=== PATIENT | female | born 1950 | race Caucasian/White ===

== ENCOUNTER 2017-01-10 21:45 | Inpatient (IN) | payer OTHER ==
--- NOTE | 2017-01-10 22:05 | EDPHY ---
H & P Smoking Status: Former smoker Time Seen by Provider: 01/10/17 21:51 HPI/ROS: CHIEF COMPLAINT: Right ankle pain HISTORY OF PRESENT ILLNESS: This is a 66-year-old female brought in by EMS from home, patient states this morning around 6 o'clock she was twisting herself to open the refrigerator door when her foot got caught under the cabinet and she twisted and fell back landing on her butt. Patient states she got maybe the pain would get better throughout the day but has increased pain with weight-bearing. Denies any LOC, dizziness no other complaints. History of right lower extremity cellulitis she says being treated by her primary care provider. Patient states she had taken 1 of her OxyContin this evening with ibuprofen reports maybe a 3/10 pain. REVIEW OF SYSTEMS: Constitutional: No fever, no chills. Eyes: No discharge. No blurred vision ENT: No sore throat. Cardiovascular: No chest pain, no palpitations. Respiratory: No cough, no shortness of breath. Gastrointestinal: No abdominal pain, no vomiting. Genitourinary: No hematuria. Musculoskeletal: No back pain. Right ankle pain Skin: No rashes. Neurological: No headache. (Laly Colon) Physical Exam: General Appearance: Alert, no distress. Eyes: Pupils equal and round no pallor or injection. ENT, Mouth: Mucous membranes moist. Respiratory: There are no retractions, lungs are clear to auscultation. Cardiovascular: Regular rate and rhythm. Gastrointestinal: Abdomen is soft and nontender, no masses, bowel sounds normal. Neurological: No focal deficits, answering questions appropriately Skin: Warm and dry, no rashes. Healing ulcer noted to the dorsal aspect of right foot Musculoskeletal: Neck is supple nontender. Extremities: Right ankle tenderness at the right lateral malleolus, swelling noted decreased range of motion, positive CMS intact. Healing ulcer noted to the dorsal aspect of right foot some erythema noted nontender on palpate Psychiatric: Patient is oriented X 3, acting appropriate (Laly Colon) Constitutional: Initial Vital Signs Temperature (C) 36.6 C 01/10/17 21:59 Heart Rate 71 01/10/17 21:59 Respiratory Rate 20 01/10/17 21:59 Blood Pressure 172/55 H 01/10/17 21:59 O2 Sat (%) 94 01/10/17 21:59 O2 Delivery Mode Room Air Allergies/Adverse Reactions: amlodipine Allergy (Verified 01/11/17 02:28) Home Medications: Medication Instructions Recorded Armodafinil [Nuvigil 150mg] 150 mg PO DAILY 04/26/15 Dalfampridine [AMPYRA] 10 mg PO BIDMEAL 04/26/15 Interferon Beta-1A/Albumin [Rebif 44 mcg SQ MWF 04/26/15 Rebidose 44 Mcg/0.5 ml] [place]-3 Fatty Acids [Fish Oil 1000 1,000 mg PO DAILY 04/26/15 mg (*)] Ascorbic Acid [Vitamin C 250 mg 250 mg PO DAILY 04/27/15 (*)] Cyanocobalamin [Vitamin B12 (*)] 1,000 mcg SL DAILY 04/27/15 Levothyroxine [Synthroid 25 mcg 25 mcg PO DAILY06 04/27/15 (*)] Baclofen [Baclofen 20 mg (*)] 20 mg PO AD #90 tab 05/25/15 Cholecalciferol Vit D3 [Vitamin D3 2,000 units PO DAILY #30 cap 05/25/15 2000 units] Labetalol HCl [Trandate 100 mg (*)] 100 mg PO BID #60 tab 05/25/15 Pantoprazole Sodium [Protonix 40mg 40 mg PO DAILY #30 tab 05/25/15 (*)] Polyethylene Glycol 3350 [Miralax 17 gm PO DAILY #30 pkt 05/25/15 17 gm (*)] Sennosides/Docusate Sodium 1 - 2 tab PO BID #90 tab 05/25/15 [Senokot-S] Sodium Chloride [Salt Tablet] 1,000 mg PO DAILY #30 tab 05/25/15 Valsartan [Diovan (*)] 160 mg PO BID #60 tab 05/25/15 hydrALAZINE [Apresoline] 25 mg PO TID #90 tab 05/25/15 oxyCODONE CR [Oxycontin] 20 mg PO BID #30 tab 05/25/15 oxyCODONE IR [Oxycodone Ir (*)] 5 - 10 mg PO Q4 PRN #90 tab 05/25/15 Medical Decision Making - Diagnostics Imaging Results: Imaging Impressions Ankle X-Ray 01/10/17 22:02 Impression: 1. Acute minimally angulated distal fibular fracture. 2. Acute minimally angulated intra-articular distal tibia fracture. 3. Demineralization. ED Course/Re-evaluation: Discussed the plan of care: X-ray right ankle, ice pack 2304: Discussed patient with Dr. Duque, patient to be admitted to hospital and NPO surgery in the morning. Posterior long splint placed---> positive CMS intact 2309: Discussed patient admitted with Dr. Lee. CBC, BMP coags, UA with drug screen ordered. Patient and has been aware of admitting status angulated distal fibula fracture and angulated intra-articular distal tibia. Patient agreed with plan (Laly Colon) Differential Diagnosis: Other differential diagnosis considered but not limited to malleolar fracture, midshaft fibular fracture, and ankle dislocation (Laly Colon) Other Provider: PHYSICIAN DOCUMENTATION: The patient was evaluated and managed by the Physician Sulfide Head Operator. My co- signature indicates that I have reviewed this chart and I agree with the findings and plan of care as documented. I am the secondary supervising physician. (Sue Calderón) - Data Points Laboratory Results: Laboratory Results 01/10/17 21:50 01/10/17 21:50 01/10/17 01/10/17 01/10/17 21:50 21:50 21:50 WBC 6.21 10^3/uL 10^3/uL (3.80-9.50) RBC 3.11 10^6/uL L 10^6/uL (4.18-5.33) Hgb 9.7 g/dL L g/dL (12.6-16.3) Hct 29.5 % L % (38.0-47.0) MCV 94.9 fL fL (81.5-99.8) MCH 31.2 pg pg (27.9-34.1) MCHC 32.9 g/dL g/dL (32.4-36.7) RDW 13.9 % % (11.5-15.2) Plt Count 74 10^3/uL L 10^3/uL (150-400) MPV 11.9 fL H fL (8.7-11.7) Neut % (Auto) 81.7 % H % (39.3-74.2) Lymph % (Auto) 9.5 % L % (15.0-45.0) [place] % (Auto) 5.3 % % (4.5-13.0) Eos % (Auto) 2.7 % % (0.6-7.6) Baso % (Auto) 0.5 % % (0.3-1.7) Nucleat RBC Rel Count 0.0 % % (0.0-0.2) Absolute Neuts (auto) 5.07 10^3/uL 10^3/uL (1.70-6.50) Absolute Lymphs (auto) 0.59 10^3/uL L 10^3/uL (1.00-3.00) Absolute Monos (auto) 0.33 10^3/uL 10^3/uL (0.30-0.80) Absolute Eos (auto) 0.17 10^3/uL 10^3/uL (0.03-0.40) Absolute Basos (auto) 0.03 10^3/uL 10^3/uL (0.02-0.10) Absolute Nucleated RBC 0.00 10^3/uL 10^3/uL (0-0.01) Immature Gran % 0.3 % % (0.0-1.1) Immature Gran # 0.02 10^3/uL 10^3/uL (0.00-0.10) PT 13.5 SEC SEC (12.0-15.0) INR 1.04 (0.83-1.16) APTT 29.8 SEC SEC (23.0-38.0) Sodium 136 mEq/L mEq/L (134-144) Potassium 4.5 mEq/L mEq/L (3.5-5.2) Chloride 101 mEq/L mEq/L (97-110) Carbon Dioxide 20 mEq/l L mEq/l (22-31) Anion Gap 15 mEq/L mEq/L (8-16) BUN 44 mg/dL H mg/dL (7-23) Creatinine 1.4 mg/dL H mg/dL (0.6-1.0) Estimated GFR 38 Glucose 101 mg/dL H mg/dL (70-100) Calcium 10.0 mg/dL mg/dL (8.5-10.4) Medications Given: Discontinued Medications Baclofen (Baclofen) 10 mg PO ONCE ONE Stop: 01/11/17 03:39 Last Admin: 01/11/17 03:56 Dose: 10 mg Sodium Chloride (Ns) 1,000 mls @ 0 mls/hr IV ONCE ONE PRN Reason: Wide Open Stop: 01/10/17 23:47 Last Admin: 01/10/17 23:50 Dose: 1,000 mls Departure - Departure Disposition: [facility] In[facility] Acute Clinical Impression: Tibia/fibula fracture Qualifiers: Encounter type: initial encounter Fracture type: closed Laterality: right Qualified Code(s): S82.201A - Unspecified fracture of shaft of right tibia, initial encounter for closed fracture Condition: Good
[2017-01-10] MEDS ORDERED: NS 1,000 ML IV ONE (23:46)
[2017-01-11] LABS: % IMMATURE GRANULYOCYTES 0.3 % (0.0-1.1); ABSOLUTE IMMATURE GRANULOCYTES 0.02 10^3/uL (0.00-0.10); ADD DIFF? NO; ADD MORPH? NO; ADD SCAN? NO; ATYPICAL LYMPHOCYTE FLAG 0 (0-99); FRAGMENT RBC FLAG 0 (0-99); HEMATOCRIT 29.5 % (38.0-47.0); HEMOGLOBIN 9.7 g/dL (12.6-16.3); LEFT SHIFT FLG 0 (0-99); LIPEMIA HEMOLYSIS FLAG 80 (0-99); MEAN CELL HEMOGLOBIN 31.2 pg (27.9-34.1); MEAN CELL HEMOGLOBIN CONCENTR. 32.9 g/dL (32.4-36.7); MEAN CELL VOLUME 94.9 fL (81.5-99.8); MEAN PLATELET VOLUME 11.9 fL (8.7-11.7); PLATELET CLUMPS FLAG 0 (0-99); PLATELET COUNT 74 10^3/uL (150-400); RED BLOOD CELL COUNT 3.11 10^6/uL (4.18-5.33); RED CELL DISTRIBUTION WIDTH 13.9 % (11.5-15.2)
[2017-01-11 00:05] LABS: ANION GAP 15 mEq/L (8-16); CARBON DIOXIDE 20 mEq/l (22-31); CHLORIDE 101 mEq/L (97-110); CREATININE 1.4 mg/dL (0.6-1.0); GLOMERULAR FILTRATION RATE 38; GLUCOSE 101 mg/dL (70-100); POTASSIUM 4.5 mEq/L (3.5-5.2); SODIUM 136 mEq/L (134-144)
[2017-01-11 00:26] LABS: INR 1.04 (0.83-1.16); PROTIME(PATIENT) 13.5 SEC (12.0-15.0)
[2017-01-11 00:27] LABS: APTT 29.8 SEC (23.0-38.0)
[2017-01-11] MEDS ORDERED: ONDANSETRON 4 MG/2 ML VIAL IVP PRN (00:44)
[2017-01-11] MEDS ORDERED: ACETAMINOPHEN 325 MG TAB PO PRN (00:44)
[2017-01-11] MEDS ORDERED: ONDANSETRON DISINTEGRATING 4 MG TAB PO PRN (00:44)
[2017-01-11] MEDS ORDERED: NS 1,000 ML IV SCH (00:45)
[2017-01-11] MEDS: HYDROCODONE/APAP 5/325 TAB PO PRN ×3 (03:18→21:12)
--- NOTE | 2017-01-11 03:20 | PDGENHP ---
History and Physical - Chief Complaint fall - History of Present Illness Patient is a 66-year-old female with a history of multiple sclerosis, chronic anemia, hypertension, chronic lower extremity wounds who presents to the ED after a of fall. Fall occurred at around 5-6 a.m. on the morning of 01/10. Patient states she was in her kitchen with a lower cabinet drawer open, her R foot got caught on this open drawer, and she lost her balance twisting backwards landing on her buttocks. She did not hit her head or lose consciousness. Her was able to helped her into her wheelchair and she did not seek immediate medical attention at that time. pain was initially 8 reported to be about a 3/10 intensity worsening acutely if she tried to bear weight on her leg. As the day progressed, it became apparent patient would not be able to bear weight due to the pain, so at this time she decided to come to the ED for further evaluation. At home she took ibuprofen 400 mg x2 and also oxycodone 5 mg IR x2. She denies any weakness, numbness or tingling in the foot distal to the pain. Patient also denies any recent fevers, chills, cough, congestion, chest pain, palpitations, shortness of breath or exertional symptoms. She does have gait disturbances due to her MS, with a mechanical fall in 2014 resulting in R hip fracture. She apparently switches between ambulating with a walker and using wheelchair. More recent fall about 6 months ago has resulted in chronic hull wounds, for which she is being managed by her PMD. On arrival to the ED patient was afebrile hemodynamically stable. X-ray of the right lower extremity revealed angulated acute fracture of the distal tibia and fibula. Labs, including CBC, BMP and coags were within normal limits. Orthopedics was consulted and recommended surgical correction of the fractures in the morning. She was then admitted to the hospital service for further management. History Information - Allergies/Home Medication List Allergies/Adverse Reactions: amlodipine Allergy (Verified 01/11/17 02:28) Home Medications: Armodafinil [Nuvigil 150mg] 150 mg PO DAILY 04/26/15 [Last Taken 05/05/15 10:00] Dalfampridine [AMPYRA] 10 mg PO BIDMEAL 04/26/15 [Last Taken 05/05/15 09:00] Interferon Beta-1A/Albumin [Rebif Rebidose 44 Mcg/0.5 ml] 44 mcg SQ MWF [Last Taken 05/05/15 11:50] [place]-3 Fatty Acids [Fish Oil 1000 mg (*)] 1,000 mg PO DAILY 04/26/15 [Last Taken 05/05/15 09:00] Ascorbic Acid [Vitamin C 250 mg (*)] 250 mg PO DAILY 04/27/15 [Last Taken 09:00] Cyanocobalamin [Vitamin B12 (*)] 1,000 mcg SL DAILY 04/27/15 [Last Taken 09:00] Levothyroxine [Synthroid 25 mcg (*)] 25 mcg PO DAILY06 04/27/15 [Last Taken 09/18 04:40] I have personally reviewed and updated: family history, medical history, social history, surgical history - Past Medical History Additional medical history: Multiple sclerosis. history of chronic hyponatremia due to SIADH. chronic anemia. hypertension. lower extremity chronic wounds. fall risk - Surgical History Additional surgical history: right femoral fracture repair - Family History Positive for: non-pertinent - Social History Smoking Status: Never smoked Alcohol Use: None Drug Use: Marijuana ( medicinal for treatment of her MS) Additional social history: patient lives with her , occasionally ambulates, but uses wheelchair for long distance. Review of Systems ROS: 10pt was reviewed & negative except for what was stated in HPI & below Physical Exam Temp Pulse Resp BP Pulse Ox 36.9 C 88 16 162/88 H 94 01/11/17 00:51 01/11/17 00:51 01/11/17 00:51 01/11/17 00:51 01/11/17 00:51 Constitutional: no apparent distress, appears nourished, not in pain Eyes: PERRL, anicteric sclera, EOMI Ears, Nose, Mouth, Throat: moist mucous membranes, hearing normal, ears appear normal, no oral mucosal ulcers Cardiovascular: regular rate and rhythym, no murmur, rub, or gallop, pulses symmetric bilaterally, No JVD, No edema Peripheral Pulses: 2+: dorsalis-pedis (R), dorsalis-pedis (L) Respiratory: no respiratory distress, no rales or rhonchi, clear to auscultation Gastrointestinal: normoactive bowel sounds, soft, non-tender abdomen, no palpable masses, No guarding, No rebound, No distension Genitourinary: no bladder fullness, no bladder tenderness Skin: warm, normal color, no fluctuance, other (chronic wound on dorsal aspect of R foot, bilateral anterior hull wounds, wrapped ), No mottled Musculoskeletal: full muscle strength, no muscle tenderness, no joint effusions , pain with ROM (of RLE/foot) Neurologic: AAOx3, sensation intact bilaterally, CN II-XII Intact, No weakness, No numbness, No pronator drift, No facial droop Psychiatric: not anxious, not encephalopathic, thought process linear Lab Data & Imaging Review 01/10/17 21:50 01/10/17 21:50 WBC 6.21 10^3/uL (3.80-9.50) 01/10/17 21:50 RBC 3.11 10^6/uL (4.18-5.33) L 01/10/17 21:50 Hgb 9.7 g/dL (12.6-16.3) L 01/10/17 21:50 Hct 29.5 % (38.0-47.0) L 01/10/17 21:50 MCV 94.9 fL (81.5-99.8) 01/10/17 21:50 MCH 31.2 pg (27.9-34.1) 01/10/17 21:50 MCHC 32.9 g/dL (32.4-36.7) 01/10/17 21:50 RDW 13.9 % (11.5-15.2) 01/10/17 21:50 Plt Count 74 10^3/uL (150-400) L 01/10/17 21:50 MPV 11.9 fL (8.7-11.7) H 01/10/17 21:50 Neut % (Auto) 81.7 % (39.3-74.2) H 01/10/17 21:50 Lymph % (Auto) 9.5 % (15.0-45.0) L 01/10/17 21:50 [place] % (Auto) 5.3 % (4.5-13.0) 01/10/17 21:50 Eos % (Auto) 2.7 % (0.6-7.6) 01/10/17 21:50 Baso % (Auto) 0.5 % (0.3-1.7) 01/10/17 21:50 Nucleat RBC Rel Count 0.0 % (0.0-0.2) 01/10/17 21:50 Absolute Neuts (auto) 5.07 10^3/uL (1.70-6.50) 01/10/17 21:50 Absolute Lymphs (auto) 0.59 10^3/uL (1.00-3.00) L 01/10/17 21:50 Absolute Monos (auto) 0.33 10^3/uL (0.30-0.80) 01/10/17 21:50 Absolute Eos (auto) 0.17 10^3/uL (0.03-0.40) 01/10/17 21:50 Absolute Basos (auto) 0.03 10^3/uL (0.02-0.10) 01/10/17 21:50 Absolute Nucleated RBC 0.00 10^3/uL (0-0.01) 01/10/17 21:50 Immature Gran % 0.3 % (0.0-1.1) 01/10/17 21:50 Immature Gran # 0.02 10^3/uL (0.00-0.10) 01/10/17 21:50 PT 13.5 SEC (12.0-15.0) 01/10/17 21:50 INR 1.04 (0.83-1.16) 01/10/17 21:50 APTT 29.8 SEC (23.0-38.0) 01/10/17 21:50 Sodium 136 mEq/L (134-144) 01/10/17 21:50 Potassium 4.5 mEq/L (3.5-5.2) 01/10/17 21:50 Chloride 101 mEq/L (97-110) 01/10/17 21:50 Carbon Dioxide 20 mEq/l (22-31) L 01/10/17 21:50 Anion Gap 15 mEq/L (8-16) 01/10/17 21:50 BUN 44 mg/dL (7-23) H 01/10/17 21:50 Creatinine 1.4 mg/dL (0.6-1.0) H 01/10/17 21:50 Estimated GFR 38 01/10/17 21:50 Glucose 101 mg/dL (70-100) H 01/10/17 21:50 Calcium 10.0 mg/dL (8.5-10.4) 01/10/17 21:50 Visualized and Interpreted imaging results: Yes Interpretation: R ankle x-ray: angulated distal tibia/fibula fracture Assessment & Plan Assessment: Patient is a 66/F with MS, complicated by unsteady gait, also with hypertension , chronic anemia who presents to the ED with mechanical fall with resulting R leg trauma. ED evaluation reveals acute distal tibia/fibula fracture, requiring surgical correction. Plan: # acute tibia/fibula fracture Orthopedics has been contacted by ED staff and recommend surgical correction of the fractures. R lower extremity remains neurovascularly intact, has been placed in a posterior splint, pending surgery. Patient has no cardiac risk factors, denies any cardiac symptoms. Will check EKG pre-op, if normal can proceed with surgery. - f/u ortho recommendations - pain control as needed - NPO # fall Patient's description of the fall sounds mechanical in nature. She does have a history of recurrent falls, as a complication of her MS. Will place on fall precautions, obtain PT/OT evaluation post-op. Will also monitor electrolytes, provide gentle IV fluid hydration and check UA to rule out underlying infection as contributors of fall. # chronic hypertension BP is elevated on presentation, likely due to acute pain. Will resume home BP meds and control pain as needed. # elevated BUN/cr Creatinine is at about previous levels. Will monitor with IVF hydration, avoid nephrotoxic agents. # chronic anemia, new thrombocytopenia H/H appear to be at patient's previous baseline. Platelets are lower then previous levels. Will trend, may need transfusion prior to surgery. # hypothyroidism Will check TSh and resume home synthroid dosing. # dispo: admit to inpatient service for likely > 2 MN stay #gen: NPO DVT ppx: lovenox after surgery Full code
[2017-01-11] MEDS ORDERED: BACLOFEN 10 MG TAB PO ONE (03:38)
[2017-01-11] MEDS: HYDROmorphONE/DILAUDID 1 MG/ML SYR IVP PRN ×2 (04:01→10:06)
[2017-01-11 04:47] LABS: % IMMATURE GRANULYOCYTES 0.4 % (0.0-1.1); ABSOLUTE IMMATURE GRANULOCYTES 0.02 10^3/uL (0.00-0.10); ADD DIFF? NO; ADD MORPH? NO; ADD SCAN? NO; ATYPICAL LYMPHOCYTE FLAG 0 (0-99); FRAGMENT RBC FLAG 0 (0-99); HEMATOCRIT 27.7 % (38.0-47.0); LEFT SHIFT FLG 0 (0-99); LIPEMIA HEMOLYSIS FLAG 80 (0-99); MEAN CELL HEMOGLOBIN 30.6 pg (27.9-34.1); MEAN CELL HEMOGLOBIN CONCENTR. 32.5 g/dL (32.4-36.7); MEAN CELL VOLUME 94.2 fL (81.5-99.8); MEAN PLATELET VOLUME 11.3 fL (8.7-11.7); PLATELET CLUMPS FLAG 0 (0-99); PLATELET COUNT 63 10^3/uL (150-400); RED BLOOD CELL COUNT 2.94 10^6/uL (4.18-5.33); RED CELL DISTRIBUTION WIDTH 13.9 % (11.5-15.2)
[2017-01-11 05:03] LABS: ALANINE AMINOTRANSFERASE 39 IU/L (9-52); ALKALINE PHOSPHATASE 148 IU/L (38-126); ANION GAP 11 mEq/L (8-16); ASPARTATE AMINOTRANSFERASE 28 IU/L (14-46); BILIRUBIN,TOTAL 0.6 mg/dL (0.1-1.4); CALCIUM 9.1 mg/dL (8.5-10.4); CARBON DIOXIDE 19 mEq/l (22-31); CHLORIDE 108 mEq/L (97-110); CREATININE 1.2 mg/dL (0.6-1.0); GLOMERULAR FILTRATION RATE 45; GLUCOSE 90 mg/dL (70-100); MAGNESIUM 1.8 mg/dL (1.6-2.3); POTASSIUM 4.2 mEq/L (3.5-5.2); SODIUM 138 mEq/L (134-144); TOTAL PROTEIN 6.5 g/dL (6.3-8.2)
--- NOTE | 2017-01-11 06:56 | SOAPPROG ---
[facility] Progress Note Assessment/Plan: Assessment/Plan: Acute distal tibia/fibula fx, intra-articular -Pt scheduled for closed reduction under anesthesia in the OR on to be performed by Dr. Duque -Pt will likely be transitioned into a cast for immobilization, bivalved and windowed for ipsilateral LE ulceration management -Pt will have PT/OT ordered for mobilization after reduction, she will remain NWB on her RLE. -Pt to elevate her RLE at all times while in bed, encourage OOB as tolerated -Pt to continue current PO pain regimen after surgery as tolerated -Pt to begin Lovenox for VTE chemoprophylaxis while immobile 01/11/17 07:15 Subjective: Consultation note dictated Objective: Vital Signs Temp Pulse Resp BP Pulse Ox 36.9 C 71 15 150/71 H 91 L 01/11/17 04:00 01/11/17 04:00 01/11/17 04:00 01/11/17 04:00 01/11/17 04:00 Laboratory Results 01/11/17 04:33 01/11/17 04:33 01/10/17 01/11/17 01/12/17 05:59 05:59 05:59 Intake Total 1000 Output Total 200 Balance 800 PT 13.5 SEC (12.0-15.0) 01/10/17 21:50 INR 1.04 (0.83-1.16) 01/10/17 21:50 ICD10 Worksheet Patient Problems: Problems Problem Status Onset Tibia/fibula fracture Acute ARF (acute renal failure) Acute Anemia associated with acute blood loss Acute Hip fx Acute Hyponatremia Acute
[2017-01-11] MEDS ORDERED: ceFAZolin 2 GM/DEXTROSE 100 ML IV ONE (07:12)
[2017-01-11] MEDS ORDERED: ENOXAPARIN 40 MG/0.4 ML SYR SC SCH (09:00)
--- NOTE | 2017-01-11 09:52 | GCON ---
[f rep st] CONSULTATION ORTHOPEDIC CONSULTATION NOTE. CHIEF COMPLAINT: Right ankle pain. HISTORY OF PRESENT ILLNESS: The patient is a pleasant 66-year-old female, who presented to the [facility] emergency department on 01/11/2017 after suffering a mechanical fall. The p khai confirms a story that she was in her kitchen and tripped on an open cabinet door, catching he r right foot. She subsequently lost her balance, twisting backwards and landing on her backside. S he denies any loss of consciousness or any head or neck trauma. Her appears to have been pr esent and was able to help her into her wheelchair. They did not seek immediate medical attention, however the pain significantly increased as the day progressed, eventually presented to the ED for e valuation. After examination in the ED, the patient was placed in a posterior Ortho Glass splint wi th compressive Garcia dressing, and because of her comorbid conditions, was admitted to the [facility]. Orthopedics was consulted. Initially, based on the patient's radiographs, this injury appea rs to be surgical in nature due to its interarticular extension. However, based on the patient's hi story and current skin condition on the operative leg, this surgical intervention would be highly ri reagan at this time. The patient reports her pain is under control at this time. She states that she has not eaten or had any fluids since midnight, for the anticipation of surgery. Her was pr esent last night, but is not currently present in the room. She has no additional concerns or compl aints at this time. PAST MEDICAL HISTORY: This is significant for multiple sclerosis, history of chronic hyponatremia d ue to SIADH, chronic anemia, hypertension, lower extremity wounds (possible cellulitis), and normall y ambulates for short distances and uses a wheelchair at home. PAST SURGICAL HISTORY: This is significant for a right femoral fracture open reduction, internal fi xation. MEDICATIONS: Patient reports home medications Nuvigil, Ampyra, interferon beta-1A/albumin, omega-3 fish oils, vitamin C, vitamin B12 and Synthroid. ALLERGIES: Patient reports an allergy to amlodipine. SOCIAL HISTORY: Patient denies any current or former tobacco use. Patient denies any current alcoh ol consumption. Patient does note that she uses marijuana as a medicinal treatment for her multiple sclerosis. The patient reports that she lives at home with her , and again occasionally amb ulates, but generally uses a wheelchair for ambulation over long distances. FAMILY HISTORY: No significant contributory family history is reported today. REVIEW OF SYSTEMS: A 10-point review of systems was reviewed today with no additional concerns, com plaints or abnormal findings noted in the HPI or PMH. PHYSICAL EXAMINATION: VITAL SIGNS: Height is 135.26 cm, weight is 63.5 kg. Blood pressure is 150/ 71, heart rate 71 beats per minute, respirations 15 per minute, O2 sats are 91% on room air, tempera ture 36.9 degrees Celsius. GENERAL: Patient appears in NAD, WN, not in significant pain. HEENT: PERRLA, EOMI. Ears and nare s are patent without discharge. OP is clear. NECK: NTTP, no cervical LAD noted. CARDIOVASCULAR: RRR. RESPIRATORY: CTAB, no increased WOB not ed. ABDOMEN: Soft, NT/ND. MUSCULOSKELETAL: Examination of the right lower extremity reveals an i ntact Ortho Glass posterior splint. This was removed revealing mild swelling and ecchymosis over th e distal aspect of the right lower extremity, as well as over the ankle. Patient has TTP over the d istal fibula and distal tibia. Apprehensive with any motion. Skin is somewhat erythema. A pressur e ulcer is noted on the dorsum of the foot just distal to the web space of toes 4 and 5. An additio nal ulceration approximately 3.5 cm is noted on the anterior tibial surface, this was dressed with a n Adaptic dressing. Slight surrounding erythema is noted, without significant discharge at this robyn e. No induration is noted. Posterior calf has NTTP, no palpable vascular cords. Examination of th e left lower extremity reveals a dressed likely pressure ulcer on the left lateral aspect of the low er extremity. This is dressed and marked with wound care dressing and date. Patient is intact to light touch sensation distally. SKIN: See above dictation concerning lower ex tremities. Otherwise warm normal color. NEUROLOGIC: A and O x3, patient is slightly slow to answe r questions, and exhibits what appeared to be involuntary arm motions after being awakened from slee p for exam. She is unable to control these movements at this time. PSYCH: Patient is pleasant and cooperative with exam. Although slow to answer questions, patient gives appropriate answers. RADIOGRAPHS: Three views of the right ankle are reviewed today showing a mildly angulated distal fi bular fracture, and mildly angulated intra-articular distal tibia fracture. ASSESSMENT: Right distal fibular fracture, right distal tibia fracture, intra-articular. PLAN: This patient's case and radiographs were reviewed with Dr. Duque today, who also saw and exam ined the patient today. Normally, this type of fracture would require surgical intervention. Howev er, due to the open wound on the ipsilateral anterior thigh just above the surgical site, this would make such intervention highly risky. After treatment options were discussed with the patient, she has decided to proceed with a closed reduction under anesthesia to be performed in the OR later toda y by Dr. Duque. After this reduction, the patient will be likely placed in a cast for immobilizatio n, which will be bivalved and windowed for access to the patient's wounds. She will remain nonweigh tbearing on her right lower extremity, and receive evaluation by PT/OT. VTE chemoprophylaxis can be per medicine service as this patient will be slightly more mobile than usual. Normal VTE mechanica l prophylaxis with sequential compression devices and JAKE hose would be absolutely contraindicated i n this patient due to her right lower extremity open wounds, thus will encourage active ankle motion on the contralateral leg, and out of bed activities as tolerated. All the patient's questions have been answered today, and her concerns addressed. She has relayed her understanding of the current care plan and education presented today. However, I am not sure the patient can fully appreciate th e consent, so after reviewing a signed informed consent with the patient today, this will be held fo r review with the patient's later today before the procedure. Again, this patient has been seen and examined by Dr. Duque, who agrees with the above plan. /[id number]/MODL
--- NOTE | 2017-01-11 10:24 | HOSPPROG ---
Hospitalist Progress Note Assessment/Plan: Patient is a 66/F with MS new to my care 01/11, complicated by unsteady gait, also with hypertension, chronic anemia who presents to the ED with mechanical fall with resulting R leg trauma. ED evaluation reveals acute distal tibia/ fibula fracture, requiring surgical correction. Plan: # acute tibia/fibula fracture -OR later today for fracture manipulation and casting -cont iv/po opiates for pain control # fall Patient's description of the fall sounds mechanical in nature. She does have a history of recurrent falls, as a complication of her MS. Will place on fall precautions, obtain PT/OT evaluation post-op. Will also monitor electrolytes, provide gentle IV fluid hydration and check UA to rule out underlying infection as contributors of fall. # chronic hypertension resume home meds once reconciled # elevated BUN/cr (improving) Creatinine is at about previous levels. Will monitor with IVF hydration, avoid nephrotoxic agents. # chronic anemia, new thrombocytopenia H/H appear to be at patient's previous baseline. Platelets are lower then previous levels. -hold lmwh -repeat cbc in am -defer plt transfusion # hypothyroidism Will check TSh and resume home synthroid dosing. # dispo: admit to inpatient service for likely > 2 [place] stay #gen: NPO DVT ppx: lmwh on hold Full code Subjective: umcomfortable Objective: Vital Signs Temp Pulse Resp BP Pulse Ox 36.4 C 100 14 166/104 H 90 L 01/11/17 08:00 01/11/17 08:00 01/11/17 08:00 01/11/17 09:29 01/11/17 08:00 Laboratory Results 01/11/17 04:33 01/11/17 04:33 01/10/17 01/11/17 01/12/17 05:59 05:59 05:59 Intake Total 1000 Output Total 200 Balance 800 PT 13.5 SEC (12.0-15.0) 01/10/17 21:50 INR 1.04 (0.83-1.16) 01/10/17 21:50 - Physical Exam Constitutional: chronically ill appearing, uncomfortable Cardiovascular: regular rate and rhythym, no murmur, rub, or gallop Respiratory: no respiratory distress, no rales or rhonchi, clear to auscultation Skin: warm Neurologic: other (moves digits cr<3 sec) ICD10 Worksheet Patient Problems: Problems Problem Status Onset Hip fx Acute Hyponatremia Acute ARF (acute renal failure) Acute Anemia associated with acute blood loss Acute Tibia/fibula fracture Acute
--- NOTE | 2017-01-11 10:29 | CPEKG ---
Heart Rate: 61 RR Interval: 984 P-R Interval: 168 QRSD Interval: 94 QT Interval: 424 QTC Interval: 427 P [place]: 79 QRS [place]: 83 T Wave [place]: 82 EKG Severity - ABNORMAL ECG - EKG Impression: SINUS RHYTHM EKG Impression: BORDERLINE RIGHT AXIS DEVIATION EKG Impression: CONSIDER LEFT VENTRICULAR HYPERTROPHY EKG Impression: BORDERLINE INFERIOR Q WAVES Electronically Signed By: Joseph Otoole 11-Jan-2017 15:26:31
[2017-01-11] MEDS ORDERED: HYDROmorphONE/DILAUDID 1 MG/ML SYR IVP PRN (12:30)
[2017-01-11] MEDS ORDERED: IBUPROFEN 200 MG TAB PO PRN (13:34)
[2017-01-11] MEDS ORDERED: SENNOSIDES/DOCUSATE SODIUM TAB PO PRN (13:34)
[2017-01-11] MEDS ORDERED: POLYETHYLENE GLYCOL 3350 17 GM PKT PO PRN (13:34)
[2017-01-11] MEDS ORDERED: PROPOFOL 200 MG/20 ML VIAL ONE (13:55)
[2017-01-11] MEDS ORDERED: LIDOCAINE 2% 100 MG/5 ML SYR ONE (13:56)
[2017-01-11] MEDS ORDERED: METOCLOPRAMIDE 10 MG/2 ML VIAL IVP PRN (14:47)
[2017-01-11] MEDS ORDERED: DIPHENOXYLATE/ATROPINE LOMOTIL 1 TAB PO PRN (14:47)
[2017-01-11] MEDS ORDERED: CYCLOBENZAPRINE 10 MG TAB PO PRN (14:47)
[2017-01-11] MEDS ORDERED: diphenhydrAMINE 25 MG CAP PO PRN (14:47)
[2017-01-11] MEDS ORDERED: TEMAZEPAM 15 MG CAP PO PRN (14:47)
[2017-01-11] MEDS ORDERED: PROMETHAZINE HCL 25 MG/ML INJ IVP PRN (14:47)
--- NOTE | 2017-01-11 15:47 | GOP ---
[f rep st] OPERATIVE REPORT DATE OF OPERATION: 01/11/2017 SURGEON: Tino Duque MD ANESTHESIA: General. PREOPERATIVE DIAGNOSIS: 1. Right distal 3rd tibia and fibular fracture. 2. Chronic wound ulcers, right lower extremity. POSTOPERATIVE DIAGNOSIS: 1. Right distal 3rd tibia and fibular fracture. 2. Chronic wound ulcers, right lower extremity. PROCEDURE PERFORMED: Closed reduction, application of patellar tendon bearing short leg cast, right lower extremity for tibia and fibular fracture (displaced). FINDINGS: DESCRIPTION OF PROCEDURE: The patient was taken to the operating room and administered general anes thesia, placed in the supine position. Her extremity was cradled in a leg tucker. The end of the t able was let down. The FluoroScan unit was brought into position. The fracture was manipulated out of its varus alignment and distracted slightly to do so. The fracture was then placed into a short -leg cast. The cast was univalved anteriorly and also openings were made over the ulcerations for w ound care. The patient tolerated the procedure well and was transferred back to recovery in stable condition. There were no operative complications. COMPLICATIONS: None. Copy requested to: Dr. Duque /[id number]/MODL
[2017-01-11] MEDS: FUROSEMIDE 20 MG TAB PO SCH (16:08)
[2017-01-11] MEDS: hydrALAZINE 20 MG/ML VIAL IVP PRN (18:29)
[2017-01-11] MEDS: FAMOTIDINE 20 MG TAB PO SCH (20:05)
[2017-01-11] MEDS: LABETALOL HCL 100 MG TAB PO SCH (20:05)
[2017-01-11] MEDS: BACLOFEN 20 MG TAB PO SCH (20:05)
[2017-01-11 20:06] LABS: COLOR PALE YELLOW; LEUKOCYTE ESTERASE,URINE NEGATIVE (NEGATIVE); NITRITE,URINE NEGATIVE (NEGATIVE)
[2017-01-11] MEDS: Dalfampridine [Ampyra] 10 MG PO SCH (20:47)
[2017-01-12] MEDS: hydrALAZINE 20 MG/ML VIAL IVP PRN (04:32)
[2017-01-12] MEDS: LEVOTHYROXINE 25 MCG TAB PO SCH (04:35)
[2017-01-12 05:08] LABS: HEMATOCRIT 28.8 % (38.0-47.0); HEMOGLOBIN 9.4 g/dL (12.6-16.3)
[2017-01-12] MEDS: CHOLECALCIFEROL VIT D3 1,000 UNITS TAB PO SCH (08:27)
[2017-01-12] MEDS: CYANO/VITAMIN B12 1000 MCG TAB SL SCH (08:28)
[2017-01-12] MEDS: OMEGA-3 FATTY ACIDS 1,000 MG CAP PO SCH (08:28)
[2017-01-12] MEDS: BACLOFEN 20 MG TAB PO SCH ×2 (08:28→20:48)
[2017-01-12] MEDS: ASCORBIC ACID 250 MG TAB PO SCH (08:28)
[2017-01-12] MEDS: LABETALOL HCL 100 MG TAB PO SCH ×2 (08:28→20:47)
[2017-01-12] MEDS: Armodafinil [Nuvigil 150mg] 150 MG PO SCH (08:29)
[2017-01-12] MEDS: FAMOTIDINE 20 MG TAB PO SCH ×2 (08:29→20:48)
[2017-01-12] MEDS: FUROSEMIDE 20 MG TAB PO SCH (08:29)
[2017-01-12] MEDS: ASPIRIN 325 MG TAB PO SCH (08:29)
[2017-01-12] MEDS: Dalfampridine [Ampyra] 10 MG PO SCH ×2 (08:30→15:32)
--- NOTE | 2017-01-12 10:25 | SOAPPROG ---
SOAP Progress Note Assessment/Plan: Assessment/Plan: Acute distal tibia/fibula fx, intra-articular -Pt scheduled for closed reduction under anesthesia in the OR on to be performed by Dr. Duque -Pt in a SAC, univalved and windowed for ipsilateral LE ulceration management -Cont PT/OT, pt will remain TDWB on her RLE. -Pt to elevate her RLE at all times while in bed, encourage OOB as tolerated -Pt to continue current PO pain regimen after surgery as tolerated -Wound care consult in place for ulcerations -Cont Lovenox for VTE chemoprophylaxis while immobile 01/11/17 07:15 01/12/17 10:23 Subjective: Pt seen at bedside. Much more responsive than yesterday. Does report some discomfort in her RLE, but agrees that it is tolerable on her current medication. She notes she has not yet been up with PT/OT yet today. She states she is tolerating her diet and medications well. She has no additional concerns or complaints at this time. Objective: Vital Signs Temp Pulse Resp BP Pulse Ox 37.5 C 96 22 H 183/86 H 96 01/12/17 07:43 01/12/17 07:43 01/12/17 07:43 01/12/17 07:43 01/12/17 07:43 Laboratory Results 01/12/17 04:35 01/11/17 04:33 01/11/17 01/12/17 01/13/17 05:59 05:59 05:59 Intake Total 1000 1488 Output Total 200 2500 Balance 800 -1012 PT 13.5 SEC (12.0-15.0) 01/10/17 21:50 INR 1.04 (0.83-1.16) 01/10/17 21:50 Pt seen at bedside. A&Ox3, appropriate mood and affect, pleasant and cooperative with exam. Exam of RLE reveals intact cast with anterior univalving ,and windows over the anterior lower leg and distally on the dorsum and lateral portion of the foot. Pt is able to move her toes well, good capillary refilly. No significant surrounding erythema, calor, discharge or induration noted. DNVI BLE. ICD10 Worksheet Patient Problems: Problems Problem Status Onset Tibia/fibula fracture Acute ARF (acute renal failure) Acute Anemia associated with acute blood loss Acute Hip fx Acute Hyponatremia Acute
--- NOTE | 2017-01-12 12:21 | WOCRNPDOC ---
MATT Advanced Assessment Note - Skin Integrity Problem, Advanced Assess Left Lower Leg Dressing Type: Allevyn Life, Vaseline Gauze Dressing Dressing Description: Intact Exudate Amount: Scant Exudate Color: Reddish/Yellow Exudate Characteristic(s): Cloudy, Serosanguinous Integumentary Issue Intervention: Visualized Under Dressing Ally Wound Swelling: Mild Wound Bed Color: Red, Yellow Wound Bed Constitution: Smooth Tissue, Mixed Loose & Adhered Slough/Eschar Site Odor: None Site Measurement - Head-to-Toe Length X Width X Depth (cm): 3.0hyq8foi9.2cm Skin Integrity Problem Comment: Full-thickness wound r/t fall last spring(per 's report), now chronic, non-healing. 50/50 smooth tissue/slough mix in wound bed, w/ ally-wound erythema and mild swelling noted. Patient exhibits non- verbal signs of pain during assessment of this wound. Will initiate topical wound care at this time, follow up on Monday 01/15. Right Anterior Lower Leg Dressing Type: Vaseline Gauze Dressing Dressing Description: Intact Exudate Amount: Scant Exudate Color: Reddish/Yellow Exudate Characteristic(s): Cloudy, Serosanguinous Integumentary Issue Intervention: Dressing Applied, Silver Gel Applied Ally Wound Tissue: Erythema, Swollen Ally Wound Swelling: Mild Wound Bed Color: Black, Red, Yellow Wound Bed Constitution: Smooth Tissue, Mixed Loose & Adhered Slough/Eschar Wound Edges: Punched Out, Well Defined Site Odor: None Site Measurement - Head-to-Toe Length X Width X Depth (cm): 5.3cmx3.5cmx0.4cm Skin Integrity Problem Comment: Wound noted on anterior RLE, r/t trauma that occurred during a fall last Spring per 's report. Presently there is an intact cast to this extremity w/ cut-out around wound for access. Wound is a mix of slough, eschar, and smooth tissues, dry along wound margins. There is erythema immediately ally-wound, w/ mild swelling noted. Patient unable to verbalize pain using the numeric pain scale, but was observed pulling this leg up and grimacing when wound was assessed. Patient has been treating the site w/ antibiotic ointment and gauze dressing, and most recently w/ Lidocaine gel, per 's report. This wound is chronic in appearance, w/ non-granular smooth tissue and no granulation observed. is unaware of any previous vascular studies. This wound will require long-term, ongoing wound care after discharge. Spoke w/ regarding [facility] after discharge for ongoing care, and he was amenable to this plan. Wound care will follow patient while she is here, rounding again on Monday 01/15. Right Dorsal Foot Dressing Type: Open to Air Exudate Characteristic(s): Dried Integumentary Issue Intervention: Silver Gel Applied Ally Wound Tissue: Erythema (mild), Swollen Ally Wound Swelling: Mild Wound Bed Color: Brown, Yellow Wound Bed Constitution: Scab (dried slough and serous exudate) Site Odor: None Site Measurement - Head-to-Toe Length X Width X Depth (cm): 1.9cmx0.8cmx0.3cm Skin Integrity Problem Comment: Dried, dessicated wound bed noted on R dorsal foot, wound cause by fall which occurred last spring. Mild swelling and erythema ally-wound. Will initiate topical tx to help debride the dried slough.
--- NOTE | 2017-01-12 14:58 | HOSPPROG ---
Hospitalist Progress Note Assessment/Plan: Patient is a 66/F with MS new to my care 01/11, complicated by unsteady gait, also with hypertension, chronic anemia who presents to the ED with mechanical fall with resulting R leg trauma. ED evaluation reveals acute distal tibia/ fibula fracture, requiring surgical correction. Plan: # acute tibia/fibula fracture Status post closed reduction on 01/11/[address] Duque - continue wound care # fall Patient's description of the fall sounds mechanical in nature. She does have a history of recurrent falls, as a complication of her MS. Will place on fall precautions, obtain PT/OT evaluation post-op. Will also monitor electrolytes, provide gentle IV fluid hydration and check UA to rule out underlying infection as contributors of fall. # chronic hypertension resume home meds # elevated BUN/cr consistent with dehydration (improving) - continue IV fluids # chronic anemia, new thrombocytopenia H/H appear to be at patient's previous baseline. Platelets are lower then previous levels. -hold lmwh -repeat cbc in am -defer plt transfusion # hypothyroidism Will check TSh and resume home synthroid dosing. # dispo: admit to inpatient service for likely > 2 [place] stay #gen: NPO DVT ppx: lmwh on hold Full code Subjective: no new complaints. still very weak and does not seem safe to go home Objective: Vital Signs Temp Pulse Resp BP Pulse Ox 37.0 C 92 22 H 105/48 L 95 01/12/17 11:31 01/12/17 11:31 01/12/17 11:31 01/12/17 11:31 01/12/17 11:31 Laboratory Results 01/12/17 04:35 01/11/17 04:33 01/11/17 01/12/17 01/13/17 05:59 05:59 05:59 Intake Total 1000 1488 Output Total 200 2500 Balance 800 -1012 PT 13.5 SEC (12.0-15.0) 01/10/17 21:50 INR 1.04 (0.83-1.16) 01/10/17 21:50 - Physical Exam Constitutional: chronically ill appearing Cardiovascular: regular rate and rhythym, no murmur, rub, or gallop Respiratory: no respiratory distress, no rales or rhonchi, clear to auscultation Musculoskeletal: other ( cast in place right lower extremity) ICD10 Worksheet Patient Problems: Problems Problem Status Onset Hip fx Acute Hyponatremia Acute ARF (acute renal failure) Acute Anemia associated with acute blood loss Acute Tibia/fibula fracture Acute
[2017-01-12] MEDS ORDERED: D5W 1/2 NS 1,000 ML IV SCH (15:00)
[2017-01-12] MEDS: HYDROCODONE/APAP 5/325 TAB PO PRN (19:21)
[2017-01-13] MEDS: HYDROCODONE/APAP 5/325 TAB PO PRN (02:17)
[2017-01-13] MEDS: oxyCODONE IR 5 MG TAB PO PRN ×2 (04:35→14:39)
[2017-01-13] MEDS: LEVOTHYROXINE 25 MCG TAB PO SCH (04:36)
[2017-01-13 05:09] LABS: HEMATOCRIT 26.1 % (38.0-47.0); HEMOGLOBIN 8.7 g/dL (12.6-16.3)
[2017-01-13 07:29] VITALS: BP 177/74; PULSE 66; RESP 16; TEMP 98.9; O2SAT 95
[2017-01-13] MEDS ORDERED: INTERFERON BETA SQ SCH (08:00)
[2017-01-13] MEDS ORDERED: ALBUMIN SQ SCH (08:00)
[2017-01-13] MEDS: CHOLECALCIFEROL VIT D3 1,000 UNITS TAB PO SCH (09:00)
[2017-01-13] MEDS: BACLOFEN 20 MG TAB PO SCH (09:00)
[2017-01-13] MEDS: ASPIRIN 325 MG TAB PO SCH (09:00)
[2017-01-13] MEDS: OMEGA-3 FATTY ACIDS 1,000 MG CAP PO SCH (09:00)
[2017-01-13] MEDS: ASCORBIC ACID 250 MG TAB PO SCH (09:00)
[2017-01-13] MEDS: CYANO/VITAMIN B12 1000 MCG TAB SL SCH (09:01)
[2017-01-13] MEDS: LABETALOL HCL 100 MG TAB PO SCH (09:01)
[2017-01-13] MEDS: FAMOTIDINE 20 MG TAB PO SCH (09:01)
[2017-01-13] MEDS: Armodafinil [Nuvigil 150mg] 150 MG PO SCH (09:12)
[2017-01-13] MEDS: Dalfampridine [Ampyra] 10 MG PO SCH ×2 (09:14→13:19)
--- NOTE | 2017-01-13 09:56 | SOAPPROG ---
SOAP Progress Note Assessment/Plan: Assessment/Plan: s/p closed reduction left intra-articular distal tibia/fibula fracture - Continue pain management - PT/OT today - TDWB RLE - Keep RLE elevated while in bed - Lovenox for VTE chemoprophylaxis 01/13/17 09:46 Subjective: Pt states she is doing well and pain is minimal. She has been OOB to the chair and took a few steps with PT yesterday. Pt denies fever, chills, chest pain, SOB , abdominal pain, N/V/D, calf pain, numbness and tingling. Objective: Vital Signs Temp Pulse Resp BP Pulse Ox 37.2 C 66 16 177/74 H 95 01/13/17 07:28 01/13/17 07:28 01/13/17 07:28 01/13/17 07:28 01/13/17 07:28 Laboratory Results 01/13/17 04:22 01/11/17 04:33 01/12/17 01/13/17 01/14/17 05:59 05:59 05:59 Intake Total 1488 2400 Output Total 2500 400 Balance -1012 2000 PT 13.5 SEC (12.0-15.0) 01/10/17 21:50 INR 1.04 (0.83-1.16) 01/10/17 21:50 Physical Exam - Physical Exam General Appearance: alert, no apparent distress Skin: normal color, warm/dry Extremities: normal capillary refill, other (Cast intact RLE), No pedal edema, No swelling Neuro/Psych: no motor/sensory deficits, alert, normal mood/affect, oriented x 3 ICD10 Worksheet Patient Problems: Problems Problem Status Onset Tibia/fibula fracture Acute ARF (acute renal failure) Acute Anemia associated with acute blood loss Acute Hip fx Acute Hyponatremia Acute
[2017-01-13] MEDS ORDERED: Dalfampridine [Ampyra] 10 MG PO SCH (13:15)
--- NOTE | 2017-01-13 14:08 | GDS ---
[f rep st] DISCHARGE SUMMARY DISCHARGE DIAGNOSES: 1. Status post closed reduction of a left intra-articular distal tibia/fibula fracture done by Dr. Duqeu on 01/11/2017. 2. Multiple sclerosis. 3. Chronic hypertension. 4. Dehydration. 5. Chronic anemia and thrombocytopenia. 6. Hypothyroidism. CONSULTANTS: Dr. Duque, orthopedics. HOSPITAL COURSE AND STAY BY PROBLEM: Fall sustaining acute tibia/fibula fracture: The patient was admitted to the hospital where she was taken to the operating room by Dr. Duque on 01/11/2017 where she underwent a closed reduction, and the application of a patellar tendon bearing short leg cast of the right lower extremity for intra-articular tibia and fibula fracture. She is also noted to have chronic ulcers on her right leg, which have been addressed by Wound Care. Initially on her presentation, she was extremely weak and confused. Since being in the hospital, he r confusion has improved, and she has returned to her baseline. PHYSICAL EXAM: VITAL SIGNS: On day of discharge, blood pressure 177/74, pulse of 66, respiratory r ate 16, O2 saturation 95% on room air. Temperature afebrile. EXTREMITIES: The right lower extremi ty is in a cast. She flexes and extends her digits. Cap refill is less 2 seconds. PROCEDURES DONE THIS HOSPITAL STAY: Closed reduction of right tibia/fibula fracture done by Dr. Delia panchal on 01/11/2017. DISCHARGE MEDICATIONS: Please refer to discharge medication reconciliation in [facility] for details. DISCHARGE INSTRUCTIONS: The patient will be discharged from the hospital where she should follow up with Dr. Duque as directed. She will need ongoing management of her wounds at the [facility] after discharge with dressing changes to her right foot every 3 days, as well as needed. She s hould cleanse with normal saline and gauze and apply SilvaSorb and wound gel to the wound bed. She should cover with a [employer] hydrocolloid dressing. Dressing for the left and right leg wounds als o to be done every 3 days. There she was recommended to cover with a piece of Hydrofera Blue and Al levyn Life dressing. /[id number]/MODL
--- NOTE | 2017-01-13 15:46 | PDIAF ---
- Diagnosis Diagnosis: tib/fib fracture Code Status: Full Code - Medication Management Discharge Medications: Medications to Continue on Transfer Armodafinil [Nuvigil 150mg] 150 mg PO DAILY 04/26/15 [Last Taken 05/05/15 10:00] Dalfampridine [AMPYRA] 10 mg PO BIDMEAL 04/26/15 [Last Taken 05/05/15 09:00] Melfa-3 Fatty Acids [Fish Oil 1000 mg (*)] 1,000 mg PO DAILY 04/26/15 [Last Taken 05/05/15 09:00] Ascorbic Acid [Vitamin C 250 mg (*)] 250 mg PO DAILY 04/27/15 [Last Taken 09:00] Cyanocobalamin [Vitamin B12 (*)] 1,000 mcg SL DAILY 04/27/15 [Last Taken 09:00] Levothyroxine [Synthroid 25 mcg (*)] 25 mcg PO DAILY06 04/27/15 [Last Taken 09/18 04:40] Cholecalciferol Vit D3 [Vitamin D3 2000 units] 2,000 units PO DAILY #30 cap [Last Taken Unknown] oxyCODONE IR [Oxycodone Ir (*)] 5 - 10 mg PO Q4 PRN #90 tab 05/25/15 [Last Taken Unknown] Baclofen [Baclofen 20 mg (*)] 40 mg PO DAILY 01/11/17 [Last Taken Unknown] Baclofen [Baclofen 20 mg (*)] 60 mg PO HS 01/11/17 [Last Taken Unknown] Furosemide [Lasix 20 MG (*)] 20 mg PO BIDDIUR 01/11/17 [Last Taken Unknown] Ibuprofen [Motrin (*)] 400 mg PO Q6 PRN 01/11/17 [Last Taken Unknown] Interferon Beta-1A/Albumin [Rebif Rebidose 22 Mcg/0.5 ml] 22 mcg SQ MWF [Last Taken 01/10/17] Labetalol HCl [Trandate 100 mg (*)] 200 mg PO BID 01/11/17 [Last Taken Unknown] Polyethylene Glycol 3350 [Miralax 17 gm (*)] 17 gm PO DAILY PRN 01/11/17 [Last Taken Unknown] Sennosides/Docusate Sodium [Senokot-S] 1 - 2 tab PO BID PRN 01/11/17 [Last Taken Unknown] hydrALAZINE [Apresoline 50 mg (*)] 50 mg PO TID 01/11/17 [Last Taken Unknown] Aspirin [Aspirin 325 mg (*)] 325 mg PO DAILY tab 01/13/17 [Last Taken Unknown] oxyCODONE IR [Oxycodone Ir (*)] 5 - 10 mg PO Q4 PRN #30 tab 01/13/17 [Last Taken Unknown] Discharge Medications: Refer to the Discharge Home Medication list for PRN reason. - Orders Services needed: Registered Nurse, Physical Therapy Diet Recommendation: no restrictions on diet Diet Texture: Regular Texture Diet - Follow Up Care Current Providers and Referrals: Patient,NotPresent [Unknown] - As per Instructions Tino Duque MD [Medical Doctor] - (Call as soon as possible to schedule follow up appointment )
== END 2017-01-13 14:49 | disposition home health service (06) | DRG 563 ==
LOC: EDUNIT# → F3N 01-11 00:36
PROVIDERS: ADMIT Internal Medicine; ATTEND Internal Medicine
PROC: 0SSFXZZ Reposition Right Ankle Joint, External Approach (ICD-10-PCS; principal; 2017-01-11 13:56)
PROC: 2W3QX2Z Immobilization of Right Lower Leg using Cast (ICD-10-PCS; principal; 2017-01-11 13:56)
DX: S82.391A Other fracture of lower end of right tibia, initial encounter for closed fracture (principal); S82.491A Other fracture of shaft of right fibula, initial encounter for closed fracture; G35 Multiple sclerosis; I10 Essential (primary) hypertension; E86.0 Dehydration; D64.9 Anemia, unspecified; E03.9 Hypothyroidism, unspecified; D69.6 Thrombocytopenia, unspecified; Z87.891 Personal history of nicotine dependence; W01.0XXA Fall on same level from slipping, tripping and stumbling without subsequent striking against object, initial encounter; Y92.010 Kitchen of single-family (private) house as the place of occurrence of the external cause
CPT/HCPCS: 80305; 97162-GP; 97166-GO; 97530-GO; 97530-GP; 97535-GO; G8978-GP-CM; G8979-GP-CK; G8987-GO-CL; G8988-GO-CJ; J0360; J1170; J1650; J2001; J2704

== ENCOUNTER 2017-06-27 10:21 | Inpatient (IN) | payer OTHER ==
--- NOTE | 2017-06-27 11:00 | EDPHY ---
H & P Time Seen by Provider: 06/27/17 10:46 - Medical/Surgical History Hx Asthma: No Hx Chronic Respiratory Disease: No Hx Diabetes: No Hx Cardiac Disease: Yes Hx Renal Disease: No Hx Cirrhosis: No Hx Alcoholism: No Hx HIV/AIDS: No Hx Splenectomy or Spleen Trauma: No Other PMH: MS, arthroscopic knee Rt, HTN, ORIF on the rt femur - Social History Smoking Status: Never smoked Constitutional: Initial Vital Signs Temperature (C) 36.8 C 06/27/17 10:20 Heart Rate 83 06/27/17 10:20 Respiratory Rate 16 06/27/17 10:20 Blood Pressure 180/95 H 06/27/17 10:20 O2 Sat (%) 91 L 06/27/17 10:20 O2 Delivery Mode Room Air Allergies/Adverse Reactions: amlodipine Allergy (Verified 01/11/17 02:28) Home Medications: Medication Instructions Recorded Armodafinil [Nuvigil 150mg] 150 mg PO DAILY 04/26/15 Dalfampridine [AMPYRA] 10 mg PO BIDMEAL 04/26/15 [place]-3 Fatty Acids [Fish Oil 1000 1,000 mg PO DAILY 04/26/15 mg (*)] Ascorbic Acid [Vitamin C 250 mg 250 mg PO DAILY 04/27/15 (*)] Cyanocobalamin [Vitamin B12 (*)] 1,000 mcg SL DAILY 04/27/15 Levothyroxine [Synthroid 25 mcg 25 mcg PO DAILY06 04/27/15 (*)] Cholecalciferol Vit D3 [Vitamin D3 2,000 units PO DAILY #30 cap 05/25/15 2000 units] oxyCODONE IR [Oxycodone Ir (*)] 5 - 10 mg PO Q4 PRN #90 tab 05/25/15 Baclofen [Baclofen 20 mg (*)] 40 mg PO DAILY 01/11/17 Baclofen [Baclofen 20 mg (*)] 60 mg PO HS 01/11/17 Furosemide [Lasix 20 MG (*)] 20 mg PO BIDDIUR 01/11/17 Ibuprofen [Motrin (*)] 400 mg PO Q6 PRN 01/11/17 Interferon Beta-1A/Albumin [Rebif 22 mcg SQ MWF 01/11/17 Rebidose 22 Mcg/0.5 ml] Labetalol HCl [Trandate 100 mg (*)] 200 mg PO BID 01/11/17 Polyethylene Glycol 3350 [Miralax 17 gm PO DAILY PRN 01/11/17 17 gm (*)] Sennosides/Docusate Sodium 1 - 2 tab PO BID PRN 01/11/17 [Senokot-S] hydrALAZINE [Apresoline 50 mg (*)] 50 mg PO TID 01/11/17 Aspirin [Aspirin 325 mg (*)] 325 mg PO DAILY tab 01/13/17 oxyCODONE IR [Oxycodone Ir (*)] 5 - 10 mg PO Q4 PRN #30 tab 01/13/17 Medical Decision Making - Diagnostics Imaging Results: Imaging Impressions Tibia/Fibula X-Ray 06/27/17 11:01 Impression: Acute proximal tibial and fibular fractures. Ankle fractures appear to be healing with persistent angulation. Suspect diffuse osteoporosis. This patient would benefit from a DEXA scan and bone building pharmacologic intervention. Imaging: Discussed imaging studies w/ hogshead stock clerk Radiologist, I viewed and interpreted images myself ED Course/Re-evaluation: CHIEF COMPLAINT: Right leg pain HISTORY OF PRESENT ILLNESS: 67-year-old female who is wheelchair bound with several chronic medical problems. She states that she slid out of the wheelchair yesterday evening and hurt her right leg somewhere between her ankle and her knee. She also has a bruise on her hip but states that that does not hurt her. She is on a tremendous number of medications. The room smells like dirty urine. Patient denies any syncopal episodes but says she just sort of fell asleep and slept on the floor for the evening him presented here this morning. She did have a tib-fib fracture in January [address] Duque, orthopedic surgeon. REVIEW OF SYSTEMS: A 10 point review of systems was performed and is negative with the exception of the elements mentioned in the history of present illness. PHYSICAL EXAM: HR, BP, O2 Sat, RR. Temp noted General Appearance: Alert, well hydrated, appropriate, and non-toxic appearing. Head: Atraumatic without scalp tenderness or obvious injury Eyes: Pupils equal, round, reactive to light and accommodation, EOMI, no trauma , no injection. Ears: Clear bilaterally, no perforation, normal landmarks Nose: Atraumatic, no rhinorrhea, clear. Throat: There is no erythema or exudates, no lesions, normal tonsils, mucus membranes moist. Neck: Supple, 2+ carotid upstroke, nontender, no lymphadenopathy. Respiratory: No retractions, no distress, no wheezes, and no accessory muscle use. Lungs are clear to auscultation bilaterally. Cardiovascular: Regular rate and rhythm, no murmurs, rubs, or gallops. Bilateral carotid, radial, dorsalis pedis, and posterior tibial pulses intact. Good capillary refill all extremities. Gastrointestinal: Abdomen is soft, nontender, non-distended, no masses, no rebound, no guarding, no peritoneal signs. Musculoskeletal: Normal active ROM of all extremities, atraumatic. Neurological: Alert, appropriate, and interactive. The patient has normal DTRs and non-focal cranial nerves, motor, sensory, and cerebellar exam. Skin: Contusion right hip, decubitus on right buttocks it is healing, Romel boot on the right leg since this patient is ready being treated for right ankle problem with conservative measures casting, Mendiola boot, ankle splint. Otherwise, No rashes, good turgor, no nodules on palpation. Past medical history: Significant a number of medical problems triage notes reviewed past medical history reviewed Past surgical history: Past Surgical we reviewed all notes and history Family history: Noncontributory Social history: Single, unemployed, does not abuse tobacco drugs or alcohol DIAGNOSTICS/PROCEDURES/CRITICAL CARE TIME: Study: three views of the right tib-fib Indication: trauma Results: After viewing the images myself on the PACS system. My interpretation of the images is: no acute process. The radiologist interpretation is pending at the time of this dictation. I have discussed the above x-rays with the radiologist. DIFFERENTIAL DIAGNOSIS: The differential diagnosis for the patient's trauma included but was not limited to intracranial injury, long bone and pelvic bone fractures, spinal injury, intra-abdominal injury, and intra-thoracic injury. MEDICAL DECISION MAKING: This patient does not have any obvious deformity and she was splinted when she fell but she is complaining of pain in her tib-fib area on the right so we will perform an x-ray. Additionally, this patient smells like she has a urinary tract infection so we are checking urine and some laboratory studies. I believe she slipped out of the wheelchair simply because of her narcotics. 1218: Patient has a proximal right tib-fib spiral fracture 1224: Consulted with hospitalist service, Dr. Tyler accepts admission of this patient 1300: Consulted with Dr. Boyle, orthopedic surgeon, he recommends placing her in a knee immobilizer and admitting her. He agrees to consult on the patient. - Data Points Laboratory Results: Laboratory Results 06/27/17 11:10 06/27/17 11:10 06/27/17 06/27/17 11:10 11:10 WBC 6.63 10^3/uL 10^3/uL (3.80-9.50) RBC 3.27 10^6/uL L 10^6/uL (4.18-5.33) Hgb 10.3 g/dL L g/dL (12.6-16.3) Hct 29.9 % L % (38.0-47.0) MCV 91.4 fL fL (81.5-99.8) MCH 31.5 pg pg (27.9-34.1) MCHC 34.4 g/dL g/dL (32.4-36.7) RDW 14.9 % % (11.5-15.2) Plt Count 140 10^3/uL L 10^3/uL (150-400) MPV 9.7 fL fL (8.7-11.7) Neut % (Auto) 79.4 % H % (39.3-74.2) Lymph % (Auto) 10.7 % L % (15.0-45.0) Simpson % (Auto) 8.3 % % (4.5-13.0) Eos % (Auto) 0.8 % % (0.6-7.6) Baso % (Auto) 0.5 % % (0.3-1.7) Nucleat RBC Rel Count 0.0 % % (0.0-0.2) Absolute Neuts (auto) 5.27 10^3/uL 10^3/uL (1.70-6.50) Absolute Lymphs (auto) 0.71 10^3/uL L 10^3/uL (1.00-3.00) Absolute Monos (auto) 0.55 10^3/uL 10^3/uL (0.30-0.80) Absolute Eos (auto) 0.05 10^3/uL 10^3/uL (0.03-0.40) Absolute Basos (auto) 0.03 10^3/uL 10^3/uL (0.02-0.10) Absolute Nucleated RBC 0.00 10^3/uL 10^3/uL (0-0.01) Immature Gran % 0.3 % % (0.0-1.1) Immature Gran # 0.02 10^3/uL 10^3/uL (0.00-0.10) Sodium 141 mEq/L mEq/L (134-144) Potassium 4.1 mEq/L mEq/L (3.5-5.2) Chloride 108 mEq/L mEq/L (97-110) Carbon Dioxide 22 mEq/l mEq/l (22-31) Anion Gap 11 mEq/L mEq/L (8-16) BUN 26 mg/dL H mg/dL (7-23) Creatinine 1.0 mg/dL mg/dL (0.6-1.0) Estimated GFR 55 Glucose 98 mg/dL mg/dL (70-100) Calcium 9.3 mg/dL mg/dL (8.5-10.4) Creatine Kinase 367 IU/L H IU/L (0-156) CK-MB (CK-2) Fraction 4.57 ng/mL H ng/mL (0.00-3.19) CK-MB (CK-2) % 1.2 % % (0.0-4.0) Creatine Kinase Interp NEGATIVE (NEGATIVE) Departure - Departure Disposition: [facility] Inpatient Acute Clinical Impression: Tibia/fibula fracture Qualifiers: Encounter type: initial encounter Fracture type: closed Laterality: right Qualified Code(s): S82.201A - Unspecified fracture of shaft of right tibia, initial encounter for closed fracture Condition: Fair Report Scribed for: Matt Rodriguez Report Scribed by: Mounika Raphael Date of Report: 06/27/17 Time of Report: 12:22
[2017-06-27 11:18] LABS: % IMMATURE GRANULYOCYTES 0.3 % (0.0-1.1); ABSOLUTE IMMATURE GRANULOCYTES 0.02 10^3/uL (0.00-0.10); ADD DIFF? NO; ADD MORPH? NO; ADD SCAN? NO; ATYPICAL LYMPHOCYTE FLAG 0 (0-99); FRAGMENT RBC FLAG 0 (0-99); HEMATOCRIT 29.9 % (38.0-47.0); HEMOGLOBIN 10.3 g/dL (12.6-16.3); LEFT SHIFT FLG 0 (0-99); LIPEMIA HEMOLYSIS FLAG 90 (0-99); MEAN CELL HEMOGLOBIN 31.5 pg (27.9-34.1); MEAN CELL HEMOGLOBIN CONCENTR. 34.4 g/dL (32.4-36.7); MEAN CELL VOLUME 91.4 fL (81.5-99.8); MEAN PLATELET VOLUME 9.7 fL (8.7-11.7); PLATELET CLUMPS FLAG 10 (0-99); PLATELET COUNT 140 10^3/uL (150-400); RED BLOOD CELL COUNT 3.27 10^6/uL (4.18-5.33); RED CELL DISTRIBUTION WIDTH 14.9 % (11.5-15.2)
[2017-06-27 11:33] LABS: ANION GAP 11 mEq/L (8-16); CALCIUM 9.3 mg/dL (8.5-10.4); CARBON DIOXIDE 22 mEq/l (22-31); CHLORIDE 108 mEq/L (97-110); GLOMERULAR FILTRATION RATE 55; GLUCOSE 98 mg/dL (70-100); POTASSIUM 4.1 mEq/L (3.5-5.2); SODIUM 141 mEq/L (134-144)
[2017-06-27 11:58] LABS: CK-MB INTERPRETATION NEGATIVE (NEGATIVE)
[2017-06-27 12:00] LABS: CREATINE KINASE-MB FRACTION 4.57 ng/mL (0.00-3.19)
[2017-06-27] MEDS ORDERED: PROPRANOLOL HCL 10 MG TAB PO PRN (14:07)
[2017-06-27] MEDS ORDERED: BACLOFEN 20 MG TAB PO PRN (14:07)
--- NOTE | 2017-06-27 14:13 | ASMTCMCOM ---
CM Note CM Note Notes: Pt admitted with tib/fib fx, possible UTI. Hx MS, wheelchair bound, falls in past with fx. Has been to [facility] Inpt Rehab and had [facility] in past. CM will follow for any d/c needs. Date Signed: 06/27/2017 02:12 PM Electronically Signed By:CLAIRE Jamison
[2017-06-27] MEDS: FUROSEMIDE 20 MG TAB PO SCH (14:16)
[2017-06-27] MEDS: LABETALOL HCL 200 MG TAB PO SCH ×2 (14:23→20:17)
[2017-06-27] MEDS ORDERED: ONDANSETRON 4 MG/2 ML VIAL IVP PRN (14:24)
[2017-06-27] MEDS: oxyCODONE IR 5 MG TAB PO PRN ×2 (15:08→20:16)
[2017-06-27] MEDS: Armodafinil [Nuvigil] 150 MG PO SCH (15:10)
[2017-06-27] MEDS: Dalfampridine [Ampyra] 10 MG PO SCH (15:12)
[2017-06-27] MEDS: NS 1,000 ML IV SCH (15:15)
--- NOTE | 2017-06-27 15:34 | GHP ---
[f rep st] HISTORY AND PHYSICAL DATE OF ADMISSION: 06/27/2017 CHIEF COMPLAINT: Leg pain. HISTORY: Patient is a 67-year-old female with advanced multiple sclerosis. She uses a combination o f wheelchair and walker. She lives alone. Last night she slid out of her wheelchair injuring her ri ght leg. She thinks she ran into a towel on the floor, and denies any medical symptoms attributing t o her fall. She laid on the floor all night because she could not get up and just fell asleep there. She had intermittent severe pain between the ankle and the knee all night long. She recently had a tib-fib fracture lower to the same leg, and had a closed reduction with Dr. Duque in January 2017. She subsequently had a cast in place which caused some chronic lower extremity ulcerat ions for which she has seen [facility]lo [facility]. PAST MEDICAL HISTORY: 1. Hypertension. 2. Multiple sclerosis. 3. Traumatic lower extremity wounds. PAST SURGICAL HISTORY: Right hip fracture, right tib-fib fracture, breast augmentation. MEDICATIONS: Please see computer record for full detailed list. ALLERGIES: Amlodipine causes swelling. Hydrochlorothiazide caused hyponatremia. SOCIAL HISTORY: No smoking. No alcohol. She uses medical marijuana. Her recently une xpectedly. She now lives alone in a home. She uses a combination of wheelchair and walker. REVIEW OF SYSTEMS: Complete review of systems obtained. Review of systems was negative for constitu tional, HEENT, GI, pulmonary, cardiovascular, , hematology, skin, musculoskeletal, endocrine, psych . Positives and negatives as in HPI. FAMILY HISTORY: Reviewed, noncontributory to presenting complaint. PHYSICAL EXAMINATION: GENERAL: Well-developed, well-nourished female, no acute distress. VITAL SIG NS: Temperature 37.3, pulse 78, blood pressure 197/77, saturating 94% on room air. EYES: Normal con junctivae. Pupils equal, round, react to light. ENT: Normal ears and nose. Hearing intact. Karen l teeth. Oropharynx moist. NECK: Trachea midline. No thyromegaly. CHEST: Normal respiratory eff ort. Lungs clear to auscultation bilaterally. CARDIOVASCULAR: Regular rhythm. No murmur. No lowe r extremity edema. ABDOMEN: Soft, nontender. No hepatosplenomegaly. SKIN: Warm, dry, intact. No rash. MUSCULOSKELETAL: No cyanosis or clubbing. Strength 5/5 upper and lower extremities. NEUROL OGIC: Cranial nerves intact. Normal sensation to light touch. PSYCH: Alert and oriented x3. Norm al affect. Normal judgment. Normal memory. LABORATORY DATA: White count 6.63, hematocrit 29.9, platelets 140. Sodium 141, potassium 4.1, chlor wes 108, bicarb 22, BUN 26, creatinine 1.0, glucose 98. Tib-fib x-ray shows a right acute proximal fracture. I reviewed medical records, including details regarding her recent tib-fib fracture with Dr. Duque in January 2017. She has been following with Dr. Diallo with frequent visits [facility]. ASSESSMENT/PLAN: 1. Tibia and fibular fracture. Orthopedic Surgery has been consulted, Dr. Boyle. While we await Melina vargas's recommendations, we will control her pain with intravenous Dilaudid as needed. It is uncle ar if this will be surgical. 2. Advanced multiple sclerosis. We will continue her home medication regimen. 3. Hypertension. Her blood pressures are elevated due to missed home medications this morning as milton womack was lying on the floor all night. We will dose these medications now and follow closely. 4. Traumatic lower extremity wounds. We will consult wound RN to follow. CODE STATUS: DNR. ADMISSION STATUS: 1. We will admit to inpatient. Anticipate greater than 2 midnights given severity of presentation. 2. DVT prophylaxis. We will initiate Lovenox once we are sure that no surgery is needed. /[id number]/MODL
--- NOTE | 2017-06-27 15:47 | PDMN ---
Medical Necessity Medical necessity: C/M review: est. > 2 MN LOS for eval and TX of acute right proximal tibia / fibula fracture requiring planned Orthopedic consult, Wound Care consult, ongoing IV fluids, acute inpt PT/OT, advanced multiple sclerosis, hypertension, traumatic lower extremity wounds present on admit, patient uses a combination of a wheelchair and a walker, 06/26/2017 patient slid out of wheelchair injuring right lower extremity per H/P.
--- NOTE | 2017-06-27 16:23 | ASMTCMCOM ---
CM Note CM Note Notes: Spoke with Sandi at [facility] ([phone]) earlier today; notified of patient's admission. Patient also receives homecare services through [facility]; Sandi says she spoke with them and they are aware patient is admitted to hospital. CM to follow. Date Signed: 06/27/2017 04:22 PM Electronically Signed By:Lindsay Avila RN
--- NOTE | 2017-06-27 16:27 | ASMTCASEMG ---
Living Arrangements What is your living Answers: Alone arrangement? Who do you live with? Type Of Residence What kind of residence do Answers: Unknown you live in? Services Used Prior to Admission Home Services Used Prior Answers: Home Health Services to Admission Home/Community Service Agency Name(s) Notes[facility] Evaluation Functional: ADL / IADL Answers: Chronic Illness Performance Deficits Due to: Deconditioning Mobility Issues Other Notes: MS, recent tib fib fracture + multiple low er extremity fractures in the past Date Signed: 06/27/2017 04:27 PM Electronically Signed By:Lindsay Avila RN
[2017-06-27] MEDS: HYDROmorphone HCL/NS/PF 0.4 MG/2 ML SYR IVP PRN (16:58)
--- NOTE | 2017-06-27 17:07 | PDGENHP ---
History and Physical History and Physical: chart reviewed films reviewed bed rest for now Ok to be in bed without brace ulcer and skin care prevention is a priority will discuss surgical candidacy with her upon examination
[2017-06-27] MEDS: BACLOFEN 20 MG TAB PO SCH (17:42)
--- NOTE | 2017-06-27 19:20 | GCON ---
[f rep st] CONSULTATION ORTHOPEDIC ER CONSULT CHIEF COMPLAINT: Right leg pain. 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 HISTORY OF PRESENT ILLNESS: The patient is a 67-year-old female who lives alone up in the [facility] area. She has been confined to a wheelchair and walker over the last 5 months from a nonsurgi baldemar treated right ankle fracture. She was just recently released over the last [address] Earl Duque for 100% weightbearing on that right side. She slipped on her wheelchair and fell today an d injured her right leg. She was seen here in the emergency room. X-rays were taken. Showed a mids haft to distal metaphyseal oblique comminuted tibia fracture. The alignment looks well maintained. Pertinent orthopedic examination reveals multiple small ulcerations on her heel and lateral forefoot. This seems to be chronic. She has a 25-degree foot progression angle that she stated she was exter sherwin rotated and casted in this position. She has been starting to put weight on this, but it has o nly been recently. She has been mostly wheelchair and transfers. Tibia and knee skin looked healthy. The ankle of that right side also looked healthy with some brawn y edema and stasis changes. IMPRESSION/RECOMMENDATION: We had a long discussion about treatment options. She understands the ri sks of surgery and nonsurgical measures. I told her that she would probably mostly be in some kind o f protected device incorporating her foot, ankle, and thigh to maintain the fracture configuration. She would most likely be wheelchair bound. I would allow her 25% weightbearing for transfers. We al so talked about the idea of an intramedullary nail that would allow her to weight bear right away. S he did like the idea of this, but there was some concern about her skin integrity and the ability for her to fend off infections. She is going to think about this and let us know what she would like to do. Meanwhile, she can eat. We will have her pillow elevated, decubitus ulcer prevention on the bi lateral lower extremities and she will talk with her family, who is close by. /[id number]/MODL
[2017-06-27] MEDS: PRAMIPEXOLE 0.25 MG TAB PO PRN (20:10)
[2017-06-27] MEDS: DIAZEPAM 5 MG TAB PO PRN (23:03)
[2017-06-27] MEDS: ACETAMINOPHEN 325 MG TAB PO PRN (23:31)
[2017-06-28] MEDS: LEVOTHYROXINE 25 MCG TAB PO SCH (05:39)
[2017-06-28] MEDS ORDERED: INTERFERON BETA SQ SCH (08:00)
[2017-06-28] MEDS ORDERED: [UNRECOGNIZED DRUG - OTHER] SQ SCH (08:00)
[2017-06-28] MEDS ORDERED: ALBUMIN SQ SCH (08:00)
[2017-06-28] MEDS: oxyCODONE IR 5 MG TAB PO PRN ×4 (08:08→21:50)
[2017-06-28] MEDS: BACLOFEN 20 MG TAB PO SCH ×2 (08:09→21:48)
[2017-06-28] MEDS: LABETALOL HCL 200 MG TAB PO SCH ×2 (08:09→21:51)
[2017-06-28] MEDS: FUROSEMIDE 20 MG TAB PO SCH ×2 (08:09→15:06)
[2017-06-28] MEDS: Dalfampridine [Ampyra] 10 MG PO SCH (08:10)
[2017-06-28] MEDS: Armodafinil [Nuvigil] 150 MG PO SCH (08:10)
[2017-06-28 08:12] LABS: % IMMATURE GRANULYOCYTES 0.5 % (0.0-1.1); ABSOLUTE IMMATURE GRANULOCYTES 0.03 10^3/uL (0.00-0.10); ADD DIFF? NO; ADD MORPH? NO; ADD SCAN? NO; ATYPICAL LYMPHOCYTE FLAG 10 (0-99); FRAGMENT RBC FLAG 0 (0-99); HEMATOCRIT 26.6 % (38.0-47.0); HEMOGLOBIN 9.2 g/dL (12.6-16.3); LEFT SHIFT FLG 0 (0-99); LIPEMIA HEMOLYSIS FLAG 90 (0-99); MEAN CELL HEMOGLOBIN 31.5 pg (27.9-34.1); MEAN CELL HEMOGLOBIN CONCENTR. 34.6 g/dL (32.4-36.7); MEAN CELL VOLUME 91.1 fL (81.5-99.8); MEAN PLATELET VOLUME 9.7 fL (8.7-11.7); PLATELET CLUMPS FLAG 0 (0-99); PLATELET COUNT 119 10^3/uL (150-400); RED BLOOD CELL COUNT 2.92 10^6/uL (4.18-5.33); RED CELL DISTRIBUTION WIDTH 15.2 % (11.5-15.2)
[2017-06-28 08:27] LABS: ANION GAP 10 mEq/L (8-16); CALCIUM 8.7 mg/dL (8.5-10.4); CARBON DIOXIDE 22 mEq/l (22-31); CHLORIDE 105 mEq/L (97-110); GLOMERULAR FILTRATION RATE 55; GLUCOSE 96 mg/dL (70-100); POTASSIUM 3.6 mEq/L (3.5-5.2); SODIUM 137 mEq/L (134-144)
[2017-06-28 08:44] LABS: CK-MB INTERPRETATION NEGATIVE (NEGATIVE)
[2017-06-28 08:50] LABS: CREATINE KINASE-MB FRACTION 5.15 ng/mL (0.00-3.19)
[2017-06-28] MEDS ORDERED: Dalfampridine [Ampyra] 10 MG PO SCH (09:00)
[2017-06-28] MEDS ORDERED: Armodafinil [Nuvigil] 150 MG PO SCH (09:00)
[2017-06-28] MEDS ORDERED: ENOXAPARIN 40 MG/0.4 ML SYR SC SCH (09:00)
[2017-06-28] MEDS ORDERED: ARMODAFINIL 150 MG PO SCH (09:00)
[2017-06-28] MEDS ORDERED: NON-FORMULARY NEW DRUG (Dalfampridine [Ampyra] 10 MG) PO SCH (09:00)
[2017-06-28 10:23] LABS: COLOR YELLOW; LEUKOCYTE ESTERASE,URINE 1+ (NEGATIVE); NITRITE,URINE POSITIVE (NEGATIVE)
[2017-06-28 10:25] LABS: RBC,URINE 15-25 /hpf (0-3); WBC,URINE 25-50 /hpf (0-3)
[2017-06-28] MEDS: HYDROmorphone HCL/NS/PF 0.4 MG/2 ML SYR IVP PRN (10:34)
--- NOTE | 2017-06-28 11:44 | CPEKG ---
Heart Rate: 67 RR Interval: 896 P-R Interval: 140 QRSD Interval: 86 QT Interval: 416 QTC Interval: 439 P [place]: 74 QRS [place]: 66 T Wave [place]: 79 EKG Severity - NORMAL ECG - EKG Impression: SINUS RHYTHM Electronically Signed By: Jaylon Mendosa 28-Jun-2017 17:48:48
--- NOTE | 2017-06-28 12:13 | SOAPPROG ---
SOAP Progress Note Assessment/Plan: Assessment: 67 yo well known to me Severe MS, had ankle fracture and was in cast for 12 weeks Initially had wounds on anterior hull and dorsum of foot. Recognized heel ulcer when cast was removed Ulcer on leg is healed. currently doing wound care to wound on Foot and Heel recently unexpectedly and had to put dog down Admitted for tibia fx Encouraged her to go to the OR with Dr. Boyle I can change dressings on foot when Dr. Boyle is done with his procedure S: In pain O: Foot totally everted in bed, replaced boot. Due to pain did not address wounds today. Dressings intact Plan: 06/28/17 12:10 Objective: Vital Signs Temp Pulse Resp BP Pulse Ox 36.9 C 77 16 143/57 H 94 06/28/17 07:36 06/28/17 11:57 06/28/17 11:57 06/28/17 11:57 06/28/17 11:57 Laboratory Results 06/28/17 08:05 06/28/17 08:05 06/27/17 06/28/17 06/29/17 05:59 05:59 05:59 Intake Total 400 1000 Output Total 150 875 Balance 250 125 ICD10 Worksheet Patient Problems: Problems Problem Status Onset Tibia/fibula fracture Acute ARF (acute renal failure) Acute Anemia associated with acute blood loss Acute Hip fx Acute Hyponatremia Acute
--- NOTE | 2017-06-28 13:59 | ASMTCMCOM ---
CM Note CM Note Notes: Dr Diallo is recommedning rehab for pt. Pt has MS and recently lost her who is her primary caregiver. Met with pt who agreed to a rehab stay for no longer than 2 weeks. She chose [facility]. Faxed referral. PASRR in chart and faxed. Date Signed: 06/28/2017 01:58 PM Electronically Signed By:Annelise Greenberg LCSW
--- NOTE | 2017-06-28 16:43 | HOSPPROG ---
Hospitalist Progress Note Assessment/Plan: * Tib/fib fracture - to OR tomorrow * LE wounds - Dr. Diallo following * Advanced MS -continue home meds * HTN -better with resuming home med regimen -hydralazine + labetalol * Possible UTI -IV ceftriaxone * Mild rhabdo -continue IVF - follow CPK Subjective: to or tomorrow, no new complaints. Objective: Vital Signs Temp Pulse Resp BP Pulse Ox 36.9 C 84 16 156/56 H 92 06/28/17 07:36 06/28/17 15:56 06/28/17 15:56 06/28/17 15:56 06/28/17 15:56 Laboratory Results 06/28/17 08:05 06/28/17 08:05 06/27/17 06/28/17 06/29/17 05:59 05:59 05:59 Intake Total 400 1000 Output Total 150 1175 Balance 250 -175 EKG viewed, my personal interpretation is - NSR, no ST changes Using IV Dilaudid for pain - Physical Exam Constitutional: no apparent distress, appears nourished, not in pain Cardiovascular: regular rate and rhythym, no murmur, rub, or gallop Respiratory: no respiratory distress, no rales or rhonchi, clear to auscultation Gastrointestinal: normoactive bowel sounds, soft, non-tender abdomen, no palpable masses Skin: no rashes or abrasions, no fluctuance, no induration Neurologic: AAOx3, sensation intact bilaterally Psychiatric: interacting appropriately, not anxious, not encephalopathic, thought process linear ICD10 Worksheet Patient Problems: Problems Problem Status Onset Tibia/fibula fracture Acute ARF (acute renal failure) Acute Anemia associated with acute blood loss Acute Hip fx Acute Hyponatremia Acute
[2017-06-28] MEDS: DIAZEPAM 5 MG TAB PO PRN (18:55)
[2017-06-28] MEDS: NS 1,000 ML IV SCH (23:32)
[2017-06-29] MEDS: ACETAMINOPHEN 325 MG TAB PO PRN ×2 (02:36→16:30)
[2017-06-29] MEDS: oxyCODONE IR 5 MG TAB PO PRN ×2 (02:37→15:42)
[2017-06-29 05:07] LABS: % IMMATURE GRANULYOCYTES 0.4 % (0.0-1.1); ABSOLUTE IMMATURE GRANULOCYTES 0.04 10^3/uL (0.00-0.10); ADD DIFF? NO; ADD MORPH? NO; ADD SCAN? NO; ATYPICAL LYMPHOCYTE FLAG 0 (0-99); FRAGMENT RBC FLAG 0 (0-99); HEMATOCRIT 25.9 % (38.0-47.0); HEMOGLOBIN 8.9 g/dL (12.6-16.3); LEFT SHIFT FLG 0 (0-99); LIPEMIA HEMOLYSIS FLAG 90 (0-99); MEAN CELL HEMOGLOBIN 31.2 pg (27.9-34.1); MEAN CELL HEMOGLOBIN CONCENTR. 34.4 g/dL (32.4-36.7); MEAN CELL VOLUME 90.9 fL (81.5-99.8); MEAN PLATELET VOLUME 10.4 fL (8.7-11.7); PLATELET CLUMPS FLAG 10 (0-99); PLATELET COUNT 112 10^3/uL (150-400); RED BLOOD CELL COUNT 2.85 10^6/uL (4.18-5.33)
[2017-06-29 05:17] LABS: ANION GAP 12 mEq/L (8-16); CALCIUM 8.5 mg/dL (8.5-10.4); CARBON DIOXIDE 23 mEq/l (22-31); CHLORIDE 102 mEq/L (97-110); CREATININE 1.1 mg/dL (0.6-1.0); GLOMERULAR FILTRATION RATE 50; GLUCOSE 98 mg/dL (70-100); POTASSIUM 3.7 mEq/L (3.5-5.2); SODIUM 137 mEq/L (134-144)
[2017-06-29 05:33] LABS: CK-MB INTERPRETATION NEGATIVE (NEGATIVE); CREATINE KINASE-MB FRACTION 2.53 ng/mL (0.00-3.19)
[2017-06-29] MEDS: LEVOTHYROXINE 25 MCG TAB PO SCH (06:11)
[2017-06-29] MEDS: LABETALOL HCL 200 MG TAB PO SCH ×2 (07:27→21:47)
[2017-06-29] MEDS ORDERED: ROPIVACAINE HCL 20 MG/10 ML INJ EP ONE (07:37)
--- NOTE | 2017-06-29 08:29 | SOAPPROG ---
SOAP Progress Note Assessment/Plan: Assessment: 67 yo well known to me Severe MS, had ankle fracture and was in cast for 12 weeks Initially had wounds on anterior hull and dorsum of foot. Recognized heel ulcer when cast was removed Ulcer on leg is healed. currently doing wound care to wound on Foot and Heel recently unexpectedly and had to put dog down Admitted for tibia fx Was going to go to OR for nail but has fever and more somulent. Agree not to proceed with operative fixation More ecchymosis on ankle and calcaneal wound is now with bone exposed. Don't think this is the source This will be challenging - debridement and local wound care or partial calcanectomy Observe fever and if infection source controlled then would be great if could proceed with OR so that she will not be in a full length cast again for a prolonged period of time. I placed demond and hydrofera blue on both wounds. Wound team can see this wee S:Sleepy today and febrile O: Wound on dorsum of foot with healthy granulation tissue. Washed with saline. Demond and Hydrofera blue Ecchymosis on ankle (new from Wed) Calcaneous wound much worse. Previously had healthy granulation tissue. Now is larger with deep tissue injury/ Debrided to bone. Will need more debridement Plan: 06/28/17 12:10 06/29/17 08:25 Objective: Vital Signs Temp Pulse Resp BP Pulse Ox 37.1 C 84 16 160/67 H 94 06/29/17 07:32 06/29/17 07:32 06/29/17 07:32 06/29/17 07:32 06/29/17 07:32 Laboratory Results 06/29/17 04:45 06/29/17 04:45 06/28/17 06/29/17 06/30/17 05:59 05:59 05:59 Intake Total 400 1000 Output Total 150 1475 400 Balance 250 475 -400 ICD10 Worksheet Patient Problems: Problems Problem Status Onset Tibia/fibula fracture Acute ARF (acute renal failure) Acute Anemia associated with acute blood loss Acute Hip fx Acute Hyponatremia Acute
--- NOTE | 2017-06-29 08:42 | SOAPPROG ---
SOAP Progress Note Assessment/Plan: Assessment: +UTI. Sleepy. Fever to 101. Plan: 06/29/17 08:39 Cancel surgery Splinted with long leg posterior clamshell with anterior tibial clamshell Blood cultures times 2 with fever of 101 Wound care. Heel ulcer looks worse per Dr Yoel Diallo at bedside with dressing change and debridement 2 v tibia in Preop with reasonable alignment Nonsurgical mgmt of tibia fracture for now. Pivot WB transfers OK. Right lower extremity hangar ortho for custom Ankle foot Thigh orthosis with anterior Song clamshell construct. Sheep skin insert. Objective: Vital Signs Temp Pulse Resp BP Pulse Ox 37.1 C 84 16 160/67 H 94 06/29/17 07:32 06/29/17 07:32 06/29/17 07:32 06/29/17 07:32 06/29/17 07:32 Laboratory Results 06/29/17 04:45 06/29/17 04:45 06/28/17 06/29/17 06/30/17 05:59 05:59 05:59 Intake Total 400 1000 Output Total 150 1475 400 Balance 250 -475 -400 ICD10 Worksheet Patient Problems: Problems Problem Status Onset Tibia/fibula fracture Acute ARF (acute renal failure) Acute Anemia associated with acute blood loss Acute Hip fx Acute Hyponatremia Acute
[2017-06-29] MEDS ORDERED: ENOXAPARIN 40 MG/0.4 ML SYR SC SCH (09:00)
[2017-06-29] MEDS: FUROSEMIDE 20 MG TAB PO SCH ×2 (09:40→15:42)
[2017-06-29] MEDS: BACLOFEN 20 MG TAB PO SCH ×2 (09:40→21:47)
[2017-06-29] MEDS: Dalfampridine [Ampyra] 10 MG PO SCH (09:42)
[2017-06-29] MEDS: Armodafinil [Nuvigil] 150 MG PO SCH (09:49)
[2017-06-29] MEDS: ENOXAPARIN 40 MG/0.4 ML SYR SC SCH (12:03)
--- NOTE | 2017-06-29 15:07 | HOSPPROG ---
Hospitalist Progress Note Assessment/Plan: * Tib/fib fracture -OR cancelled this am due to fever/somnolence - now resolved -patient would still like to proceed with surgery * UTI -IV ceftriaxone pending culture * Calcaneal wound - worsening - now with exposed bone -needs further debridement vs. calcanectomy -concerns regarding plan for cast of current fx as previous cast caused severe wounds * Advanced MS -continue home meds * HTN -better with resuming home med regimen -hydralazine + labetalol Subjective: Patient upset regarding plan for no surgery. She still wants to proceed Objective: Vital Signs Temp Pulse Resp BP Pulse Ox 36.8 C 74 18 144/64 H 100 06/29/17 11:28 06/29/17 11:28 06/29/17 11:28 06/29/17 11:28 06/29/17 11:28 Laboratory Results 06/29/17 04:45 06/29/17 04:45 06/28/17 06/29/17 06/30/17 05:59 05:59 05:59 Intake Total 400 1000 Output Total 150 1475 400 Balance 250 -475 -400 - Physical Exam Constitutional: no apparent distress, appears nourished, not in pain Cardiovascular: regular rate and rhythym, no murmur, rub, or gallop Respiratory: no respiratory distress, no rales or rhonchi, clear to auscultation Gastrointestinal: normoactive bowel sounds, soft, non-tender abdomen, no palpable masses Skin: no rashes or abrasions, no fluctuance, no induration Neurologic: AAOx3, sensation intact bilaterally Psychiatric: interacting appropriately, not anxious, not encephalopathic, thought process linear ICD10 Worksheet Patient Problems: Problems Problem Status Onset Tibia/fibula fracture Acute ARF (acute renal failure) Acute Anemia associated with acute blood loss Acute Hip fx Acute Hyponatremia Acute
[2017-06-30 05:07] LABS: % IMMATURE GRANULYOCYTES 0.4 % (0.0-1.1); ABSOLUTE IMMATURE GRANULOCYTES 0.03 10^3/uL (0.00-0.10); ADD DIFF? NO; ADD MORPH? NO; ADD SCAN? NO; ATYPICAL LYMPHOCYTE FLAG 0 (0-99); FRAGMENT RBC FLAG 0 (0-99); HEMATOCRIT 25.2 % (38.0-47.0); HEMOGLOBIN 8.6 g/dL (12.6-16.3); LEFT SHIFT FLG 0 (0-99); LIPEMIA HEMOLYSIS FLAG 90 (0-99); MEAN CELL HEMOGLOBIN 31.4 pg (27.9-34.1); MEAN CELL HEMOGLOBIN CONCENTR. 34.1 g/dL (32.4-36.7); MEAN PLATELET VOLUME 10.7 fL (8.7-11.7); PLATELET CLUMPS FLAG 0 (0-99); PLATELET COUNT 111 10^3/uL (150-400); RED BLOOD CELL COUNT 2.74 10^6/uL (4.18-5.33); RED CELL DISTRIBUTION WIDTH 14.9 % (11.5-15.2)
[2017-06-30 05:19] LABS: ANION GAP 13 mEq/L (8-16); CALCIUM 8.6 mg/dL (8.5-10.4); CARBON DIOXIDE 23 mEq/l (22-31); CHLORIDE 101 mEq/L (97-110); CREATININE 1.2 mg/dL (0.6-1.0); GLOMERULAR FILTRATION RATE 45; GLUCOSE 84 mg/dL (70-100); POTASSIUM 3.4 mEq/L (3.5-5.2); SODIUM 137 mEq/L (134-144)
[2017-06-30] MEDS: LEVOTHYROXINE 25 MCG TAB PO SCH (05:51)
[2017-06-30] MEDS: BACLOFEN 20 MG TAB PO SCH ×2 (09:02→20:38)
[2017-06-30] MEDS: LABETALOL HCL 200 MG TAB PO SCH ×2 (09:05→20:38)
[2017-06-30] MEDS: Dalfampridine [Ampyra] 10 MG PO SCH (09:06)
[2017-06-30] MEDS: FUROSEMIDE 20 MG TAB PO SCH ×2 (09:06→15:36)
[2017-06-30] MEDS: ENOXAPARIN 40 MG/0.4 ML SYR SC SCH (09:06)
[2017-06-30] MEDS: Armodafinil [Nuvigil] 150 MG PO SCH (09:35)
--- NOTE | 2017-06-30 10:17 | HOSPPROG ---
Hospitalist Progress Note Assessment/Plan: Patient is a 67 y/o female who has MS. She lives alone and slid out of her wheelchair sustaining a tib/fib fracture. Today is my first encounter with the patient, chart reviewed. * Tib/fib fracture -OR cancelled due to fever/somnolence - now resolved -Dr Boyle ordered a custom boot w sheep skin insert -no surgery at this time * UTI. E coli that is tavares sensitive. -IV ceftriaxone * Calcaneal wound - worsening - now with exposed bone -needs further debridement vs. calcanectomy -concerns regarding plan for cast of current fx as previous cast caused severe wounds * Advanced MS -continue home meds * HTN -better with resuming home med regimen -hydralazine + labetalol *anemia -reviewed her history/chronic. *hypokalemia -add protocol *Plan: could be dc soon after boot from [employer] is made/ doubtful she is safe to go home. She is planning on returning home. Subjective: Lovely has no pain as long as she doesn't move her leg. Objective: Vital Signs Temp Pulse Resp BP Pulse Ox 36.8 C 99 18 142/61 H 93 06/30/17 07:50 06/30/17 09:05 06/30/17 07:50 06/30/17 09:05 06/30/17 07:50 Microbiology 06/28/17 10:23 Urine Culture - Final Urine,Clean Catch Escherichia Coli Laboratory Results 06/30/17 04:30 06/30/17 04:30 06/29/17 06/30/17 07/01/17 05:59 05:59 05:59 Intake Total 1000 200 Output Total 1475 400 Balance -475 -200 - Physical Exam Constitutional: chronically ill appearing, other (thin), No not in pain Eyes: PERRL Ears, Nose, Mouth, Throat: hearing normal Cardiovascular: regular rate and rhythym Respiratory: no respiratory distress Skin: warm Musculoskeletal: generalized weakness Neurologic: AAOx3 Psychiatric: interacting appropriately ICD10 Worksheet Patient Problems: Problems Problem Status Onset Tibia/fibula fracture Acute ARF (acute renal failure) Acute Anemia associated with acute blood loss Acute Hip fx Acute Hyponatremia Acute
[2017-06-30] MEDS ORDERED: PROTOCOL POTASSIUM 1 DOSE MISC PRN (12:02)
[2017-06-30] MEDS: HYDROmorphone HCL/NS/PF 0.4 MG/2 ML SYR IVP PRN (12:40)
[2017-06-30] MEDS: ACETAMINOPHEN 325 MG TAB PO PRN (13:09)
[2017-06-30] MEDS: oxyCODONE IR 5 MG TAB PO PRN (15:35)
--- NOTE | 2017-06-30 15:51 | ASMTCMCOM ---
CM Note CM Note Notes: Patient's tib/fib fracture being managed medically. Vipin was here today to size her for a boot which should be ready tomorrow or the next day. In the meantime, orthopaedics wants to keep patient at hospital. She also has a pressure wound on her heel which will require further debridement or calcanectomy, either during this hospitalization or as an outpatient. Regarding dispo, per hospitalist, patient refused to discuss SNF today. Apparently, she had been amenable to [facility] (who has accepted her). I got a call from Bridgett Wu, who works at [facility] inpatient rehab and home care and who is very familiar with patient. She says that patient may be a good candidate for inpatient rehab (consult ordered). Otherwise, patient has been using [facility] and [facility] unskilled care 2x day. Staff here feel that she is not safe to discharge home, even with this level of support. Discharge plan is TBD pending the above. CM will follow. Date Signed: 06/30/2017 03:51 PM Electronically Signed By:Erika Mays RN
--- NOTE | 2017-06-30 18:18 | SOAPPROG ---
SOAP Progress Note Assessment/Plan: Assessment/plan: 67 yo well-known to our service for outpatient wound care Severe MS, had ankle fracture and was in cast for 12 weeks Initially had wounds on anterior hull and dorsum of foot. Recognized heel ulcer when cast was removed Now admitted with tibia fracture OR cancelled, now plan is no surgery and custom boot with sheep skin lining Unfortunately calcaneal wound significantly worse with bone exposed. Dr. Diallo to reach out to Dr. Sosa for possible partial calcanectomy - will know more tomorrow Lani/hydrofera blue to wounds, will need more extensive debridement Will continue to follow S: very alert and awake today. Having a very difficult time moving due to leg pain. O: laying in bed, comfortable, NAD No increased WOB RLE splint was recently removed and leg is about to be rewrapped Patient requested that I do not remove current dressings as this is painful. Would rather wait until next due dressing change Objective: Vital Signs Temp Pulse Resp BP Pulse Ox 36.6 C 67 18 117/43 L 96 06/30/17 15:42 06/30/17 15:42 06/30/17 15:42 06/30/17 15:42 06/30/17 15:42 Microbiology 06/28/17 10:23 Urine Culture - Final Urine,Clean Catch Escherichia Coli Laboratory Results 06/30/17 04:30 06/30/17 04:30 06/29/17 06/30/17 07/01/17 05:59 05:59 05:59 Intake Total 1000 200 930 Output Total 1475 400 Balance -475 -200 930 ICD10 Worksheet Patient Problems: Problems Problem Status Onset Tibia/fibula fracture Acute ARF (acute renal failure) Acute Anemia associated with acute blood loss Acute Hip fx Acute Hyponatremia Acute
[2017-06-30 19:15] LABS: POTASSIUM 3.2 mEq/L (3.5-5.2)
--- NOTE | 2017-06-30 21:15 | SOAPPROG ---
SOAP Progress Note Assessment/Plan: Assessment: +UTI. Sleepy. Fever to 101. Plan: 06/29/17 08:39 Cancel surgery Splinted with long leg posterior clamshell with anterior tibial clamshell Blood cultures times 2 with fever of 101 Wound care. Heel ulcer looks worse per Dr Yoel Diallo at bedside with dressing change and debridement 2 v tibia in Preop with reasonable alignment Nonsurgical mgmt of tibia fracture for now. Pivot WB transfers OK. Right lower extremity hangar ortho for custom Ankle foot Thigh orthosis with anterior Song clamshell construct. Sheep skin insert. 06/30/17 21:13 considering her skin and comorbidities with her heel. I would like to treat her tibial shaft fracture nonsurgically Song like fracture brace with the ability for excellent wound care of her foot. serial weekly xrays of tibia in splint Subjective: in good spirits. alert. on her computers Objective: Vital Signs Temp Pulse Resp BP Pulse Ox 36.8 C 75 19 126/55 H 92 06/30/17 19:35 06/30/17 20:38 06/30/17 19:35 06/30/17 20:38 06/30/17 19:35 Microbiology 06/28/17 10:23 Urine Culture - Final Urine,Clean Catch Escherichia Coli Laboratory Results 06/30/17 04:30 06/30/17 18:56 06/29/17 06/30/17 07/01/17 05:59 05:59 05:59 Intake Total 1000 200 930 Output Total 1475 400 750 Balance -475 -200 180 splint well placed. toes mobile and warm. no foul smell from the splint Hangar reportedly was at the bedside today ICD10 Worksheet Patient Problems: Problems Problem Status Onset Tibia/fibula fracture Acute ARF (acute renal failure) Acute Anemia associated with acute blood loss Acute Hip fx Acute Hyponatremia Acute
[2017-06-30] MEDS: PRAMIPEXOLE 0.25 MG TAB PO PRN (21:16)
[2017-06-30] MEDS ORDERED: POTASSIUM CL 20 MEQ TAB PO ONE (21:47)
[2017-06-30] MEDS: DIAZEPAM 5 MG TAB PO PRN (23:08)
[2017-07-01] MEDS: LEVOTHYROXINE 25 MCG TAB PO SCH (05:53)
--- NOTE | 2017-07-01 08:40 | SOAPPROG ---
CECILIO Progress Note Assessment/Plan: Assessment/plan: 67 yo well-known to our service for outpatient wound care Severe MS, had ankle fracture and was in cast for 12 weeks Initially had wounds on anterior hull and dorsum of foot. Recognized heel ulcer when cast was removed Now admitted with tibia fracture OR cancelled, now plan is no surgery and custom boot with sheep skin lining Unfortunately calcaneal wound significantly worse with bone exposed Lani/hydrofera blue to wounds, will need more extensive debridement Will continue to follow. Seen with Dr. Yoel Sosa will come see today to evaluate for partial calc versus extensive debridement S: O: laying in bed, comfortable, NAD No increased WOB RLE splint in place 07/01/17 08:40 Objective: Vital Signs Temp Pulse Resp BP Pulse Ox 36.6 C 70 16 163/63 H 89 L 07/01/17 08:00 07/01/17 08:00 07/01/17 08:00 07/01/17 08:00 07/01/17 08:00 Microbiology 06/28/17 10:23 Urine Culture - Final Urine,Clean Catch Escherichia Coli Laboratory Results 06/30/17 04:30 07/01/17 05:16 06/30/17 07/01/17 07/02/17 05:59 05:59 05:59 Intake Total 200 1230 Output Total 400 1120 Balance -200 110 ICD10 Worksheet Patient Problems: Problems Problem Status Onset Tibia/fibula fracture Acute ARF (acute renal failure) Acute Anemia associated with acute blood loss Acute Hip fx Acute Hyponatremia Acute
[2017-07-01] MEDS: Dalfampridine [Ampyra] 10 MG PO SCH (08:50)
[2017-07-01] MEDS: ENOXAPARIN 40 MG/0.4 ML SYR SC SCH (08:50)
[2017-07-01] MEDS: BACLOFEN 20 MG TAB PO SCH ×2 (08:50→21:14)
[2017-07-01] MEDS: ACETAMINOPHEN 325 MG TAB PO PRN ×2 (08:51→17:37)
[2017-07-01] MEDS: LABETALOL HCL 200 MG TAB PO SCH ×2 (08:51→21:15)
[2017-07-01] MEDS: FUROSEMIDE 20 MG TAB PO SCH ×2 (08:51→14:06)
[2017-07-01] MEDS: Armodafinil [Nuvigil] 150 MG PO SCH (08:52)
[2017-07-01] MEDS ORDERED: BISACODYL 10 MG SUPP PR PRN (10:38)
[2017-07-01] MEDS: oxyCODONE IR 5 MG TAB PO PRN ×4 (10:39→22:52)
--- NOTE | 2017-07-01 10:39 | HOSPPROG ---
Hospitalist Progress Note Assessment/Plan: Patient is a 67 y/o female who has MS. She lives alone and slid out of her wheelchair sustaining a tib/fib fracture. * Tib/fib fracture -Dr Boyle ordered a custom boot w sheep skin insert -no surgery at this time * UTI. E coli that is tavares sensitive. -IV ceftriaxone 06/28/received full treatment * Calcaneal wound - worsening - now with exposed bone -needs further debridement vs. calcanectomy -Dr Sosa to see today * Advanced MS -continue home meds * HTN -better with resuming home med regimen -hydralazine + labetalol *anemia -reviewed her history/chronic. *hypokalemia -add protocol *renal insufficiency -avoid nephrotoxic medications -recheck tomorrow *Plan: Dr Sosa to see today, recheck labs in a.m. Subjective: Lovely has no c/o pain/ feeling overall well. Objective: Vital Signs Temp Pulse Resp BP Pulse Ox 36.6 C 83 16 163/63 H 89 L 07/01/17 08:00 07/01/17 08:51 07/01/17 08:00 07/01/17 08:51 07/01/17 08:00 Microbiology 06/28/17 10:23 Urine Culture - Final Urine,Clean Catch Escherichia Coli Laboratory Results 06/30/17 04:30 07/01/17 05:16 06/30/17 07/01/17 07/02/17 05:59 05:59 05:59 Intake Total 200 1230 Output Total 400 1120 Balance -200 110 - Physical Exam Constitutional: no apparent distress, appears nourished, not in pain Eyes: PERRL Ears, Nose, Mouth, Throat: hearing normal Cardiovascular: regular rate and rhythym Respiratory: no respiratory distress Skin: warm Musculoskeletal: generalized weakness Neurologic: AAOx3 Psychiatric: interacting appropriately, not anxious, not encephalopathic ICD10 Worksheet Patient Problems: Problems Problem Status Onset Tibia/fibula fracture Acute ARF (acute renal failure) Acute Anemia associated with acute blood loss Acute Hip fx Acute Hyponatremia Acute
[2017-07-01] MEDS ORDERED: POLYETHYLENE GLYCOL 3350 17 GM PKT PO SCH (10:45)
[2017-07-01] MEDS: HYDROmorphone HCL/NS/PF 0.4 MG/2 ML SYR IVP PRN ×2 (14:02→17:42)
--- NOTE | 2017-07-01 14:53 | WOCRNPDOC ---
MATT Advanced Assessment Note - Skin Integrity Problem, Advanced Assess Right Heel Pressure Injury Dressing Type: Garcia Bandage, Hydrofera Blue Ready, Other Other Dressing Type: cast padding Dressing Description: Shadowed Exudate Amount: Moderate Exudate Color: Reddish/Yellow Exudate Characteristic(s): Serosanguinous Integumentary Issue Intervention: Dressing Changed, Steri Strips Applied (to secure HFB) Tawana Wound Tissue: Non-blanching Wound Bed Color: Red, Yellow Wound Bed Constitution: Red/Ashton - Non Granular Tissue, Bone, Adhered Slough Site Odor: Foul Pressure Injury Stage: Stage 4 Pressure Injury Present on Admit: Yes Skin Integrity Problem Comment: Ulcer w/ palpable bone on plantar R heel, w/ significant underlying necrosis throughout tawana-wound tissues. Foul odor detected when previous dressing removed. Difficult to assess erythema due to black tissues. Replaced Hydrofera Blue Ready dressing. Surgical consult from ortho pending. Right Dorsal Foot Dressing Type: Hydrofera Blue Ready Exudate Amount: Minimal Exudate Color: Reddish/Yellow Exudate Characteristic(s): Serosanguinous Integumentary Issue Intervention: Dressing Changed Tawana Wound Tissue: Erythema (mild) Twaana Wound Swelling: Mild Wound Bed Color: Red, Yellow Wound Bed Constitution: Granulation Tissue (90%), Adhered Slough (10%) Site Measurement - Head-to-Toe Length X Width X Depth (cm): 3cmx1.9cmx0.4cm Skin Integrity Problem Comment: Well-granulated, beefy wound on dorsal aspect of R foot, w/ trace adhered slough. Tawana-wound skin has scattered ecchymosis and mild swelling throughout. Patient has been treated by Dr. Diallo in the outpatient setting for this wound, and same dressing plan initiated while she is here. Lani and Hydrofera Blue Ready foam applied. Left Lower Leg Dressing Type: Adaptic Touch, Darryl, Mepilex Dressing Description: Clean/Dry, Intact Exudate Amount: None Integumentary Issue Intervention: Visualized Under Dressing Tawana Wound Tissue: Hemosiderin Staining, Venous Dermatitis Tawana Wound Swelling: None Wound Bed Color: Yellow Wound Bed Constitution: Dried Exudate Skin Integrity Problem Comment: Linear wound filled w/ dried, yellow exudate noted to L hull. No swelling, fluctuance, or erythema observed. Intensely dry skin tawana-wound, w/ skin changes consistent w/ venous insufficiency. Order for Atrac-tain lotion and non-adherent dressing q2 days to moisturize and portect site. Right Medial Ankle Pressure Injury Dressing Type: Open to Air Exudate Amount: None Exudate Characteristic(s): None Tawana Wound Tissue: Blanching, Erythema, Swollen Tawana Wound Swelling: Mild Wound Bed Color: Purple Wound Bed Constitution: Intact Serous Filled Blister Site Odor: None Site Measurement - Head-to-Toe Length X Width X Depth (cm): 1cmx1.5cmx bullae Pressure Injury Stage: Deep Tissue Injury (DTI) Skin Integrity Problem Comment: Dark purple, ecchymotic, intact bullae noted to R medial malleolus, of unknown etiology. This is possibly a pressure injury r/t patient's splint on this extremity. Periwound tissue is intact, w/ edema noted throughout the R ankle. No dressing applied, however splint reapplied to posterior aspect of patient's R leg, secure w/ garcia wraps. No pressure over this area at this time. Will continue to monitor as it evolves. Right Anterior Ankle Pressure Injury Dressing Type: Open to Air Exudate Amount: None Exudate Characteristic(s): None Tawana Wound Tissue: Swollen, Dry Wound Bed Color: Purple Wound Bed Constitution: Intact Serous Filled Blister Site Odor: None Site Measurement - Head-to-Toe Length X Width X Depth (cm): 2cmx2.1cm x bullae Pressure Injury Stage: Deep Tissue Injury (DTI) Skin Integrity Problem Comment: Intact serous bullae noted at talocrural joint on the anterior aspect of patient's R ankle. Appearance is indicative of pressure injury, though etiology is uncertain. Possibly from splint. Dry, edematous tissue periwound, intact w/ no erythema observed. No dressing applied , but this wound is presently covered by an GARCIA wrap securing patient's splint to the posterior aspect of her R leg. Wound care will continue to monitor as it evolves. Right Lateral Ankle Pressure Injury Dressing Type: Open to Air Exudate Amount: Scant Exudate Color: Reddish/Yellow Exudate Characteristic(s): Serosanguinous Tawana Wound Tissue: Swollen, Dry Tawana Wound Swelling: Mild Wound Bed Color: Purple Wound Bed Constitution: Draining Serous Blister Site Measurement - Head-to-Toe Length X Width X Depth (cm): [id number] bullae Pressure Injury Stage: Deep Tissue Injury (DTI) Skin Integrity Problem Comment: Large, ecchymotic bullae on patient's R lateral malleolus, partially intact and beginning to open/drain from proximal aspect. Periwound swelling observed, and patient's skin is intensely dry. Along with the other wounds on patient's R ankle, it is uncertain what cause these injuries. Most likely culprit is the splint, but to direct pressure was observed during assessment. GARCIA wrap reapplied to this extremity in order to secure splint. Wound care will continue to monitor.
[2017-07-01 18:48] LABS: POTASSIUM 4.1 mEq/L (3.5-5.2)
[2017-07-01] MEDS: SENNOSIDES/DOCUSATE SODIUM TAB PO SCH (21:17)
[2017-07-01] MEDS: PRAMIPEXOLE 0.25 MG TAB PO PRN (21:48)
[2017-07-01] MEDS: POLYETHYLENE GLYCOL 3350 17 GM PKT PO PRN (22:48)
[2017-07-01] MEDS: DIAZEPAM 5 MG TAB PO PRN (22:52)
--- NOTE | 2017-07-02 03:52 | GCON ---
[f rep st] CONSULTATION DATE OF CONSULTATION: 07/01/2017 REASON FOR CONSULTATION: Right heel ulcer. HISTORY OF PRESENT ILLNESS: The patient is a 67-year-old with very involved history the with right l ower extremity. She had previously sustained a right distal tibial fracture, treated with a cast, an d more recently sustained a right proximal tibial fracture which has been treated in a fracture brace . She developed a pressure ulcer on the posterior aspect of her right heel. This has been treated b y the wound care team with some waxing and waning improvement. PHYSICAL EXAMINATION: There is a full-thickness ulcer on the posterior aspect of the heel on the rig ht. There is no evidence of purulence or drainage. She has good capillary refill. ASSESSMENT: Right posterior heel ulcer. PLAN: There was concern of healing of this with nonoperative treatment. If persistent nonhealing oc curs from a "minimalist surgical standpoint," partial calcanectomy and wound closure with reattachmen t of the Achilles could be considered. She was informed that even if this does happen, she has arthr itic deformed ankle which is likely going to be a hindrance to ambulation. Additional options includ ing below-knee amputation were discussed. This is not her preference. She was informed that if pers istent nonhealing continues, this may be the only option possible. Unfortunately, prior to any amput ation and prosthetic fitting, her proximal tibial fracture would have to heal, making this more compl icated. /[id number]/MODL
[2017-07-02 05:16] LABS: ANION GAP 12 mEq/L (8-16); CALCIUM 8.9 mg/dL (8.5-10.4); CARBON DIOXIDE 23 mEq/l (22-31); CHLORIDE 103 mEq/L (97-110); GLOMERULAR FILTRATION RATE 55; GLUCOSE 93 mg/dL (70-100); POTASSIUM 4.2 mEq/L (3.5-5.2); SODIUM 138 mEq/L (134-144)
[2017-07-02] MEDS: LEVOTHYROXINE 25 MCG TAB PO SCH (06:03)
[2017-07-02] MEDS: hydrALAZINE 20 MG/ML VIAL IVP PRN (07:31)
--- NOTE | 2017-07-02 08:29 | SOAPPROG ---
SOAP Progress Note Assessment/Plan: Assessment/plan: 67 yo well-known to our service for outpatient wound care Severe MS, had ankle fracture and was in cast for 12 weeks Initially had wounds on anterior hull and dorsum of foot. Recognized heel ulcer when cast was removed Now admitted with tibia fracture Unfortunately calcaneal wound significantly worse with bone exposed Wound care following Looking fo OR time later this week for debridement - scheduled for tomorrow am at 9. NPO at midnight, hold AC. Abx OCTOR. Consent in chart Seen with Dr. Diallo S: patient more confused this morning. O: laying in bed, comfortable, mouth wide open and tongue sticking out occasionally No increased WOB RLE splint in place Objective: Vital Signs Temp Pulse Resp BP Pulse Ox 37.9 C 78 19 179/69 H 94 07/02/17 04:00 07/02/17 04:00 07/02/17 04:00 07/02/17 07:31 07/02/17 04:00 Laboratory Results 06/30/17 04:30 07/02/17 04:45 07/01/17 07/02/17 07/03/17 05:59 05:59 05:59 Intake Total 1230 1400 Output Total 1120 1500 Balance 110 -100 ICD10 Worksheet Patient Problems: Problems Problem Status Onset Tibia/fibula fracture Acute ARF (acute renal failure) Acute Anemia associated with acute blood loss Acute Hip fx Acute Hyponatremia Acute
[2017-07-02] MEDS: ENOXAPARIN 40 MG/0.4 ML SYR SC SCH (08:39)
[2017-07-02] MEDS: FUROSEMIDE 20 MG TAB PO SCH ×2 (08:39→14:03)
[2017-07-02] MEDS: LABETALOL HCL 200 MG TAB PO SCH ×2 (08:39→22:22)
[2017-07-02] MEDS: BACLOFEN 20 MG TAB PO SCH ×2 (08:39→22:20)
[2017-07-02] MEDS: ACETAMINOPHEN 325 MG TAB PO PRN ×2 (08:40→17:05)
[2017-07-02] MEDS: SENNOSIDES/DOCUSATE SODIUM TAB PO SCH ×2 (08:40→22:20)
[2017-07-02] MEDS: LACTULOSE 20 GM/30 ML UDCUP PO PRN (08:40)
[2017-07-02] MEDS: Dalfampridine [Ampyra] 10 MG PO SCH (08:42)
[2017-07-02] MEDS: Armodafinil [Nuvigil] 150 MG PO SCH (09:06)
[2017-07-02] MEDS: oxyCODONE IR 5 MG TAB PO PRN ×2 (13:00→22:23)
[2017-07-02] MEDS: HYDROmorphone HCL/NS/PF 0.4 MG/2 ML SYR IVP PRN (14:03)
--- NOTE | 2017-07-02 16:34 | ASMTCMCOM ---
CM Note CM Note Notes: Pt to have debridement tomorrow morning for calcaneal wound. Pt is still interested in [facility] inpatient rehab who are assessing pt, pt may require longer length of stay so SNF may need to be considered. Pt has been accepted at [facility]. CM to follow. Date Signed: 07/02/2017 04:34 PM Electronically Signed By:CLAIRE Pitts
--- NOTE | 2017-07-02 16:43 | HOSPPROG ---
Hospitalist Progress Note Assessment/Plan: Patient is a 67 y/o female who has MS. She lives alone and slid out of her wheelchair sustaining a tib/fib fracture. * Tib/fib fracture -Dr Boyle ordered a custom boot w sheep skin insert -no surgery at this time * UTI. E coli that is tavares sensitive. -IV ceftriaxone 06/28/received full treatment * Calcaneal wound - worsening - now with exposed bone -needs further debridement vs. calcanectomy/ to get further debridement w Dr Diallo tomorrow at 9 a.m. -Dr Sosa evaluated * Advanced MS -continue home meds * HTN -better with resuming home med regimen -hydralazine + labetalol *anemia -reviewed her history/chronic. *hypokalemia -add protocol *renal insufficiency -avoid nephrotoxic medications -stable *Plan: OR tomorrow for debridement/ lovenox on hold / will need to be resumed after surgery Subjective: Lovely appreciates all the treatment at the hospital/ has no significant complaints. Objective: Vital Signs Temp Pulse Resp BP Pulse Ox 36.8 C 58 L 16 160/60 H 100 07/02/17 15:58 07/02/17 15:58 07/02/17 15:58 07/02/17 15:58 07/02/17 15:58 Laboratory Results 06/30/17 04:30 07/02/17 04:45 07/01/17 07/02/17 07/03/17 05:59 05:59 05:59 Intake Total 1230 1400 Output Total 1120 1500 500 Balance 110 -100 -500 - Physical Exam Constitutional: no apparent distress, appears nourished, not in pain Eyes: PERRL Ears, Nose, Mouth, Throat: hearing normal Cardiovascular: regular rate and rhythym Respiratory: no respiratory distress Gastrointestinal: normoactive bowel sounds Skin: warm Musculoskeletal: generalized weakness Neurologic: AAOx3 Psychiatric: interacting appropriately ICD10 Worksheet Patient Problems: Problems Problem Status Onset Tibia/fibula fracture Acute ARF (acute renal failure) Acute Anemia associated with acute blood loss Acute Hip fx Acute Hyponatremia Acute
--- NOTE | 2017-07-02 17:03 | WOCRNPDOC ---
WOCRN Advanced Assessment Note - Skin Integrity Problem, Advanced Assess Right Medial Ankle Pressure Injury Dressing Type: Open to Air Exudate Amount: None Integumentary Issue Intervention: Dressing Applied, Hydrogel Applied Tawana Wound Tissue: Erythema, Intact Tawana Wound Swelling: Mild Wound Bed Color: Red, Yellow Wound Bed Constitution: Smooth Tissue (dried) Wound Edges: Attached, Well Defined Site Measurement - Head-to-Toe Length X Width X Depth (cm): 1.7x2.2x0.2 Pressure Injury Stage: Stage 3, Manager [employer] Related Pressure Injury Pressure Injury Present on Admit: Yes Skin Integrity Problem Comment: This wound is a full thickness wound with a very dry wound bed. Tawana wound skin is intact but reddened. The cause of this wound is a little unclear as patient reports having multiple "ulcers" on her legs upon admission but these areas were not clearly identified. Secondarily, the patient had a hard clam shell splint applied on 06/29 which could have contributed pressure to this area. Wound cleaned with NS and gauze. Tawana wound skin prepped with skin prep and covered with Mepilex Ag. Wound care will round on this patient frequently. Right Anterior Ankle Pressure Injury Dressing Type: Open to Air Exudate Amount: None Integumentary Issue Intervention: Dressing Applied, Dressing Initialed & Dated Tawana Wound Tissue: Erythema, Non-blanching Wound Bed Color: Purple Wound Bed Constitution: Intact Sanguineous Blister Wound Edges: Irregular Site Measurement - Head-to-Toe Length X Width X Depth (cm): 2.6x4.2xDTI Pressure Injury Stage: Deep Tissue Injury (DTI), Manager [employer] Related Pressure Injury Pressure Injury Present on Admit: No Skin Integrity Problem Comment: This wound is new in appearance and was first observed yesterday. The skin remains an intact blister with deep purple coloring. Tawana wound tissue is red. Mepilex was cut to allow for flexion and placed over wounds on the dorsal aspect of the foot. Wound care will monitor this wound frequently as it evolves. Right Lateral Ankle Pressure Injury Dressing Type: Open to Air Exudate Amount: Minimal Exudate Color: Reddish/Yellow Exudate Characteristic(s): Serosanguinous Integumentary Issue Intervention: Dressing Applied, Dressing Initialed & Dated Tawana Wound Tissue: Erythema, Non-blanching Wound Bed Color: Purple, Red, Yellow Wound Bed Constitution: Smooth Tissue (dried) Wound Edges: Well Defined Site Measurement - Head-to-Toe Length X Width X Depth (cm): 4.6x4.6x0.1 Pressure Injury Stage: Deep Tissue Injury (DTI), Manager [employer] Related Pressure Injury Pressure Injury Present on Admit: Yes Skin Integrity Problem Comment: Again, this patient was admitted with "mulitple ulcers" on her leg although exact locations were unknown. This wound appears to be a deroofed blister. Several areas along the edges of the wound bed remains deep purple and may continue to devolve. Wound bed cleaned with NS and gauze. Wound gel applied and an allevyn was placed over this wound. Right Medial Dorsal Foot Pressure Injury Dressing Type: Open to Air Exudate Amount: None Integumentary Issue Intervention: Dressing Applied, Dressing Initialed & Dated Tawana Wound Tissue: Erythema, Non-blanching Wound Bed Color: Purple (intact) Site Measurement - Head-to-Toe Length X Width X Depth (cm): 1.4x1.8xDTI Pressure Injury Stage: Deep Tissue Injury (DTI), Manager [employer] Related Pressure Injury Pressure Injury Present on Admit: No Skin Integrity Problem Comment: This skin on this wound remains intact but the wound bed is deep purple and presents as a DTI which will likely continue to evolve. Skin cleaned with NS and gauze and prepped with skin prep. A mepilex was cut to allow for flexion and placed over the wounds on the dorsal aspect of the foot. Wound care will round frequently on this wound. Right Anterior Distal Dorsal Foot Pressure Injury Dressing Type: Open to Air Integumentary Issue Intervention: Dressing Applied, Dressing Initialed & Dated Tawana Wound Tissue: Erythema, Non-blanching Wound Bed Color: Black, Purple Wound Bed Constitution: Unstable Eschar (at 6 o'clock) Site Measurement - Head-to-Toe Length X Width X Depth (cm): 4.7x5.3xDTI Pressure Injury Stage: Deep Tissue Injury (DTI), Manager [employer] Related Pressure Injury Pressure Injury Present on Admit: Yes Skin Integrity Problem Comment: This wound is likely of mixed age. At 6 o'clock , there is an area of dried, black eschar which would have been present prior to admission. The remainder of the wound is scattered and purple but not as evolved as the area at 6 o'clock suggesting it may be newer. Skin was cleaned with NS and gauze and prepped with skin prep. A mepilex was cut to allow for flexion and placed over the wounds on the dorsal foot. Right Lateral Foot Pressure Injury Dressing Type: Open to Air Tawana Wound Tissue: Erythema, Non-blanching Wound Bed Color: Purple, Red Site Measurement - Head-to-Toe Length X Width X Depth (cm): 3x1.5xDTI Pressure Injury Stage: Deep Tissue Injury (DTI), Manager [employer] Related Pressure Injury Pressure Injury Present on Admit: No Skin Integrity Problem Comment: The skin on this wound remains intact. The wound bed is purple with red circumferentially and appears to be a DTI from a medical office rep, likely her splint. Right Lateral Dorsal Foot Pressure Injury Dressing Type: Open to Air Integumentary Issue Intervention: Dressing Applied Tawana Wound Tissue: Erythema, Non-blanching Wound Bed Color: Purple, Red Site Measurement - Head-to-Toe Length X Width X Depth (cm): 1x1.2xDTI Pressure Injury Stage: Deep Tissue Injury (DTI), Manager [employer] Related Pressure Injury Pressure Injury Present on Admit: No Skin Integrity Problem Comment: The skin on this wound remains intact. This wound is deep purple in color with red circumferentially. Skin was cleaned with NS and gauze and skin prep applied. A mepilex was cut to allow for flexion and placed over the wounds on the dorsal aspect of the foot. Wound care will round frequently on this wound.
[2017-07-03] MEDS: LEVOTHYROXINE 25 MCG TAB PO SCH (05:19)
[2017-07-03 05:49] LABS: POTASSIUM 4.3 mEq/L (3.5-5.2)
[2017-07-03] MEDS: oxyCODONE IR 5 MG TAB PO PRN ×4 (06:04→22:14)
[2017-07-03] MEDS ORDERED: MIDAZOLAM 2 MG/2 ML VIAL IVP ONE (08:22)
--- NOTE | 2017-07-03 08:22 | PDANEPAE ---
ANE History of Present Illness R heel I and D ANE Past Medical History - Cardiovascular History Hx Hypertension: Yes - Pulmonary History Hx Oxygen in Use at Home: No Hx Sleep Apnea: No Sleep Apnea Screening Result - Last Documented: Positive - Endocrine History Hx Diabetes: No - Neurological & Psychiatric Hx Hx Neurological and Psychiatric Disorders: Yes Neurological / Psychiatric History Comment: advanced MS - Chronic Pain History Chronic Pain: No ANE Review of Systems Review of Systems: - Exercise capacity Exercise capacity: limited by disability ANE Patient History - Allergies Allergies/Adverse Reactions: amlodipine Allergy (Verified 07/03/17 08:30) - Home Medications Home medications: home medication list seen and reviewed Home Medications: Armodafinil [Nuvigil 150mg] 150 mg PO DAILY 04/26/15 [Last Taken 06/26/17] Dalfampridine [AMPYRA] 10 mg PO DAILY 04/26/15 [Last Taken 06/26/17] Ascorbic Acid [Vitamin C 250 mg (*)] 250 mg PO DAILY 04/27/15 [Last Taken ] Levothyroxine [Synthroid 25 mcg (*)] 25 mcg PO DAILY06 04/27/15 [Last Taken ] Furosemide [Lasix 20 MG (*)] 20 mg PO BIDDIUR 01/11/17 [Last Taken 06/26/17] Ibuprofen [Motrin (*)] 400 mg PO Q6 PRN 01/11/17 [Last Taken Unknown] Sennosides/Docusate Sodium [Senokot-S] 1 - 2 tab PO BID PRN 01/11/17 [Last Taken Unknown] hydrALAZINE [Apresoline 50 mg (*)] 50 mg PO TID 01/11/17 [Last Taken 06/26/17] Baclofen [Baclofen 20 mg (*)] 40 mg PO DAILY 06/27/17 [Last Taken Unknown] Baclofen [Baclofen 20 mg (*)] 60 mg PO HS 06/27/17 [Last Taken Unknown] Labetalol HCl [Trandate 200 mg (*)] 200 mg PO BID 06/27/17 [Last Taken 06/26/17] Pramipexole Di-HCl [Mirapex 0.25 mg (*)] 0.125 - 0.25 mg PO HS PRN 06/27/17 [ Last Taken 06/26/17] Propranolol HCl [Inderal 10mg (*)] 10 - 20 mg PO Q8H PRN 06/27/17 [Last Taken Unknown] Interferon Beta-1A/Albumin [Rebif Rebidose 44 Mcg/0.5 ml] 44 mcg SQ TUTHSA@18 [Last Taken 06/26/17] - NPO status NPO Status: no food or drink >8 hours NPO Since - Liquids (Date): 07/02/17 NPO Since - Liquids (Time): 23:45 NPO Since - Solids (Date): 07/02/17 NPO Since - Solids (Time): 22:00 - Anes Hx Anes Hx: no prior problems - Smoking Hx Smoking Status: Never smoked - Family Anes Hx Family Anes Hx: none ANE Labs/Vital Signs - Labs Result Diagrams: 06/30/17 04:30 07/03/17 05:09 - Vital Signs Blood Pressure: 150/68 Heart Rate: 60 Respiratory Rate: 16 O2 Sat (%): 93 Height: 175.26 cm Weight: 60.781 kg ANE Physical Exam - Airway Neck exam: FROM Mallampati Score: Class 2 Mouth exam: normal dental/mouth exam - Pulmonary Pulmonary: no respiratory distress - Cardiovascular Cardiovascular: regular rate and rhythym - ASA Status ASA Status: III ANE Anesthesia Plan Anesthesia Plan: GA w LMA
[2017-07-03] MEDS ORDERED: LR 1,000 ML IV ONE (08:25)
[2017-07-03] MEDS: Armodafinil [Nuvigil] 150 MG PO SCH ×2 (08:26→17:41)
[2017-07-03] MEDS: BACLOFEN 20 MG TAB PO SCH ×3 (08:26→22:14)
[2017-07-03] MEDS: Dalfampridine [Ampyra] 10 MG PO SCH ×2 (08:27→15:40)
[2017-07-03] MEDS: LABETALOL HCL 200 MG TAB PO SCH ×3 (08:27→22:14)
[2017-07-03] MEDS: FUROSEMIDE 20 MG TAB PO SCH ×2 (08:27→15:44)
[2017-07-03] MEDS: SENNOSIDES/DOCUSATE SODIUM TAB PO SCH ×3 (08:28→22:13)
[2017-07-03] MEDS ORDERED: ceFAZolin 2 GM/SWFI 2 GM/20 ML SYR IVP ONE (09:00)
[2017-07-03] MEDS ORDERED: ceFAZolin 2 GM in D5W 100 ML IV ONE (09:00)
--- NOTE | 2017-07-03 09:12 | SOAPPROG ---
SOAP Progress Note Assessment/Plan: Assessment: 67 yo well known to me Severe MS, had ankle fracture and was in cast for 12 weeks Initially had wounds on anterior hull and dorsum of foot. Recognized heel ulcer when cast was removed Ulcer on leg is healed. currently doing wound care to wound on Foot and Heel recently unexpectedly and had to put dog down Admitted for tibia fx Will proceed with debriding skin soft tissue and calcaneous in OR. Wound vac. May need partial calcanectomy S:Awake and alert O: Plan: 06/28/17 12:10 06/29/17 08:25 07/03/17 09:11 Objective: Vital Signs Temp Pulse Resp BP Pulse Ox 36.9 C 77 16 150/68 H 97 07/03/17 08:34 07/03/17 08:34 07/03/17 08:34 07/03/17 08:34 07/03/17 08:34 Laboratory Results 06/30/17 04:30 07/03/17 05:09 07/02/17 07/03/17 07/04/17 05:59 05:59 05:59 Intake Total 1400 Output Total 1500 500 Balance -100 -500 ICD10 Worksheet Patient Problems: Problems Problem Status Onset Tibia/fibula fracture Acute ARF (acute renal failure) Acute Anemia associated with acute blood loss Acute Hip fx Acute Hyponatremia Acute
[2017-07-03] MEDS ORDERED: fentaNYL 100 MCG/2 ML INJ ONE ×2 (09:38→11:20)
[2017-07-03] MEDS ORDERED: PROPOFOL 200 MG/20 ML VIAL ONE (09:38)
[2017-07-03] MEDS ORDERED: ONDANSETRON 4 MG/2 ML VIAL ONE (09:38)
[2017-07-03] MEDS ORDERED: DEXAMETHASONE 4 MG/ML VIAL ONE (09:38)
[2017-07-03] MEDS ORDERED: LIDOCAINE 2% 100 MG/5 ML SYR ONE (09:38)
[2017-07-03] MEDS ORDERED: ROCURONIUM 50 MG/5 ML VIAL ONE (09:39)
[2017-07-03] MEDS ORDERED: HYDROCODONE/APAP 5/325 TAB PO PRN (10:14)
[2017-07-03] MEDS ORDERED: ACETAMINOPHEN 500 MG TAB PO PRN (10:14)
[2017-07-03] MEDS ORDERED: NALOXONE HCL 0.4 MG/ML INJ IVP PRN (10:14)
[2017-07-03] MEDS ORDERED: OXYCODONE/APAP 5/325 TAB PO PRN (10:14)
[2017-07-03] MEDS ORDERED: MEPERIDINE 25 MG/ML SYR IVP PRN (10:14)
[2017-07-03] MEDS ORDERED: PROMETHAZINE HCL 25 MG/ML INJ IVP PRN (10:14)
[2017-07-03] MEDS ORDERED: DEXAMETHASONE 4 MG/ML VIAL IVP PRN (10:14)
--- NOTE | 2017-07-03 10:16 | POSTANESTH ---
Post Anesthetic Evaluation Cardiovascular Status: Normal, Stable, Similar to Pre-Op Cond Respiratory Status: Normal, Stable, Similar to Pre-op Cond. Level of Consciousness/Mental Status: Can Participate in Eval, Moderately Sleepy Pain Control: Adequate, Prn Tx Ordered Nausea/Vomiting Control: Adequate, Prn Tx Ordered Complications Possibly Related to Anesthesia: None Noted
[2017-07-03] MEDS ORDERED: HYDROmorphONE/DILAUDID 1 MG/ML INJ ONE (11:20)
[2017-07-03] MEDS: HYDROmorphONE/DILAUDID 1 MG/ML INJ IVP PRN ×2 (11:22→12:24)
[2017-07-03] MEDS: fentaNYL 100 MCG/2 ML INJ IVP PRN ×2 (11:22→11:37)
[2017-07-03] MEDS ORDERED: hydrALAZINE 20 MG/ML VIAL ONE (11:49)
[2017-07-03] MEDS: hydrALAZINE 20 MG/ML VIAL IVP PRN ×2 (12:00→12:16)
--- NOTE | 2017-07-03 13:13 | HOSPPROG ---
Hospitalist Progress Note Assessment/Plan: Patient is a 67 y/o female who has MS. She lives alone and slid out of her wheelchair sustaining a tib/fib fracture. First encounter, chart reviewed. D/W RN. * Tib/fib fracture -Dr Boyle ordered a custom boot w sheep skin insert -no surgery at this time * UTI. E coli that is tavares sensitive. -IV ceftriaxone 06/28/received full treatment * Calcaneal wound - worsening - now with exposed bone -needs further debridement vs. calcanectomy/ to get further debridement w Dr Diallo today -Dr Sosa evaluated * Advanced MS -continue home meds * HTN -better with resuming home med regimen -hydralazine + labetalol *anemia -reviewed her history/chronic. *hypokalemia -add protocol *renal insufficiency -avoid nephrotoxic medications -stable *Plan: OR today for debridement/ lovenox on hold / will need to be resumed after surgery Subjective: No issues. Objective: Vital Signs Temp Pulse Resp BP Pulse Ox 36.3 C 60 13 155/62 H 96 07/03/17 12:04 07/03/17 09:25 07/03/17 12:30 07/03/17 12:30 07/03/17 12:30 Laboratory Results 06/30/17 04:30 07/03/17 05:09 07/02/17 07/03/17 07/04/17 05:59 05:59 05:59 Intake Total 1400 950 Output Total 1500 500 25 Balance -100 -500 925 - Physical Exam Constitutional: appears nourished, not in pain, chronically ill appearing Eyes: PERRL, anicteric sclera, EOMI Ears, Nose, Mouth, Throat: moist mucous membranes, hearing normal, ears appear normal Cardiovascular: No JVD, No tachycardia, No edema Respiratory: no respiratory distress, no rales or rhonchi, reduced air movement Gastrointestinal: No tenderness, No ascites, No guarding Skin: warm, no rashes or abrasions, pressure ulcer Musculoskeletal: normal joint ROM, no joint effusions, generalized weakness Psychiatric: not anxious, poor insight, poor judgement, poor memory ICD10 Worksheet Patient Problems: Problems Problem Status Onset Hip fx Acute Hyponatremia Acute ARF (acute renal failure) Acute Anemia associated with acute blood loss Acute Tibia/fibula fracture Acute
--- NOTE | 2017-07-03 13:38 | POSTOPPROG ---
Post Op Note Date of Operation: 07/03/17 Surgeon: Evie Diallo Sap Gatherer: benny Anesthesiologist: javier Anesthesia: GET(General Endotracheal) Pre-op Diagnosis: unstageable pressure ulcers Post-op Diagnosis: stage IV pressure ulcers Indication: 67 year old with MS, fractures and ulcers Procedure: debride skin soft tissue bone and tendon Findings: lateral 4x3.9x0.6 posterior 4x3.8x0.4 Inf/Abcess present in the surg proc area at time of surgery?: Yes Depth: Deep Incisional (Fascial) EBL: Minimal Drains: Wound Vac
--- NOTE | 2017-07-03 14:49 | WOCRNPDOC ---
WOCRN Advanced Assessment Note - Skin Integrity Problem, Advanced Assess Left Ischial Tuberosity Pressure Injury Dressing Type: Allevyn Life Dressing Description: Clean/Dry, Intact Exudate Amount: None Integumentary Issue Intervention: Dressing Changed Tawana Wound Tissue: Blanching, Intact Wound Bed Color: [place] Wound Bed Constitution: Granulation Tissue Wound Edges: Epithelizing (100%) Pressure Injury Present on Admit: Yes Skin Integrity Problem Comment: This wound was formerly a full thickness wound as evidenced by presence of granulation tissue. Wound bed now filled almost to level of epithelium. Wound cleaned with NS and gauze. Tawana wound skin prepped with skin prep. New allevyn applied. Wound care will round on this wound late next week.
[2017-07-03] MEDS: LACTULOSE 20 GM/30 ML UDCUP PO PRN (15:44)
[2017-07-03] MEDS: POLYETHYLENE GLYCOL 3350 17 GM PKT PO PRN (22:13)
[2017-07-03] MEDS: DIAZEPAM 5 MG TAB PO PRN (22:15)
[2017-07-03] MEDS: ACETAMINOPHEN 325 MG TAB PO PRN (22:15)
[2017-07-04] MEDS: oxyCODONE IR 5 MG TAB PO PRN ×5 (02:37→21:44)
[2017-07-04] MEDS: ACETAMINOPHEN 325 MG TAB PO PRN (06:27)
[2017-07-04] MEDS: LEVOTHYROXINE 25 MCG TAB PO SCH (06:28)
[2017-07-04] MEDS: BACLOFEN 20 MG TAB PO SCH ×2 (09:10→21:44)
[2017-07-04] MEDS: FUROSEMIDE 20 MG TAB PO SCH ×2 (09:10→16:28)
[2017-07-04] MEDS: LABETALOL HCL 200 MG TAB PO SCH ×2 (09:10→21:44)
[2017-07-04] MEDS: Dalfampridine [Ampyra] 10 MG PO SCH (09:10)
[2017-07-04] MEDS: SENNOSIDES/DOCUSATE SODIUM TAB PO SCH ×2 (09:49→21:44)
[2017-07-04] MEDS: Armodafinil [Nuvigil] 150 MG PO SCH (10:13)
[2017-07-04] MEDS: POLYETHYLENE GLYCOL 3350 17 GM PKT PO PRN (13:51)
--- NOTE | 2017-07-04 14:04 | HOSPPROG ---
Hospitalist Progress Note Assessment/Plan: Patient is a 67 y/o female who has MS. She lives alone and slid out of her wheelchair sustaining a tib/fib fracture. D/W RN. * Tib/fib fracture -Dr Boyle ordered a custom boot w sheep skin insert -no surgery at this time * UTI. E coli that is tavares sensitive. -IV ceftriaxone 06/28/received full treatment * Calcaneal wound - worsening - now with exposed bone -further debridement done/calcanectomy -Dr Sosa evaluated * Advanced MS -continue home meds * HTN -better with resuming home med regimen -hydralazine + labetalol *anemia -reviewed her history/chronic. *hypokalemia -add protocol *renal insufficiency -avoid nephrotoxic medications -stable *Plan: lovenox on hold / will need to be resumed after surgery Subjective: Up in chair. No issues. Objective: Vital Signs Temp Pulse Resp BP Pulse Ox 36.6 C 63 16 129/68 H 98 07/04/17 11:16 07/04/17 11:16 07/04/17 11:16 07/04/17 11:16 07/04/17 11:16 Microbiology 06/29/17 08:15 Blood Culture - Final Blood 06/29/17 08:15 Blood Culture - Final Blood Laboratory Results 06/30/17 04:30 07/03/17 05:09 07/03/17 07/04/17 07/05/17 05:59 05:59 05:59 Intake Total 1150 350 Output Total 500 1325 Balance -500 -175 350 - Physical Exam Constitutional: not in pain, chronically ill appearing Eyes: PERRL, anicteric sclera Ears, Nose, Mouth, Throat: moist mucous membranes, hearing normal Cardiovascular: No JVD, No edema Respiratory: no respiratory distress, reduced air movement Gastrointestinal: No tenderness, No ascites Skin: warm, No mottled Musculoskeletal: no joint effusions, generalized weakness Neurologic: AAOx3 Psychiatric: interacting appropriately, not anxious, not encephalopathic ICD10 Worksheet Patient Problems: Problems Problem Status Onset Hip fx Acute Hyponatremia Acute ARF (acute renal failure) Acute Anemia associated with acute blood loss Acute Tibia/fibula fracture Acute
--- NOTE | 2017-07-04 17:18 | SOAPPROG ---
SOAP Progress Note Assessment/Plan: Assessment/plan: 67 yo well-known to our service for outpatient wound care Severe MS, had ankle fracture and was in cast for 12 weeks Initially had wounds on anterior hull and dorsum of foot. Recognized heel ulcer when cast was removed Now admitted with tibia fracture Unfortunately calcaneal wound significantly worse with bone exposed POD#1 debridement skin and soft tissue R calcaneal wound with wound vac placement. epifix under vac S: no complaints at this time. concerned about depth of wound and course of treatment O: laying in bed, comfortable, no acute distress, answers questions appropriately No increased WOB RLE splint in place wound vac to suction 07/07/17 12:53 Objective: Vital Signs Temp Pulse Resp BP Pulse Ox 36.6 C 67 17 148/60 H 94 07/04/17 11:16 07/04/17 15:58 07/04/17 15:58 07/04/17 16:28 07/04/17 15:58 Microbiology 06/29/17 08:15 Blood Culture - Final Blood 06/29/17 08:15 Blood Culture - Final Blood Laboratory Results 06/30/17 04:30 07/03/17 05:09 07/03/17 07/04/17 07/05/17 05:59 05:59 05:59 Intake Total 1150 350 Output Total 500 1325 Balance -500 -175 350 ICD10 Worksheet Patient Problems: Problems Problem Status Onset Tibia/fibula fracture Acute ARF (acute renal failure) Acute Anemia associated with acute blood loss Acute Hip fx Acute Hyponatremia Acute
--- NOTE | 2017-07-04 17:26 | ASMTCMCOM ---
CM Note CM Note Notes: [facility] inpatient rehab recommends SNF level of care at this time but will continue to assess if pt is here Friday; rec GOVERNMENT PROGRAM MANAGER cog eval to get a baseline. Pt has previously chosen [facility] and is accepted, updates sent today. CM to follow. Date Signed: 07/04/2017 05:26 PM Electronically Signed By:CLAIRE Pitts
[2017-07-05] MEDS: LEVOTHYROXINE 25 MCG TAB PO SCH (05:30)
--- NOTE | 2017-07-05 08:03 | GOP ---
[f rep st] OPERATIVE REPORT DATE OF OPERATION: 07/03/2017 SURGEON: Evie Diallo MD SEMICONDUCTOR LAB TECHNICIAN: SUSAN Adler Student ANESTHESIA: Dr. Rd Taylor/general. PREOPERATIVE DIAGNOSIS: Un-stageable pressure ulcers on her right lower extremity. POSTOPERATIVE DIAGNOSIS: Stage IV pressure ulcers right lower extremity. PROCEDURE PERFORMED: Debride skin, soft tissue, bone and tendon ulcers right lower extremity. FINDINGS: Lateral ulcer measures 4 x 3.9 x 0.6 with tendon exposed, and the posterior ulcer measures 4 x 3.8 x 0.4 cm, with bone exposed. She also has a stable ulcer on the dorsum of her foot over her 5th metatarsal head, and she has small skin tears along the leg. INDICATIONS: The patient is a duncan 67-year-old woman with multiple sclerosis. She fell this summe r and developed a malleolar fracture. She was treated with a cast. There were holes cut out of the cast to assist with wound healing. We accomplished wound healing on the dorsum of her foot. When [facility] cast was removed, she was also recognized to have a pressure ulcer on her heel. The patient was ma naging at home with home care, although debating about going to residential facility, when she fe ll again and broke her tibia and fibula. She was down for a period of time and developed a deep tiss ue injuries that were un-stageable. I took her to the operating room to fully debride these wounds. DESCRIPTION OF PROCEDURE: The patient was brought into the operating room, placed supine on the tabl e, and general anesthesia was administered. She was then placed in the prone position. All bony pro minences were padded. Her leg was then taken out of the splint very carefully. Her foot and leg wer e prepped and draped with Betadine. I used a combination of Misonix to perform debridement, as well as in some areas using a knife. On the lateral ulcer, there is tendon exposed. On the posterior jasmine caneal ulcer, there is a bit of calcaneus exposed. The wounds were debrided to healthy tissue. Verduzco penelope, this is all the way to the base. There was not vigorous bleeding. I also debrided the wound on the dorsum of her foot and then unroofed some of the small skin tears. I placed EpiFix 4 x 4 cm [id number] with expiration December 02, 2021 on the posterior wound, and I placed AmnioFix 2 x 12 [id number] expiration September 04, 2021 on the remaining wounds. Adaptic Touch and a wound VAC were pl aced. She had Allevyn borders placed over the dorsum of her foot, as well as on the medial aspect of her leg. Her splint was reapplied. She was placed back in the supine position, awakened, extubated , taken to PACU in stable condition. Her x-ray showed no significant change in the fracture. I am v pancho concerned about the healing potential of these ulcers, especially in the setting of the multiple healing fractures. We will attempt wound salvage, but she may need either plastics and/or amputation to definitively heal this. /[id number]/MODL
[2017-07-05] MEDS: LABETALOL HCL 200 MG TAB PO SCH ×2 (08:18→21:27)
[2017-07-05] MEDS: BACLOFEN 20 MG TAB PO SCH ×2 (08:18→21:27)
[2017-07-05] MEDS: FUROSEMIDE 20 MG TAB PO SCH ×2 (08:18→16:23)
[2017-07-05] MEDS: SENNOSIDES/DOCUSATE SODIUM TAB PO SCH ×2 (08:18→21:27)
[2017-07-05] MEDS ORDERED: NALOXONE HCL 0.4 MG/ML INJ IVP ONE (09:02)
[2017-07-05] MEDS ORDERED: NALOXONE HCL 0.4 MG/ML INJ ONE (09:03)
[2017-07-05] MEDS ORDERED: NALOXONE HCL 0.4 MG/ML INJ IVP PRN (09:30)
--- NOTE | 2017-07-05 09:50 | HOSPPROG ---
Hospitalist Progress Note Assessment/Plan: Patient is a 67 y/o female who has MS. She lives alone and slid out of her wheelchair sustaining a tib/fib fracture. I was called this morning by nursing staff because the patient was having increased difficulty staying awake without a sternal rub. She was given a dose of Narcan with good results. Also of note she is on chronic Nuvigil and hadn't received her morning dose * Tib/fib fracture -Dr Boyle ordered a custom boot w sheep skin insert -no surgery at this time * UTI. E coli that is tavares sensitive. -IV ceftriaxone 06/28/received full treatment * Calcaneal wound - worsening - now with exposed bone -needs further debridement vs. calcanectomy/ further debridement w Dr Diallo -Dr Sosa evaluated * Advanced MS -continue home meds * HTN -better with resuming home med regimen -hydralazine + labetalol *anemia -reviewed her history/chronic. *hypokalemia -add protocol *renal insufficiency -avoid nephrotoxic medications -stable *Plan: will dc narcotics except for low dose oxy, place douglas in , she has been incontinent of urine and concern for infecting fracture, wound area. Will get stat labs Subjective: Clark awakens w verbal stimuli but falls asleep easily. Objective: Vital Signs Temp Pulse Resp BP Pulse Ox 37.3 C 79 16 150/60 H 94 07/05/17 07:19 07/05/17 08:18 07/05/17 07:19 07/05/17 08:19 07/05/17 07:19 Microbiology 06/29/17 08:15 Blood Culture - Final Blood 06/29/17 08:15 Blood Culture - Final Blood Laboratory Results 06/30/17 04:30 07/03/17 05:09 07/04/17 07/05/17 07/06/17 05:59 05:59 05:59 Intake Total 1150 700 Output Total 1325 Balance -175 700 - Physical Exam Constitutional: not in pain, chronically ill appearing Eyes: PERRL Ears, Nose, Mouth, Throat: hearing normal Cardiovascular: regular rate and rhythym Respiratory: no respiratory distress Skin: warm, other (right foot in boot) Musculoskeletal: generalized weakness Neurologic: other (awakens but sleepy) Psychiatric: interacting appropriately, not anxious ICD10 Worksheet Patient Problems: Problems Problem Status Onset Tibia/fibula fracture Acute ARF (acute renal failure) Acute Anemia associated with acute blood loss Acute Hip fx Acute Hyponatremia Acute
[2017-07-05] MEDS: Dalfampridine [Ampyra] 10 MG PO SCH (10:44)
[2017-07-05] MEDS: Armodafinil [Nuvigil] 150 MG PO SCH (10:53)
--- NOTE | 2017-07-05 11:49 | SOAPPROG ---
SOAP Progress Note Assessment/Plan: Assessment: 67-YEAR-OLD FEMALE COMPLICATED TIB-FIB FRACTURE AND ASSOCIATED PRESSURE WOUND ON THE OUTSIDE OF HER LEG WELL A CALCANEAL WOUND WOUND VAC IN PLACE/DRESSINGS DRY AND INTACT NO PLANS FOR ORTHO SURGERY AT THIS TIME AFEBRILE/VITAL SIGNS STABLE/ PATIENT OVERLY NARCOTIZED THIS MORNING AND DIFFICULT TO CARRY ON A CONVERSATION BUT APPARENTLY HAS RESPONDED TO NARCAN Plan: CONTINUE VAC AND DRESSING CHANGES 07/05/17 11:47 Objective: Vital Signs Temp Pulse Resp BP Pulse Ox 37.3 C 79 16 150/60 H 94 07/05/17 07:19 07/05/17 08:18 07/05/17 07:19 07/05/17 08:19 07/05/17 07:19 Microbiology 06/29/17 08:15 Blood Culture - Final Blood 06/29/17 08:15 Blood Culture - Final Blood Laboratory Results 06/30/17 04:30 07/03/17 05:09 07/04/17 07/05/17 07/06/17 05:59 05:59 05:59 Intake Total 1150 700 Output Total 1325 Balance -175 700 ICD10 Worksheet Patient Problems: Problems Problem Status Onset Tibia/fibula fracture Acute ARF (acute renal failure) Acute Anemia associated with acute blood loss Acute Hip fx Acute Hyponatremia Acute
[2017-07-05 11:53] LABS: % IMMATURE GRANULYOCYTES 0.4 % (0.0-1.1); ABSOLUTE IMMATURE GRANULOCYTES 0.02 10^3/uL (0.00-0.10); ADD DIFF? NO; ADD MORPH? NO; ADD SCAN? NO; ATYPICAL LYMPHOCYTE FLAG 0 (0-99); FRAGMENT RBC FLAG 0 (0-99); HEMATOCRIT 24.5 % (38.0-47.0); HEMOGLOBIN 8.4 g/dL (12.6-16.3); LEFT SHIFT FLG 0 (0-99); LIPEMIA HEMOLYSIS FLAG 90 (0-99); MEAN CELL HEMOGLOBIN CONCENTR. 34.3 g/dL (32.4-36.7); MEAN CELL VOLUME 90.4 fL (81.5-99.8); MEAN PLATELET VOLUME 9.8 fL (8.7-11.7); PLATELET CLUMPS FLAG 0 (0-99); PLATELET COUNT 185 10^3/uL (150-400); RED BLOOD CELL COUNT 2.71 10^6/uL (4.18-5.33); RED CELL DISTRIBUTION WIDTH 14.6 % (11.5-15.2)
[2017-07-05 12:14] LABS: ANION GAP 11 mEq/L (8-16); CALCIUM 8.9 mg/dL (8.5-10.4); CARBON DIOXIDE 25 mEq/l (22-31); CHLORIDE 99 mEq/L (97-110); GLOMERULAR FILTRATION RATE 55; GLUCOSE 98 mg/dL (70-100); POTASSIUM 4.2 mEq/L (3.5-5.2); SODIUM 135 mEq/L (134-144)
[2017-07-05] MEDS: ACETAMINOPHEN 325 MG TAB PO PRN (16:23)
[2017-07-05] MEDS: ENOXAPARIN 40 MG/0.4 ML SYR SC SCH (16:29)
[2017-07-05] MEDS ORDERED: oxyCODONE IR 5 MG TAB PO PRN (16:44)
[2017-07-06 05:20] LABS: HEMATOCRIT 25.9 % (38.0-47.0); HEMOGLOBIN 8.7 g/dL (12.6-16.3); MEAN CELL HEMOGLOBIN 30.5 pg (27.9-34.1); MEAN CELL HEMOGLOBIN CONCENTR. 33.6 g/dL (32.4-36.7); MEAN CELL VOLUME 90.9 fL (81.5-99.8); RED BLOOD CELL COUNT 2.85 10^6/uL (4.18-5.33); RED CELL DISTRIBUTION WIDTH 14.6 % (11.5-15.2)
[2017-07-06 05:35] LABS: ANION GAP 10 mEq/L (8-16); CALCIUM 8.8 mg/dL (8.5-10.4); CARBON DIOXIDE 26 mEq/l (22-31); CHLORIDE 100 mEq/L (97-110); GLOMERULAR FILTRATION RATE 55; GLUCOSE 102 mg/dL (70-100); POTASSIUM 4.3 mEq/L (3.5-5.2); SODIUM 136 mEq/L (134-144)
[2017-07-06] MEDS: LEVOTHYROXINE 25 MCG TAB PO SCH (06:13)
--- NOTE | 2017-07-06 08:16 | HOSPPROG ---
Hospitalist Progress Note Assessment/Plan: Patient is a 67 y/o female who has MS. She lives alone and slid out of her wheelchair sustaining a tib/fib fracture. * Tib/fib fracture -Dr Boyle ordered a custom boot w sheep skin insert -no surgery at this time * UTI. E coli that is tavares sensitive. -IV ceftriaxone 06/28/received full treatment * Calcaneal wound - worsening - now with exposed bone -needs further debridement vs. calcanectomy/ had debridement w Dr Diallo -Dr Sosa evaluated *acute encephalopathy -occurred 07/05/ improved w narcan -dc narcotics * Advanced MS -continue home meds * HTN -better with resuming home med regimen -hydralazine + labetalol *anemia -reviewed her history/chronic. *hypokalemia -add protocol *renal insufficiency -avoid nephrotoxic medications -stable *Plan: dc narcotics, Valium/ patient much improved, will discuss w Dr Diallo about when dispo should occur Subjective: Lovely has no complaints, eating and drinking well. Objective: Vital Signs Temp Pulse Resp BP Pulse Ox 37.5 C 83 14 156/70 H 92 07/06/17 04:00 07/06/17 04:00 07/06/17 04:00 07/06/17 04:00 07/06/17 04:00 Laboratory Results 07/06/17 04:55 07/06/17 04:55 07/05/17 07/06/17 07/07/17 05:59 05:59 05:59 Intake Total 700 Output Total 925 Balance 700 -925 - Physical Exam Constitutional: no apparent distress, appears nourished, not in pain Eyes: PERRL Ears, Nose, Mouth, Throat: hearing normal Cardiovascular: regular rate and rhythym Respiratory: no respiratory distress Skin: warm Musculoskeletal: generalized weakness Neurologic: AAOx3 Psychiatric: interacting appropriately, poor insight, poor memory ICD10 Worksheet Patient Problems: Problems Problem Status Onset Tibia/fibula fracture Acute ARF (acute renal failure) Acute Anemia associated with acute blood loss Acute Hip fx Acute Hyponatremia Acute
[2017-07-06] MEDS: FUROSEMIDE 20 MG TAB PO SCH ×2 (09:41→14:49)
[2017-07-06] MEDS: SENNOSIDES/DOCUSATE SODIUM TAB PO SCH ×2 (09:41→21:05)
[2017-07-06] MEDS: Armodafinil [Nuvigil] 150 MG PO SCH (09:42)
[2017-07-06] MEDS: POLYETHYLENE GLYCOL 3350 17 GM PKT PO PRN (09:42)
[2017-07-06] MEDS: LABETALOL HCL 200 MG TAB PO SCH ×2 (09:42→21:06)
[2017-07-06] MEDS: BACLOFEN 20 MG TAB PO SCH ×2 (09:43→21:06)
[2017-07-06] MEDS: Dalfampridine [Ampyra] 10 MG PO SCH (09:50)
[2017-07-06] MEDS: ENOXAPARIN 40 MG/0.4 ML SYR SC SCH (09:52)
[2017-07-06] MEDS: LACTULOSE 20 GM/30 ML UDCUP PO PRN (15:32)
--- NOTE | 2017-07-06 16:25 | SOAPPROG ---
SOAP Progress Note Assessment/Plan: Assessment: 67-YEAR-OLD FEMALE COMPLICATED TIB-FIB FRACTURE AND ASSOCIATED PRESSURE WOUND ON THE OUTSIDE OF HER LEG WELL A CALCANEAL WOUND WOUND VAC IN PLACE/DRESSINGS DRY AND INTACT NO PLANS FOR ORTHO SURGERY AT THIS TIME AFEBRILE/VITAL SIGNS STABLE/ PATIENT OVERLY NARCOTIZED THIS MORNING AND DIFFICULT TO CARRY ON A CONVERSATION BUT APPARENTLY HAS RESPONDED TO NARCAN Plan: CONTINUE VAC AND DRESSING CHANGES 07/05/17 11:47 07/06/17 16:[address]/HEEL WOUND UNCHANGED/AFEBRILE/MORE COMFORTABLE TODAY PLAN IS VAC CHANGE IN THE A.M. Objective: Vital Signs Temp Pulse Resp BP Pulse Ox 36.4 C 70 16 140/61 H 94 07/06/17 16:00 07/06/17 16:00 07/06/17 16:00 07/06/17 16:00 07/06/17 16:00 Laboratory Results 07/06/17 04:55 07/06/17 04:55 07/05/17 07/06/17 07/07/17 05:59 05:59 05:59 Intake Total 700 Output Total 921 550 Balance 700 -925 -550 ICD10 Worksheet Patient Problems: Problems Problem Status Onset Tibia/fibula fracture Acute ARF (acute renal failure) Acute Anemia associated with acute blood loss Acute Hip fx Acute Hyponatremia Acute
[2017-07-06] MEDS: ACETAMINOPHEN 325 MG TAB PO PRN (23:37)
[2017-07-07] MEDS: LEVOTHYROXINE 25 MCG TAB PO SCH (05:42)
[2017-07-07] MEDS: ENOXAPARIN 40 MG/0.4 ML SYR SC SCH (08:28)
[2017-07-07] MEDS: BACLOFEN 20 MG TAB PO SCH ×2 (08:29→21:55)
[2017-07-07] MEDS: LABETALOL HCL 200 MG TAB PO SCH ×2 (08:31→21:55)
[2017-07-07] MEDS: FUROSEMIDE 20 MG TAB PO SCH ×2 (08:31→17:06)
[2017-07-07] MEDS: SENNOSIDES/DOCUSATE SODIUM TAB PO SCH ×2 (08:32→21:54)
--- NOTE | 2017-07-07 09:39 | WOCRNPDOC ---
MATT Advanced Assessment Note - Skin Integrity Problem, Advanced Assess Right Heel Pressure Injury Dressing Type: Wound Vac Dressing Description: Clean/Dry, Intact Skin Integrity Problem Comment: Replaced trac pad to ensure good suction. Some dried blood was in tubing and was unsure if it was clotted. Redraped until a good seal was acheived. Right Medial Dorsal Foot Pressure Injury Dressing Type: Open to Air Exudate Amount: None Integumentary Issue Intervention: Dressing Applied Tawana Wound Tissue: Erythema, Non-blanching Wound Bed Color: Black, Purple Wound Bed Constitution: Unstable Eschar Wound Edges: Attached Site Measurement - Head-to-Toe Length X Width X Depth (cm): 1.5x1.3x0 Pressure Injury Stage: Unstageable Pressure Injury Present on Admit: No Skin Integrity Problem Comment: Covered with mepilex border 3x3 Ag. Right Anterior Distal Dorsal Foot Pressure Injury Dressing Type: Hydrofera Blue Ready Dressing Description: Intact, Saturated Exudate Amount: Scant Exudate Characteristic(s): Sanguinous Integumentary Issue Intervention: Dressing Changed, Steri Strips Applied Site Measurement - Head-to-Toe Length X Width X Depth (cm): 2.8x1.9x0.4 Pressure Injury Stage: Stage 4 Pressure Injury Present on Admit: Yes Skin Integrity Problem Comment: Cleaned with ns and gauze. Skin prep tawana wound. Hydrofera blue ready to wound bed secured with steri strip. Caterina DAVIS visualized all wounds. Fay AGUIRRE and Earline RN in room for all care. Right Anterior Ankle Pressure Injury Dressing Type: Allevyn Life Dressing Description: Intact, Shadowed Exudate Amount: Minimal Exudate Characteristic(s): Serous Integumentary Issue Intervention: Dressing Changed Wound Bed Constitution: Smooth Tissue (5%), Adhered Slough (95%) Site Measurement - Head-to-Toe Length X Width X Depth (cm): 1.9x2.4x0.6 Pressure Injury Stage: Unstageable, Filling Technician Related Pressure Injury Pressure Injury Present on Admit: No Skin Integrity Problem Comment: Deep wound will likely be a Stage 4. There is no continued pressure on the area however it and the other wounds continue to devolve. Area cleaned with ns and gauze. Wound gel applied to wound bed and covered with Allevyn life dressing. Right Medial Ankle Pressure Injury Dressing Type: Open to Air Exudate Amount: None Integumentary Issue Intervention: Dressing Applied, Hydrogel Applied Wound Bed Constitution: Adhered Slough Site Measurement - Head-to-Toe Length X Width X Depth (cm): 1.2x1.5x0.3 Pressure Injury Stage: Stage 3 Pressure Injury Present on Admit: Yes Skin Integrity Problem Comment: Covered with mepilex border ag. 3x3. Right Lateral Foot Pressure Injury Dressing Type: Open to Air Tawana Wound Tissue: Erythema, Non-blanching Site Measurement - Head-to-Toe Length X Width X Depth (cm): 1.7x0.8xdti Pressure Injury Stage: Deep Tissue Injury (DTI) Pressure Injury Present on Admit: No Skin Integrity Problem Comment: no change in this wound. Right Anterior Medial Dorsal Foot Pressure Injury Skin Integrity Problem Comment: no change in this wound Right Lateral Ankle Pressure Injury Dressing Type: Wound Vac Dressing Description: Clean/Dry, Intact Tawana Wound Tissue: Macerated Right Lateral Dorsal Foot Pressure Injury Dressing Type: Open to Air Pressure Injury Stage: Deep Tissue Injury (DTI) Skin Integrity Problem Comment: This wound is proximal to the larger stage 4 that was POA. It is an evolving DTI. Right Medial First Toe Pressure Injury Dressing Type: Open to Air Site Measurement - Head-to-Toe Length X Width X Depth (cm): 1.5x1.5x0 Pressure Injury Stage: Deep Tissue Injury (DTI) Pressure Injury Present on Admit: No Right Lateral Fifth Toe Pressure Injury Dressing Type: Open to Air Site Measurement - Head-to-Toe Length X Width X Depth (cm): 0.5x0.3x0 Pressure Injury Stage: Deep Tissue Injury (DTI), Filling Technician Related Pressure Injury Pressure Injury Present on Admit: No
--- NOTE | 2017-07-07 10:48 | HOSPPROG ---
Hospitalist Progress Note Assessment/Plan: Patient is a 67 y/o female who has MS. She lives alone and slid out of her wheelchair sustaining a tib/fib fracture. Evaluated her wounds with Stephanie, automotive sales professional. * Tib/fib fracture -Dr Boyle ordered a custom boot w sheep skin insert -no surgery at this time * UTI. E coli that is tavares sensitive. -IV ceftriaxone 06/28/received full treatment * Calcaneal wound - worsening - now with exposed bone -needs further debridement vs. calcanectomy/ had debridement w Dr Diallo -Dr Sosa evaluated -spoke with Lovely about my concern that her wounds are not healing well and she needs more surgical interventions -she is willing to discuss this more at this time -wound vac in place *acute encephalopathy -occurred 07/05/ w narcan -dc narcotics * Advanced MS -continue home meds * HTN -better with resuming home med regimen -hydralazine + labetalol *anemia -reviewed her history/chronic. *hypokalemia -add protocol *renal insufficiency -avoid nephrotoxic medications -stable *Plan: Further evaluation per surgical team. Subjective: Lovely is willing to discuss more treatment in regards to her wounds , she's aware that they are not healing well. Objective: Vital Signs Temp Pulse Resp BP Pulse Ox 36.9 C 59 L 17 164/71 H 97 07/07/17 08:00 07/07/17 08:31 07/07/17 08:00 07/07/17 08:31 07/07/17 08:00 Laboratory Results 07/06/17 04:55 07/06/17 04:55 07/06/17 07/07/17 07/08/17 05:59 05:59 05:59 Intake Total 400 Output Total 925 553 Balance -925 -153 - Physical Exam Constitutional: no apparent distress, chronically ill appearing, other ( underweight) Eyes: PERRL Ears, Nose, Mouth, Throat: hearing normal Cardiovascular: no murmur, rub, or gallop Respiratory: no respiratory distress Gastrointestinal: normoactive bowel sounds, distension (slight) Skin: other (multiple wounds on right foot, heel area, poor granulation overall (please see wound care's description)) Musculoskeletal: generalized weakness Neurologic: AAOx3 Psychiatric: interacting appropriately, not anxious, poor memory ICD10 Worksheet Patient Problems: Problems Problem Status Onset Tibia/fibula fracture Acute ARF (acute renal failure) Acute Anemia associated with acute blood loss Acute Hip fx Acute Hyponatremia Acute
[2017-07-07] MEDS: Dalfampridine [Ampyra] 10 MG PO SCH (11:54)
[2017-07-07] MEDS: Armodafinil [Nuvigil] 150 MG PO SCH (11:54)
--- NOTE | 2017-07-07 16:51 | SOAPPROG ---
SOAP Progress Note Assessment/Plan: Assessment/plan: 67 yo well-known to our service for outpatient wound care Severe MS, had ankle fracture and was in cast for 12 weeks Initially had wounds on anterior hull and dorsum of foot. Recognized heel ulcer when cast was removed Now admitted with tibia fracture Unfortunately calcaneal wound significantly worse with bone exposed POD#4 debridement skin and soft tissue R calcaneal wound with wound vac placement. epifix under vac All other dressings changed today. New pressure injuries and others evolving - see wound care note for details. Today, she is more open to surgical debridement of the calcaneus. Will have Dr. Diallo discuss more with patient tomorrow S: asking questions this morning but does not seem alert enough to participate in conversation O: laying in bed, comfortable, falls asleep easily. answers questions appropriately but does not stay awake long enough to hear the answer No increased WOB RLE with pressure injury of anterior foot, dorsal 1st toe, medial malleolus. Wound vac to suction - epifix underneath vac Objective: Vital Signs Temp Pulse Resp BP Pulse Ox 36.6 C 63 16 155/71 H 97 07/07/17 16:00 07/07/17 16:00 07/07/17 16:00 07/07/17 16:00 07/07/17 16:00 Laboratory Results 07/06/17 04:55 07/06/17 04:55 07/06/17 07/07/17 07/08/17 05:59 05:59 05:59 Intake Total 400 Output Total 926 553 Balance -925 -153 ICD10 Worksheet Patient Problems: Problems Problem Status Onset Tibia/fibula fracture Acute ARF (acute renal failure) Acute Anemia associated with acute blood loss Acute Hip fx Acute Hyponatremia Acute
--- NOTE | 2017-07-07 17:21 | ASMTCMCOM ---
CM Note CM Note Notes: Pt may need to go back to surgery fopr debridement of calcaneal wound, currently has wound vac. Met w/pt to discuss dc plan of care. She is still in agreement with plan to do rehab at [facility]. She would like to meet w/Suzy from [facility]; I informed Suzy of this and she will be here tomorrow to meet w/pt. CM will follow. Date Signed: 07/07/2017 05:21 PM Electronically Signed By:Dariela Medrano RN
[2017-07-07] MEDS: ACETAMINOPHEN 325 MG TAB PO PRN (21:55)
[2017-07-08] MEDS: LEVOTHYROXINE 25 MCG TAB PO SCH (05:32)
[2017-07-08] MEDS: BACLOFEN 20 MG TAB PO SCH ×2 (08:17→21:51)
[2017-07-08] MEDS: LABETALOL HCL 200 MG TAB PO SCH ×2 (08:17→21:51)
[2017-07-08] MEDS: SENNOSIDES/DOCUSATE SODIUM TAB PO SCH ×2 (08:17→21:53)
[2017-07-08] MEDS: ACETAMINOPHEN 325 MG TAB PO PRN ×2 (08:17→13:42)
[2017-07-08] MEDS: Dalfampridine [Ampyra] 10 MG PO SCH (08:18)
[2017-07-08] MEDS: ENOXAPARIN 40 MG/0.4 ML SYR SC SCH (08:18)
[2017-07-08] MEDS: FUROSEMIDE 20 MG TAB PO SCH ×2 (08:18→16:03)
--- NOTE | 2017-07-08 08:38 | HOSPPROG ---
Hospitalist Progress Note Assessment/Plan: Patient is a 67 y/o female who has MS. She lives alone and slid out of her wheelchair sustaining a tib/fib fracture. Evaluated her wounds with Stephanie, repeat chief. * Tib/fib fracture -Dr Boyle ordered a custom boot w sheep skin insert -no surgery at this time -ordered toe touch weight bearing when getting oob, avoid placing weight on right foot due to fx and wound vac * UTI. E coli that is tavares sensitive. -IV ceftriaxone 06/28/received full treatment * Calcaneal wound - worsening - now with exposed bone -needs further debridement vs. calcanectomy/ had debridement w Dr Diallo -Dr Sosa evaluated -spoke with Lovely about my concern that her wounds are not healing well and she needs more surgical interventions -she is willing to discuss this more at this time -wound vac in place *acute encephalopathy -occurred 07/05/ improved w narcan -dc narcotics -ordered tramadol today, she is using too much Tylenol * Advanced MS -continue home meds * HTN -better with resuming home med regimen -hydralazine + labetalol *anemia -reviewed her history/chronic. *hypokalemia -add protocol *renal insufficiency -avoid nephrotoxic medications -stable *recent loss of her and dog this year *Plan: awaiting input from surgical team, needs further surgery, has wound vac in place for now. Recheck labs in a.m. Subjective: Lovely has no complaints. Objective: Vital Signs Temp Pulse Resp BP Pulse Ox 36.8 C 71 12 169/82 H 95 07/08/17 07:26 07/08/17 08:17 07/08/17 07:26 07/08/17 08:18 07/08/17 07:26 Laboratory Results 07/06/17 04:55 07/06/17 04:55 07/07/17 07/08/17 07/09/17 05:59 05:59 05:59 Intake Total 400 550 Output Total 553 700 Balance -153 -150 - Physical Exam Constitutional: appears nourished, not in pain, chronically ill appearing Eyes: PERRL Ears, Nose, Mouth, Throat: hearing normal Respiratory: no respiratory distress Gastrointestinal: normoactive bowel sounds, distension (slight) Skin: warm, No normal color (pale) Musculoskeletal: generalized weakness Neurologic: AAOx3 Psychiatric: interacting appropriately ICD10 Worksheet Patient Problems: Problems Problem Status Onset Tibia/fibula fracture Acute ARF (acute renal failure) Acute Anemia associated with acute blood loss Acute Hip fx Acute Hyponatremia Acute
[2017-07-08] MEDS: Armodafinil [Nuvigil] 150 MG PO SCH (09:33)
[2017-07-08] MEDS: traMADol 50 MG TAB PO PRN ×2 (16:03→23:39)
--- NOTE | 2017-07-08 16:33 | SOAPPROG ---
SOAP Progress Note Assessment/Plan: Assessment/plan: 67 yo well-known to our service for outpatient wound care Severe MS, had ankle fracture and was in cast for 12 weeks Initially had wounds on anterior hull and dorsum of foot. Recognized heel ulcer when cast was removed Now admitted with tibia fracture Unfortunately calcaneal wound significantly worse with bone exposed POD#5 debridement skin and soft tissue R calcaneal wound with wound vac placement. epifix under vac New pressure injuries and others evolving - see wound care note for details. Will change wound vac tomorrow and re-evaluate S: no complaints this morning other than pain in RLE O: laying in bed, comfortable, NAD. Alert and answers questions appropriately No increased WOB RLE wound vac to suction, dressings in place Objective: Vital Signs Temp Pulse Resp BP Pulse Ox 36.6 C 82 14 123/62 H 95 07/08/17 16:00 07/08/17 16:00 07/08/17 16:00 07/08/17 16:00 07/08/17 16:00 Laboratory Results 07/06/17 04:55 07/06/17 04:55 07/07/17 07/08/17 07/09/17 05:59 05:59 05:59 Intake Total 400 550 Output Total 553 700 Balance -153 -150 ICD10 Worksheet Patient Problems: Problems Problem Status Onset Tibia/fibula fracture Acute ARF (acute renal failure) Acute Anemia associated with acute blood loss Acute Hip fx Acute Hyponatremia Acute
[2017-07-09] MEDS: ACETAMINOPHEN 325 MG TAB PO PRN ×2 (00:29→14:50)
[2017-07-09] MEDS: PRAMIPEXOLE 0.25 MG TAB PO PRN ×2 (00:32→21:22)
[2017-07-09 05:23] LABS: % IMMATURE GRANULYOCYTES 0.3 % (0.0-1.1); ABSOLUTE IMMATURE GRANULOCYTES 0.02 10^3/uL (0.00-0.10); ADD DIFF? NO; ADD MORPH? NO; ADD SCAN? NO; ATYPICAL LYMPHOCYTE FLAG 0 (0-99); FRAGMENT RBC FLAG 0 (0-99); HEMATOCRIT 25.3 % (38.0-47.0); HEMOGLOBIN 8.2 g/dL (12.6-16.3); LEFT SHIFT FLG 0 (0-99); LIPEMIA HEMOLYSIS FLAG 80 (0-99); MEAN CELL HEMOGLOBIN 30.1 pg (27.9-34.1); MEAN CELL HEMOGLOBIN CONCENTR. 32.4 g/dL (32.4-36.7); MEAN PLATELET VOLUME 10.2 fL (8.7-11.7); PLATELET CLUMPS FLAG 0 (0-99); PLATELET COUNT 222 10^3/uL (150-400); RED BLOOD CELL COUNT 2.72 10^6/uL (4.18-5.33); RED CELL DISTRIBUTION WIDTH 14.5 % (11.5-15.2)
[2017-07-09 05:34] LABS: ANION GAP 14 mEq/L (8-16); CALCIUM 8.8 mg/dL (8.5-10.4); CARBON DIOXIDE 22 mEq/l (22-31); CHLORIDE 101 mEq/L (97-110); GLOMERULAR FILTRATION RATE 55; GLUCOSE 94 mg/dL (70-100); POTASSIUM 4.6 mEq/L (3.5-5.2); SODIUM 137 mEq/L (134-144)
[2017-07-09] MEDS: LEVOTHYROXINE 25 MCG TAB PO SCH (06:09)
[2017-07-09] MEDS: traMADol 50 MG TAB PO PRN ×4 (06:09→23:50)
[2017-07-09] MEDS: BACLOFEN 20 MG TAB PO SCH ×2 (08:54→21:16)
[2017-07-09] MEDS: ENOXAPARIN 40 MG/0.4 ML SYR SC SCH (08:55)
[2017-07-09] MEDS: FUROSEMIDE 20 MG TAB PO SCH ×2 (08:55→17:05)
[2017-07-09] MEDS: LABETALOL HCL 200 MG TAB PO SCH ×2 (08:55→21:16)
[2017-07-09] MEDS: SENNOSIDES/DOCUSATE SODIUM TAB PO SCH ×2 (09:06→21:53)
[2017-07-09] MEDS: Dalfampridine [Ampyra] 10 MG PO SCH (09:21)
--- NOTE | 2017-07-09 10:10 | SOAPPROG ---
SOAP Progress Note Assessment/Plan: Assessment/plan: 67 yo well-known to our service for outpatient wound care Severe MS, had ankle fracture and was in cast for 12 weeks Initially had wounds on anterior hull and dorsum of foot. Recognized heel ulcer when cast was removed Now admitted with tibia fracture Unfortunately calcaneal and R lat mal wounds significantly worse with bone exposed POD#6 debridement skin and soft tissue R calcaneal wound and R lateral malleolus wounds New pressure injuries and others evolving - see wound care note for details. Wound vac removed today - calcaneal wound and right lateral malleolus wounds with new granulation tissue, still with palpable bone. crossing flagman to replace wound vac today S: no complaints this morning other than pain in RLE O: laying in bed, comfortable, NAD. Alert and answers questions appropriately No increased WOB RLE wound vac removed. Calcaneal and right lateral malleolus wounds with some new healthy granulation tissue. Still with palpable bone. Not actively infected. Other RLE pressure ulcers with dressings itnact Objective: Vital Signs Temp Pulse Resp BP Pulse Ox 37.2 C 75 16 147/72 H 94 07/09/17 07:58 07/09/17 08:55 07/09/17 07:58 07/09/17 08:55 07/09/17 07:58 Laboratory Results 07/09/17 05:16 07/09/17 05:16 07/08/17 07/09/17 07/10/17 05:59 05:59 05:59 Intake Total 550 1000 Output Total 700 Balance -150 1000 ICD10 Worksheet Patient Problems: Problems Problem Status Onset Tibia/fibula fracture Acute ARF (acute renal failure) Acute Anemia associated with acute blood loss Acute Hip fx Acute Hyponatremia Acute
[2017-07-09] MEDS: Armodafinil [Nuvigil] 150 MG PO SCH (10:48)
[2017-07-09] MEDS ORDERED: CALCIUM CARBONATE 500 MG CHEWABLE TAB PO PRN (12:16)
--- NOTE | 2017-07-09 13:04 | HOSPPROG ---
Hospitalist Progress Note Assessment/Plan: Patient is a 67 y/o female who has MS. She lives alone and slid out of her wheelchair sustaining a tib/fib fracture. D/W RN. * Tib/fib fracture -Dr Boyle ordered a custom boot w sheep skin insert -no surgery at this time -ordered toe touch weight bearing when getting oob, avoid placing weight on right foot due to fx and wound vac * UTI. E coli that is tavares sensitive. -IV ceftriaxone 06/28/received full treatment * Calcaneal wound - worsening - now with exposed bone -needs further debridement vs. calcanectomy/ had debridement w Dr Diallo -Dr Sosa evaluated -she needs more surgical interventions -wound vac changed today *acute encephalopathy -occurred 07/05/ improved w narcan -dc narcotics -tramadol, she is using too much Tylenol * Advanced MS -continue home meds * HTN -better with resuming home med regimen -hydralazine + labetalol *anemia -reviewed her history/chronic. *hypokalemia -add protocol *renal insufficiency -avoid nephrotoxic medications -stable *recent loss of her and dog this year *Plan: change wound vac Subjective: Some pain. Wound vac change. Objective: Vital Signs Temp Pulse Resp BP Pulse Ox 36.5 C 79 18 142/62 H 96 07/09/17 11:10 07/09/17 11:10 07/09/17 11:10 07/09/17 11:10 07/09/17 11:10 Laboratory Results 07/09/17 05:16 07/09/17 05:16 07/08/17 07/09/17 07/10/17 05:59 05:59 05:59 Intake Total 550 1000 Output Total 700 Balance -150 1000 - Physical Exam Constitutional: appears nourished, chronically ill appearing Eyes: PERRL, anicteric sclera Ears, Nose, Mouth, Throat: moist mucous membranes, hearing normal Cardiovascular: No JVD, No edema Respiratory: no respiratory distress, reduced air movement Gastrointestinal: No tenderness, No ascites Skin: warm, normal color Musculoskeletal: pain with ROM, generalized weakness Neurologic: AAOx3 Psychiatric: interacting appropriately, not encephalopathic ICD10 Worksheet Patient Problems: Problems Problem Status Onset Hip fx Acute Hyponatremia Acute ARF (acute renal failure) Acute Anemia associated with acute blood loss Acute Tibia/fibula fracture Acute
--- NOTE | 2017-07-09 13:19 | WOCRNPDOC ---
WOCRN Advanced Assessment Note - Skin Integrity Problem, Advanced Assess Right Lateral 5th Metatarsal Head Dressing Type: Open to Air Site Measurement - Head-to-Toe Length X Width X Depth (cm): 1.5x1.2x0 Pressure Injury Stage: Stage 1, Electronic Parts Salesperson Related Pressure Injury Pressure Injury Present on Admit: No Right Heel Pressure Injury Dressing Type: Gauze, Kerlix Dressing Description: Clean/Dry, Intact Exudate Amount: Scant Exudate Characteristic(s): Serosanguinous Integumentary Issue Intervention: Dressing Changed Tawana Wound Tissue: Erythema Tawana Wound Swelling: None Wound Bed Color: Brown, Red, Yellow Wound Bed Constitution: Smooth Tissue, Red/[place] - Non Granular Tissue, Bone Site Odor: None Site Measurement - Head-to-Toe Length X Width X Depth (cm): 4x4.2x0.3 Pressure Injury Stage: Stage 4, Electronic Parts Salesperson Related Pressure Injury Pressure Injury Present on Admit: Yes Extremity Temperature: Warm Skin Integrity Problem Comment: Cleaned with ns and gauze. Skin prep and drape tawana wound. Covered wound bed with mepitel and then one piece of black foam. Bridged to right lateral wound with black foam and suction placed between the two wounds. Bridge dressing used. Right Lateral Ankle Pressure Injury Dressing Type: Gauze, Kerlix Dressing Description: Clean/Dry, Intact Exudate Amount: Scant Exudate Characteristic(s): Serosanguinous Integumentary Issue Intervention: Dressing Changed Wound Bed Color: Brown, Red, Yellow Wound Bed Constitution: Granulation Tissue, Smooth Tissue, Red/[place] - Non Granular Tissue, Undermining (3.4 cm ), Tendon, Bone, Adhered Slough Site Measurement - Head-to-Toe Length X Width X Depth (cm): 5.3x4.9x0.5 Pressure Injury Stage: Stage 4, Electronic Parts Salesperson Related Pressure Injury Pressure Injury Present on Admit: Yes Skin Integrity Problem Comment: Cleaned with ns and gauze. Skin prep and drape tawana wound. Covered part of wound bed with mepitel to protect tendon and bone, and then covered with one piece of black foam. Bridged to right lateral wound with black foam and suction placed between the two wounds. Bridge dressing used. Vac restarted at -125 mm Hg continuous suction without any leaks. Right Anterior Ankle Pressure Injury Dressing Type: Open to Air Tawana Wound Tissue: Erythema Wound Bed Color: Red, Yellow Wound Bed Constitution: Granulation Tissue (5%), Adhered Slough (95%) Pressure Injury Stage: Unstageable, Electronic Parts Salesperson Related Pressure Injury Pressure Injury Present on Admit: No Skin Integrity Problem Comment: Cleaned with ns and gauze. filled wound bed with wound gel and covered with Allevyn life dressing. Right Medial Ankle Pressure Injury Dressing Type: Open to Air Wound Bed Constitution: Dried Exudate Pressure Injury Stage: Stage 3 Pressure Injury Present on Admit: Yes Skin Integrity Problem Comment: Cleaned with ns and gauze. filled wound bed with wound gel and covered with Allevyn life dressing. Right Lateral Dorsal Foot Pressure Injury Dressing Type: Other Other Dressing Type: Hydrofera blue transfer Dressing Description: Clean/Dry, Intact Integumentary Issue Intervention: Dressing Changed Tawana Wound Tissue: Erythema Wound Bed Constitution: Granulation Tissue Pressure Injury Stage: Stage 4 Pressure Injury Present on Admit: Yes Skin Integrity Problem Comment: Cleaned with ns and gauze but HFB transfer was strongly adhered. Cut HFB ready to fit in wound bed and steri stripped in place. Anca RN, Yong STEAMBLASTER and Simona STEAMBLASTER all assisted with care.
--- NOTE | 2017-07-09 16:51 | ASMTCMCOM ---
CM Note CM Note Notes: Per Dr. Diallo pt wounds require free flap skin graft, neither [facility] or [facility] can facilitate the procedure, she will call [facility] to determine if they can. TC to Josette at [facility] ([phone]), procedure not done at [facility] facility but hospital and suggested [facility] or [place]. TC to Celia Barboza at [facility] ([phone]), [facility] wound care MD Huynh does the procedure and he is associated with [facility] and [facility]. Pt moved to 3E today, the 3E CM will be updated. CM to follow. Date Signed: 07/09/2017 04:50 PM Electronically Signed By:CLAIRE Pitts
[2017-07-10] MEDS: ACETAMINOPHEN 325 MG TAB PO PRN (02:42)
[2017-07-10] MEDS ORDERED: KETOROLAC 15 MG/1 ML SDV IVP ONE (02:54)
[2017-07-10] MEDS: LEVOTHYROXINE 25 MCG TAB PO SCH (06:21)
[2017-07-10] MEDS: FUROSEMIDE 20 MG TAB PO SCH ×2 (08:14→15:53)
[2017-07-10] MEDS: BACLOFEN 20 MG TAB PO SCH ×2 (08:14→20:49)
[2017-07-10] MEDS: LABETALOL HCL 200 MG TAB PO SCH ×2 (08:14→20:50)
[2017-07-10] MEDS: Dalfampridine [Ampyra] 10 MG PO SCH (08:15)
[2017-07-10] MEDS: ENOXAPARIN 40 MG/0.4 ML SYR SC SCH (08:15)
[2017-07-10] MEDS: SENNOSIDES/DOCUSATE SODIUM TAB PO SCH ×2 (08:19→21:12)
[2017-07-10] MEDS: Armodafinil [Nuvigil] 150 MG PO SCH (08:52)
[2017-07-10 09:53] LABS: C-REACTIVE PROTEIN 38.3 mg/L (<10.0)
[2017-07-10 09:57] LABS: PREALBUMIN 15.9 mg/dL (17.6-36.0)
--- NOTE | 2017-07-10 10:35 | SOAPPROG ---
SOAP Progress Note Assessment/Plan: Assessment: 67 yo well-known to our service for outpatient wound care Severe MS, had ankle fracture and was in cast for 12 weeks Initially had wounds on anterior hull and dorsum of foot. Recognized heel ulcer when cast was removed Now admitted with tib/fib fracture Unfortunately calcaneal and R lat mal wounds significantly worse with bone exposed POD#7 debridement skin and soft tissue R calcaneal wound and R lateral malleolus wounds New pressure injuries and others evolving - see wound care note for details. Wound vac in place CTA prior to discharge to evaluate blood supply Pre-albumin is reasonable considering CRP - should have adequate nutrition to heal wound Can D/C to SNF, with outpatient plastic surgery follow up at [facility] for free flap graft consultation, to be arranged by patient, with help from [place] [facility] facility If not candidate for free flap, will need BKA S: no complaints this morning other than pain in RLE O: laying in bed, comfortable, NAD. Alert and answers questions appropriately No increased WOB Wound vac in place Plan: 06/28/17 12:10 06/29/17 08:25 07/03/17 09:11 07/10/17 10:28 07/10/17 10:47 Objective: Vital Signs Temp Pulse Resp BP Pulse Ox 36.6 C 66 16 128/62 H 96 07/10/17 08:00 07/10/17 08:00 07/10/17 08:00 07/10/17 08:00 07/10/17 08:00 Laboratory Results 07/09/17 05:16 07/09/17 05:16 07/09/17 07/10/17 07/11/17 05:59 05:59 05:59 Intake Total 1000 Output Total 1350 Balance 1000 -1350 ICD10 Worksheet Patient Problems: Problems Problem Status Onset Tibia/fibula fracture Acute ARF (acute renal failure) Acute Anemia associated with acute blood loss Acute Hip fx Acute Hyponatremia Acute
[2017-07-10] MEDS ORDERED: IOPAMIDOL (ISOVUE 370) 100 ML BTL IV ONE ×2 (12:09→12:12)
--- NOTE | 2017-07-10 12:31 | ASMTCMCOM ---
CM Note CM Note Notes: Spoke w/hospitalist, pt needs a CT w/angio today and can dc to [facility] tomorrow. Tod from notified and is ordering a wound vac. DC Plan: [facility] Date Signed: 07/10/2017 12:31 PM Electronically Signed By:Lovely Arzola RN
[2017-07-10] MEDS: traMADol 50 MG TAB PO PRN (16:23)
--- NOTE | 2017-07-10 18:54 | SOAPPROG ---
SOJULIANNE Progress Note Assessment/Plan: Assessment: Right popliteal arterial occlusion could limit wound healing of lower right leg. Percutaneous revascularization, restoring in-line flow, would likely improve healing. Plan: Right femoral arteriography and stenting tomorrow. 07/10/17 18:54 Subjective: We discussed Catheter arteriography and stenting of right leg in detail. Lovely accepts risks (bleeding, damage to circulation, amputation, restenosis) and she wishes to proceed tomorrow. Objective: CTA demonstrates 2 cm long arterial occlusion of upper right popliteal a. just below adductor hiatus. Arterial inflow and distal run-off are intact. Vital Signs Temp Pulse Resp BP Pulse Ox 36.8 C 66 18 142/97 H 96 07/10/17 16:00 07/10/17 16:00 07/10/17 16:00 07/10/17 16:00 07/10/17 16:00 Laboratory Results 07/09/17 05:16 07/09/17 05:16 07/09/17 07/10/17 07/11/17 05:59 05:59 05:59 Intake Total 1000 Output Total 1350 Balance 1000 -1350 ICD10 Worksheet Patient Problems: Problems Problem Status Onset Tibia/fibula fracture Acute ARF (acute renal failure) Acute Anemia associated with acute blood loss Acute Hip fx Acute Hyponatremia Acute
--- NOTE | 2017-07-10 18:58 | PDPROPOC ---
Sedation Plan of Care Sedation Plan of Care: vital signs stable, mental status noted, patient educated of risks, benefits, alternatives, patient can tolerate sedation ASA Classification: ASA 3 Planned drugs: fentanyl, midazolam Mallampati Score: Class 1 Mallampati Reference Image: Patient passed 3-3-2 rule?: Yes
--- NOTE | 2017-07-10 20:11 | HOSPPROG ---
Hospitalist Progress Note Assessment/Plan: Patient is a 67 y/o female who has MS. She lives alone and slid out of her wheelchair sustaining a tib/fib fracture. D/W RN/CM. * Tib/fib fracture -Dr Boyle ordered a custom boot w sheep skin insert -no surgery at this time -ordered toe touch weight bearing when getting oob, avoid placing weight on right foot due to fx and wound vac * UTI. E coli that is tavares sensitive. -IV ceftriaxone 06/28/received full treatment * Calcaneal wound - with exposed bone -had debridement w Dr Diallo -CTA show blockage, stent scheduled for am with IR -she needs more surgical interventions in the future at [place] -wound vac change *acute encephalopathy -occurred 07/05/ improved w narcan -dc'd narcotics -tramadol, she is using too much Tylenol * Advanced MS -continue home meds * HTN -better with resuming home med regimen -hydralazine + labetalol *anemia -reviewed her history/chronic. *hypokalemia -add protocol *renal insufficiency -avoid nephrotoxic medications -stable *recent loss of her and dog this year *Plan: stent of right popletial artery in am will need SNF at time of DC with wound vac Subjective: Feels well. Eager to leave hospital. No pain currently. Objective: Vital Signs Temp Pulse Resp BP Pulse Ox 37.1 C 67 16 145/63 H 93 07/10/17 19:53 07/10/17 19:53 07/10/17 19:53 07/10/17 19:53 07/10/17 19:53 Laboratory Results 07/09/17 05:16 07/09/17 05:16 07/09/17 07/10/17 07/11/17 05:59 05:59 05:59 Intake Total 1000 Output Total 1350 Balance 1000 -1350 - Physical Exam Constitutional: appears nourished, chronically ill appearing, uncomfortable Eyes: PERRL, anicteric sclera, EOMI Ears, Nose, Mouth, Throat: moist mucous membranes, hearing normal, ears appear normal Cardiovascular: regular rate and rhythym, No JVD, No tachycardia Respiratory: no respiratory distress, no rales or rhonchi, reduced air movement Gastrointestinal: normoactive bowel sounds, soft, non-tender abdomen, No guarding Skin: warm, pressure ulcer, other (wound vac) Musculoskeletal: pain with ROM, muscular tenderness, generalized weakness Neurologic: AAOx3 Psychiatric: interacting appropriately, not encephalopathic, thought process linear ICD10 Worksheet Patient Problems: Problems Problem Status Onset Hip fx Acute Hyponatremia Acute ARF (acute renal failure) Acute Anemia associated with acute blood loss Acute Tibia/fibula fracture Acute
[2017-07-10] MEDS: PRAMIPEXOLE 0.25 MG TAB PO PRN (20:51)
[2017-07-11] MEDS: traMADol 50 MG TAB PO PRN ×4 (00:51→21:40)
[2017-07-11] MEDS: LEVOTHYROXINE 25 MCG TAB PO SCH (05:36)
[2017-07-11] MEDS: Dalfampridine [Ampyra] 10 MG PO SCH (07:55)
[2017-07-11] MEDS: SENNOSIDES/DOCUSATE SODIUM TAB PO SCH ×2 (07:57→21:41)
[2017-07-11] MEDS: Armodafinil [Nuvigil] 150 MG PO SCH (07:57)
[2017-07-11] MEDS: FUROSEMIDE 20 MG TAB PO SCH ×2 (07:59→15:44)
[2017-07-11] MEDS: BACLOFEN 20 MG TAB PO SCH ×2 (07:59→21:38)
[2017-07-11] MEDS: LABETALOL HCL 200 MG TAB PO SCH ×2 (07:59→21:40)
[2017-07-11] MEDS ORDERED: HEPARIN 10,000 UNIT/10 ML MDV IVP PRN (08:36)
[2017-07-11] MEDS ORDERED: ALTEPLASE 2 MG VIAL IVP PRN (08:36)
[2017-07-11] MEDS ORDERED: MEPERIDINE 25 MG/ML SYR IVP PRN (08:36)
[2017-07-11] MEDS ORDERED: NALOXONE HCL 0.4 MG/ML INJ IVP PRN (08:36)
[2017-07-11] MEDS ORDERED: FLUMAZENIL 0.5 MG/5 ML MDV IVP PRN (08:36)
[2017-07-11] MEDS ORDERED: GLUCAGON HCL 1 MG VIAL IVP PRN (08:36)
[2017-07-11] MEDS ORDERED: PROTAMINE SULFATE 50 MG/5 ML VIAL IVP PRN (08:36)
[2017-07-11] MEDS ORDERED: MIDAZOLAM 2 MG/2 ML VIAL IVP PRN (08:36)
[2017-07-11] MEDS ORDERED: fentaNYL 100 MCG/2 ML INJ IVP PRN (08:36)
[2017-07-11] MEDS ORDERED: NS 1,000 ML IV SCH (08:45)
[2017-07-11 09:23] LABS: INR 1.01 (0.83-1.16); PROTIME(PATIENT) 13.5 SEC (12.0-15.0)
[2017-07-11 09:24] LABS: APTT 34.4 SEC (23.0-38.0)
--- NOTE | 2017-07-11 09:25 | SOAPPROG ---
SOAP Progress Note Assessment/Plan: Assessment/plan: 67 yo well-known to our service for outpatient wound care Severe MS, had ankle fracture and was in cast for 12 weeks Initially had wounds on anterior hull and dorsum of foot. Recognized heel ulcer when cast was removed Now admitted with tibia fracture Unfortunately calcaneal and R lat mal wounds significantly worse with bone exposed POD#8 debridement skin and soft tissue R calcaneal wound and R lateral malleolus wounds New pressure injuries and others evolving - see wound care note for details. CTA showed chronically occluded R popliteal artery. To IR today for stent placement Can D/C to SNF, with outpatient plastic surgery follow up at [facility] for free flap graft consultation, to be arranged by patient, with help from [facility] facility If not candidate for free flap, will need BKA S: no complaints this morning other than pain in RLE during dressing change O: laying in bed, comfortable, NAD. Alert and answers questions appropriately No increased WOB RLE wound vac removed. Calcaneal and right lateral malleolus wounds with some new healthy granulation tissue. Still with palpable bone. Not actively infected. Other RLE pressure ulcers with dressings intact Objective: Vital Signs Temp Pulse Resp BP Pulse Ox 37.3 C 88 14 162/60 H 92 07/11/17 07:46 07/11/17 07:46 07/11/17 07:46 07/11/17 07:46 07/11/17 07:46 Laboratory Results 07/09/17 05:16 07/09/17 05:16 07/10/17 07/11/17 07/12/17 05:59 05:59 05:59 Output Total 1350 Balance -1350 PT 13.5 SEC (12.0-15.0) 07/11/17 09:00 INR 1.01 (0.83-1.16) 07/11/17 09:00 ICD10 Worksheet Patient Problems: Problems Problem Status Onset Tibia/fibula fracture Acute ARF (acute renal failure) Acute Anemia associated with acute blood loss Acute Hip fx Acute Hyponatremia Acute
[2017-07-11] MEDS ORDERED: MIDAZOLAM 2 MG/2 ML VIAL ONE (10:24)
[2017-07-11] MEDS ORDERED: fentaNYL 100 MCG/2 ML INJ ONE (10:24)
[2017-07-11] MEDS ORDERED: HEPARIN 10,000 UNIT/10 ML MDV ONE (11:16)
[2017-07-11] MEDS ORDERED: NITROGLYCERIN/D5W 50 MG/250 ML BOTTLE IV ONE (11:18)
[2017-07-11] MEDS ORDERED: IOPAMIDOL (ISOVUE-300) 100 ML BTL ONE (11:50)
--- NOTE | 2017-07-11 11:50 | WOCRNPDOC ---
MATT Advanced Assessment Note - Skin Integrity Problem, Advanced Assess Right Heel Pressure Injury Dressing Type: Black Vac Foam, Wound Vac, Other Other Dressing Type: Mepitel contact layer Dressing Description: Intact Exudate Amount: Minimal Exudate Color: Reddish/Yellow Exudate Characteristic(s): Serosanguinous Integumentary Issue Intervention: Dressing Changed Tawana Wound Tissue: Blanching, Erythema Tawana Wound Swelling: Mild Wound Bed Color: Red, Yellow Wound Bed Constitution: Granulation Tissue (20%), Red/[place] - Non Granular Tissue (20%), Bone, Adhered Slough (60%) Wound Edges: Well Defined Site Odor: Slight Pressure Injury Stage: Stage 4, Automatic Beam Warper Tender Related Pressure Injury Pressure Injury Present on Admit: Yes Skin Integrity Problem Comment: Full-thickness wound w/ exposed bone medially, granulation tissue observed along wound margins, adhered slough scattered throughout. Assessed site w/ Caterina DAVIS and Dr. Diallo who report wound appearance improved since previous assessment on 07/09. Applied Mepitel contact layer over exposed bone, then applied black vac foam over the wound bed. This was bridged posteriorly to connect to the wound on the lateral malleolus. Vac setting resumed at -125mmHg, low continuous suction w/ no leaks noted. Right Medial Ankle Pressure Injury Dressing Type: Allevyn Life Exudate Amount: None Exudate Characteristic(s): None Integumentary Issue Intervention: Dressing Changed, Hydrogel Applied Tawana Wound Tissue: Blanching, Erythema Tawana Wound Swelling: Mild Wound Bed Color: Black, Yellow Wound Bed Constitution: Mixed Loose & Adhered Slough/Eschar (100%) Pressure Injury Stage: Unstageable, Automatic Beam Warper Tender Related Pressure Injury Pressure Injury Present on Admit: Yes Skin Integrity Problem Comment: Wound filled with dried eschar and slough, currently unstageable. Applied copious Hydrogel followed by an Allevyn Life dressing to help soften necrotic tissue. Mild tawana-wound erythema, blanching and intact. Right Anterior Ankle Pressure Injury Dressing Type: Allevyn Life Exudate Amount: Minimal Exudate Color: Reddish/Yellow Exudate Characteristic(s): Serosanguinous Integumentary Issue Intervention: Dressing Changed, Hydrogel Applied Atwana Wound Tissue: Blanching, Erythema Wound Bed Color: Red, Yellow Wound Bed Constitution: Red/[place] - Non Granular Tissue (10%), Adhered Slough (90 %) Wound Edges: Well Defined Site Odor: None Pressure Injury Stage: Unstageable, Automatic Beam Warper Tender Related Pressure Injury Pressure Injury Present on Admit: Yes Skin Integrity Problem Comment: Adhered slough throughout most of this wound, w / thin rim of non-granulating tissue observed. Mild, blanching tawana-wound erythema. Initiated dressing w/ Manuka honey this morning to help autolytically debride this necrotic tissue. Wound covered w/ larger Allevyn, which is also covering wound adjacent on the R medial malleolus. Right Lateral Ankle Pressure Injury Dressing Type: Black Vac Foam, Other Other Dressing Type: Mepitel contact layer Dressing Description: Intact Exudate Amount: Scant Exudate Color: Reddish/Yellow Exudate Characteristic(s): Serosanguinous Integumentary Issue Intervention: Dressing Changed Tawana Wound Tissue: Blanching, Erythema Tawana Wound Swelling: Mild Wound Bed Color: Red, Yellow Wound Bed Constitution: Granulation Tissue, Red/[place] - Non Granular Tissue, Tendon, Bone, Adhered Slough Site Odor: Slight Pressure Injury Stage: Stage 4, Automatic Beam Warper Tender Related Pressure Injury Pressure Injury Present on Admit: Yes Skin Integrity Problem Comment: Full-thickness wound on R lateral malleolus w/ exposed tendon and bone. Granulation tissue emerging along wound periphery, adhered slough remaining medially. Mepitel contact layer applied to wound bed to protect tendon and bone, followed by one piece of black vac foam, which was bridged posteriorly to connect w/ R heel wound. Vac set at -125mmHg low, continuous suction w/ no leaks. Right Anterior Distal Dorsal Foot Pressure Injury Dressing Type: Allevyn Life, Hydrofera Blue Ready Dressing Description: Intact Exudate Amount: Scant Exudate Color: Reddish/Yellow Exudate Characteristic(s): Serosanguinous Integumentary Issue Intervention: Dressing Changed Tawana Wound Tissue: Blanching, Erythema Tawana Wound Swelling: Mild Wound Bed Color: Red Wound Bed Constitution: Granulation Tissue Wound Edges: Well Defined Site Odor: None Pressure Injury Stage: Stage 3 Skin Integrity Problem Comment: Wound 100% granulation, mild, blanching tawana- wound erythema. Will continue w/ Hydrofera Blue Ready foam as it appears to be working well. Right Medial Dorsal Foot Pressure Injury Dressing Type: Allevyn Life Exudate Amount: None Exudate Characteristic(s): None Integumentary Issue Intervention: Dressing Changed Tawana Wound Tissue: Blanching, Erythema Tawana Wound Swelling: Mild Wound Bed Constitution: Mixed Loose & Adhered Slough/Eschar Pressure Injury Stage: Unstageable Pressure Injury Present on Admit: Yes Skin Integrity Problem Comment: Wound remains unstageable, w/ ecchymotic- looking adhered scab medially. Reapplied Hydrogel to help soften/loosen necrotic tissue, and covered w/ Allevyn Life. Right Medial First Toe Pressure Injury Dressing Type: Open to Air Exudate Amount: None Exudate Characteristic(s): None Tawana Wound Tissue: Blanching, Erythema, Swollen Tawana Wound Swelling: Mild Wound Bed Color: Purple Pressure Injury Stage: Deep Tissue Injury (DTI) Skin Integrity Problem Comment: DTI w/ intact skin over R great toe, unchanged since previous assessments. Wound care will continue to monitor.
--- NOTE | 2017-07-11 12:10 | PDRADPN ---
Radiology Procedure Note Date of Procedure: 07/11/17 Radiologist: Twin Benites Anesthesia: IV Sedation Pre-op Diagnosis: Occlusion of right popliteal artery Post-op Diagnosis: Same Indication: Nonhealing wounds, right ankle and foot Procedure: Stenting of right popliteal artery Finding(s): Patency achieved; now has rapid inline flow to lower leg. Inf/Abcess present in the surg proc area at time of surgery?: No EBL: 50-100 Complications: 0. AngioSeal for hemostasis of right groin.
[2017-07-11] MEDS ORDERED: CLOPIDOGREL BISULFATE 75 MG TAB PO ONE ×2 (12:29→16:00)
--- NOTE | 2017-07-11 12:53 | HOSPPROG ---
Hospitalist Progress Note Assessment/Plan: Patient is a 67 y/o female who has MS. She lives alone and slid out of her wheelchair sustaining a tib/fib fracture. D/W RN/CM, Dr Diallo. * Tib/fib fracture -Dr Boyle ordered a custom boot w sheep skin insert -no surgery at this time -ordered toe touch weight bearing when getting oob, avoid placing weight on right foot due to fx and wound vac * UTI. E coli that is tavares sensitive. -IV ceftriaxone 06/28/received full treatment * Calcaneal wound - with exposed bone -had debridement w Dr Diallo -CTA show blockage, stent this am with IR -she needs more surgical interventions in the future at [place] -wound vac change *acute encephalopathy -occurred 07/05/ improved w narcan -dc'd narcotics -tramadol, she is using too much Tylenol * Advanced MS -continue home meds * HTN -better with resuming home med regimen -hydralazine + labetalol *anemia -reviewed her history/chronic. *hypokalemia -add protocol *renal insufficiency -avoid nephrotoxic medications -stable *recent loss of her and dog this year *Plan: stent of right popletial artery today DC to SNF in am Subjective: Having some pain. Getting dressing changes. Objective: Vital Signs Temp Pulse Resp BP Pulse Ox 37.1 C 77 15 150/56 H 99 07/11/17 07:53 07/11/17 07:53 07/11/17 07:53 07/11/17 10:49 07/11/17 10:51 Laboratory Results 07/09/17 05:16 07/09/17 05:16 07/10/17 07/11/17 07/12/17 05:59 05:59 05:59 Intake Total 200 Output Total 1350 Balance -1350 200 PT 13.5 SEC (12.0-15.0) 07/11/17 09:00 INR 1.01 (0.83-1.16) 07/11/17 09:00 - Physical Exam Constitutional: appears nourished, chronically ill appearing, uncomfortable Eyes: PERRL, anicteric sclera, EOMI Ears, Nose, Mouth, Throat: moist mucous membranes, hearing normal, ears appear normal Cardiovascular: regular rate and rhythym, No JVD, No edema Respiratory: no respiratory distress, no rales or rhonchi, reduced air movement Gastrointestinal: No tenderness, No ascites, No rebound Skin: warm, erythema, induration Musculoskeletal: no joint effusions, pain with ROM, generalized weakness Neurologic: AAOx3 Psychiatric: interacting appropriately, not anxious, not encephalopathic, thought process linear ICD10 Worksheet Patient Problems: Problems Problem Status Onset Hip fx Acute Hyponatremia Acute ARF (acute renal failure) Acute Anemia associated with acute blood loss Acute Tibia/fibula fracture Acute
[2017-07-11] MEDS: ACETAMINOPHEN 325 MG TAB PO PRN ×2 (17:44→21:40)
[2017-07-12] MEDS: LEVOTHYROXINE 25 MCG TAB PO SCH (06:32)
[2017-07-12 07:29] VITALS: RESP 14; TEMP 98.4
[2017-07-12] MEDS ORDERED: CLOPIDOGREL BISULFATE 75 MG TAB PO SCH (09:00)
[2017-07-12] MEDS: ENOXAPARIN 40 MG/0.4 ML SYR SC SCH (09:49)
[2017-07-12] MEDS: Dalfampridine [Ampyra] 10 MG PO SCH (09:52)
[2017-07-12] MEDS: BACLOFEN 20 MG TAB PO SCH (09:52)
[2017-07-12] MEDS: SENNOSIDES/DOCUSATE SODIUM TAB PO SCH (09:53)
[2017-07-12] MEDS: LABETALOL HCL 200 MG TAB PO SCH (09:53)
[2017-07-12] MEDS: FUROSEMIDE 20 MG TAB PO SCH ×2 (09:54→16:35)
[2017-07-12] MEDS: Armodafinil [Nuvigil] 150 MG PO SCH (10:26)
[2017-07-12] MEDS: POLYETHYLENE GLYCOL 3350 17 GM PKT PO PRN (10:26)
--- NOTE | 2017-07-12 11:34 | HOSPPROG ---
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, as well as diffuse at least moderate atherosclerosis -E coli UTI status post antibiotic treatment here -acute encephalopathy, resolved, multifactorial -mild acute kidney injury, resolved to baseline -advanced multiple sclerosis, wheelchair-bound and with history of multiple falls and injuries -suspect osteoporosis and with her fall risk high risk of future fractures -hypertension on chronic medications PLANS: SUBJECTIVE: OBJECTIVE Vitals reviewed: Flight Purser, my review: Exam: alert oriented skin warm dry color ok resps not labored lungs clear BSs heart regular abd soft nondistended nontender, bowel sounds present limbs warm, no edema iv site ok Objective: Vital Signs Temp Pulse Resp BP Pulse Ox 36.9 C 77 14 145/96 H 92 07/12/17 07:27 07/12/17 07:27 07/12/17 07:27 07/12/17 07:27 07/12/17 07:27 Laboratory Results 07/09/17 05:16 07/09/17 05:16 07/11/17 07/12/17 07/13/17 06:59 06:59 06:59 Intake Total 500 Output Total 775 Balance -275 PT 13.5 SEC (12.0-15.0) 07/11/17 09:00 INR 1.01 (0.83-1.16) 07/11/17 09:00 ICD10 Worksheet Patient Problems: Problems Problem Status Onset Tibia/fibula fracture Acute ARF (acute renal failure) Acute Anemia associated with acute blood loss Acute Hip fx Acute Hyponatremia Acute
--- NOTE | 2017-07-12 12:07 | PDIAF ---
- Diagnosis Diagnosis: Foot and leg wounds, peripheral vascular disease, advanced MS, Code Status: Limited Resuscitation - Medication Management Discharge Medications: Medications to Continue on Transfer Armodafinil [Nuvigil 150mg] 150 mg PO DAILY 04/26/15 [Last Taken 06/26/17] Dalfampridine [AMPYRA] 10 mg PO DAILY 04/26/15 [Last Taken 06/26/17] Ascorbic Acid [Vitamin C 250 mg (*)] 250 mg PO DAILY 04/27/15 [Last Taken ] Levothyroxine [Synthroid 25 mcg (*)] 25 mcg PO DAILY06 04/27/15 [Last Taken ] Furosemide [Lasix 20 MG (*)] 20 mg PO BIDDIUR 01/11/17 [Last Taken 06/26/17] Sennosides/Docusate Sodium [Senokot-S] 1 - 2 tab PO BID PRN 01/11/17 [Last Taken Unknown] hydrALAZINE [Apresoline 50 mg (*)] 50 mg PO TID 01/11/17 [Last Taken 06/26/17] Baclofen [Baclofen 20 mg (*)] 40 mg PO DAILY 06/27/17 [Last Taken Unknown] Baclofen [Baclofen 20 mg (*)] 60 mg PO HS 06/27/17 [Last Taken Unknown] Labetalol HCl [Trandate 200 mg (*)] 200 mg PO BID 06/27/17 [Last Taken 06/26/17] Pramipexole Di-HCl [Mirapex 0.25 mg (*)] 0.125 - 0.25 mg PO HS PRN 06/27/17 [ Last Taken 06/26/17] Propranolol HCl [Inderal 10mg (*)] 10 - 20 mg PO Q8H PRN 06/27/17 [Last Taken Unknown] Interferon Beta-1A/Albumin [Rebif Rebidose 44 Mcg/0.5 ml] 44 mcg SQ TUTHSA@21 [Last Taken 06/26/17] Acetaminophen [Tylenol 325mg (*)] 650 mg PO Q4 PRN tab 07/12/17 [Last Taken Unknown] Clopidogrel Bisulfate [Plavix (*)] 75 mg PO DAILY tab 07/12/17 [Last Taken Unknown] Enoxaparin [Lovenox 40 MG (*)] 40 mg SC DAILY syr 07/12/17 [Last Taken Unknown] Polyethylene Glycol 3350 [Miralax 17 gm (*)] 17 gm PO BID PRN pkt 07/12/17 [ Last Taken Unknown] traMADol [Ultram 50 mg (*)] 50 mg PO Q6HRS PRN tab 07/12/17 [Last Taken Unknown ] Discharge Medications: Refer to the Discharge Home Medication list for PRN reason. - Orders Services needed: Registered Nurse, Certified Hospitality Director, Master Switch Maker , Physical Therapy, Occupational Therapy Isolation Type: None Diet Recommendation: cardiac -low fat low salt Diet Texture: Regular Texture Diet Wound Care Instructions: Change dressings to right anterior and medial ankle wounds every 2 days and prn. 1. cleanse with ns and gauze. 2. apply skin prep ally wound skin. 3. apply wound gel to wound beds. 4. cut piece of Manuka HD dressing to fit wound bed of wound on the anterior ankle only. 5. cover with Allevyn Life. also. Change dressings to right anterior and medial ankle wounds every 2 days and prn. 1. cleanse with ns and gauze. 2. apply skin prep ally wound skin. 3. apply wound gel to wound beds. 4. cut piece of Manuka HD dressing to fit wound bed of wound on the anterior ankle only. 5. cover with Allevyn Life Equipment: Wound VAC, wheelchair - Follow Up Care Current Providers and Referrals: Patient,NotPresent [Unknown] - As per Instructions
--- NOTE | 2017-07-12 12:19 | PDDCSUM ---
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 Tino Benites PROCEDURES: Open reduction internal fixation with compression screw of right hip fracture Closed reduction of proximal tib-fib fracture on the right, with patellar tendon sparing cast Several OR surgeries for wound debridement and placement of tissue direct skin substitute Barium enema CT angiogram of the legs with runoff, followed by invasive angiography of the right leg, identified complete popliteal occlusion, and stents placement successfully revascularizing the right popliteal artery HOSPITAL COURSE SUMMARY: This patient with advanced MS, wheelchair-bound with history of multiple falls and injuries, comes in with a fall out of her wheelchair which was a mechanical situation. She ended up with proximal right tib-fib fractures and a right intertrochanteric fracture. This in the setting of ongoing multiple wounds in her right leg and foot including 1 wound that was deep on the foot exposing calcaneus. The patient had open reduction internal fixation of the hip with screw fixation. This was successful and uncomplicated. Her tib-fib fracture was felt to be manageable non operatively and she was placed in the patellar tending sparing brace. She then had attention turned to her multiple wounds. She had several wound debridements with placement of skin substitute tissue. She was identified as having peripheral vascular disease and on CT scan had a chronic appearing occlusion of her right popliteal artery. She went to angiography where she had successful placement of stents across the right popliteal occlusion leaving good blood flow. The angiography did show evidence of diffuse atherosclerosis and also very tight celiac artery due to impingement from diaphragmatic muscle. The patient's hospital course was complicated by of brief bout of mild renal insufficiency from which she recovered well. This is not requiring any ongoing care monitoring. She also had some encephalopathy resulting from anesthesia, pain medicines, multiple metabolic issues. This has completely resolved at this time. She has been working with physical and occupational therapy and doing well with that. She is also working with her wound care nurses for dressing changes to her multiple wounds which are chronic wounds on her foot and leg. She has had got wound VAC in place. She will need ongoing wound VAC care at the nursing facility. PENDING TEST RESULTS: None MEDICATION CHANGES: Addition of daily Plavix Addition of DVT prophylactic doses of Lovenox FOLLOW-UP PLAN: She is transferred at this time to [facility] for ongoing wound care and physical and occupational therapy She will be referred to the [facility] for ongoing wound management of her foot wounds Greater than 35 minutes bedside and care coordination time today
[2017-07-12 12:26] VITALS: BP 127/62; PULSE 71; O2SAT 96
--- NOTE | 2017-07-12 18:03 | ASDISCHSUM ---
Discharge Information Plan Status:SNF Medically Cleared to Leave: Discharge Date:07/12/2017 03:20 PM CM D/C Disposition:Shelter Facility ADT D/C Disposition:Shelter Facility Projected Discharge Date:07/12/2017 03:00 PM Transportation at D/C:Wheelchair Van Discharge Delay Reason: Follow-Up Date:07/12/2017 03:00 PM Discharge Slot: Final Diagnosis: Placement Information Referral Type:*Longterm/SNF Referral ID:[id number] Provider Name:[facility] Address 1:[address] Address 2: City:[place] Selection Factors: State:[place] Patient Contact Information Contact Name:YOLANDA Relationship:Son Address: Work Phone: City: [facility] Phone: [facility] Code: Email: Financial Information Financial Class: Primary Plan Desc:MEDICARE INPATIENT Primary Plan Number:[id number] Secondary Plan Desc:[facility]OR[facility] STEPHEN QUINAULT Secondary Plan Number:[id number] Assessment Information [facility] CM Progress Note CM Note CM Note Notes: Pt admitted with tib/fib fx, possible UTI. Hx MS, wheelchair bound, falls in past with fx. Has been to [facility] Inpt Rehab and had [facility] in past. CM will follow for any d/c needs. Date Signed: 06/27/2017 02:12 PM Electronically Signed By:CLAIRE Jamison [facility] CM Progress Note CM Note CM Note Notes: Spoke with Sandi at [facility] ([phone]) earlier today; notified of patient's admission. Patient also receives homecare services through [facility]; Sandi says she spoke with them and they are aware patient is admitted to hospital. CM to follow. Date Signed: 06/27/2017 04:22 PM Electronically Signed By:Lindsay Avila RN LACE LACE Acuity / Level of Care Answers: Was the patient admitted to hospital via the emergency department? Yes: Emergency dept visits in Answers: 2 last 6 months Score: 5 Date Signed: 06/27/2017 04:24 PM Electronically Signed By:Lindsay Avila RN [facility] Initial CM Assessment Living Arrangements What is your living Answers: Alone arrangement? Who do you live with? Type Of Residence What kind of residence do Answers: Unknown you live in? Services Used Prior to Admission Home Services Used Prior Answers: Home Health Services to Admission Home/Community Service Agency Name(s) Notes[facility] Evaluation Functional: ADL / IADL Answers: Chronic Illness Performance Deficits Due to: Deconditioning Mobility Issues Other Notes: MS, recent tib fib fracture + multiple low er extremity fractures in the past Date Signed: 06/27/2017 04:27 PM Electronically Signed By:Lindsay Avila RN [facility] CM Progress Note CM Note CM Note Notes: Dr Diallo is recommedning rehab for pt. Pt has MS and recently lost her who is her primary caregiver. Met with pt who agreed to a rehab stay for no longer than 2 weeks. She chose [facility]. Faxed referral. LOCO in chart and faxed. Date Signed: 06/28/2017 01:58 PM Electronically Signed By:Annelise Greenberg LCSW [facility] CM Progress Note CM Note CM Note Notes: Patient's tib/fib fracture being managed medically. Vipin was here today to size her for a boot which should be ready tomorrow or the next day. In the meantime, orthopaedics wants to keep patient at hospital. She also has a pressure wound on her heel which will require further debridement or calcanectomy, either during this hospitalization or as an outpatient. Regarding dispo, per hospitalist, patient refused to discuss SNF today. Apparently, she had been amenable to [facility] (who has accepted her). I got a call from Bridgett Wu, who works at [facility] inpatient rehab and home care and who is very familiar with patient. She says that patient may be a good candidate for inpatient rehab (consult ordered). Otherwise, patient has been using [facility] Staff here feel that she is not safe to discharge home, even with this level of support. Discharge plan is TBD pending the above. CM will follow. Date Signed: 06/30/2017 03:51 PM Electronically Signed By:Erika Mays RN [facility] CM Progress Note CM Note CM Note Notes: Pt to have debridement tomorrow morning for calcaneal wound. Pt is still interested in [facility] inpatient rehab who are assessing pt, pt may require longer length of stay so SNF may need to be considered. Pt has been accepted at [facility]. CM to follow. Date Signed: 07/02/2017 04:34 PM Electronically Signed By:CLAIRE Pitts [facility] CM Progress Note CM Note CM Note Notes: [facility] inpatient rehab recommends SNF level of care at this time but will continue to assess if pt is here Friday; rec REMELTER cog eval to get a baseline. Pt has previously chosen [facility] and is accepted, updates sent today. CM to follow. Date Signed: 07/04/2017 05:26 PM Electronically Signed By:CLAIRE Pitts [facility] CM Progress Note CM Note CM Note Notes: Pt may need to go back to surgery fopr debridement of calcaneal wound, currently has wound vac. Met w/pt to discuss dc plan of care. She is still in agreement with plan to do rehab at [facility]. She would like to meet w/Suzy from [facility]; I informed Suzy of this and she will be here tomorrow to meet w/pt. CM will follow. Date Signed: 07/07/2017 05:21 PM Electronically Signed By:Dariela Medrano RN [facility] CM Progress Note CM Note CM Note Notes: Per Dr. Diallo pt wounds require free flap skin graft, neither [facility] or [facility] can facilitate the procedure, she will call [facility] to determine if they can. TC to [facility] [place] ([phone]), procedure not done at LT level facility but hospital and suggested [place] or [place]. TC to Celia Barboza at [facility] ([phone]), states wound care MD Huynh does the procedure and he is associated with [facility] and [facility]. Pt moved to today, the 3E CM will be updated. CM to follow. Date Signed: 07/09/2017 04:50 PM Electronically Signed By:CLAIRE Pitts [facility] CM Progress Note CM Note CM Note Notes: Spoke w/hospitalist, pt needs a CT w/angio today and can dc to [facility] tomorrow. Tod from notified and is ordering a wound vac. DC Plan: [facility] Date Signed: 07/10/2017 12:31 PM Electronically Signed By:Lovely Bredehoeft, RN Intervention Information
== END 2017-07-12 15:20 | DRG 500 ==
LOC: EDUNIT# → F3N 13:30 → F3E 07-09 11:06
PROVIDERS: ADMIT Internal Medicine; ATTEND Internal Medicine
PROC: 0JU Subcutaneous Tissue and Fascia, Supplement (ICD-10-PCS; principal; 2017-07-03 09:00)
PROC: 047M3DZ Dilation of Right Popliteal Artery with Intraluminal Device, Percutaneous Approach (ICD-10-PCS; 2017-07-11)
PROC: 047K3DZ Dilation of Right Femoral Artery with Intraluminal Device, Percutaneous Approach (ICD-10-PCS; 2017-07-11)
DX: S82.251A Displaced comminuted fracture of shaft of right tibia, initial encounter for closed fracture (principal); S72.141A Displaced intertrochanteric fracture of right femur, initial encounter for closed fracture; G93.49 Other encephalopathy; L89.614 Pressure ulcer of right heel, stage 4; I77.4 Celiac artery compression syndrome; N39.0 Urinary tract infection, site not specified; N17.9 Acute kidney failure, unspecified; S82.451A Displaced comminuted fracture of shaft of right fibula, initial encounter for closed fracture; I73.9 Peripheral vascular disease, unspecified; B96.20 Unspecified Escherichia coli [E. coli] as the cause of diseases classified elsewhere; M81.0 Age-related osteoporosis without current pathological fracture; I77.1 Stricture of artery; G35 Multiple sclerosis; I10 Essential (primary) hypertension; W05.0XXA Fall from non-moving wheelchair, initial encounter; Z99.3 Dependence on wheelchair; Z66 Do not resuscitate
CPT/HCPCS: 84134-90; 97110-GP; 97162-GP; 97166-GO; 97530-GO; 97530-GP; 97535-GO; C1769; C1876; C1894; C9399; G8978-GP-CM; G8979-GP-CK; G8981-GP-CL; G8982-GP-CK; G8987-GO-CK; G8988-GO-CJ; J0360; J0690; J0696; J1100; J1170; J1644; J1650; J1885; J2001; J2250; J2310; J2405; J2704; J2795; J3010; L1830; Q4131; Q9967

== ENCOUNTER 2017-08-18 04:56 | Inpatient (IN) | payer OTHER ==
[2017-08-18] MEDS ORDERED: NS 1,000 ML IV ONE (05:00)
--- NOTE | 2017-08-18 05:02 | EDPHY ---
H & P HPI/ROS: HPI CHIEF COMPLAINT: Worsening altered mental status HISTORY OF PRESENT ILLNESS: This patient very pleasant 67-year-old female she presents emergency room by EMS from [facility] for altered mental status. This is a change in her mentation per staff at [facility]. The patient presents emergency room she is very pleasant. She tells me it is 1993. It is unclear how long her change in mental status been going on however [facility] reports 36 hr. Patient here denies any complaints except right foot pain. It is noted that her right foot is in a air splint. Has a wound VAC present. The does appear to be a foul smell from the right foot. Past Medical History: E coli UTI, acute kidney injury, MS, recent tib-fib fractures, chronic right healing wound. Past Surgical History: Wound VAC to right lower extremity. Social History: Resides at [facility]. Family History: Noncontributory ROS REVIEW OF SYSTEMS: A comprehensive 10 point review of systems is otherwise negative aside from elements mentioned in the history of present illness. Exam Constitutional appears nontoxic and well, however confused triage nursing summary reviewed, vital signs reviewed, awake/alert. Eyes normal conjunctivae and sclera, EOMI, PERRLA. HENT normal inspection, atraumatic, moist mucus membranes, no epistaxis, neck supple/ no meningismus, no raccoon eyes. Respiratory clear to auscultation bilaterally, normal breath sounds, no respiratory distress, no wheezing. Cardiovascular rate normal, regular rhythm, no murmur, no edema, distal pulses normal. Gastrointestinal soft, non-tender, no rebound, no guarding, normal bowel sounds, no distension, no pulsatile mass. Genitourinary no CVA tenderness. Musculoskeletal no midline vertebral tenderness, full range of motion, no calf swelling, no tenderness of extremities, no meningismus, good pulses, neurovascularly intact. Right lower extremity in wound VAC/right ankle lateral aspect. Skin pink, warm, & dry, no rash, skin atraumatic. Neurologic confused alert or x1, moves all 4 extremities equally, motor intact , sensory intact, CN II-XII intact, normal cerebellar, normal vision, normal speech. Psychiatric normal mood/affect. Heme/Lymph/Immune no lymphadenopathy. Differential Diagnosis: Includes but is not limited to in a particular order, acute delirium, acute mental status change, intracranial bleed, dehydration, electrolyte disturbance, infection, UTI, pneumonia, bacteremia, sepsis Medical Decision Making: Plan for this patient IV establishment blood cultures , lactic acid, x-ray of the chest, check urinalysis, CT scan of head for altered mental status, blood cultures for rule out bacteremia, check electrolytes. And re-evaluate Re-evaluation: 0537AM: Wound vac removed from Right lateral ankle, foul-smelling wound. However the wound does appear pretty clean. There is no significant selvin pus. No crepitus. Wound is been re-dressed. Will need a wound consult in hospital. ED CT scan head without contrast shows no evidence of bleed. White matter disease is appreciated on the skin. Called to me by Dr. Butsamante. ED x-ray chest one view parenchymal scarring. No pneumonia. No significant pleural effusions. No significant cardiomegaly. EKG interpretation by me on record in [employer] system. Impression time of EKG 5:09 a.m., sinus rhythm rate of 65 LVH present. Sinus arrhythmia present. No ST elevation. No ST depression. No significant T-wave abnormalities. Similar to previous EKG dated 06/28/2017 0602: Patient's urinalysis pending at this time. Patient be admitted to the hospitalist service for altered mental status. It is noted the patient is positive troponin elevated BNP. Chest x-ray does not show overt heart failure. EKG nonischemic. Elevated troponin may be from infection. Blood cultures have been pulled. Lactic acid less than 1. Afebrile here. Source: Patient, EMS - Medical/Surgical History Hx Asthma: No Hx Chronic Respiratory Disease: No Hx Diabetes: No Hx Cardiac Disease: Yes Hx Renal Disease: No Hx Cirrhosis: No Hx Alcoholism: No Hx HIV/AIDS: No Hx Splenectomy or Spleen Trauma: No Other PMH: MS, arthroscopic knee Rt, HTN, ORIF on the rt femur - Social History Smoking Status: Never smoked Constitutional: Initial Vital Signs Temperature (C) 36.8 C 08/18/17 05:00 Heart Rate 87 08/18/17 05:00 Respiratory Rate 20 08/18/17 05:00 Blood Pressure 171/89 H 08/18/17 05:00 O2 Sat (%) 95 08/18/17 05:00 O2 Delivery Mode Room Air Allergies/Adverse Reactions: amlodipine Allergy (Verified 07/03/17 08:30) hydrochlorothiazide Allergy (Verified 08/18/17 05:05) Home Medications: Medication Instructions Recorded Armodafinil [Nuvigil 150mg] 150 mg PO DAILY 04/26/15 Dalfampridine [AMPYRA] 10 mg PO DAILY 04/26/15 Ascorbic Acid [Vitamin C 250 mg 250 mg PO DAILY 04/27/15 (*)] Levothyroxine [Synthroid 25 mcg 25 mcg PO DAILY06 04/27/15 (*)] Furosemide [Lasix 20 MG (*)] 20 mg PO BID 01/11/17 Sennosides/Docusate Sodium 1 mg PO BID 01/11/17 [Senokot-S] hydrALAZINE [Apresoline 50 mg (*)] 50 mg PO TID 01/11/17 Baclofen [Baclofen 20 mg (*)] 40 mg PO DAILY 06/27/17 Baclofen [Baclofen 20 mg (*)] 60 mg PO HS 06/27/17 Interferon Beta-1A/Albumin [Rebif 44 mcg SQ TUTHSA@21 06/29/17 Rebidose 44 Mcg/0.5 ml] Acetaminophen [Tylenol 325mg (*)] 650 mg PO Q4 PRN tab 07/12/17 Clopidogrel Bisulfate [Plavix (*)] 75 mg PO DAILY tab 07/12/17 Enoxaparin [Lovenox 40 MG (*)] 40 mg SC DAILY syr 07/12/17 Polyethylene Glycol 3350 [Miralax 17 gm PO BID PRN pkt 07/12/17 17 gm (*)] traMADol [Ultram 50 mg (*)] 50 mg PO Q6HRS PRN tab 07/12/17 Herbals/Supplements -Info Only 1 ea PO DAILY 08/18/17 Labetalol HCl [Trandate 200 mg (*)] 200 mg PO BID 08/18/17 Pramipexole Di-HCl [Mirapex 0.125 0.125 mg PO DAILY PRN 08/18/17 mg (*)] Medical Decision Making - Data Points Laboratory Results: Laboratory Results 08/18/17 04:50 08/18/17 04:50 Medications Given: Baclofen (Baclofen) 60 mg PO [facility] Stop: 02/14/18 20:59 Last Admin: 08/18/17 23:40 Dose: 60 mg Hydralazine HCl (Apresoline) 10 mg IVP Q8HRS RIZWAN Stop: 02/14/18 13:59 Last Admin: 08/18/17 23:39 Dose: 10 mg Hydralazine HCl (Apresoline) 50 mg PO TID RIZWAN Stop: 02/14/18 15:59 Last Admin: 08/18/17 23:38 Dose: 50 mg Dextrose/Lactated Ringer's (D5w Lr) 1,000 mls @ 100 mls/hr IV CONT RIZWAN Stop: 02/14/18 08:59 Last Admin: 08/18/17 21:16 Dose: 1,000 mls Senna/Docusate Sodium (Senokot-S) 1 tab PO BID RIZWAN Stop: 02/14/18 20:59 Last Admin: 08/18/17 23:40 Dose: 1 tab Discontinued Medications Sodium Chloride (Ns) 1,000 mls @ 0 mls/hr IV EDNOW ONE; Wide Open PRN Reason: Protocol Stop: 08/18/17 05:01 Last Admin: 08/18/17 05:14 Dose: 1,000 mls Vancomycin HCl 1 gm/ Sodium (Chloride) 250 mls @ 250 mls/hr IV .SIG&TIMES ONE Stop: 08/18/17 08:29 Last Admin: 08/18/17 08:02 Dose: 250 mls Departure - Departure Disposition: [facility] Clinical Impression: Elevated troponin Altered mental status Qualifiers: Altered mental status type: unspecified Qualified Code(s): R41.82 - Altered mental status, unspecified Wound of left ankle Qualifiers: Encounter type: initial encounter Qualified Code(s): S91.002A - Unspecified open wound, left ankle, initial encounter Condition: Fair
[2017-08-18 05:10] LABS: PLATELET COUNT 262 10^3/uL (150-400)
--- NOTE | 2017-08-18 05:10 | CPEKG ---
Heart Rate: 65 RR Interval: 923 P-R Interval: 152 QRSD Interval: 82 QT Interval: 420 QTC Interval: 437 P Margaret: 82 QRS Margaret: 75 T Wave Margaret: 73 EKG Severity - ABNORMAL ECG - EKG Impression: SINUS RHYTHM EKG Impression: MULTIPLE ATRIAL PREMATURE COMPLEXES EKG Impression: LEFT VENTRICULAR HYPERTROPHY Electronically Signed By: Donal Mart 18-Aug-2017 07:30:00
[2017-08-18 05:21] LABS: CREATINE KINASE 74 IU/L (0-156)
[2017-08-18 05:29] LABS: INR 0.95 (0.83-1.16); PROTIME(PATIENT) 12.9 SEC (12.0-15.0)
[2017-08-18] MEDS ORDERED: VANCOMYCIN HCL/NORMAL SALINE 250 ML IV ONE (06:57)
[2017-08-18] MEDS ORDERED: ACETAMINOPHEN 325 MG TAB PO PRN (07:07)
[2017-08-18] MEDS ORDERED: ONDANSETRON 4 MG/2 ML VIAL IVP PRN (07:07)
[2017-08-18] MEDS ORDERED: ONDANSETRON DISINTEGRATING 4 MG TAB PO PRN (07:07)
[2017-08-18] MEDS ORDERED: VANCOMYCIN 1 GM in NS 250 ML IV ONE (07:30)
[2017-08-18] MEDS ORDERED: D50W 25 GM/50 ML SYR IVP PRN (08:48)
[2017-08-18] MEDS ORDERED: ENOXAPARIN 40 MG/0.4 ML SYR SC SCH (09:00)
--- NOTE | 2017-08-18 09:41 | GHP ---
HISTORY AND PHYSICAL DATE OF ADMISSION: 08/18/2017 PCP: Currently in [facility]. SOURCE: The patient is acutely altered from her baseline, which is unclear at this time, but patient was transferred from her senior living for acute altered mental status. Her EMR was reviewed and case discussed with the ED provider. CHIEF COMPLAINT: Altered mental status. HISTORY OF PRESENT ILLNESS: This is a 67-year-old female with past medical history significant for multiple sclerosis, typically wheelchair and walker- bound with chronic wounds to her right foot and heel, who presents to the emergency department today with acute onset of acute on chronic altered mental status. Patient's exact baseline is unclear, but patient transferred for acute change in mental status this morning. Patient with a previous history of hospitalizations for UTIs, acute encephalopathy, acute renal insufficiency, and history of falls. The patient without any noted fevers or acute changes in medical status. She was recently discharged a few months ago, on 07/12/2017, following right tib-fib fracture and ORIF repair. The patient's review of systems is limited only to that patient is complaining of severe right ankle and foot pain. REVIEW OF SYSTEMS: Unable to obtain, as above. ALLERGIES: Amlodipine. HCTZ. HOME MEDICATIONS: As per [facility] med rec: Ampyra tabs 10 mg p.o. daily for multiple sclerosis; ascorbic acid 250 mg p.o. daily; baclofen 40 mg p.o. daily and 60 mg at h.s.; hydralazine 50 mg p.o. t.i.d.; Lasix 20 mg p.o. b.i.d.; Lovenox 40 mg subcu; MiraLAX 17 g p.o. q.12 hours p.r.n. for constipation; Mirapex 0.125 mg p.o. q.24 hours at h.s.; Nuvigil 150 mg p.o. daily; Plavix 75 mg p.o. daily; imiquimod nutritional supplement 30 mL p.o. b.i.d.; interferon beta-1a 44 mcg subcu every Friday, , Friday for multiple sclerosis; senna 1 tab p.o. q.12 hours p.r.n. for constipation; Synthroid 25 mcg p.o. daily ; tramadol 50 mg p.o. q.6 hours. For pain, labetalol 200 mg p.o. b.i.d., Tylenol 650 mg p.o. q.4 hours p.r.n. for pain. 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 Osteoporosis and question of dementia; however, baseline is unclear at this time. PAST SURGICAL HISTORY: Significant for breast augmentation, right tib-fib fracture repair, right hip ORIF and wound debridement. FAMILY HISTORY: Unable to obtain secondary to patient's altered mental status. SOCIAL HISTORY: The patient is since 2016. She was previously living independently with use of walker or cane, but has since been transferred to [facility]. She has a history of using medical marijuana, and no previous use of tobacco or alcohol reported on different admissions. CODE STATUS: Per patient's MOLST form completed by the patient is DNR/DNI. PHYSICAL EXAMINATION: VITAL SIGNS: Upon arrival to the ER, blood pressure 171/ 89, heart rate 87, respiratory rate 20, O2 sats 95% on room air, with temperature of 36.8. Current vitals: Blood pressure 166/62, heart rate 92, respiratory rate 20, O2 saturation 96% on room air. The patient is afebrile. GENERAL: No acute distress. At time of my interview, patient was fast asleep and very difficult to arouse until I examined her right foot and ankle, after which she continued to cry out with any kind of movement of the foot and joint. I was in the ER when patient was rolled into the emergency department by EMS, and at that time, she was awake, interactive, smiling, but still disoriented. Patient is snoring softly in the bed. She is quite difficult to arouse, again, until examined her right foot and heel. SKIN: bilateral feet are dry. the right foot is bandaged and removed for evaluation. patient with a large open wound to right heel and posterolateral aspect of the right foot. Margins are clean. Patient with serous drainage in the bandage. There is green discolored fibrinous material in the wound. It is quite foul smelling. HEAD: Normocephalic, atraumatic. EYES: Extraocular muscles grossly intact. Very limited exam secondary to patient's somnolence, but no scleral icterus or conjunctival injection. Pupils are symmetric. ENT: Mucous membranes appear slightly dry. No nasal discharge. NECK: Supple. Trachea midline. CV: Regular rate and rhythm. No murmurs, rubs, or gallops, but exam is limited secondary to patient's snoring. RESPIRATORY: Sonorous exam, but otherwise clear. No wheezing or rhonchi, and good air movement in all lung olivares. ABDOMEN: Soft. Positive bowel sounds. No apparent tenderness to palpation. No masses. No rebound, guarding. : No Cazares in place. No suprapubic tenderness to palpation. Normal external female genitalia. Patient does have some excoriations in the perineum. EXTREMITIES: Patient is able to move her upper and lower extremities, but limited cooperation. Patient does fall asleep intermittently until I examine her right foot, for which she wakes up and cries. She has a has limited ability to follow instructions secondary to confusion. NEURO: Grossly nonfocal. Patient is moving all extremities. Slightly limited in the right lower extremity secondary to complaints of severe pain. PSYCH: Patient confused, as above. LABORATORY STUDIES: WBC 5.74, H and H 7.8 and 24.2, MCV of 91.0, platelet count is 262, no bands. PT is 12.9, INR 0.95, PTT is 38.7. VBG: Lactic acid is 1.0. Sodium 141, potassium 4.2, chloride 104, CO2 25, anion gap 12, BUN 25, creatinine is 1.0, GFR 55, glucose 90, calcium is 8.8, magnesium 2.3. Total bilirubin 0.3, ALT is 30, AST 36, alk phos is 162. CK 74, CK-MB is 2.74, troponin 0.076, . Total protein 6.2, albumin 3.3, lipase is 131. TSH is 1.960. Urine pH is 7.0, specific gravity 1.012, otherwise negative. Urine toxicology is negative. Blood cultures x2 are pending. IMAGING: Chest x-ray: Image reviewed; report is pending. Nothing acute. CT head, without contrast: No acute changes, chronic changes related to multiple sclerosis. Initial report was reviewed and discussed with ED provider. Ankle x-ray: Image obtained, reviewed. Report is pending. The patient has a displaced bimalleolar fracture. EKG reviewed myself, showing sinus rhythm with PACs, LVH. T-wave inversion, aVL. No acute ST elevation. QTc is 437. ASSESSMENT AND PLAN: This is a 67-year-old female with past medical history significant for multiple sclerosis, falls, chronic right heel ulcer, hypertension, and chronic pain who presents to the emergency department this morning with acute encephalopathy from baseline, which is unknown to me at this time. 1. Acute encephalopathy is likely multifactorial, possibly infectious with the patient's chronic ulcer on the right ankle. Margins appear clear. She does have some greenish, foul-smelling, fibrinous tissue formation. There is some erythema that is blanchable and tender proximal. The patient has significant pain with any movement of her ankle. No gross deformity of the ankle, but there is surrounding edema. Patient's chest x-ray and urinalysis are unremarkable. She also has multiple medications used for pain, which could be contributing to her current mental status. We will try to verify with other staff members, or the senior living familiar with the patient, regarding her normal baseline. 2. Right foot and ankle pain. The patient does have what appears to be a chronic right ankle fracture tib fib compared to previous imaging that is displaced but in stable position. There was no report of any recent falls or injuries at the senior living. Patient with previous repair of a tibia-fibula fracture and removal of external hardware compared to previous imaging. 3. Chronic wounds to heel and ankle present on admission. Wound Care will be consulted. The patient's wound VAC was removed, and her wounds are quite foul smelling. There is some extending erythema proximally to the lower leg. The patient will be started on vancomycin. She is currently afebrile, without any leukocytosis. However, given acute encephalopathy and her history of mental status changes related to infection, we will start patient on vancomycin. Blood cultures have been obtained. Lactate is in normal limits. Patient without any systemic inflammatory response syndrome criteria, and Wound Care will be consulted. 4. Multiple sclerosis. Does not appear to be acute exacerbation or flare. Will not initiate any steroids at this time. The patient is able to move all extremities without any focal deficits. We will continue to monitor as above. 5. Benign essential hypertension. Blood pressures are slightly elevated. Patient unable to take her home medication at this time as she is confused. Will add hydralazine 3 times daily, as patient takes this orally, until she can advance diet to avoid rebound hypertension. 6. Peripheral vascular disease. The patient is on Plavix with history of stent in her lower extremity. We will need to resume once patient's mentation has improved and safe to swallow. 7. Fluid, electrolyte, nutrition. Patient was given some gentle hydration in the emergency department. We will continue IV fluids until patient's diet can be advanced. Electrolytes will be monitored and replaced if needed. Nothing by mouth for now. 8. Prophylaxis. Sequential compression device will be held secondary to ulcerations and fracture. Lovenox initially ordered prior to image of the patient's ankle, so will hold off until surgery can evaluate. 9. Cor status, per patient's Medical Orders for Life-Sustaining Treatment form , is do not resuscitate/do not intubate. DISPOSITION: Patient has been admitted to observation at this time pending IV hydration, and reassessment of patient's mental status after fluids and antibiotics. Holding sedatives 2/2 pt AMS. /[id number]/MODL MTDD
[2017-08-18] MEDS: D5W LR 1,000 ML IV SCH ×2 (10:25→21:16)
--- NOTE | 2017-08-18 12:09 | ASMTCMCOM ---
CM Note CM Note Notes: Chart reviewed. Patient admitted through ED with AMS from [facility]. Dc'd from [facility] last onth after fall. Has wound vac for chronic wounds. Has advanced MS and is wheel chair bound. Needs to be determined. Plan back to [facility] when medically stable. CM to follow. Date Signed: 08/18/2017 12:09 PM Electronically Signed By:Karley Martin RN
[2017-08-18] MEDS ORDERED: PRAMIPEXOLE 0.125 MG TAB PO PRN (12:13)
[2017-08-18] MEDS ORDERED: traMADol 50 MG TAB PO PRN (12:13)
--- NOTE | 2017-08-18 12:26 | HOSPPROG ---
Hospitalist Progress Note Assessment/Plan: Patient is a 67-year-old female with a history of multiple sclerosis and typically wheelchair bound. She has chronic wounds to right foot and heel. She presented to the emergency room with acute onset of altered mental status. Today is my 1st encounter with the patient. I have taking care of her in the past. When I walked into her room she knew who I was immediately. * acute encephalopathy -CT scan of her head shows nothing acute -could be multifactorial. She has an ulcer on the right lower extremity with a foul smell. She has seen Dr. Diallo in the past. -she also asthma multiple medical issues and on her last admission the baclofen tended to make her more confused -she appears close to her baseline will order her a regular diet. She is very hungry *concern for lower extremity wound infection -spoke with Dr Diallo and she will see her tomorrow -was seen at [facility] -wound care to see * chronic wounds to heal an ankle as well as chronic right foot and ankle pain, she has a chronic right ankle for fracture and tib fib fracture. -this was evaluated on her previous admission -she was started on vancomycin by the previous provider, blood cultures have been obtained -lactate was obtained, see above *MS -has been progressing and now uses a wheelchair -resumed her home medications *PVD -plavix *anemia -has been persistently low, but lower than previous labs -will follow * plan. Will recheck her labs in the morning. Dr. Diallo to evaluate her wound. Greater than 30 min evaluating and coordinating the patient's care today. Subjective: Lovely has no complaints of pain. Says she is very hungry Objective: Vital Signs Temp Pulse Resp BP Pulse Ox 37.2 C 105 H 16 179/77 H 92 08/18/17 10:55 08/18/17 10:55 08/18/17 10:55 08/18/17 10:55 08/18/17 10:55 08/17/17 08/18/17 08/19/17 05:59 05:59 05:59 Intake Total 1250 Output Total 300 Balance 950 PT 12.9 SEC (12.0-15.0) 08/18/17 04:50 INR 0.95 (0.83-1.16) 08/18/17 04:50 - Physical Exam Constitutional: chronically ill appearing, other (Thin) Eyes: PERRL Ears, Nose, Mouth, Throat: hearing normal Respiratory: no respiratory distress Skin: warm, other (Right lower extremity foul-smelling, dressing is in place) Musculoskeletal: generalized weakness Psychiatric: interacting appropriately, not encephalopathic, thought process linear, poor insight, poor memory ICD10 Worksheet Patient Problems: Problems Problem Status Onset Altered mental status Acute Elevated troponin Acute Wound of left ankle Acute ARF (acute renal failure) Acute Anemia associated with acute blood loss Acute Hip fx Acute Hyponatremia Acute Tibia/fibula fracture Acute
[2017-08-18] MEDS: hydrALAZINE 20 MG/ML VIAL IVP SCH ×2 (14:55→23:39)
[2017-08-18] MEDS ORDERED: VANCOMYCIN 1 GM in NS 250 ML IV SCH (20:00)
[2017-08-18] MEDS: BACLOFEN 20 MG TAB PO SCH (23:40)
[2017-08-18] MEDS: SENNOSIDES/DOCUSATE SODIUM TAB PO SCH (23:40)
[2017-08-18] MEDS: LABETALOL HCL 200 MG TAB PO SCH (23:45)
[2017-08-19] MEDS: LABETALOL HCL 200 MG TAB PO SCH (04:38)
[2017-08-19] MEDS: LEVOTHYROXINE 25 MCG TAB PO SCH (05:57)
[2017-08-19] MEDS: hydrALAZINE 20 MG/ML VIAL IVP SCH ×2 (05:57→14:26)
[2017-08-19 06:21] LABS: PLATELET COUNT 230 10^3/uL (150-400)
[2017-08-19] MEDS: D5W LR 1,000 ML IV SCH ×2 (07:11→18:30)
[2017-08-19] MEDS: SENNOSIDES/DOCUSATE SODIUM TAB PO SCH ×2 (08:52→21:01)
[2017-08-19] MEDS: ASCORBIC ACID 250 MG TAB PO SCH (08:52)
[2017-08-19] MEDS: BACLOFEN 20 MG TAB PO SCH ×2 (08:52→21:01)
[2017-08-19] MEDS: LABETALOL HCL 100 MG TAB PO SCH ×2 (08:52→21:00)
[2017-08-19] MEDS: ENOXAPARIN 40 MG/0.4 ML SYR SC SCH (08:53)
[2017-08-19] MEDS ORDERED: Herbals/Supplements -Info Only PO SCH (09:00)
[2017-08-19] MEDS ORDERED: CLOPIDOGREL BISULFATE 75 MG TAB PO SCH (09:00)
[2017-08-19] MEDS: Armodafinil [Nuvigil] 150 MG PO SCH (09:00)
[2017-08-19] MEDS ORDERED: VANCOMYCIN 1.25 GM in D5W 250 ML IV SCH (09:00)
[2017-08-19] MEDS: Dalfampridine [Ampyra] 10 MG PO SCH (09:00)
--- NOTE | 2017-08-19 09:58 | WOCRNPDOC ---
MATT Advanced Assessment Note - Skin Integrity Problem, Advanced Assess Right Lateral Ankle Dressing Type: Adaptic Touch, Kerlix Dressing Description: Intact Exudate Amount: Minimal Exudate Color: Reddish/Yellow Exudate Characteristic(s): Serosanguinous Integumentary Issue Intervention: Dressing Changed Tawana Wound Tissue: Blanching, Erythema, Swollen (mild) Tawana Wound Swelling: Mild Wound Bed Color: Red, Yellow Wound Bed Constitution: Granulation Tissue (20%), Red/Norvelt - Non Granular Tissue (60%), Adhered Slough (20%) Wound Edges: Well Defined Site Odor: Moderate Site Measurement - Head-to-Toe Length X Width X Depth (cm): 6cmx7.5cmx0.3cm Pressure Injury Stage: Stage 4 Pressure Injury Present on Admit: Yes Skin Integrity Problem Comment: Assessed patient w/ Dr. Diallo. Patient well- known to wound care from previous admissions. The etiology of this wound is pressure-related, and patient has been in a SNF undergoing NPWT for this and other wounds on this extremity. There is adhered slough medially, and remainder of wound bed is a mix of granulating and non-granulating tissues. Vastly improved since previous hospitalization. Some erythema and mild swelling periwound, not concerning for infection at this time. Wound continues to be malodorous due to necrotic tissue; will initiate BID dressing changes w/ 08/07 strength Dakins solution today. Wound care will re-evaluate in the next few days to resume NPWT therapy. Right Heel Dressing Type: Adaptic Touch, Kerlix Dressing Description: Intact, Shadowed Exudate Amount: Minimal Exudate Color: Reddish/Yellow Exudate Characteristic(s): Serosanguinous Integumentary Issue Intervention: Dressing Changed Tawana Wound Tissue: Blanching, Erythema, Swollen (mild) Tawana Wound Swelling: Mild Wound Bed Color: Black, Red, Yellow Wound Bed Constitution: Granulation Tissue (40%), Red/Norvelt - Non Granular Tissue (50%), Mixed Loose & Adhered Slough/Eschar (10%) Wound Edges: Well Defined Site Odor: Moderate Site Measurement - Head-to-Toe Length X Width X Depth (cm): 5.5cmx4.2cmx0.3cm Pressure Injury Stage: Stage 4 Pressure Injury Present on Admit: Yes Skin Integrity Problem Comment: Assessed wounds w/ Dr. Diallo. Full-thickness wound w/ rim of adhered slough/eschar on the proximal aspect of the wound bed. Remaining tissue is a mix of non-granulating and granulating tissue. Significantly improved since previous hospitalization. Periwound skin is blanching w/ mild swelling. Will initiate same treatment as the other wounds on this extremity, 1/4 strength Dakins BID for the next few days to loosen necrotic tissue and reduce bioburden of wound. Right Anterior Ankle Dressing Type: Adaptic Touch, Kerlix Exudate Amount: Minimal Exudate Color: Reddish/Yellow Exudate Characteristic(s): Serosanguinous Integumentary Issue Intervention: Dressing Changed Tawana Wound Tissue: Blanching, Erythema, Swollen Tawana Wound Swelling: Mild Wound Bed Color: Red, Yellow Wound Bed Constitution: Granulation Tissue (80%), Adhered Slough (20%) Wound Edges: Epibole, Well Defined Site Odor: Moderate Site Measurement - Head-to-Toe Length X Width X Depth (cm): 2cmx1.7cmx0.3cm Pressure Injury Stage: Stage 3 Pressure Injury Present on Admit: Yes Skin Integrity Problem Comment: Full-thickness wound on the anterior aspect of the R ankle, over the talocrural joint. This wound is also pressure-related, stage 3 w/ adhered slough along lateral margin of the wound bed. Periwound skin blanching w/ mild swelling. Will initiate same treatment as the other wounds, 1/ 4 strength Dakins wet to dry BID, and resume NPWT after a few days. Right Distal Dorsal Foot Dressing Type: Open to Air Exudate Amount: Scant Exudate Color: Yellow Exudate Characteristic(s): Dried Atwana Wound Tissue: Blanching Tawana Wound Swelling: None Wound Bed Color: Yellow Wound Bed Constitution: Adhered Slough Wound Edges: Epithelizing Site Odor: None Site Measurement - Head-to-Toe Length X Width X Depth (cm): 0.8cmx0.5cmx0.1cm Skin Integrity Problem Comment: Healing wound on the dorsal aspect of the R foot just proximal to the toes, previously full-thickness, now almost fully epithelialized w/ dried, adhered exudate medially. No periwound swelling or erythema. Will have nursing apply. wound gel and Allevyn to support wound healing. Left Heel Dressing Type: Open to Air Exudate Amount: None Exudate Characteristic(s): None Tawana Wound Tissue: Blanching, Intact Tawana Wound Swelling: None Wound Bed Color: Black Wound Bed Constitution: Stable Eschar Site Odor: None Site Measurement - Head-to-Toe Length X Width X Depth (cm): 0.5cmx0.4cmx eschar Pressure Injury Stage: Unstageable Pressure Injury Present on Admit: Yes Skin Integrity Problem Comment: Small, discrete area of dry, stable eschar noted to posterior aspect of patient's L heel, consistent in appearance w/ unstageable pressure injury. No fluctuance palpated, and no swelling or erythema periwound. Will have nursing apply off-loading heel boots for patient to wear at all times. Wound care will continue to monitor.
--- NOTE | 2017-08-19 10:38 | SOAPPROG ---
SOAP Progress Note Assessment/Plan: Assessment/Plan: Patient is a 67 y/o female, typically wheelchair bound with a history of MS who has multiple chronic wounds on the R lateral ankle, R heel, and R anterior ankle. She was hospitalized due to altered mental status. Patient was seen with Nava Sharp Wounds appear vastly improved Initiate Dakins dressings BID to remove some of the slough and necrotic tissue Reassess for re-application of wound vac due to significant progress with its use, likely re-apply on Friday Discussed that these wounds look significantly better and that it may be possible to do a skin graft instead of a flap once the wounds have more granulation tissue S: Patient is sitting up in bed ordering breakfast in no acute distress, right foot and ankle are wrapped She reports feeling well O: R lateral ankle:mild edema and erythema, wound is granulating nicely with some slough on the posterior aspect of the wound, vastly improved, no signs of infection R heel: some slough/eschar on the rim of the wound, some necrotic tendon present , wound is granulating, no signs of infection, excision of some necrotic tissue with scissors was done. No bone palpable R anterior ankle: tendon visible, slough on rim of wound, no signs of infection 08/19/17 23:09 Objective: Vital Signs Temp Pulse Resp BP Pulse Ox 36.9 C 96 16 171/83 H 95 08/19/17 08:50 08/19/17 08:50 08/19/17 08:50 08/19/17 08:50 08/19/17 08:50 Laboratory Results 08/19/17 05:40 08/19/17 05:40 08/18/17 08/19/17 08/20/17 05:59 05:59 05:59 Intake Total 3691 Output Total 300 Balance 3391 PT 12.9 SEC (12.0-15.0) 08/18/17 04:50 INR 0.95 (0.83-1.16) 08/18/17 04:50 ICD10 Worksheet Patient Problems: Problems Problem Status Onset Altered mental status Acute Elevated troponin Acute Wound of left ankle Acute ARF (acute renal failure) Acute Anemia associated with acute blood loss Acute Hip fx Acute Hyponatremia Acute Tibia/fibula fracture Acute
--- NOTE | 2017-08-19 16:58 | HOSPPROG ---
Hospitalist Progress Note Assessment/Plan: Patient is a 67-year-old female with a history of multiple sclerosis and typically wheelchair bound. She has chronic wounds to right foot and heel. She presented to the emergency room with acute onset of altered mental status. Today is my 1st encounter with the patient. I have taking care of her in the past. When I walked into her room she knew who I was immediately. acute encephalopathy CT scan of her head shows nothing acute could be multifactorial. She has an ulcer on the right lower extremity with a foul smell. She has seen Dr. Soares in the past. she also asthma multiple medical issues and on her last admission the baclofen tended to make her more confused al;ert today, stating she is not confused concern for lower extremity wound infection spoke with Dr Soares and she will see her tomorrow was seen at [facility] wound care to see chronic wounds to heal an ankle as well as chronic right foot and ankle pain, she has a chronic right ankle for fracture and tib fib fracture. this was evaluated on her previous admission she was started on vancomycin by the previous provider, blood cultures have been obtained lactate was obtained, see above MS has been progressing and now uses a wheelchair resumed her home medications *PVD -plavix *anemia -has been persistently low, but lower than previous labs -will follow Subjective: case d/w dr soares. alert Objective: Vital Signs Temp Pulse Resp BP Pulse Ox 36.9 C 77 18 120/64 96 08/19/17 08:50 08/19/17 12:00 08/19/17 12:00 08/19/17 12:00 08/19/17 12:00 Laboratory Results 08/19/17 05:40 08/19/17 05:40 08/18/17 08/19/17 08/20/17 05:59 05:59 05:59 Intake Total 3691 Output Total 300 Balance 3391 PT 12.9 SEC (12.0-15.0) 08/18/17 04:50 INR 0.95 (0.83-1.16) 08/18/17 04:50 - Physical Exam Constitutional: no apparent distress, appears nourished Eyes: PERRL, anicteric sclera Ears, Nose, Mouth, Throat: moist mucous membranes, hearing normal Cardiovascular: regular rate and rhythym, no murmur, rub, or gallop Respiratory: no respiratory distress, no rales or rhonchi Gastrointestinal: normoactive bowel sounds, soft, non-tender abdomen Genitourinary: no bladder fullness, No douglas in urethra Skin: warm, normal color Musculoskeletal: full muscle strength Neurologic: AAOx3 ICD10 Worksheet Patient Problems: Problems Problem Status Onset Altered mental status Acute Elevated troponin Acute Wound of left ankle Acute ARF (acute renal failure) Acute Anemia associated with acute blood loss Acute Hip fx Acute Hyponatremia Acute Tibia/fibula fracture Acute
[2017-08-19] MEDS: SODIUM HYPOCHLORITE (DAKINS 1/4 STR) 120 ML BTL TP SCH (21:00)
[2017-08-20] MEDS: INTERFERON BETA SQ SCH (00:03)
[2017-08-20] MEDS: ALBUMIN SQ SCH (00:03)
[2017-08-20] MEDS: LEVOTHYROXINE 25 MCG TAB PO SCH (06:02)
[2017-08-20] MEDS: D5W LR 1,000 ML IV SCH ×2 (06:04→18:30)
--- NOTE | 2017-08-20 10:19 | PDMN ---
Medical Necessity Medical necessity: Change to IP, as of 08/19/17, per MD; los >2 mn for ongoing management of acute encephalopathy & concern for LE wound infection; admit for wound care, Surgery consult, IV abx & therapies; hx MS, wheelchair bound, multiple chronic RLE wounds, chronic R ankle & tib fib fx, HTN, PVD on AC, UTIs , anemia; per progress note & order 08/19/17
[2017-08-20] MEDS: SENNOSIDES/DOCUSATE SODIUM TAB PO SCH ×2 (10:39→21:39)
[2017-08-20] MEDS: ASCORBIC ACID 250 MG TAB PO SCH (10:40)
[2017-08-20] MEDS: BACLOFEN 20 MG TAB PO SCH ×2 (10:40→21:38)
[2017-08-20] MEDS: LABETALOL HCL 100 MG TAB PO SCH ×2 (10:40→21:38)
[2017-08-20] MEDS: ENOXAPARIN 40 MG/0.4 ML SYR SC SCH (10:41)
[2017-08-20] MEDS: Armodafinil [Nuvigil] 150 MG PO SCH (10:53)
[2017-08-20] MEDS: Dalfampridine [Ampyra] 10 MG PO SCH (10:53)
--- NOTE | 2017-08-20 16:06 | HOSPPROG ---
Hospitalist Progress Note Assessment/Plan: Patient is a 67-year-old female with a history of multiple sclerosis and typically wheelchair bound. She has chronic wounds to right foot and heel. She presented to the emergency room with acute onset of altered mental status. Today is my 1st encounter with the patient. I have taking care of her in the past. When I walked into her room she knew who I was immediately. acute encephalopathy CT scan of her head shows nothing acute could be multifactorial. She has an ulcer on the right lower extremity with a foul smell. She has seen Dr. Soares in the past. she also asthma multiple medical issues and on her last admission the baclofen tended to make her more confused al;ert today, stating she is not confused resolved constipation: resolved concern for lower extremity wound infection spoke with Dr Soares and she will see her tomorrow was seen at [facility] wound care to see plan for wound vac re install on this admit chronic wounds to heal an ankle as well as chronic right foot and ankle pain, she has a chronic right ankle for fracture and tib fib fracture. this was evaluated on her previous admission she was started on vancomycin by the previous provider, blood cultures have been obtained lactate was obtained, see above MS has been progressing and now uses a wheelchair resumed her home medications *PVD -plavix *anemia -has been persistently low, but lower than previous labs -will follow Subjective: had BM today. case d/w dr soares Objective: Vital Signs Temp Pulse Resp BP Pulse Ox 36.5 C 85 20 166/68 H 96 08/20/17 15:43 08/20/17 15:43 08/20/17 15:43 08/20/17 15:43 08/20/17 15:43 08/19/17 08/20/17 08/21/17 05:59 05:59 05:59 Intake Total 2641 Balance 2641 PT 12.9 SEC (12.0-15.0) 08/18/17 04:50 INR 0.95 (0.83-1.16) 08/18/17 04:50 - Physical Exam Constitutional: no apparent distress, appears nourished Eyes: PERRL, anicteric sclera Ears, Nose, Mouth, Throat: moist mucous membranes, hearing normal Cardiovascular: regular rate and rhythym, no murmur, rub, or gallop Respiratory: no respiratory distress, no rales or rhonchi Gastrointestinal: normoactive bowel sounds, soft, non-tender abdomen Genitourinary: No douglas in urethra Skin: warm, normal color Musculoskeletal: full muscle strength, no muscle tenderness Neurologic: AAOx3 Psychiatric: interacting appropriately, not anxious Lymph, Heme, Immunologic: no cervical LAD ICD10 Worksheet Patient Problems: Problems Problem Status Onset Altered mental status Acute Elevated troponin Acute Wound of left ankle Acute ARF (acute renal failure) Acute Anemia associated with acute blood loss Acute Hip fx Acute Hyponatremia Acute Tibia/fibula fracture Acute
--- NOTE | 2017-08-20 17:19 | ASMTCMCOM ---
CM Note CM Note Notes: Pt was brought in with AMS from [facility] where she was rehabbing. CM spoke w/Suzy at [facility] and she doesn't know why pt doesn't want to return. Suzy says pt really wants to go to our [facility] to "get better" then she she could go home. Yesterday CM sent refferals to 3 other SNFs and all have declined. I shared this information with the pt and asked that she remain open to the fact she may need to return to [facility], she doesn't want to go back, states it's dirty and staff is inattentive. I spoke w/surgical PA, she thinks they will put on a wound vac this Friday. CM asked MD to put in consult for [facility] and will send out a few more referrals. DC Plan: TBD Date Signed: 08/20/2017 05:18 PM Electronically Signed By:Lovely Arzola RN
[2017-08-20] MEDS: SODIUM HYPOCHLORITE (DAKINS 1/4 STR) 120 ML BTL TP SCH (18:00)
[2017-08-21] MEDS ORDERED: SODIUM CL NASAL 45 ML BTL EACHNARE PRN (01:06)
[2017-08-21] MEDS: LEVOTHYROXINE 25 MCG TAB PO SCH (04:47)
[2017-08-21] MEDS: SODIUM HYPOCHLORITE (DAKINS 1/4 STR) 120 ML BTL TP SCH ×3 (04:47→22:30)
[2017-08-21] MEDS: D5W LR 1,000 ML IV SCH (05:14)
[2017-08-21] MEDS: LABETALOL HCL 100 MG TAB PO SCH ×2 (08:34→21:06)
[2017-08-21] MEDS: ENOXAPARIN 40 MG/0.4 ML SYR SC SCH (08:34)
[2017-08-21] MEDS: ASCORBIC ACID 250 MG TAB PO SCH (08:34)
[2017-08-21] MEDS: BACLOFEN 20 MG TAB PO SCH ×2 (08:35→21:06)
[2017-08-21] MEDS: Armodafinil [Nuvigil] 150 MG PO SCH (08:36)
[2017-08-21] MEDS: SENNOSIDES/DOCUSATE SODIUM TAB PO SCH ×2 (08:36→19:55)
[2017-08-21] MEDS: DALFAMPRIDINE 10 MG PO SCH (08:38)
--- NOTE | 2017-08-21 14:46 | HOSPPROG ---
Hospitalist Progress Note Assessment/Plan: Patient is a 67-year-old female with a history of multiple sclerosis and typically wheelchair bound. She has chronic wounds to right foot and heel. She presented to the emergency room with acute onset of altered mental status. Today is my 1st encounter with the patient. I have taking care of her in the past. D/W Dr Diallo. acute encephalopathy CT scan of her head shows nothing acute could be multifactorial. she also asthma multiple medical issues and on her last admission the baclofen tended to make her more confused alert today, stating she is not confused resolved constipation: resolved concern for lower extremity wound infection spoke with Dr Diallo was seen at [facility] wound care to see wound vac to be placed chronic wounds to heal an ankle as well as chronic right foot and ankle pain, she has a chronic right ankle for fracture and tib fib fracture. this was evaluated on her previous admission she was started on vancomycin by the previous provider, blood cultures have been obtained lactate was obtained, see above MS has been progressing and now uses a wheelchair resumed her home medications PVD plavix anemia has been persistently low, but lower than previous labs will follow Dispo unclear, reviewed with CM will need SNF and wound vac Subjective: Feeling ok. Cold. C/O having a cold and cough. Objective: Vital Signs Temp Pulse Resp BP Pulse Ox 36.8 C 98 20 185/79 H 93 08/21/17 14:27 08/21/17 14:27 08/21/17 14:27 08/21/17 14:27 08/21/17 14:27 Microbiology 08/21/17 07:15 Respiratory Panel (PCR) - Final Nasal, Sinus - Anaerobic Tube/Swab No Organism Detected 08/20/17 08/21/17 08/22/17 05:59 05:59 05:59 Intake Total 2641 2951 Balance 2641 2951 PT 12.9 SEC (12.0-15.0) 08/18/17 04:50 INR 0.95 (0.83-1.16) 08/18/17 04:50 - Physical Exam Constitutional: appears nourished, not in pain, chronically ill appearing Eyes: PERRL, anicteric sclera, EOMI Ears, Nose, Mouth, Throat: moist mucous membranes, hearing normal, ears appear normal Cardiovascular: regular rate and rhythym, No JVD, No edema Respiratory: no respiratory distress, reduced air movement, expiratory wheeze Gastrointestinal: normoactive bowel sounds, No tenderness, No ascites Skin: warm, normal color, pressure ulcer Musculoskeletal: normal joint ROM, no joint effusions, generalized weakness Neurologic: AAOx3 Psychiatric: interacting appropriately, not anxious, not encephalopathic, poor memory ICD10 Worksheet Patient Problems: Problems Problem Status Onset Hip fx Acute Hyponatremia Acute ARF (acute renal failure) Acute Anemia associated with acute blood loss Acute Tibia/fibula fracture Acute Altered mental status Acute Wound of left ankle Acute Elevated troponin Acute
[2017-08-21] MEDS ORDERED: ACETAMINOPHEN 325 MG TAB PO PRN (15:21)
[2017-08-21] MEDS ORDERED: FUROSEMIDE 20 MG TAB PO ONE (15:22)
[2017-08-21] MEDS: GUAIFENESIN/DM 10 ML UDCUP PO PRN ×2 (15:38→21:06)
[2017-08-21] MEDS: IPRATROPIUM/ALBUTEROL 3 ML DEYVIAL IH PRN (15:51)
--- NOTE | 2017-08-21 17:19 | ASMTCMCOM ---
CM Note CM Note Notes: received call from Laury at [facility], have declined pt d/t, a) limited weight bearing b) not enough functional gains from the time she has been in snf and c) average length of stay is 2 weeks and they don't see her getting back to functional status in 2 weeks. Pt notified of [facility] decline and referrals sent to 5 other snfs. DC Plan: SNF Date Signed: 08/21/2017 05:18 PM Electronically Signed By:Lovely Arzola RN
[2017-08-21] MEDS: FUROSEMIDE 20 MG TAB PO SCH (21:05)
[2017-08-21] MEDS: ALBUMIN SQ SCH (21:07)
[2017-08-21] MEDS: INTERFERON BETA SQ SCH (21:07)
--- NOTE | 2017-08-21 21:50 | SOAPPROG ---
SOAP Progress Note Assessment/Plan: Assessment/Plan: Patient is a 67 y/o female, typically wheelchair bound with a history of MS who has multiple chronic wounds on the R lateral ankle, R heel, and R anterior ankle. She was hospitalized due to altered mental status. Wounds appear vastly improved Dakins dressings BID to remove some of the slough and necrotic tissue Resume wound vac on Friday Discussed that these wounds look significantly better and that it may be possible to do a skin graft instead of a flap once the wounds have more granulation tissue S: Patient is sitting up in bed in no acute distress, O: R lateral ankle:mild edema and no erythema, wound is granulating nicely with some slough on the posterior aspect of the wound, vastly improved, no signs of infection R heel: minmal slough/eschar on the rim of the wound, some necrotic tendon present, wound is granulating, no signs of infection, R anterior ankle: tendon visible, slough on rim of wound, no signs of infection 08/19/17 23:09 08/21/17 21:49 Objective: Vital Signs Temp Pulse Resp BP Pulse Ox 36.8 C 97 18 167/73 H 93 08/21/17 20:00 08/21/17 21:06 08/21/17 20:00 08/21/17 21:06 08/21/17 20:00 Microbiology 08/21/17 07:15 Respiratory Panel (PCR) - Final Nasal, Sinus - Anaerobic Tube/Swab No Organism Detected 08/20/17 08/21/17 08/22/17 05:59 05:59 05:59 Intake Total 2641 2951 400 Balance 2641 2951 400 PT 12.9 SEC (12.0-15.0) 08/18/17 04:50 INR 0.95 (0.83-1.16) 08/18/17 04:50 ICD10 Worksheet Patient Problems: Problems Problem Status Onset Altered mental status Acute Elevated troponin Acute Wound of left ankle Acute ARF (acute renal failure) Acute Anemia associated with acute blood loss Acute Hip fx Acute Hyponatremia Acute Tibia/fibula fracture Acute
[2017-08-22] MEDS ORDERED: FUROSEMIDE 20 MG/2 ML VIAL IVP ONE ×3 (01:40→17:15)
[2017-08-22] MEDS: GUAIFENESIN/DM 10 ML UDCUP PO PRN (01:40)
[2017-08-22] MEDS: LEVOTHYROXINE 25 MCG TAB PO SCH (06:21)
--- NOTE | 2017-08-22 06:59 | HOSPPROG ---
Hospitalist Progress Note Assessment/Plan: Notified by RN of rising O2 needs. Patient mildly tachypneic on my exam with subtle end expiratory wheezing but denies shortness of breath or other symptoms. Will give additional dose of IV lasix and Duoneb. Will also check CXR and add BMP, CBC in the morning. Objective: Vital Signs Temp Pulse Resp BP Pulse Ox 36.9 C 95 18 166/81 H 97 08/22/17 04:00 08/22/17 04:00 08/22/17 04:00 08/22/17 04:00 08/22/17 04:00 Microbiology 08/21/17 07:15 Respiratory Panel (PCR) - Final Nasal, Sinus - Anaerobic Tube/Swab No Organism Detected 08/21/17 08/22/17 08/23/17 05:59 05:59 05:59 Intake Total 2951 400 Balance 2951 400 PT 12.9 SEC (12.0-15.0) 08/18/17 04:50 INR 0.95 (0.83-1.16) 08/18/17 04:50 ICD10 Worksheet Patient Problems: Problems Problem Status Onset Altered mental status Acute Elevated troponin Acute Wound of left ankle Acute ARF (acute renal failure) Acute Anemia associated with acute blood loss Acute Hip fx Acute Hyponatremia Acute Tibia/fibula fracture Acute
[2017-08-22] MEDS: FUROSEMIDE 20 MG TAB PO SCH ×2 (10:06→22:22)
[2017-08-22] MEDS: BACLOFEN 20 MG TAB PO SCH ×2 (10:07→22:20)
[2017-08-22] MEDS: ENOXAPARIN 40 MG/0.4 ML SYR SC SCH (10:07)
[2017-08-22] MEDS: SENNOSIDES/DOCUSATE SODIUM TAB PO SCH ×2 (10:07→22:07)
[2017-08-22] MEDS: ASCORBIC ACID 250 MG TAB PO SCH (10:07)
[2017-08-22] MEDS: LABETALOL HCL 100 MG TAB PO SCH ×2 (10:07→22:21)
[2017-08-22] MEDS: CLOPIDOGREL BISULFATE 75 MG TAB PO SCH (10:07)
[2017-08-22] MEDS: DALFAMPRIDINE 10 MG PO SCH (10:10)
[2017-08-22] MEDS: Armodafinil [Nuvigil] 150 MG PO SCH (10:14)
[2017-08-22] MEDS ORDERED: SODIUM FERRIC GLUCONAT/SUCROSE 125 MG in NS 100 ML IV ONE (10:58)
--- NOTE | 2017-08-22 13:49 | HOSPPROG ---
Hospitalist Progress Note Assessment/Plan: Patient is a 67-year-old female with a history of multiple sclerosis and typically wheelchair bound. She has chronic wounds to right foot and heel. She presented to the emergency room with acute onset of altered mental status. Today is my 1st encounter with the patient. I have taking care of her in the past. D/W Dr Diallo. acute encephalopathy CT scan of her head showed nothing acute could be multifactorial. she also has multiple medical issues and on her last admission the baclofen tended to make her more confused alert today, stating she is not confused resolved constipation: resolved concern for lower extremity wound infection spoke with Dr Diallo was seen at [facility] wound care to see wound vac to be placed chronic wounds to heal and ankle as well as chronic right foot and ankle pain, she has a chronic right ankle for fracture and tib fib fracture. this was evaluated on her previous admission blood cultures ngtd lactate was obtained, see above MS has been progressing and now uses a wheelchair resumed her home medications PVD plavix Acute on chronic hypoxemic resp failure some fluid overload lasix given home lasix had been held for several days restarted yesterday plus extra dose this morning will give another 20 after blood anemia has been persistently low, but lower than previous labs transfusion today recheck in am give IV iron too Dispo unclear, reviewed with CM will need SNF and wound vac possibly powerback in am if stable Subjective: Feeling tired today. No specific pain. SOB. Objective: Vital Signs Temp Pulse Resp BP Pulse Ox 37.1 C 82 16 142/65 H 97 08/22/17 12:00 08/22/17 12:00 08/22/17 12:00 08/22/17 12:00 08/22/17 12:00 Microbiology 08/21/17 07:15 Respiratory Panel (PCR) - Final Nasal, Sinus - Anaerobic Tube/Swab No Organism Detected Laboratory Results 08/22/17 08:27 08/22/17 08:27 08/21/17 08/22/17 08/23/17 05:59 05:59 05:59 Intake Total 2951 400 Balance 2951 400 PT 12.9 SEC (12.0-15.0) 08/18/17 04:50 INR 0.95 (0.83-1.16) 08/18/17 04:50 - Physical Exam Constitutional: chronically ill appearing, uncomfortable, cachectic Eyes: PERRL, anicteric sclera, EOMI Ears, Nose, Mouth, Throat: moist mucous membranes, hearing normal, ears appear normal Cardiovascular: No JVD, No tachycardia, No edema Respiratory: no respiratory distress, no rales or rhonchi, reduced air movement Gastrointestinal: normoactive bowel sounds, No tenderness, No ascites Skin: warm, pressure ulcer, No mottled Musculoskeletal: normal joint ROM, no joint effusions, generalized weakness Neurologic: AAOx3 Psychiatric: not anxious, not encephalopathic, poor insight, poor judgement ICD10 Worksheet Patient Problems: Problems Problem Status Onset Hip fx Acute Hyponatremia Acute ARF (acute renal failure) Acute Anemia associated with acute blood loss Acute Tibia/fibula fracture Acute Altered mental status Acute Wound of left ankle Acute Elevated troponin Acute
[2017-08-22] MEDS: IBUPROFEN 600 MG TAB PO PRN ×2 (14:28→22:21)
[2017-08-22] MEDS: IPRATROPIUM/ALBUTEROL 3 ML DEYVIAL IH PRN (15:00)
--- NOTE | 2017-08-22 15:58 | ASMTCMCOM ---
CM Note CM Note Notes: Patient requesting to go to different longterm facility, her friends/ family have brought in all her belongings from [facility]. Will place referrals. CM to follow. Date Signed: 08/19/2017 03:30 PM Electronically Signed By:Karley Martin RN
--- NOTE | 2017-08-22 16:58 | WOCRNPDOC ---
MATT Advanced Assessment Note - Skin Integrity Problem, Advanced Assess Right Lateral Ankle Dressing Type: Gauze, Kerlix Dressing Description: Shadowed Exudate Amount: Minimal Exudate Color: Reddish/Yellow Exudate Characteristic(s): Serosanguinous Integumentary Issue Intervention: Dressing Changed Tawana Wound Tissue: Venous Dermatitis, Dry Tawana Wound Swelling: Mild Wound Bed Color: Red, Yellow Wound Bed Constitution: Granulation Tissue (95%), Adhered Slough (5%) Wound Edges: Epithelizing, Well Defined Site Odor: Slight Site Measurement - Head-to-Toe Length X Width X Depth (cm): 5.8cmx6.2cmx0.3cm Pressure Injury Stage: Stage 4 Pressure Injury Present on Admit: Yes (see H&P) Skin Integrity Problem Comment: Well-granulated tissue throughout R lateral ankle wound, w/ narrow trough of adhered slough medially. Dry, flaky skin throughout periwound, mild swelling, no erythema. Periwound skin prepped and draped, and one piece of black Simplace foam placed into wound bed, bridged up and onto R lateral lower leg, and connected to bridge from heel wound. Vac bridge dressing applied, vac set at -125mmHg, low continuous suction w/ no apparent leaks. director dermatology Haile and ADAM Mendoza assisting. Right Heel Dressing Type: ABD Pad, Gauze, Kerlix Dressing Description: Intact, Shadowed Exudate Amount: Minimal Exudate Color: Reddish/Yellow Exudate Characteristic(s): Serosanguinous Integumentary Issue Intervention: Dressing Applied, Dressing Changed Tawana Wound Tissue: Blanching, Erythema Tawana Wound Swelling: Mild Wound Bed Color: Red, Yellow Wound Bed Constitution: Granulation Tissue (95%), Adhered Slough (5%) Wound Edges: Epibole (along medial margin from 7-10 o'clock) Site Odor: Slight Site Measurement - Head-to-Toe Length X Width X Depth (cm): 5cmx3.4cmx0.3cm Pressure Injury Stage: Stage 4 (full-depth of previous injury) Pressure Injury Present on Admit: Yes (in H&P) Skin Integrity Problem Comment: Well-granulated wound on R plantar heel, w/ small patch of adhered, stringy slough/eschar along proximal aspect of wound bed. There is some epibole beginning to form along the medial margin of wound bed. Blanching erythema throughout periwound tissues, being monitored by nursing and off-loaded using a Prevalon boot. Periwound skin prepped and draped , and one piece of black Simplace foam placed into wound bed, bridged up R lateral lower leg, and connected to bridge from R lateral malleolus wound. Bridge vac dressing applied, set to -125mmHg low, continuous suction w/ no apparent leaks. director dermatology Haile and ADAM Mendoza assisting. Right Anterior Ankle Dressing Type: Allevyn Life Dressing Description: Intact Exudate Amount: None Integumentary Issue Intervention: Dressing Applied, Hydrogel Applied Tawana Wound Tissue: Hemosiderin Staining, Dry Tawana Wound Swelling: Mild Wound Bed Color: Red, Yellow Wound Bed Constitution: Granulation Tissue (30%), Red/Darfur - Non Granular Tissue (40%), Adhered Slough (30%) Wound Edges: Well Defined Site Odor: Slight Site Measurement - Head-to-Toe Length X Width X Depth (cm): 1.9cmx1.5cmx0.2cm Pressure Injury Stage: Stage 3 Pressure Injury Present on Admit: Yes (see H&P) Skin Integrity Problem Comment: Full-thickness wound over the R talocrural joint , anterior ankle, w/ adhered slough scattered throughout and smooth, non- granulating tissues. Dry, flaky skin throughout periwound, no significant erythema or swelling. Wound bed was dry, dessicated; hydrogel and Lani collagen applied, followed by Hydrofera Blue Ready foam and Allevyn. Right Distal Dorsal Foot Dressing Type: Open to Air Exudate Amount: None Integumentary Issue Intervention: Dressing Applied, Hydrogel Applied Tawana Wound Tissue: Venous Dermatitis, Dry Wound Bed Constitution: Red/Darfur - Non Granular Tissue Wound Edges: Epithelizing Site Odor: None Skin Integrity Problem Comment: Previously a full-thickness wound, now dried, dessicated, and crater-like in appearance. Adhered, dry yellow slough throughout. Periwound skin dry, flaky w/ no significant erythema or swelling. Applied Hydrogel and Allevyn. Right Medial Ankle Pressure Injury Dressing Description: Intact Exudate Amount: Minimal Exudate Color: Reddish/Yellow Exudate Characteristic(s): Serosanguinous Integumentary Issue Intervention: Dressing Changed, Hydrogel Applied Tawana Wound Tissue: Hemosiderin Staining, Thin, Dry Tawana Wound Swelling: None Wound Bed Color: Red, Yellow Wound Bed Constitution: Granulation Tissue (50%), Adhered Slough (50%) Wound Edges: Well Defined Site Odor: Slight Site Measurement - Head-to-Toe Length X Width X Depth (cm): 2.2cmx1.7cmx0.3cm Pressure Injury Stage: Stage 3 Pressure Injury Present on Admit: Yes (see H&P) Skin Integrity Problem Comment: Full-thickness wound just proximal to R medial malleolus, a stage 3 pressure injury that was documented during patient's hospitalization last Fall 2015. Adhered, stringy slough along distal margin, w/ scattered granulation throughout. Wound edges are well-defined and distinct, arterial in appearance, due in part to patient's previously poor vascular supply. Stents were placed during last hospitalization, and wound appears beefy , red, and well-vascularized. Applied hydrogel and collagen, followed by Hydrofera Blue ready foam and Allevyn dressing.
[2017-08-22] MEDS: SODIUM HYPOCHLORITE (DAKINS 1/4 STR) 120 ML BTL TP SCH ×2 (17:18→22:07)
[2017-08-23] MEDS: IBUPROFEN 600 MG TAB PO PRN ×2 (06:12→20:39)
[2017-08-23] MEDS: LEVOTHYROXINE 25 MCG TAB PO SCH (06:12)
[2017-08-23] MEDS: FUROSEMIDE 20 MG TAB PO SCH ×2 (06:13→17:32)
[2017-08-23] MEDS: CLOPIDOGREL BISULFATE 75 MG TAB PO SCH (08:57)
[2017-08-23] MEDS: ASCORBIC ACID 250 MG TAB PO SCH (08:57)
[2017-08-23] MEDS: BACLOFEN 20 MG TAB PO SCH ×2 (08:58→20:37)
[2017-08-23] MEDS: Armodafinil [Nuvigil] 150 MG PO SCH (08:59)
[2017-08-23] MEDS: DALFAMPRIDINE 10 MG PO SCH (09:00)
[2017-08-23] MEDS: ENOXAPARIN 40 MG/0.4 ML SYR SC SCH (09:05)
[2017-08-23] MEDS: LABETALOL HCL 100 MG TAB PO SCH ×2 (09:26→20:38)
[2017-08-23] MEDS: SENNOSIDES/DOCUSATE SODIUM TAB PO SCH ×2 (09:27→20:40)
[2017-08-23] MEDS: SODIUM HYPOCHLORITE (DAKINS 1/4 STR) 120 ML BTL TP SCH ×2 (09:28→20:08)
[2017-08-23] MEDS ORDERED: FUROSEMIDE 40 MG/4 ML VIAL IVP ONE ×2 (10:06→16:15)
[2017-08-23] MEDS ORDERED: SODIUM FERRIC GLUCONAT/SUCROSE 125 MG in NS 100 ML IV ONE (10:06)
--- NOTE | 2017-08-23 14:56 | HOSPPROG ---
Hospitalist Progress Note Assessment/Plan: Patient is a 67-year-old female with a history of multiple sclerosis and typically wheelchair bound. She has chronic wounds to right foot and heel. She presented to the emergency room with acute onset of altered mental status. acute encephalopathy resolved however pt has very poor short term memory CT scan of her head showed nothing acute could be multifactorial. she also has multiple medical issues and on her last admission the baclofen tended to make her more confused alert today, stating she is not confused constipation: resolved concern for lower extremity wound infection Dr Diallo following was seen at [facility] wound care to see wound vac chronic wounds to heal and ankle as well as chronic right foot and ankle pain, she has a chronic right ankle for fracture and tib fib fracture. this was evaluated on her previous admission blood cultures ngtd lactate was obtained, see above MS has been progressing and now uses a wheelchair resumed her home medications PVD plavix Acute on chronic hypoxemic resp failure some fluid overload lasix given home lasix had been held for several days restarted plus extra anemia has been persistently low, but lower than previous labs transfusion today again recheck in am give IV iron too Dispo unclear, reviewed with CM likely to Powerback in am with wound vac high risk given blood transfusion Subjective: Feeling ok. No pain currently. Still low on energy. Objective: Vital Signs Temp Pulse Resp BP Pulse Ox 36.5 C 63 20 137/63 H 98 08/23/17 13:04 08/23/17 13:04 08/23/17 13:04 08/23/17 13:04 08/23/17 13:04 Laboratory Results 08/23/17 04:54 08/22/17 08:27 08/22/17 08/23/17 08/24/17 05:59 05:59 05:59 Intake Total 400 1790 Balance 400 1790 PT 12.9 SEC (12.0-15.0) 08/18/17 04:50 INR 0.95 (0.83-1.16) 08/18/17 04:50 - Physical Exam Constitutional: appears nourished, not in pain, chronically ill appearing Eyes: PERRL, anicteric sclera, EOMI Ears, Nose, Mouth, Throat: moist mucous membranes, hearing normal, ears appear normal Cardiovascular: No JVD, No tachycardia, No edema Respiratory: no respiratory distress, no rales or rhonchi, reduced air movement Gastrointestinal: normoactive bowel sounds, No tenderness, No ascites Skin: warm, pressure ulcer, No erythema Musculoskeletal: no joint effusions, pain with ROM, generalized weakness Neurologic: No AAOx3 Psychiatric: not anxious, not encephalopathic, poor insight, poor judgement, poor memory ICD10 Worksheet Patient Problems: Problems Problem Status Onset Hip fx Acute Hyponatremia Acute ARF (acute renal failure) Acute Anemia associated with acute blood loss Acute Tibia/fibula fracture Acute Altered mental status Acute Wound of left ankle Acute Elevated troponin Acute
[2017-08-23] MEDS: ALBUMIN SQ SCH (20:41)
[2017-08-23] MEDS: INTERFERON BETA SQ SCH (20:41)
[2017-08-24] MEDS: LEVOTHYROXINE 25 MCG TAB PO SCH (06:10)
[2017-08-24] MEDS: FUROSEMIDE 20 MG TAB PO SCH ×2 (06:10→17:24)
[2017-08-24] MEDS: ASCORBIC ACID 250 MG TAB PO SCH (09:38)
[2017-08-24] MEDS: LABETALOL HCL 100 MG TAB PO SCH ×2 (09:38→20:34)
[2017-08-24] MEDS: DALFAMPRIDINE 10 MG PO SCH (09:39)
[2017-08-24] MEDS: CLOPIDOGREL BISULFATE 75 MG TAB PO SCH (09:39)
[2017-08-24] MEDS: BACLOFEN 20 MG TAB PO SCH ×2 (09:39→20:35)
[2017-08-24] MEDS: SENNOSIDES/DOCUSATE SODIUM TAB PO SCH ×2 (09:39→20:34)
[2017-08-24] MEDS: Armodafinil [Nuvigil] 150 MG PO SCH (09:40)
[2017-08-24] MEDS: ENOXAPARIN 40 MG/0.4 ML SYR SC SCH (09:43)
[2017-08-24] MEDS: SODIUM HYPOCHLORITE (DAKINS 1/4 STR) 120 ML BTL TP SCH ×2 (11:12→20:36)
[2017-08-24] MEDS: IBUPROFEN 600 MG TAB PO PRN (11:57)
[2017-08-24] MEDS ORDERED: FUROSEMIDE 40 MG/4 ML VIAL IVP ONE (12:46)
--- NOTE | 2017-08-24 12:48 | HOSPPROG ---
Hospitalist Progress Note Assessment/Plan: Patient is a 67-year-old female with a history of multiple sclerosis and typically wheelchair bound. She has chronic wounds to right foot and heel. She presented to the emergency room with acute onset of altered mental status. acute encephalopathy resolved however pt has very poor short term memory CT scan of her head showed nothing acute could be multifactorial. she also has multiple medical issues and on her last admission the baclofen tended to make her more confused alert today, stating she is not confused no short term memory constipation: resolved concern for lower extremity wound infection Dr Yoel quintero was seen at [facility] wound care to see wound vac chronic wounds to heal and ankle as well as chronic right foot and ankle pain, she has a chronic right ankle for fracture and tib fib fracture. this was evaluated on her previous admission blood cultures ngtd lactate was obtained, see above MS has been progressing and now uses a wheelchair resumed her home medications PVD plavix Acute on chronic hypoxemic resp failure some fluid overload give more lasix today home lasix had been held for several days restarted plus extra anemia has been persistently low, but lower than previous labs transfusion today again recheck in am give IV iron too Dispo unclear, reviewed with CM likely to Powerback in am with wound vac trying to find SNF near [place] closer to family Subjective: Doing well. Still a bit SOB. No other issues. Objective: Vital Signs Temp Pulse Resp BP Pulse Ox 36.9 C 77 16 157/68 H 95 08/24/17 07:53 08/24/17 07:53 08/24/17 07:53 08/24/17 07:53 08/24/17 07:53 Laboratory Results 08/24/17 04:20 08/22/17 08:27 08/23/17 08/24/17 08/25/17 05:59 05:59 05:59 Intake Total 1790 1350 Output Total 1750 Balance 1790 -400 PT 12.9 SEC (12.0-15.0) 08/18/17 04:50 INR 0.95 (0.83-1.16) 08/18/17 04:50 - Physical Exam Constitutional: appears nourished, not in pain, chronically ill appearing Eyes: PERRL, anicteric sclera, EOMI Ears, Nose, Mouth, Throat: moist mucous membranes, hearing normal, ears appear normal Cardiovascular: No JVD, No edema Respiratory: no respiratory distress, reduced air movement Gastrointestinal: No tenderness, No ascites Skin: no rashes or abrasions Musculoskeletal: pain with ROM, generalized weakness Psychiatric: not anxious, not encephalopathic, poor memory ICD10 Worksheet Patient Problems: Problems Problem Status Onset Hip fx Acute Hyponatremia Acute ARF (acute renal failure) Acute Anemia associated with acute blood loss Acute Tibia/fibula fracture Acute Altered mental status Acute Wound of left ankle Acute Elevated troponin Acute
[2017-08-24] MEDS ORDERED: LACTULOSE 20 GM/30 ML UDCUP PO PRN (13:41)
[2017-08-24] MEDS ORDERED: POLYETHYLENE GLYCOL 3350 17 GM PKT PO PRN (13:41)
[2017-08-24] MEDS ORDERED: MAGNESIUM HYDROXIDE 30 ML UDCUP PO PRN (13:41)
--- NOTE | 2017-08-24 13:43 | ASMTCMCOM ---
CM Note CM Note Notes: Per hospitalist, patient is asking about a possibility of SNF located in [facility]. No snf found in that area. Plan will remain dc to [facility] when medically ready which should be tomorrow. CM to follow. Date Signed: 08/24/2017 01:43 PM Electronically Signed By:Karley Martin RN
[2017-08-25] MEDS: LEVOTHYROXINE 25 MCG TAB PO SCH (05:18)
[2017-08-25] MEDS: FUROSEMIDE 20 MG TAB PO SCH ×2 (05:18→16:23)
[2017-08-25] MEDS: SENNOSIDES/DOCUSATE SODIUM TAB PO SCH ×2 (08:43→21:25)
[2017-08-25] MEDS: DALFAMPRIDINE 10 MG PO SCH (08:43)
[2017-08-25] MEDS: Armodafinil [Nuvigil] 150 MG PO SCH (08:44)
[2017-08-25] MEDS: ENOXAPARIN 40 MG/0.4 ML SYR SC SCH (08:45)
[2017-08-25] MEDS: LABETALOL HCL 100 MG TAB PO SCH ×2 (08:46→21:25)
[2017-08-25] MEDS: BACLOFEN 20 MG TAB PO SCH ×2 (08:46→21:26)
[2017-08-25] MEDS: ASCORBIC ACID 250 MG TAB PO SCH (08:46)
[2017-08-25] MEDS: CLOPIDOGREL BISULFATE 75 MG TAB PO SCH (08:46)
[2017-08-25] MEDS: POLYETHYLENE GLYCOL 3350 17 GM PKT PO PRN ×2 (09:00→22:54)
[2017-08-25] MEDS: SODIUM HYPOCHLORITE (DAKINS 1/4 STR) 120 ML BTL TP SCH ×3 (09:46→22:26)
[2017-08-25] MEDS: IBUPROFEN 600 MG TAB PO PRN (11:09)
--- NOTE | 2017-08-25 14:41 | PDIAF ---
- Diagnosis Diagnosis: AMS Code Status: Do Not Resuscitate - Medication Management Discharge Medications: Medications to Continue on Transfer Armodafinil [Nuvigil 150mg] 150 mg PO DAILY 04/26/15 [Last Taken 06/26/17] Dalfampridine [AMPYRA] 10 mg PO DAILY 04/26/15 [Last Taken 06/26/17] Ascorbic Acid [Vitamin C 250 mg (*)] 250 mg PO DAILY 04/27/15 [Last Taken ] Levothyroxine [Synthroid 25 mcg (*)] 25 mcg PO DAILY06 04/27/15 [Last Taken ] Furosemide [Lasix 20 MG (*)] 20 mg PO BID 01/11/17 [Last Taken 06/26/17] hydrALAZINE [Apresoline 50 mg (*)] 50 mg PO TID 01/11/17 [Last Taken 06/26/17] Baclofen [Baclofen 20 mg (*)] 40 mg PO DAILY 06/27/17 [Last Taken Unknown] Baclofen [Baclofen 20 mg (*)] 60 mg PO HS 06/27/17 [Last Taken Unknown] Interferon Beta-1A/Albumin [Rebif Rebidose 44 Mcg/0.5 ml] 44 mcg SQ TUTHSA@21 [Last Taken 06/26/17] Acetaminophen [Tylenol 325mg (*)] 650 mg PO Q4 PRN tab 07/12/17 [Last Taken Unknown] Clopidogrel Bisulfate [Plavix (*)] 75 mg PO DAILY tab 07/12/17 [Last Taken Unknown] Enoxaparin [Lovenox 40 MG (*)] 40 mg SC DAILY syr 07/12/17 [Last Taken Unknown] Polyethylene Glycol 3350 [Miralax 17 gm (*)] 17 gm PO BID PRN pkt 07/12/17 [ Last Taken Unknown] traMADol [Ultram 50 mg (*)] 50 mg PO Q6HRS PRN tab 07/12/17 [Last Taken Unknown ] Herbals/Supplements -Info Only 1 ea PO DAILY 08/18/17 [Last Taken Unknown] Labetalol HCl [Trandate 200 mg (*)] 200 mg PO BID 08/18/17 [Last Taken Unknown] Pramipexole Di-HCl [Mirapex 0.125 mg (*)] 0.125 mg PO DAILY PRN 08/18/17 [Last Taken Unknown] Ibuprofen [Motrin (*)] 600 mg PO Q6HRS PRN tab 08/25/17 [Last Taken Unknown] Sennosides/Docusate Sodium [Senokot-S] 1 - 2 tab PO BID tab 08/25/17 [Last Taken Unknown] Discharge Medications: Refer to the Discharge Home Medication list for PRN reason. PICC Care - Routine: N/A - Orders Services needed: Registered Nurse, Physical Therapy, Occupational Therapy Isolation Type: None Diet Recommendation: no restrictions on diet - Follow Up Care Current Providers and Referrals: [facility] [Clinic] - follow up in 2 weeks Patient,NotPresent [Primary Care Provider] - As per Instructions
--- NOTE | 2017-08-25 15:29 | ASMTCMCOM ---
CM Note CM Note Notes: Pt is appealing d/c. CM notified [facility], Arianna Iniguez, SHABANA and Angel. CM to follow. Plan: SNF Date Signed: 08/25/2017 03:27 PM Electronically Signed By:JEANIE Gonsales
[2017-08-25] MEDS: BISACODYL 10 MG SUPP PR PRN (15:46)
--- NOTE | 2017-08-25 16:34 | HOSPPROG ---
Hospitalist Progress Note Assessment/Plan: Patient is a 67-year-old female with a history of multiple sclerosis and typically wheelchair bound. She has chronic wounds to right foot and heel. She presented to the emergency room with acute onset of altered mental status. acute encephalopathy resolved unclear if it was really present or pt was pretending poor short term memory CT scan of her head showed nothing acute she also has multiple medical issues and on her last admission the baclofen tended to make her more confused alert today, stating she is not confused no short term memory constipation: aggressive bowel therapy concern for lower extremity wound infection no infection Dr Yoel quintero was seen at [facility] wound care to see wound vac chronic wounds to heal and ankle as well as chronic right foot and ankle pain, she has a chronic right ankle for fracture and tib fib fracture. this was evaluated on her previous admission blood cultures ngtd lactate was obtained, see above MS has been progressing and now uses a wheelchair resumed her home medications SOB per pt complaints repeat CXR only on 1.5L O2 SOB becomes exacerbated when pt told she was being DC'd PVD plavix Acute on chronic hypoxemic resp failure some fluid overload lasix given no signs of overload now anemia has been persistently low, but lower than previous labs transfusion given stable iron given too Dispo DC'd pt to [facility] She is refusing to go appealed await Medicare reply pt becomes "SOB" when she gets anxious about leaving hospital reviewed with CM likely to [facility] in am with wound vac no medical need to be in hospital setting should go to SNF rehab Subjective: Refusing to go. No pain. Objective: Vital Signs Temp Pulse Resp BP Pulse Ox 37.0 C 64 20 151/68 H 92 08/25/17 13:16 08/25/17 13:16 08/25/17 13:16 08/25/17 13:16 08/25/17 13:16 Laboratory Results 08/24/17 04:20 08/22/17 08:27 08/24/17 08/25/17 08/26/17 05:59 05:59 05:59 Intake Total 1350 Output Total 1750 1400 Balance -400 -1400 PT 12.9 SEC (12.0-15.0) 08/18/17 04:50 INR 0.95 (0.83-1.16) 08/18/17 04:50 - Physical Exam Constitutional: appears nourished, not in pain, chronically ill appearing Eyes: PERRL, anicteric sclera, EOMI Ears, Nose, Mouth, Throat: moist mucous membranes, hearing normal, ears appear normal Cardiovascular: No JVD, No tachycardia, No edema Respiratory: no respiratory distress, no rales or rhonchi, reduced air movement Gastrointestinal: normoactive bowel sounds, No tenderness, No ascites Skin: warm, normal color, pressure ulcer Musculoskeletal: no joint effusions, generalized weakness, No normal joint ROM Psychiatric: anxious, poor insight, poor judgement, poor memory ICD10 Worksheet Patient Problems: Problems Problem Status Onset Hip fx Acute Hyponatremia Acute ARF (acute renal failure) Acute Anemia associated with acute blood loss Acute Tibia/fibula fracture Acute Altered mental status Acute Wound of left ankle Acute Elevated troponin Acute
--- NOTE | 2017-08-25 17:11 | WOCRNPDOC ---
WOCRN Advanced Assessment Note - Skin Integrity Problem, Advanced Assess Right Lateral Ankle Dressing Type: Black Vac Foam, Wound Vac Dressing Description: Intact Exudate Amount: Minimal Exudate Color: Reddish/Yellow Exudate Characteristic(s): Serosanguinous Integumentary Issue Intervention: Dressing Changed Ally Wound Swelling: Mild Wound Bed Color: Red, Yellow Wound Bed Constitution: Granulation Tissue (95%), Adhered Slough (5%) Wound Edges: Epithelizing, Well Defined Site Odor: Moderate Site Measurement - Head-to-Toe Length X Width X Depth (cm): 5.5x6.5x0.3 Pressure Injury Stage: Stage 4 Pressure Injury Present on Admit: Yes Skin Integrity Problem Comment: Wound cleaned with NS and gauze. Ally wound tissue draped extensively. One piece of medium black simplace foam placed in wound bed and bridges up onto anterior lower leg and connected to bridge from heel wound. Vac bridge dressing applied. Good seal achieved at -125mmHg, low continuous suction. MARINE FARMER Simona assisting. Patient tolerated the procedure well. Right Heel Dressing Type: Black Vac Foam, Wound Vac Dressing Description: Intact Exudate Amount: Minimal Exudate Color: Reddish/Yellow Exudate Characteristic(s): Serosanguinous Integumentary Issue Intervention: Dressing Changed Ally Wound Swelling: Mild Wound Bed Color: [place], Yellow Wound Bed Constitution: Granulation Tissue (95%), Adhered Slough (5%) Site Measurement - Head-to-Toe Length X Width X Depth (cm): 5x4.5x0.3 Pressure Injury Stage: Stage 4 Pressure Injury Present on Admit: Yes Skin Integrity Problem Comment: Wound cleaned with NS and gauze. Ally wound tissue draped. One piece of medium black simplace foam placed in wound bed and bridged up onto anterior lower leg and connected to bridge from right lateral malleolus. Vac bridge dressing applied. Good seal achieved at -125mmHg, low continuous suction. MARINE FARMER Simona assisting. Patient tolerated the procedure well. Right Anterior Ankle Dressing Type: Allevyn Life, Hydrofera Blue Ready Dressing Description: Clean/Dry, Intact Exudate Amount: Minimal Exudate Color: Reddish/Yellow Exudate Characteristic(s): Serosanguinous Integumentary Issue Intervention: Dressing Changed Ally Wound Swelling: Mild Wound Bed Color: [place] Wound Bed Constitution: Granulation Tissue (40%), Red/[place] - Non Granular Tissue (60%) Wound Edges: Well Defined Site Measurement - Head-to-Toe Length X Width X Depth (cm): 1.3x1x0.2 Pressure Injury Stage: Stage 3 Pressure Injury Present on Admit: Yes Skin Integrity Problem Comment: This is a full thickness wound, smaller in dimensions from previous hospitalization. Wound cleaned with NS and gauze. Skin prep applied to ally wound. Wound gel applied to base as well as a piece of collagen and hydrofera blue ready, cut to fit wound bed. Covered with small allevyn life. Right Distal Dorsal Foot Dressing Type: Allevyn Life Dressing Description: Clean/Dry, Intact Exudate Amount: None Integumentary Issue Intervention: Dressing Applied, Hydrogel Applied Ally Wound Tissue: Intact Wound Bed Constitution: Red/[place] - Non Granular Tissue Site Measurement - Head-to-Toe Length X Width X Depth (cm): 1.9x1.5x0.2 Pressure Injury Stage: Stage 3 Pressure Injury Present on Admit: Yes Skin Integrity Problem Comment: Previously a full thickness wound, now dried with adhered yellow slough throughout. Wound gel applied and covered with allevyn. Right Medial Ankle Pressure Injury Dressing Type: Allevyn Life Dressing Description: Intact Exudate Amount: Minimal Exudate Color: Reddish/Yellow Exudate Characteristic(s): Serosanguinous Integumentary Issue Intervention: Dressing Changed, Hydrogel Applied Ally Wound Tissue: Intact Ally Wound Swelling: Mild Wound Bed Color: Red, Yellow Wound Bed Constitution: Granulation Tissue (50%), Adhered Slough (50%) Wound Edges: Attached, Well Defined Site Measurement - Head-to-Toe Length X Width X Depth (cm): 2x1.7x0.3 Pressure Injury Stage: Stage 3 Pressure Injury Present on Admit: Yes Skin Integrity Problem Comment: This is a full thickness wound, smaller in dimensions from previous hospitalization in Jun 2017. Wound cleaned with NS and gauze. Stringy slough in distal portion of wound. Skin prep applied to ally wound. Wound gel applied to base as well as a piece of collagen and hydrofera blue ready, cut to fit wound bed. Covered with small allevyn life.
[2017-08-26] MEDS: LEVOTHYROXINE 25 MCG TAB PO SCH (05:03)
[2017-08-26] MEDS: FUROSEMIDE 20 MG TAB PO SCH ×2 (05:03→16:33)
[2017-08-26] MEDS: BACLOFEN 20 MG TAB PO SCH ×2 (08:30→22:01)
[2017-08-26] MEDS: SENNOSIDES/DOCUSATE SODIUM TAB PO SCH ×2 (08:30→22:02)
[2017-08-26] MEDS: CLOPIDOGREL BISULFATE 75 MG TAB PO SCH (08:30)
[2017-08-26] MEDS: LABETALOL HCL 100 MG TAB PO SCH ×2 (08:31→22:01)
[2017-08-26] MEDS: DALFAMPRIDINE 10 MG PO SCH (08:31)
[2017-08-26] MEDS: ASCORBIC ACID 250 MG TAB PO SCH (08:31)
[2017-08-26] MEDS: Armodafinil [Nuvigil] 150 MG PO SCH (08:32)
[2017-08-26] MEDS: ENOXAPARIN 40 MG/0.4 ML SYR SC SCH (08:33)
[2017-08-26] MEDS: POLYETHYLENE GLYCOL 3350 17 GM PKT PO PRN (08:33)
--- NOTE | 2017-08-26 08:33 | HOSPPROG ---
Hospitalist Progress Note Assessment/Plan: Patient is a 67-year-old female with a history of multiple sclerosis and typically wheelchair bound. She has chronic wounds to right foot and heel. She presented to the emergency room with acute onset of altered mental status. acute encephalopathy resolved CT scan of her head showed nothing acute she also has multiple medical issues and on her last admission the baclofen tended to make her more confused alert and oriented constipation: aggressive bowel therapy concern for lower extremity wound infection no infection Dr Diallo following wound vac chronic wounds to heal and ankle as well as chronic right foot and ankle pain, she has a chronic right ankle for fracture and tib fib fracture. this was evaluated on her previous admission blood cultures ngtd MS has been progressing resumed her home medications PVD plavix Acute on chronic hypoxemic resp failure On room air with good oxygen levels Reviewed her chest xray which shows improvement Will get a chemistry panel prior to giving another dose of Lasix she has some crackles in her left base anemia has been persistently low, but lower than previous labs transfusion given stable iron given too Dispo DC'd to [facility] yesterday but patient declined because she felt short of breath. Will give her another dose of Lasix today but clinically she looks very good compared to when I took care of her last week. Her vital signs are stable today and she is ready for discharge. Patient has declined discharge today feel feeling she is not well enough. Subjective: Lovely complains of increased shortness of breath when she lies flat. Also is complaining of being constipated Objective: Vital Signs Temp Pulse Resp BP Pulse Ox 36.8 C 63 18 172/64 H 100 08/26/17 07:31 08/26/17 07:31 08/26/17 07:31 08/26/17 07:31 08/26/17 07:31 Laboratory Results 08/24/17 04:20 08/22/17 08:27 08/25/17 08/26/17 08/27/17 05:59 05:59 05:59 Intake Total 1150 Output Total 1400 800 Balance -1400 350 PT 12.9 SEC (12.0-15.0) 08/18/17 04:50 INR 0.95 (0.83-1.16) 08/18/17 04:50 - Physical Exam Constitutional: no apparent distress, appears nourished, not in pain, chronically ill appearing Eyes: PERRL Ears, Nose, Mouth, Throat: hearing normal Cardiovascular: regular rate and rhythym Respiratory: no respiratory distress, other (Few crackles noted in left base) Gastrointestinal: normoactive bowel sounds Skin: warm Musculoskeletal: generalized weakness Neurologic: AAOx3 Psychiatric: interacting appropriately ICD10 Worksheet Patient Problems: Problems Problem Status Onset Altered mental status Acute Elevated troponin Acute Wound of left ankle Acute ARF (acute renal failure) Acute Anemia associated with acute blood loss Acute Hip fx Acute Hyponatremia Acute Tibia/fibula fracture Acute
[2017-08-26] MEDS: SODIUM HYPOCHLORITE (DAKINS 1/4 STR) 120 ML BTL TP SCH ×2 (10:38→22:02)
[2017-08-26] MEDS ORDERED: POTASSIUM CL 10 MEQ TAB PO ONE (10:58)
[2017-08-26] MEDS ORDERED: MAGNESIUM CITRATE 300 ML BOTTLE PO ONE (10:58)
[2017-08-26] MEDS ORDERED: FUROSEMIDE 40 MG/4 ML VIAL IVP ONE (10:58)
--- NOTE | 2017-08-26 16:30 | ASMTCMCOM ---
CM Note CM Note Notes: CM met w/ juan manuel Woods and pt for dispo planning. CM spoke w/ Carmella, physical therapist and Ilda Ruth QUALITY PROCESS ENGINEER regarding d/c POC earlier. Both are recommending LTAC at this time. CM spoke w/ Peggy and pt about LTAC. Both are agreeable. Referrals made to [facility] and [facility]. CM spoke w/ Celia at [facility] and they do not have any bed availabilities until beginning of Sep. CM spoke w/ Keven at [facility] and she does not meet criteria for LTAC. CM spoke w/ Peggy and updated her. Peggy would like [facility] to meet w/ pt and apply for LTC Medicaid. Pt does not qualify for Medicaid at this time. CM has not heard back from the appeal. Pt will most likely d/c tomorrow. CM to follow. Plan: [facility] Date Signed: 08/26/2017 04:29 PM Electronically Signed By:JEANIE Gonsales
[2017-08-26] MEDS: BISACODYL 10 MG SUPP PR PRN (18:03)
[2017-08-26] MEDS: ALBUMIN SQ SCH (22:05)
[2017-08-26] MEDS: INTERFERON BETA SQ SCH (22:05)
[2017-08-27] MEDS: LEVOTHYROXINE 25 MCG TAB PO SCH (06:03)
[2017-08-27] MEDS: FUROSEMIDE 20 MG TAB PO SCH (06:03)
[2017-08-27 07:34] VITALS: RESP 16; TEMP 98.9; O2SAT 97
[2017-08-27] MEDS: ASCORBIC ACID 250 MG TAB PO SCH (09:39)
[2017-08-27] MEDS: Armodafinil [Nuvigil] 150 MG PO SCH (09:39)
[2017-08-27] MEDS: CLOPIDOGREL BISULFATE 75 MG TAB PO SCH (09:40)
[2017-08-27] MEDS: BACLOFEN 20 MG TAB PO SCH (09:40)
[2017-08-27] MEDS: DALFAMPRIDINE 10 MG PO SCH (09:41)
[2017-08-27] MEDS: ENOXAPARIN 40 MG/0.4 ML SYR SC SCH (09:41)
[2017-08-27] MEDS: LABETALOL HCL 100 MG TAB PO SCH (09:42)
[2017-08-27 09:43] VITALS: PULSE 80
[2017-08-27] MEDS: SENNOSIDES/DOCUSATE SODIUM TAB PO SCH (10:02)
[2017-08-27] MEDS: IBUPROFEN 600 MG TAB PO PRN (11:24)
[2017-08-27] MEDS: SODIUM HYPOCHLORITE (DAKINS 1/4 STR) 120 ML BTL TP SCH (11:29)
--- NOTE | 2017-08-27 12:32 | HOSPPROG ---
Hospitalist Progress Note Assessment/Plan: Patient is a 67-year-old female with a history of multiple sclerosis and typically wheelchair bound. She has chronic wounds to right foot and heel. She presented to the emergency room with acute onset of altered mental status. acute encephalopathy resolved CT scan of her head showed nothing acute she also has multiple medical issues and on her last admission the baclofen tended to make her more confused alert and oriented constipation: resolved concern for lower extremity wound infection no infection Dr Diallo following wound vac chronic wounds to heal and ankle as well as chronic right foot and ankle pain, she has a chronic right ankle for fracture and tib fib fracture. this was evaluated on her previous admission blood cultures ngtd MS has been progressing resumed her home medications PVD plavix Acute on chronic hypoxemic resp failure On room air with good oxygen levels resolved anemia has been persistently low, but lower than previous labs transfusion given stable iron given too Dispo dc today, she is feeling much better Subjective: Lovely is ready to be dc today. Objective: Vital Signs Temp Pulse Resp BP Pulse Ox 37.2 C 80 16 174/86 H 97 08/27/17 07:29 08/27/17 09:42 08/27/17 07:29 08/27/17 09:42 08/27/17 07:29 Laboratory Results 08/24/17 04:20 08/26/17 10:00 08/26/17 08/27/17 08/28/17 05:59 05:59 05:59 Intake Total 1150 Output Total 800 Balance 350 PT 12.9 SEC (12.0-15.0) 08/18/17 04:50 INR 0.95 (0.83-1.16) 08/18/17 04:50 - Physical Exam Constitutional: not in pain, chronically ill appearing Eyes: PERRL Ears, Nose, Mouth, Throat: hearing normal Respiratory: no respiratory distress Skin: warm, other (wound vac to r le, foul smellling) Musculoskeletal: generalized weakness Neurologic: AAOx3 Psychiatric: interacting appropriately ICD10 Worksheet Patient Problems: Problems Problem Status Onset Altered mental status Acute Elevated troponin Acute Wound of left ankle Acute ARF (acute renal failure) Acute Anemia associated with acute blood loss Acute Hip fx Acute Hyponatremia Acute Tibia/fibula fracture Acute
--- NOTE | 2017-08-27 12:34 | PDIAF ---
- Diagnosis Diagnosis: AMS Code Status: Do Not Resuscitate - Medication Management Discharge Medications: Medications to Continue on Transfer Armodafinil [Nuvigil 150mg] 150 mg PO DAILY 04/26/15 [Last Taken 06/26/17] Dalfampridine [AMPYRA] 10 mg PO DAILY 04/26/15 [Last Taken 06/26/17] Ascorbic Acid [Vitamin C 250 mg (*)] 250 mg PO DAILY 04/27/15 [Last Taken ] Levothyroxine [Synthroid 25 mcg (*)] 25 mcg PO DAILY06 04/27/15 [Last Taken ] Furosemide [Lasix 20 MG (*)] 20 mg PO BID 01/11/17 [Last Taken 06/26/17] hydrALAZINE [Apresoline 50 mg (*)] 50 mg PO TID 01/11/17 [Last Taken 06/26/17] Baclofen [Baclofen 20 mg (*)] 40 mg PO DAILY 06/27/17 [Last Taken Unknown] Baclofen [Baclofen 20 mg (*)] 60 mg PO HS 06/27/17 [Last Taken Unknown] Interferon Beta-1A/Albumin [Rebif Rebidose 44 Mcg/0.5 ml] 44 mcg SQ TUTHSA@21 [Last Taken 06/26/17] Acetaminophen [Tylenol 325mg (*)] 650 mg PO Q4 PRN tab 07/12/17 [Last Taken Unknown] Clopidogrel Bisulfate [Plavix (*)] 75 mg PO DAILY tab 07/12/17 [Last Taken Unknown] Enoxaparin [Lovenox 40 MG (*)] 40 mg SC DAILY syr 07/12/17 [Last Taken Unknown] Polyethylene Glycol 3350 [Miralax 17 gm (*)] 17 gm PO BID PRN pkt 07/12/17 [ Last Taken Unknown] traMADol [Ultram 50 mg (*)] 50 mg PO Q6HRS PRN tab 07/12/17 [Last Taken Unknown ] Herbals/Supplements -Info Only 1 ea PO DAILY 08/18/17 [Last Taken Unknown] Labetalol HCl [Trandate 200 mg (*)] 200 mg PO BID 08/18/17 [Last Taken Unknown] Pramipexole Di-HCl [Mirapex 0.125 mg (*)] 0.125 mg PO DAILY PRN 08/18/17 [Last Taken Unknown] Ibuprofen [Motrin (*)] 600 mg PO Q6HRS PRN tab 08/25/17 [Last Taken Unknown] Sennosides/Docusate Sodium [Senokot-S] 1 - 2 tab PO BID tab 08/25/17 [Last Taken Unknown] Discharge Medications: Refer to the Discharge Home Medication list for PRN reason. PICC Care - Routine: N/A - Orders Services needed: Registered Nurse, Physical Therapy, Occupational Therapy Isolation Type: None Diet Recommendation: no restrictions on diet Diet Texture: Regular Texture Diet Wound Care Instructions: wound care instructions to be faxed - Follow Up Care Current Providers and Referrals: [facility] [Clinic] - follow up in 2 weeks (with Dr. Diallo) Patient,NotPresent [Primary Care Provider] - As per Instructions
--- NOTE | 2017-08-27 13:02 | GDS ---
[f rep st] DISCHARGE SUMMARY DISCHARGE DIAGNOSES: 1. Acute encephalopathy. 2. Constipation. 3. Initial concern for a lower extremity wound infection. 4. Chronic wounds to heel and ankle, as well as chronic right foot and ankle pain. 5. Multiple sclerosis. 6. Peripheral vascular disease. 7. Acute on chronic hypoxemic respiratory failure. 8. Anemia. CONSULTATION: Dr. Evie Diallo. Briefly, the patient is a 67-year-old female with a past medical history significant for multiple scl erosis and chronic wounds to her right foot and heel. She presented to the emergency room with acute on chronic altered mental status. It was unclear what was going on with her. She does have a histo ry of UTIs and acute encephalopathy, as well as acute renal insufficiency. On her admission, she had a CT scan of her head without contrast that showed no acute changes, chronic changes related to mult iple sclerosis. She was admitted. She cleared quickly after getting some IV hydration. She has als o had a history of some encephalopathy secondary to her baclofen that is used to treat her multiple s clerosis. Also during her stay, she had some ongoing hypoxemia secondary to being fluid overloaded. She was given Lasix and diuresed well. Today she is on room air and feeling markedly better. HOSPITAL COURSE: 1. Acute encephalopathy. This is resolved. She is alert and oriented. 2. Constipation, resolved. 3. Concern for lower extremity wound infection. Dr. Diallo came and evaluated her. A wound VAC is i n place. There are no signs or symptoms of infection. 4. Chronic wounds to heel and ankle, as well as chronic right foot and ankle pain. Blood cultures w ere checked. They were negative. She will have a wound VAC on discharge and get close care at the [facility]. 5. Multiple sclerosis, stable. 6. Peripheral vascular disease, on Plavix. 7. Acute on chronic hypoxemic respiratory failure, on room air, oxygenating well. 8. Anemia. It has been low. She was given a transfusion and on iron, further following at the [facility] facility. CONDITION ON DISCHARGE: Stable. Blood pressure is 174/86. Heart rate is 92. Respiratory rate is 1 6. O2 sats on room air 97%. Temperature is 37.2 Celsius. DISCHARGE MEDICATIONS: Please see the EMR. DISCHARGE INSTRUCTIONS: 1. Wound care to be done with the wound VAC. 2. Further followup with Dr. Diallo. 3. To monitor for worsening confusion with the baclofen. Greater than 30 minutes discharging and coordinating patient's care. /[id number]/MODL
--- NOTE | 2017-08-27 13:09 | WOCRNPDOC ---
WOCRN Advanced Assessment Note - Skin Integrity Problem, Advanced Assess Right Lateral Ankle Dressing Type: Black Vac Foam, Wound Vac Other Dressing Type: Bridge vac Dressing Description: Intact Exudate Amount: Minimal Exudate Color: Reddish/Yellow Exudate Characteristic(s): Serosanguinous Integumentary Issue Intervention: Dressing Changed Tawana Wound Tissue: Blanching, Intact Tawana Wound Swelling: Mild Wound Bed Color: Red, Yellow Wound Bed Constitution: Granulation Tissue (90%), Subcutaneous Fat (10%) Wound Edges: Attached, Well Defined Site Odor: Slight Pressure Injury Stage: Stage 4 Pressure Injury Present on Admit: Yes Skin Integrity Problem Comment: Wound vac changed prior to patient DC to [facility]. [facility] students in room x3 to assist. Vac set to -125mmHg low continuous suction with good seal. Patient tolerated the procedure well. Right Heel Dressing Type: Black Vac Foam, Wound Vac Dressing Description: Intact Exudate Amount: Minimal Exudate Color: Reddish/Yellow Exudate Characteristic(s): Serosanguinous Integumentary Issue Intervention: Dressing Changed Tawana Wound Tissue: Intact Tawana Wound Swelling: Mild Wound Bed Color: [place], Yellow Wound Bed Constitution: Granulation Tissue, Subcutaneous Fat Wound Edges: Well Defined Site Odor: Slight Pressure Injury Stage: Stage 4 Pressure Injury Present on Admit: Yes Skin Integrity Problem Comment: Wound vac change prior to patient DC.
--- NOTE | 2017-08-27 14:26 | ASMTCMCOM ---
CM Note CM Note Notes: Appeal was denied. Pt was notified. Pt is agreeable to going to [facility] today. Scheduled supervisor shuttle fitting for 4PM via stretcher. CM completed PCS form. A copy is in pts chart. CM notified CARLA Damian and Ilda Ruth NP. DC orders sent. CM provided CARLA Damian w/ phone number to give report. CM spoke w/ juan manuel Woods and notified her of pts d/c plans. CM available for changes. Plan: [facility] Date Signed: 08/27/2017 02:26 PM Electronically Signed By:JEANIE Gonsales
[2017-08-27 15:49] VITALS: BP 134/62
--- NOTE | 2017-08-27 16:49 | ASDISCHSUM ---
Discharge Information Plan Status:SNF Medically Cleared to Leave:08/26/2017 Discharge Date:08/27/2017 03:56 PM CM D/C Disposition: ADT D/C Disposition:[facility] Facility Projected Discharge Date:08/27/2017 11:00 AM Transportation at D/C: Discharge Delay Reason: Follow-Up Date:08/27/2017 11:00 AM Discharge Slot: Final Diagnosis: Placement Information Referral Type:*Longterm/SNF Referral ID:[id number] Provider Name:Claudia Correa [place] Address 1:[address] [place] Phone Number: Address 2: Fax Number: [facility]:[place] Selection Factors: State:[place] Referral Type:[facility] Referral ID:[id number] Provider Name: Address 1: Phone Number: Address 2: Fax Number: City: Selection Factors: State: Patient Contact Information Contact Name:PATRICEMIRACLE Relationship:Son Address: Work Phone: [facility] Phone: [facility] Code: Email: Financial Information Financial Class: Primary Plan Desc:MEDICARE INPATIENT Primary Plan Number:[id number] Secondary Plan Desc:[facility] Secondary Plan Number:[id number] Assessment Information [facility] CM Progress Note CM Note CM Note Notes: Chart reviewed. Patient admitted through ED with AMS from [facility]. Dc'd from [facility] last onth after fall. Has wound vac for chronic wounds. Has advanced MS and is wheel chair bound. Needs to be determined. Plan back to [facility] when medically stable. CM to follow. Date Signed: 08/18/2017 12:09 PM Electronically Signed By:Karley Martin RN [facility] CM Progress Note CM Note CM Note Notes: Patient requesting to go to different jail facility, her friends/ family have brought in all her belongings from [facility]. Will place referrals. CM to follow. Date Signed: 08/19/2017 03:30 PM Electronically Signed By:Karley Martin RN [facility] KARLO Progress Note CM Note CM Note Notes: Pt was brought in with AMS from [facility] where she was rehabbing. CM spoke w/Suzy at [facility] and she doesn't know why pt doesn't want to return. Suzy says pt really wants to go to our Inpt rehab to "get better" then she she could go home. Yesterday CM sent refferals to 3 other SNFs and all have declined. I shared this information with the pt and asked that she remain open to the fact she may need to return to [facility], she doesn't want to go back, states it's dirty and staff is inattentive. I spoke w/surgical SUSAN, she thinks they will put on a wound vac this Friday. CM asked MD to put in consult for Inpt Rehab and will send out a few more referrals. DC Plan: TBD Date Signed: 08/20/2017 05:18 PM Electronically Signed By:Lovely Arzola RN [facility] KARLO Progress Note KARLO Note KARLO Note Notes: received call from Laury at Inpt rehab, have declined pt d/t, a) limited weight bearing b) not enough functional gains from the time she has been in snf and c) average length of stay is 2 weeks and they don't see her getting back to functional status in 2 weeks. Pt notified of Inpt rehab decline and referrals sent to 5 other snfs. DC Plan: SNF Date Signed: 08/21/2017 05:18 PM Electronically Signed By:Lovely Arzola RN [facility] CM Progress Note CM Note CM Note Notes: Per hospitalist, patient is asking about a possibility of SNF located in [facility]. No snf found in that area. Plan will remain dc to [facility] when medically ready which should be tomorrow. CM to follow. Date Signed: 08/24/2017 01:43 PM Electronically Signed By:Karley Martin RN Case Management Discharge Plan Note Case Management Discharge Discharge Order Complete? Answers: Yes Transportation Arranged Answers: Family/Friends Transport will Pick (Date 08/25/2017 03:30 PM & Time) EMTALA Complete Answers: No Case Management Transport Answers: No Form Complete Faxed Final Orders Answers: Yes Agency/Facility Transfer Answers: Yes Report Printed & Faxed to Receiving Agency Family Notified Answers: No Discharge Comments Notes: KARLO spoke w/ Arianna Iniguez NP regarding d/c POC. Pt is being discharged today to [facility]. KARLO provided CARLA Ortiz w/ phone number to give report. CM sent d/c orders. CM available for changes. Plan: [facility] Date Signed: 08/25/2017 01:56 PM Electronically Signed By:JEANIE Gonsales [facility] CM Progress Note CM Note CM Note Notes: Pt is appealing d/c. CM notified Destiny, Arianna Iniguez NP and Angel. CM to follow. Plan: [facility] Date Signed: 08/25/2017 03:27 PM Electronically Signed By:JEANIE Gonsales [facility] CM Progress Note CM Note CM Note Notes: CM met w/ juan manuel Woods and pt for dispo planning. CM spoke w/ Carmella, physical therapist and Ilda Ruth NP regarding d/c POC earlier. Both are recommending LTAC at this time. CM spoke w/ Peggy and pt about LTAC. Both are agreeable. Referrals made to [facility] and [facility]. CM spoke w/ Celia at [facility] and they do not have any bed availabilities until beginning of Sep. CM spoke w/ Keven at [facility] and she does not meet criteria for LTAC. CM spoke w/ Peggy and updated her. Peggy would like [facility] to meet w/ pt and apply for LT Medicaid. Pt does not qualify for Medicaid at this time. CM has not heard back from the appeal. Pt will most likely d/c tomorrow. CM to follow. Plan: Destiny, [facility] Date Signed: 08/26/2017 04:29 PM Electronically Signed By:JEANIE Gonsales [facility] Progress Note Note Note Notes: Appeal was denied. Pt was notified. Pt is agreeable to going to [facility] today. Scheduled garbage pick up worker for 4PM via stretcher. CM completed PCS form. A copy is in pts chart. CM notified CARLA Damian and Ilda Ruth NP. DC orders sent. CM provided CARLA Damian w/ phone number to give report. CM spoke w/ juan manuel Woods and notified her of pts d/c plans. CM available for changes. Plan: [facility] Date Signed: 08/27/2017 02:26 PM Electronically Signed By:JEANIE Gonsales Intervention Information Intervention Type:*ANDRADE-Signed Date of Service:08/19/2017 10:15 AM Patient Type:Observation Staff Member:Tamara Henry Hours: Discipline: Severity: Comment: Intervention Type:*IM-Signed Date of Service:08/25/2017 03:40 PM Patient Type:Inpatient Staff Member:Tamara Henry Hours:0.25 Discipline: Severity:1 (0-1 Hours) Comment: Operation Research Analyst was informed that the patient was interested in appealing her discharge. I spoke with the patient in her room. Patient was coughing, but stated she understood and was well aware of h Medicare right to appeal her discharge. She added she was not prepared to leave the hospital because she was having breathing difficulties. I encouraged her to speak with her Hospitalist and nursing staff first, b ut patient stated she already had. I gave the patient the IM form and verbal instructions of how to appeal h er discharge. Patient read and then flower d the form. I let her know of the proces s from here and explained I can come carolin k to answer any questions and alert her of [facility]'s decisional fax. CM Operation Research Analyst alerted patients' RNs, JESSICA LOERA Manager Web Application, and CM Clammer of the current appeal.
== END 2017-08-27 15:56 | DRG 70 ==
LOC: EDUNIT# → F3E 09:03 → OBSVTOIN 08-19 17:05
PROVIDERS: ADMIT Family Medicine; ATTEND Family Medicine
PROC: 30233N1 Transfusion of Nonautologous Red Blood Cells into Peripheral Vein, Percutaneous Approach (ICD-10-PCS; principal; 2017-08-22)
DX: G93.49 Other encephalopathy (principal); J96.21 Acute and chronic respiratory failure with hypoxia; L89.514 Pressure ulcer of right ankle, stage 4; L89.614 Pressure ulcer of right heel, stage 4; L89.513 Pressure ulcer of right ankle, stage 3; L89.620 Pressure ulcer of left heel, unstageable; K59.00 Constipation, unspecified; G35 Multiple sclerosis; I73.9 Peripheral vascular disease, unspecified; D64.9 Anemia, unspecified; N28.9 Disorder of kidney and ureter, unspecified; I10 Essential (primary) hypertension
CPT/HCPCS: 80305; 97112-GP; 97163-GP; 97166-GO; 97530-GP; 97532-GO; 97535-GO; G0378; G8978-GP-CL; G8979-GP-CJ; G8987-GO-CM; G8988-GO-CL; J0360; J1650; J1940; J2916; J3370; P9016; P9040

== ENCOUNTER 2017-09-26 08:09 | Observation (INO) | payer OTHER ==
--- NOTE | 2017-09-26 07:53 | GHP ---
[f rep st] PREOP HISTORY AND PHYSICAL DATE OF ADMISSION: 09/26/2017 PREOPERATIVE DIAGNOSIS: Chronic right lower extremity wounds. HISTORY OF PRESENT ILLNESS: The patient is a 67-year-old woman with advanced multiple sclerosis. Justa womack had a remote fall which led to a tib-fib fracture of the right lower extremity. She underwent clos ed reduction with Dr. Duque in January 2017. She developed ulcerations likely from her cast and [facility] Since that time she had several hospitalizations due to other falls as well as infection. Her wounds have been treated with wound VAC therapy. At this robyn e they have filled in to the point where she can tolerate a split-thickness skin graft. No active sy mptoms of infection, including fevers, chills, worsening redness or swelling. She is wheelchair boun d. PAST MEDICAL HISTORY: Multiple sclerosis, hypertension. PAST SURGICAL HISTORY: Right hip fracture, right tib-fib fracture, breast augmentation. ALLERGIES: Amlodipine. Hydrochlorothiazide. SOCIAL HISTORY: Her recently . She has been in assisted living but prior to her recent hospitalizations, lived at home with home care. She denies tobacco or alcohol. REVIEW OF SYSTEMS: A 10-point review of systems negative aside from HPI. PHYSICAL EXAMINATION: GENERAL: Well-developed, well-nourished woman in no acute distress, lying in gurney. HEENT: Normocephalic, atraumatic. No hearing deficits. Pupils equal and round. No sclera l icterus. Mucous membranes moist. NECK: Trachea midline. RESPIRATORY: No increased work of breathin g. Clear to auscultation bilaterally. CARDIOVASCULAR: Regular rate and rhythm. No peripheral angelito a. SKIN: Right lower extremity dressings are in place. PSYCH: Mood and affect normal. IMPRESSION AND PLAN: A 67-year-old woman with chronic traumatic right lower extremity wounds. At this time, she is ready to undergo a split-thickness skin graft of the right lower extremity wound . We discussed risks of surgery including, but not limited to, heart attack, stroke, blood clots or . We discussed risk of infection, bleeding, damage to surrounding structures, scar, delayed wou nd healing, or need for additional procedures. She understands the risks and would like to proceed. She will have a wound VAC in place for 1 week postoperatively. The patient was additionally seen by Dr. Evie Diallo, who agrees with the above impression and plan. /[id number]/MODL
[2017-09-26] MEDS ORDERED: ceFAZolin 2 GM/SWFI 2 GM/20 ML SYR IVP ONE ×2 (08:52→09:00)
[2017-09-26] MEDS ORDERED: LIDOCAINE 1% 2 ML INJ ID PRN (08:53)
[2017-09-26] MEDS ORDERED: LR 1,000 ML IV ONE (08:53)
--- NOTE | 2017-09-26 09:08 | PDHPUP ---
History & Physical Update H&P update statement: This history and physical update is based on an assessment of the patient which was completed after admission or registration (within 24 hours), but prior to the surgery/procedure. H&P update: H&P reviewed & patient examined, no change in patient's condition since H&P completed
[2017-09-26] MEDS ORDERED: MINERAL OIL 10 ML VIAL ONE (09:16)
[2017-09-26] MEDS ORDERED: THROMBIN (BOVINE) 20,000 UNIT SPRAY TP ONE (09:16)
[2017-09-26] MEDS ORDERED: BACLOFEN 20 MG TAB PO ONE (09:17)
--- NOTE | 2017-09-26 09:20 | PDANEPAE ---
ANE History of Present Illness advanced MS, HTN presents for wound debridement and skin graft ANE Past Medical History - Cardiovascular History Hx Hypertension: Yes Hx Arrhythmias: No Hx Chest Pain: No Hx Coronary Artery / Peripheral Vascular Disease: Yes Hx CHF / Valvular Disease: No Hx Palpitations: No Cardiovascular History Comment: PVD- on plavix - Pulmonary History Hx COPD: No Hx Asthma/Reactive Airway Disease: No Hx Recent Upper Respiratory Infection: No Hx Oxygen in Use at Home: No Hx Sleep Apnea: Yes Sleep Apnea Screening Result - Last Documented: Positive Pulmonary History Comment: chaim positive - Neurologic History Hx Cerebrovascular Accident: No Hx Seizures: No Hx Dementia: No Neurologic History Comment: acute encephalopathy with recent hospitalization has resolved - Endocrine History Hx Diabetes: No Obesity: no - Renal History Hx Renal Disorders: Yes Renal History Comment: hx of uti's. hx of acute renal insuff. - Neurological & Psychiatric Hx Hx Neurological and Psychiatric Disorders: Yes Neurological / Psychiatric History Comment: advanced MS - Cancer History Hx Cancer: No - Congenital Disorder History Hx Congenital Disorders: No - GI History Hx Gastrointestinal Disorders: Yes Gastrointestinal History Comment: constipation when hospitalized 08/25/17 has resolved - Other Health History Other Health History: wears glasses. chronic wounds to right foot. anemia - Chronic Pain History Chronic Pain: No - Surgical History Prior Surgeries: 06/27/17 right heel i&d with Yoel. right knee scope. ORIF of right femur ANE Review of Systems Review of systems is: negative Review of Systems: ANE Patient History - Allergies Allergies/Adverse Reactions: amlodipine Allergy (Verified 07/03/17 08:30) hydrochlorothiazide Allergy (Verified 08/18/17 05:05) - Home Medications Home medications: home medication list seen and reviewed Home Medications: Armodafinil [Nuvigil 150mg] 150 mg PO DAILY 04/26/15 [Last Taken 09/25/17] Dalfampridine [AMPYRA] 10 mg PO DAILY 04/26/15 [Last Taken 09/25/17] Ascorbic Acid [Vitamin C 250 mg (*)] 250 mg PO DAILY 04/27/15 [Last Taken ] Levothyroxine [Synthroid 25 mcg (*)] 25 mcg PO DAILY06 04/27/15 [Last Taken ] Furosemide [Lasix 20 MG (*)] 20 mg PO BID 01/11/17 [Last Taken 09/25/17] hydrALAZINE [Apresoline 50 mg (*)] 50 mg PO TID 01/11/17 [Last Taken 09/25/17] Baclofen [Baclofen 20 mg (*)] 40 mg PO DAILY 06/27/17 [Last Taken 09/25/17] Baclofen [Baclofen 20 mg (*)] 60 mg PO HS 06/27/17 [Last Taken Unknown] Interferon Beta-1A/Albumin [Rebif Rebidose 44 Mcg/0.5 ml] 44 mcg SQ TUTHSA@21 [Last Taken 09/24/17] Herbals/Supplements -Info Only 1 ea PO DAILY 08/18/17 [Last Taken Unknown] Labetalol HCl [Trandate 200 mg (*)] 200 mg PO BID 08/18/17 [Last Taken 09/25/17] Pramipexole Di-HCl [Mirapex 0.125 mg (*)] 0.125 mg PO DAILY PRN 08/18/17 [Last Taken Unknown] - NPO status NPO Since - Liquids (Date): 09/26/17 NPO Since - Liquids (Time): 00:00 NPO Since - Solids (Date): 09/25/17 NPO Since - Solids (Time): 23:30 - Anes Hx Anes Hx: post operative cognitive dysfunction - Smoking Hx Smoking Status: Never smoked ANE Labs/Vital Signs - Vital Signs Blood Pressure: 172/64 Heart Rate: 62 Respiratory Rate: 18 O2 Sat (%): 96 Height: 167.64 cm Weight: 62.596 kg ANE Physical Exam - Airway Neck exam: FROM Mallampati Score: Class 1 Mouth exam: normal dental/mouth exam - Pulmonary Pulmonary: no respiratory distress - Cardiovascular Cardiovascular: regular rate and rhythym - ASA Status ASA Status: III ANE Anesthesia Plan Anesthesia Plan: GA w LMA
[2017-09-26] MEDS ORDERED: fentaNYL 100 MCG/2 ML INJ ONE ×2 (09:25→10:47)
[2017-09-26] MEDS ORDERED: ROCURONIUM 50 MG/5 ML VIAL ONE (09:25)
[2017-09-26] MEDS ORDERED: PROPOFOL 200 MG/20 ML VIAL ONE (09:26)
[2017-09-26] MEDS ORDERED: ONDANSETRON 4 MG/2 ML VIAL ONE (09:27)
[2017-09-26] MEDS ORDERED: DEXAMETHASONE 4 MG/ML VIAL ONE (09:27)
[2017-09-26] MEDS ORDERED: SUGAMMADEX SODIUM 200 MG/2 ML VIAL IVP ONE (09:28)
[2017-09-26] MEDS ORDERED: ONDANSETRON 4 MG/2 ML VIAL IVP PRN ×2 (10:20→10:48)
[2017-09-26] MEDS ORDERED: ACETAMINOPHEN 500 MG TAB PO PRN (10:20)
[2017-09-26] MEDS ORDERED: HYDROmorphONE/DILAUDID 1 MG/ML INJ IVP PRN (10:20)
[2017-09-26] MEDS ORDERED: LR 500 ML IV PRN (10:20)
[2017-09-26] MEDS ORDERED: HYDROCODONE/APAP 5/325 TAB PO PRN (10:20)
[2017-09-26] MEDS ORDERED: OXYCODONE/APAP 5/325 TAB PO PRN (10:20)
[2017-09-26] MEDS ORDERED: ALBUTEROL 3 ML DEYVIAL IH PRN (10:20)
[2017-09-26] MEDS ORDERED: LABETALOL HCL 5 MG/ML 20 ML MDV IVP PRN (10:20)
[2017-09-26] MEDS ORDERED: NALOXONE HCL 0.4 MG/ML INJ IVP PRN (10:20)
--- NOTE | 2017-09-26 10:22 | POSTANESTH ---
Post Anesthetic Evaluation Cardiovascular Status: Normal, Stable Respiratory Status: Normal, Stable Level of Consciousness/Mental Status: Can Participate in Eval Pain Control: Adequate, Prn Tx Ordered Nausea/Vomiting Control: Adequate, Prn Tx Ordered Complications Possibly Related to Anesthesia: None Noted
--- NOTE | 2017-09-26 10:39 | POSTOPPROG ---
Post Op Note Date of Operation: 09/26/17 Surgeon: Evie Diallo Suction Dredge Dumping Supervisor: elia Anesthesiologist: ashlee Anesthesia: GET(General Endotracheal) Pre-op Diagnosis: Chronic RLE wound Post-op Diagnosis: same Indication: 67yo F with severe MS and chronic RLE wounds Procedure: debridement skin soft tissue with STSG x3 Findings: lat mal wound 4.8x4x0.2, calc wound 4.5x3.4x0.1, med mal wound 1.9x2.3x0.6 Inf/Abcess present in the surg proc area at time of surgery?: No Drains: Wound Vac
[2017-09-26] MEDS ORDERED: HYDROmorphONE/DILAUDID 1 MG/ML INJ ONE (10:47)
[2017-09-26] MEDS: fentaNYL 100 MCG/2 ML INJ IVP PRN ×2 (10:48→10:57)
[2017-09-26] MEDS ORDERED: diphenhydrAMINE 25 MG CAP PO PRN (10:48)
[2017-09-26] MEDS ORDERED: ONDANSETRON DISINTEGRATING 4 MG TAB PO PRN (10:48)
[2017-09-26] MEDS ORDERED: traMADol 50 MG TAB PO PRN (10:50)
[2017-09-26] MEDS ORDERED: OXYCODONE/APAP 5/325 TAB ONE (11:45)
--- NOTE | 2017-09-26 11:59 | GOP ---
[f rep st] OPERATIVE REPORT DATE OF OPERATION: 09/26/2017 SURGEON: Evie Diallo MD OPEN HEARTH WORKER: KEITH Greene. ANESTHESIA: General. ANESTHESIOLOGIST: Marcus Soto MD. PREOPERATIVE DIAGNOSIS: Traumatic wounds right lower extremity. POSTOPERATIVE DIAGNOSIS: Traumatic wounds right lower extremity. PROCEDURE PERFORMED: Debridement skin, soft tissue, and tendon with split- thickness skin graft and wound VAC placement. FINDINGS: Right lateral wound measures 4.8 x 4 x 0.2. The wound by the calcaneus measures 4.5 x 3.4 x 0.1 and the medial wound measures 1.9 x 2.3 x 0.6 ; this is the only wound where tendon was exposed. SPECIMENS: None. ESTIMATED BLOOD LOSS: 10 cc. INDICATIONS: The patient is a 67-year-old woman with severe multiple sclerosis. She had initially fallen and broken her leg and had a cast with cut outs. She was healing very well from this wound when she fell again and broke her tibia again. She then developed severe unstageable pressure ulcers due to her not being able to get up from the floor. We have debrided these and she has been treated with negative pressure wound therapy. They have been healing. We initially thought she was going to require a free flap but has done very well. DESCRIPTION OF PROCEDURE: Patient was brought into the operating room, placed supine on the table, and general anesthesia was administered. Her right lower extremity was prepped and draped with Betadine. I debrided each of the wounds with Misonix to healthy tissue. Next, I obtained a split-thickness skin graft from her right thigh 1,00 of an inch. I performed hand pie crusting, I cut them to size. I placed them on the wounds and stapled them in place followed by Adaptic Touch and the wound VAC. Hemostasis achieved on the donor site. Lani , Mepilex transfer, and Tegaderm were placed on the thigh. She tolerated the procedure well. /[id number]/MODL MTDD
[2017-09-26] MEDS ORDERED: IBUPROFEN 800 MG TAB PO SCH (14:00)
[2017-09-26] MEDS: IBUPROFEN 600 MG TAB PO SCH ×2 (16:24→21:24)
[2017-09-26] MEDS ORDERED: PRAMIPEXOLE 0.125 MG TAB PO PRN (18:04)
[2017-09-26] MEDS ORDERED: SENNOSIDES/DOCUSATE SODIUM TAB PO PRN (18:04)
[2017-09-26] MEDS ORDERED: CALCIUM CARBONATE 500 MG CHEWABLE TAB PO PRN (18:48)
[2017-09-26] MEDS ORDERED: BACLOFEN 20 MG TAB PO SCH (21:00)
[2017-09-26] MEDS ORDERED: LABETALOL HCL 200 MG TAB PO SCH (21:00)
[2017-09-26] MEDS ORDERED: FUROSEMIDE 20 MG TAB PO SCH (21:00)
[2017-09-26] MEDS: Saccharomyces Boulardii [Florastor] 250 MG PO SCH (22:30)
[2017-09-27] MEDS: ACETAMINOPHEN 325 MG TAB PO PRN ×2 (00:58→08:23)
[2017-09-27] MEDS: IBUPROFEN 600 MG TAB PO SCH ×2 (04:43→14:00)
[2017-09-27] MEDS ORDERED: LEVOTHYROXINE 25 MCG TAB PO SCH (06:00)
[2017-09-27 07:45] VITALS: RESP 16
[2017-09-27] MEDS: FUROSEMIDE 20 MG TAB PO SCH ×2 (08:24→14:00)
[2017-09-27] MEDS: Saccharomyces Boulardii [Florastor] 250 MG PO SCH (08:34)
[2017-09-27] MEDS ORDERED: POLYETHYLENE GLYCOL 3350 17 GM PKT PO SCH (09:00)
[2017-09-27] MEDS ORDERED: ARMODAFINIL PO SCH (09:00)
[2017-09-27] MEDS ORDERED: BACLOFEN 20 MG TAB PO SCH (09:00)
[2017-09-27] MEDS ORDERED: Dalfampridine [Ampyra] 10 MG PO SCH (09:00)
[2017-09-27] MEDS ORDERED: CLOPIDOGREL BISULFATE 75 MG TAB PO SCH (09:00)
[2017-09-27] MEDS ORDERED: LABETALOL HCL 200 MG TAB PO SCH (09:00)
[2017-09-27] MEDS ORDERED: ASCORBIC ACID 250 MG TAB PO SCH (09:00)
--- NOTE | 2017-09-27 13:29 | PDIAF ---
- Diagnosis Diagnosis: traumatic wound RLE s/p split thickness skin graft Code Status: Do Not Resuscitate - Medication Management Discharge Medications: Medications to Continue on Transfer Armodafinil [Nuvigil 150mg] 150 mg PO DAILY 04/26/15 [Last Taken 09/25/17] Dalfampridine [AMPYRA] 10 mg PO DAILY 04/26/15 [Last Taken 09/25/17] Ascorbic Acid [Vitamin C 250 mg (*)] 250 mg PO DAILY 04/27/15 [Last Taken ] Levothyroxine [Synthroid 25 mcg (*)] 25 mcg PO DAILY06 04/27/15 [Last Taken ] Furosemide [Lasix 20 MG (*)] 20 mg PO BID 01/11/17 [Last Taken 09/25/17] hydrALAZINE [Apresoline 50 mg (*)] 50 mg PO TID 01/11/17 [Last Taken 09/25/17] Baclofen [Baclofen 20 mg (*)] 20 mg PO DAILY 06/27/17 [Last Taken 09/25/17] Baclofen [Baclofen 20 mg (*)] 60 mg PO HS 06/27/17 [Last Taken 09/25/17] Interferon Beta-1A/Albumin [Rebif Rebidose 44 Mcg/0.5 ml] 44 mcg SQ MWF [Last Taken 09/24/17] Acetaminophen [Tylenol 325mg (*)] 650 mg PO Q4 PRN tab 07/12/17 [Last Taken ] Clopidogrel Bisulfate [Plavix (*)] 75 mg PO DAILY tab 07/12/17 [Last Taken ] Labetalol HCl [Trandate 200 mg (*)] 200 mg PO DAILY 08/18/17 [Last Taken ] Ibuprofen [Motrin (*)] 600 mg PO Q6HRS PRN tab 08/25/17 [Last Taken Unknown] Labetalol HCl [Trandate 200 mg (*)] 300 mg PO HS 09/26/17 [Last Taken 09/25/17] Polyethylene Glycol 3350 [Miralax 17 gm (*)] 17 gm PO DAILY 09/26/17 [Last Taken 09/25/17] Pramipexole Di-HCl [Mirapex 0.125 mg (*)] 0.125 mg PO HS PRN 09/26/17 [Last Taken Unknown] Saccharomyces Boulardii [FLORASTOR] 250 mg PO BID 09/26/17 [Last Taken 09/25/17] Sennosides/Docusate Sodium [Senokot-S] 1 - 2 tab PO BID PRN 09/26/17 [Last Taken Unknown] traMADol [Ultram 50 mg (*)] 50 mg PO DAILY PRN 09/26/17 [Last Taken Unknown] traMADol [Ultram 50 mg (*)] 50 mg PO Q6 PRN #30 tab 09/27/17 [Last Taken Unknown ] Discharge Medications: Refer to the Discharge Home Medication list for PRN reason. - Orders Isolation Type: None Diet Recommendation: no restrictions on diet Wound Care Instructions: 1) Do not shower. 2) Do not remove wound vac. Must be kept to suction at all times. 3) Dr. Diallo will remove wound vac on 2017. 4) Change dressing on thigh Q 2 days and prn mepilex transfer and tegaderm. 5) 50% weight bearing on right foot - Follow Up Care Current Providers and Referrals: Ritu Castro MD [Primary Care Provider] - Evie Diallo MD [Medical Doctor] - 10/03/17 (call for an appointment)
--- NOTE | 2017-09-27 13:54 | SOAPPROG ---
SOAP Progress Note Assessment/Plan: Assessment: POD # 1 s/p debridement of skin, soft tissue and tendon and split thickness skin graft RLE DC to [facility] 1) Do not shower 2) Do not remove wound vac. Must be kept to suction at all times 3) Dr. Diallo will remove wound vac on 10/03/2017 4) Change dressing on thigh Q 2 days and prn mepilex transfer and tegaderm 5) 50% weight bearing on right foot S: Did not sleep well. Eager to discharge O: Wound vac to suction. Thigh dressing stained. Sitting up and eating Plan: 09/27/17 13:49 Objective: Vital Signs Temp Pulse Resp BP Pulse Ox 36.5 C 57 L 16 110/48 L 98 09/27/17 11:22 09/27/17 11:22 09/27/17 11:22 09/27/17 11:22 09/27/17 11:22 09/26/17 09/27/17 09/28/17 05:59 05:59 05:59 Intake Total 900 Output Total 5 Balance 895 ICD10 Worksheet Patient Problems: Problems Problem Status Onset ARF (acute renal failure) Acute Altered mental status Acute Anemia associated with acute blood loss Acute Elevated troponin Acute Hip fx Acute Hyponatremia Acute Tibia/fibula fracture Acute Wound of left ankle Acute
--- NOTE | 2017-09-27 14:24 | ASMTCMCOM ---
CM Note CM Note Notes: Pt admitted to [facility] from [facility] for a split-thickness skin graft. Pt w/ a remote hx of a fall resulting in a tib/fib fx on her RLE. Pt had a closed reduction in January 2017 after which she developed ulcerations and cellulitis from the cast. Pt has had several hospitalizations since d/t falls and infections. Pt has a wound vac and is wheelchair bound. Pt has advanced MS. Per notes, the pt's recently . Per CARLA Mackay, the pt was previously at [facility] for several months following her surgery and does not wish to go back. Pt requests to discharge to [facility]. Spoke w/ Dr. Diallo, pt ready for discharge today. Pt needs her own wound vac placed prior to d/c. Call placed to Adela at [facility]. Per Adela, pt's wound vac was delivered Friday evening 09/26/17. Wound vac located in pt's closet. Dr. Diallo changed dressings and placed wound vac. Updates faxed to Adela via [employer]; will confirm receipt. Transportation arranged by Adela at [facility]. Pramod to transport today via w/c at 1530. Updates provided to pt, CARLA Mackay, Gifty, LUCAS. IM signed. Pt to follow up as directed. CM avail for any further issues or concerns. Discharge Plan: [facility] SNF Date Signed: 09/27/2017 02:23 PM Electronically Signed By:Norma Ivan RN
--- NOTE | 2017-09-27 14:24 | ASMTLACE ---
THONGE Length of stay for Answers: 1 day current admission Acuity / Level of Answers: No Care: Did the patient have an inpatient admission? Comorbidities - select Answers: Peripheral vascular all that apply disease Other Notes: Advanced MS # of Emergency department Answers: 1-2 visits in the last 6 months Social determinants Answers: Lack of community resources and/or lack of social support (no pcp, lives alone, transportation, jeffrey d) Score: 8 Date Signed: 09/27/2017 02:24 PM Electronically Signed By:Norma Ivan RN
--- NOTE | 2017-09-27 15:05 | ASDISCHSUM ---
Discharge Information Plan Status:SNF Medically Cleared to Leave:09/26/2017 Discharge Date:09/26/2017 CM D/C Disposition:Long-Term Facility ADT D/C Disposition:Long-Term Facility Projected Discharge Date:09/27/2017 03:00 PM Transportation at D/C:Wheelchair Van Discharge Delay Reason: Follow-Up Date:09/27/2017 03:00 PM Discharge Slot:2 - 12:01 pm - 18:00 pm Final Diagnosis:Cellulitis, advanced MS, remote tib/fib fx RLE w/ closed reduction, split thickness skin graft Placement Information Referral Type:*[facility]NF Referral ID:[facility]-[id number] Provider Name:[facility] Address 1[address] Phone Number: Address 2: Fax Number: [facility]:[place] Selection Factors:Patient/Family Choice State:[place] Referral Type:*[facility]/SNF Referral ID:[facility]-[id number] Provider Name:[facility] Address [address] Phone Number: Address 2: Fax Number: [facility]:[place] Selection Factors:Patient/Family Choice State:[place] Patient Contact Information Contact Name:YOLANDA Relationship:Polo Address: Work Phone: City: [facility] Phone: [facility] [[email or web address] Code: Email: Financial Information Financial Class:Medicare Primary Plan Desc:MEDICARE OUTPATIENT Primary Plan Number:[id number] Secondary Plan Desc:FLORENCE HAILEE CARO Secondary Plan Number:[id number] Assessment Information LACE LACE Length of stay for Answers: 1 day current admission Acuity / Level of Answers: No Care: Did the patient have an inpatient admission? Comorbidities - select Answers: Peripheral vascular all that apply disease Other Notes: Advanced MS # of Emergency department Answers: 1-2 visits in the last 6 months Social determinants Answers: Lack of community resources and/or lack of social support (no pcp, lives alone, transportation, jeffrey d) Score: 8 Date Signed: 09/27/2017 02:24 PM Electronically Signed By:Norma Ivan RN [facility] CM Progress Note CM Note CM Note Notes: Pt admitted to [facility] from [facility] for a split-thickness skin graft. Pt w/ a remote hx of a fall resulting in a tib/fib fx on her RLE. Pt had a closed reduction in January 2017 after which she developed ulcerations and cellulitis from the cast. Pt has had several hospitalizations since d/t falls and infections. Pt has a wound vac and is wheelchair bound. Pt has advanced MS. Per notes, the pt's recently . Per CARLA Mackay, the pt was previously at [facility] for several months following her surgery and does not wish to go back. Pt requests to discharge to [facility]. Spoke w/ Dr. Diallo, pt ready for discharge today. Pt needs her own wound vac placed prior to d/c. Call placed to Adela at [facility]. Per Adela, pt's wound vac was delivered Friday evening 09/26/17. Wound vac located in pt's closet. Dr. Diallo changed dressings and placed wound vac. Updates faxed to Adela via [employer]; will confirm receipt. Transportation arranged by Adela at [facility]. Pramod to transport today via w/c at 1530. Updates provided to pt, CARLA Mackay, LUCAS Durbin. IM signed. Pt to follow up as directed. CM avail for any further issues or concerns. Discharge Plan: [facility] Date Signed: 09/27/2017 02:23 PM Electronically Signed By:Norma Ivan RN Intervention Information Intervention Type:*IM-Signed Date of Service:09/27/2017 02:23 PM Patient Type:Observation Staff Member:CARLA Ivan Taylor Hours: Discipline: Severity: Comment:
[2017-09-27 15:41] VITALS: BP 141/71; PULSE 59; TEMP 97.5; O2SAT 97
[2017-09-29] MEDS ORDERED: ALBUMIN SQ SCH (08:00)
[2017-09-29] MEDS ORDERED: INTERFERON BETA SQ SCH (08:00)
== END 2017-09-27 15:59 ==
LOC: F3E 08:09
PROVIDERS: ADMIT Surgery; ATTEND Surgery
PROC: 0HRKX74 Replacement of Right Lower Leg Skin with Autologous Tissue Substitute, Partial Thickness, External Approach (ICD-10-PCS; 2017-09-26)
PROC: 0HDMXZZ Extraction of Right Foot Skin, External Approach (ICD-10-PCS; principal; 2017-09-26 09:45)
PROC: 0HRMX74 Replacement of Right Foot Skin with Autologous Tissue Substitute, Partial Thickness, External Approach (ICD-10-PCS; principal; 2017-09-26 09:45)
PROC: 0HDKXZZ Extraction of Right Lower Leg Skin, External Approach (ICD-10-PCS; principal; 2017-09-26 09:45)
DX: S81.801A Unspecified open wound, right lower leg, initial encounter (principal); S91.001A Unspecified open wound, right ankle, initial encounter; S91.301A Unspecified open wound, right foot, initial encounter; I73.9 Peripheral vascular disease, unspecified; G35 Multiple sclerosis; N28.9 Disorder of kidney and ureter, unspecified; I10 Essential (primary) hypertension; G47.33 Obstructive sleep apnea (adult) (pediatric); W19.XXXD Unspecified fall, subsequent encounter; Z87.891 Personal history of nicotine dependence; Z87.440 Personal history of urinary (tract) infections; Z87.81 Personal history of (healed) traumatic fracture; Z66 Do not resuscitate
CPT/HCPCS: 15100; 97162; 97530; G8978; G8979; J0171; J0690; J1100; J1170; J2405; J2704; J3010

== ENCOUNTER 2017-10-29 21:56 | Observation (INO) | payer OTHER ==
[2017-10-29] MEDS ORDERED: NS 1,000 ML IV ONE (22:16)
--- NOTE | 2017-10-29 22:19 | EDPHY ---
H & P Stated Complaint: AMS now baseline Time Seen by Provider: 10/29/17 21:59 HPI/ROS: HPI The patient presents brought in by ambulance for altered mental status. A caregiver stops at her house tonight at about 8:00 p.m. and noted that she was confused and sleepy. She normally stays up until about 1:00 a.m. So this is unusual for her. When EMS arrived she was alert and oriented to self only. She thought the date was September of 1986. During her transport to the emergency department her mental status improved and she became more lucid. She did have an elevated blood pressure of 200/70. She did admit to using marijuana edibles sometime in the afternoon. She admits not taking her afternoon or nighttime medications. A caregiver who visits her at 9:30 a.m. This morning thought that she was more sedate than usual, slurring her words, was confused. She says because she has been tired she has not hydrating appropriately. She was admitted to the hospital in August of this year for altered mental status thought to be related to dehydration given that she improved after receiving IV hydration. She does have a history of UTIs, multiple sclerosis and acute on chronic renal failure.. REVIEW OF SYSTEMS Constitutional: No fever, no chills. Eyes: No discharge. ENT: No sore throat. Cardiovascular: No chest pain, no palpitations. Respiratory: No cough, no shortness of breath. Gastrointestinal: No abdominal pain, no vomiting. Genitourinary: No hematuria. Musculoskeletal: No back pain. Skin: No rashes. Neurological: No headache. PMHx: History of multiple sclerosis, HTN, rehab recently for right lower extremity wounds, history of urinary tract infections, chronic wounds of heel and ankle, skin graft performed by Dr. Diallo in September of this year Soc Hx: Lives independently, has caregivers PHYSICAL General Appearance: Alert, no distress Eyes: Pupils equal and round no pallor or injection ENT, Mouth: Mucous membranes dry Respiratory: There are no retractions, lungs are clear to auscultation Cardiovascular: Regular rate and rhythm Gastrointestinal: Abdomen is soft and non-tender, no masses, bowel sounds normal Neurological: A&O, moves all extremities Skin: Warm and dry, right lower extremity with 3 ulcerations 1 on the heel and 2 overlying the malleoli, there is no surrounding erythema, warmth, tenderness. There is a trace amount of serous fluid on her bandages Musculoskeletal: Neck is supple non tender Extremities: symmetrical, full range of motion Psychiatric: Patient is oriented X 3, there is no agitation Source: Patient, EMS Exam Limitations: No limitations - Personal History Current Tetanus/Diphtheria Vaccine: No Current Tetanus Diphtheria and Acellular Pertussis (TDAP): No - Medical/Surgical History Hx Asthma: No Hx Chronic Respiratory Disease: No Hx Diabetes: No Hx Cardiac Disease: No Hx Renal Disease: No Hx Cirrhosis: No Hx Alcoholism: No Hx HIV/AIDS: No Hx Splenectomy or Spleen Trauma: No Other PMH: HTN, MS - Social History Smoking Status: Former smoker Constitutional: Initial Vital Signs Temperature (C) 36.2 C 10/29/17 21:57 Heart Rate 66 10/29/17 21:57 Respiratory Rate 18 10/29/17 21:57 Blood Pressure 195/101 H 10/29/17 21:57 O2 Sat (%) 98 10/29/17 21:57 O2 Delivery Mode Room Air Allergies/Adverse Reactions: amlodipine Allergy (Verified 09/26/17 14:13) Other-Enter Comments hydrochlorothiazide Allergy (Verified 09/26/17 14:13) Unknown Opioids - Morphine Analogues Allergy (Verified 09/26/17 14:13) Other-Enter Comments Home Medications: Medication Instructions Recorded Armodafinil [Nuvigil 150mg] 150 mg PO DAILY 04/26/15 Dalfampridine [AMPYRA] 10 mg PO DAILY 04/26/15 Ascorbic Acid [Vitamin C 250 mg 250 mg PO DAILY 04/27/15 (*)] Levothyroxine [Synthroid 25 mcg 25 mcg PO DAILY06 04/27/15 (*)] Furosemide [Lasix 20 MG (*)] 20 mg PO BID 01/11/17 hydrALAZINE [Apresoline 50 mg (*)] 50 mg PO TID 01/11/17 Baclofen [Baclofen 20 mg (*)] 20 mg PO DAILY 06/27/17 Baclofen [Baclofen 20 mg (*)] 60 mg PO HS 06/27/17 Interferon Beta-1A/Albumin [Rebif 44 mcg SQ MWF 06/29/17 Rebidose 44 Mcg/0.5 ml] Acetaminophen [Tylenol 325mg (*)] 650 mg PO Q4 PRN tab 07/12/17 Clopidogrel Bisulfate [Plavix (*)] 75 mg PO DAILY tab 07/12/17 Labetalol HCl [Trandate 200 mg (*)] 200 mg PO DAILY 08/18/17 Ibuprofen [Motrin (*)] 600 mg PO Q6HRS PRN tab 08/25/17 Labetalol HCl [Trandate 200 mg (*)] 300 mg PO HS 09/26/17 Polyethylene Glycol 3350 [Miralax 17 gm PO DAILY 09/26/17 17 gm (*)] Pramipexole Di-HCl [Mirapex 0.125 0.125 mg PO HS PRN 09/26/17 mg (*)] Saccharomyces Boulardii [FLORASTOR] 250 mg PO BID 09/26/17 Sennosides/Docusate Sodium 1 - 2 tab PO BID PRN 09/26/17 [Senokot-S] traMADol [Ultram 50 mg (*)] 50 mg PO DAILY PRN 09/26/17 traMADol [Ultram 50 mg (*)] 50 mg PO Q6 PRN #30 tab 09/27/17 Medical Decision Making - Diagnostics EKG Interpretation: EKG: Complete interpretation has been separately recorded in the [facility] archive. Summary impression: Normal sinus rhythm, unchanged from prior EKG Differential Diagnosis: This is a 67-year-old female with past medical history of multiple sclerosis, hypertension, chronic lower extremity root wound status post skin grafting about 1 month ago and rehab stay until about 1 week ago, who presents to the emergency department brought in by ambulance for altered mental status, last seen normal last night. Patient's symptoms improved in route and now she seems quite awake and alert. Differential diagnosis includes hypertensive encephalopathy given elevated blood pressures here, patient has missed her antihypertensives at home. Would also consider marijuana intoxication given her recent use. She does have a previous admission for an acute encephalopathy thought to be related to dehydration and presentation today could be consistent with this. Would also consider TIA though no focal neurologic deficits currently. Would also consider urinary tract infection, cellulitis. In the emergency department, I met the paramedics at the bedside to obtain their report. Patient was given 1 L of normal saline and allowed to drink water. Her symptoms continue to improve. Labs were checked and did reveal elevated BUN with creatinine at baseline suggestive of pre renal azotemia. She did not have a leukocytosis making infection less likely. Given her altered mental status and the fact that she lives at home alone with no caregivers overnight, I do not feel she is safe for discharge if she has a recurrent episode of this. I plan to admit her to the hospitalist service for observation overnight. She would like an non destructive evaluation specialist and will need to discuss her options with case management in the morning. - Data Points Laboratory Results: Laboratory Results 10/29/17 22:00 10/29/17 22:00 10/30/17 10/29/17 10/29/17 00:10 22:00 22:00 WBC 4.13 10^3/uL 10^3/uL (3.80-9.50) RBC 3.61 10^6/uL L 10^6/uL (4.18-5.33) Hgb 11.0 g/dL L g/dL (12.6-16.3) Hct 32.3 % L % (38.0-47.0) MCV 89.5 fL fL (81.5-99.8) MCH 30.5 pg pg (27.9-34.1) MCHC 34.1 g/dL g/dL (32.4-36.7) RDW 15.8 % H % (11.5-15.2) Plt Count 143 10^3/uL L 10^3/uL (150-400) MPV 10.3 fL fL (8.7-11.7) Neut % (Auto) 70.0 % % (39.3-74.2) Lymph % (Auto) 14.0 % L % (15.0-45.0) [place] % (Auto) 11.4 % % (4.5-13.0) Eos % (Auto) 4.1 % % (0.6-7.6) Baso % (Auto) 0.5 % % (0.3-1.7) Nucleat RBC Rel Count 0.0 % % (0.0-0.2) Absolute Neuts (auto) 2.89 10^3/uL 10^3/uL (1.70-6.50) Absolute Lymphs (auto) 0.58 10^3/uL L 10^3/uL (1.00-3.00) Absolute Monos (auto) 0.47 10^3/uL 10^3/uL (0.30-0.80) Absolute Eos (auto) 0.17 10^3/uL 10^3/uL (0.03-0.40) Absolute Basos (auto) 0.02 10^3/uL 10^3/uL (0.02-0.10) Absolute Nucleated RBC 0.00 10^3/uL 10^3/uL (0-0.01) Immature Gran % 0.0 % % (0.0-1.1) Immature Gran # 0.00 10^3/uL 10^3/uL (0.00-0.10) Sodium 142 mEq/L mEq/L (135-145) Potassium 4.1 mEq/L mEq/L (3.5-5.2) Chloride 107 mEq/L mEq/L (97-110) Carbon Dioxide 20 mEq/l L mEq/l (22-31) Anion Gap 15 mEq/L mEq/L (8-16) BUN 41 mg/dL H mg/dL (7-23) Creatinine 1.0 mg/dL mg/dL (0.6-1.0) Estimated GFR 55 Glucose 82 mg/dL mg/dL (70-100) Calcium 9.1 mg/dL mg/dL (8.5-10.4) Total Bilirubin 0.5 mg/dL mg/dL (0.1-1.4) AST 29 IU/L IU/L (14-46) ALT 42 IU/L IU/L (9-52) Alkaline Phosphatase 147 IU/L H IU/L (38-126) Total Protein 6.7 g/dL g/dL (6.3-8.2) Albumin 3.9 g/dL g/dL (3.5-5.0) Urine Color PALE YELLOW Urine Appearance CLEAR Urine pH 5.0 (5.0-7.5) Ur Specific [place] 1.010 (1.002-1.030) Urine Protein NEGATIVE (NEGATIVE) Urine Ketones NEGATIVE (NEGATIVE) Urine Blood NEGATIVE (NEGATIVE) Urine Nitrate NEGATIVE (NEGATIVE) Urine Bilirubin NEGATIVE (NEGATIVE) Urine Urobilinogen NEGATIVE EU EU (0.2-1.0) Ur Leukocyte Esterase NEGATIVE (NEGATIVE) Urine Glucose NEGATIVE (NEGATIVE) Urine Opiates Screen NEGATIVE (NEGATIVE) Urine Barbiturates NEGATIVE (NEGATIVE) Ur Phencyclidine Scrn NEGATIVE (NEGATIVE) Ur Amphetamine Screen NEGATIVE (NEGATIVE) U Benzodiazepines Scrn NEGATIVE (NEGATIVE) Urine Cocaine Screen NEGATIVE (NEGATIVE) U Marijuana (THC) Screen NEGATIVE (NEGATIVE) Medications Given: Acetaminophen (Tylenol) 650 mg PO Q4HRS PRN PRN Reason: Pain, Mild/Fever, Can Take PO Stop: 04/28/18 00:51 Last Admin: 10/30/17 02:07 Dose: 650 mg Discontinued Medications Hydralazine HCl (Apresoline) 50 mg PO EDNOW ONE Stop: 10/29/17 23:19 Last Admin: 10/29/17 23:36 Dose: 50 mg Sodium Chloride (Ns) 1,000 mls @ 0 mls/hr IV EDNOW ONE; Wide Open PRN Reason: Protocol Stop: 10/29/17 22:17 Last Admin: 10/29/17 22:44 Dose: 1,000 mls Labetalol HCl (Trandate) 200 mg PO ONCE ONE Stop: 10/29/17 23:31 Last Admin: 10/29/17 23:45 Dose: 200 mg Departure - Departure Disposition: [facility] Inpatient Acute Clinical Impression: Elevated BUN Altered mental status Qualifiers: Altered mental status type: unspecified Qualified Code(s): R41.82 - Altered mental status, unspecified Ankle ulcer Qualifiers: Laterality: right Non-pressure ulcer stage: unspecified non-pressure ulcer stage Qualified Code(s): L97.319 - Non-pressure chronic ulcer of right ankle with unspecified severity Condition: Fair
[2017-10-29 22:20] LABS: PLATELET COUNT 143 10^3/uL (150-400)
--- NOTE | 2017-10-29 22:44 | CPEKG ---
Heart Rate: 51 RR Interval: 1176 P-R Interval: 160 QRSD Interval: 96 QT Interval: 492 QTC Interval: 454 P [place]: 79 QRS [place]: 74 T Wave [place]: 83 EKG Severity - ABNORMAL ECG - EKG Impression: SINUS RHYTHM EKG Impression: PROBABLE LEFT VENTRICULAR HYPERTROPHY EKG Impression: BORDERLINE INFERIOR Q WAVES Electronically Signed By: Sue Caldeórn 31-Oct-2017 05:54:23
[2017-10-29] MEDS ORDERED: LABETALOL HCL 200 MG TAB PO ONE (23:30)
[2017-10-30] MEDS ORDERED: ACETAMINOPHEN 325 MG TAB PO PRN (00:52)
[2017-10-30] MEDS ORDERED: ONDANSETRON 4 MG/2 ML VIAL IVP PRN (00:52)
[2017-10-30] MEDS ORDERED: ONDANSETRON DISINTEGRATING 4 MG TAB PO PRN (00:52)
--- NOTE | 2017-10-30 01:38 | PDGENHP ---
History and Physical - Chief Complaint Altered Mental Status - History of Present Illness 67 yo F w/ MS, chronic RLE wounds, PVD, and HTN presents with reports of AMS. Per report patient was found by a caregiver around 8 PM somewhat confused. EMS was called and brought patient to ED. Per EMS reports, patient mental status improved while en route. Patient denies confusion to me and she is alert and oriented. She does admit to having eaten a THC edible this afternoon. She had a similar admission in August where her mental status improved with only hydration. She is being admitted for observation. History Information - Allergies/Home Medication List Allergies/Adverse Reactions: amlodipine Allergy (Verified 09/26/17 14:13) Other-Enter Comments hydrochlorothiazide Allergy (Verified 09/26/17 14:13) Unknown Opioids - Morphine Analogues Allergy (Verified 09/26/17 14:13) Other-Enter Comments Home Medications: Armodafinil [Nuvigil 150mg] 150 mg PO DAILY 04/26/15 [Last Taken 09/25/17] Dalfampridine [AMPYRA] 10 mg PO DAILY 04/26/15 [Last Taken 09/25/17] Ascorbic Acid [Vitamin C 250 mg (*)] 250 mg PO DAILY 04/27/15 [Last Taken ] Levothyroxine [Synthroid 25 mcg (*)] 25 mcg PO DAILY06 04/27/15 [Last Taken ] Furosemide [Lasix 20 MG (*)] 20 mg PO BID 01/11/17 [Last Taken 09/25/17] hydrALAZINE [Apresoline 50 mg (*)] 50 mg PO TID 01/11/17 [Last Taken 09/25/17] Baclofen [Baclofen 20 mg (*)] 20 mg PO DAILY 06/27/17 [Last Taken 09/25/17] Baclofen [Baclofen 20 mg (*)] 60 mg PO HS 06/27/17 [Last Taken 09/25/17] Interferon Beta-1A/Albumin [Rebif Rebidose 44 Mcg/0.5 ml] 44 mcg SQ MWF [Last Taken 09/24/17] Labetalol HCl [Trandate 200 mg (*)] 200 mg PO DAILY 08/18/17 [Last Taken ] Labetalol HCl [Trandate 200 mg (*)] 300 mg PO HS 09/26/17 [Last Taken 09/25/17] Polyethylene Glycol 3350 [Miralax 17 gm (*)] 17 gm PO DAILY 09/26/17 [Last Taken 09/25/17] Pramipexole Di-HCl [Mirapex 0.125 mg (*)] 0.125 mg PO HS PRN 09/26/17 [Last Taken Unknown] Saccharomyces Boulardii [FLORASTOR] 250 mg PO BID 09/26/17 [Last Taken 09/25/17] Sennosides/Docusate Sodium [Senokot-S] 1 - 2 tab PO BID PRN 09/26/17 [Last Taken Unknown] traMADol [Ultram 50 mg (*)] 50 mg PO DAILY PRN 09/26/17 [Last Taken Unknown] I have personally reviewed and updated: family history, medical history - Past Medical History Additional medical history: Multiple sclerosis. history of chronic hyponatremia due to SIADH. chronic anemia. hypertension. lower extremity chronic wounds. fall risk - Surgical History Additional surgical history: right femoral fracture repair - Family History Positive for: CAD - Social History Smoking Status: Former smoker Additional social history: patient lives with her , occasionally ambulates, but uses wheelchair for long distance. Review of Systems Review of Systems: ROS: 10pt was reviewed & negative except for what was stated in HPI & below Physical Exam Physical Exam: Temp Pulse Resp BP Pulse Ox 36.2 C 62 16 164/95 H 97 10/29/17 21:57 10/29/17 23:46 10/29/17 23:46 10/29/17 23:46 10/29/17 23:46 Constitutional: no apparent distress, not in pain Eyes: PERRL, EOMI Ears, Nose, Mouth, Throat: moist mucous membranes, no oral mucosal ulcers Cardiovascular: regular rate and rhythym, systolic murmur Respiratory: no respiratory distress, clear to auscultation Gastrointestinal: normoactive bowel sounds, soft, non-tender abdomen Skin: warm, other (RLE w/ edema and bandaged) Neurologic: AAOx3, CN II-XII Intact Psychiatric: interacting appropriately, not anxious Lab Data & Imaging Review 10/29/17 22:00 10/29/17 22:00 WBC 4.13 10^3/uL (3.80-9.50) 10/29/17 22:00 RBC 3.61 10^6/uL (4.18-5.33) L 10/29/17 22:00 Hgb 11.0 g/dL (12.6-16.3) L 10/29/17 22:00 Hct 32.3 % (38.0-47.0) L 10/29/17 22:00 MCV 89.5 fL (81.5-99.8) 10/29/17 22:00 MCH 30.5 pg (27.9-34.1) 10/29/17 22:00 MCHC 34.1 g/dL (32.4-36.7) 10/29/17:00 RDW 15.8 % (11.5-15.2) H 10/29/17 22:00 Plt Count 143 10^3/uL (150-400) L 10/29/17 22:00 MPV 10.3 fL (8.7-11.7) 10/29/17 22:00 Neut % (Auto) 70.0 % (39.3-74.2) 10/29/17 22:00 Lymph % (Auto) 14.0 % (15.0-45.0) L 10/29/17 22:00 [place] % (Auto) 11.4 % (4.5-13.0) 10/29/17 22:00 Eos % (Auto) 4.1 % (0.6-7.6) 10/29/17 22:00 Baso % (Auto) 0.5 % (0.3-1.7) 10/29/17 22:00 Nucleat RBC Rel Count 0.0 % (0.0-0.2) 10/29/17 22:00 Absolute Neuts (auto) 2.89 10^3/uL (1.70-6.50) 10/29/17 22:00 Absolute Lymphs (auto) 0.58 10^3/uL (1.00-3.00) L 10/29/17 22:00 Absolute Monos (auto) 0.47 10^3/uL (0.30-0.80) 10/29/17 22:00 Absolute Eos (auto) 0.17 10^3/uL (0.03-0.40) 10/29/17 22:00 Absolute Basos (auto) 0.02 10^3/uL (0.02-0.10) 10/29/17 22:00 Absolute Nucleated RBC 0.00 10^3/uL (0-0.01) 10/29/17 22:00 Immature Gran % 0.0 % (0.0-1.1) 10/29/17 22:00 Immature Gran # 0.00 10^3/uL (0.00-0.10) 10/29/17 22:00 Sodium 142 mEq/L (135-145) 10/29/17 22:00 Potassium 4.1 mEq/L (3.5-5.2) 10/29/17 22:00 Chloride 107 mEq/L (97-110) 10/29/17 22:00 Carbon Dioxide 20 mEq/l (22-31) L 10/29/17 22:00 Anion Gap 15 mEq/L (8-16) 10/29/17 22:00 BUN 41 mg/dL (7-23) H 10/29/17 22:00 Creatinine 1.0 mg/dL (0.6-1.0) 10/29/17 22:00 Estimated GFR 55 10/29/17 22:00 Glucose 82 mg/dL (70-100) 10/29/17 22:00 Calcium 9.1 mg/dL (8.5-10.4) 10/29/17 22:00 Total Bilirubin 0.5 mg/dL (0.1-1.4) 10/29/17 22:00 AST 29 IU/L (14-46) 10/29/17 22:00 ALT 42 IU/L (9-52) 10/29/17 22:00 Alkaline Phosphatase 147 IU/L (38-126) H 10/29/17 22:00 Total Protein 6.7 g/dL (6.3-8.2) 10/29/17 22:00 Albumin 3.9 g/dL (3.5-5.0) 10/29/17 22:00 Assessment & Plan Assessment: 67 yo F w/ MS admitted for altered mental status, now resolved. Plan: 1. Acute encephalopathy, resolved - Unclear etiology, confusion mostly resolved by time of arrival to ED. Patient thinks dehydration was playing a role, which is similar to admission in August. THC edible may have contributed. Laboratory work-up not indicative of etiology. - Admit for observation - PT/OT evaluations 2. Chronic RLE wounds - S/p skin grafts. Patient is followed by Dr. Diallo and has next follow-up on 10/31. - Consider inpatient surgery consult if patient in the hospital past 10/31 3. MS - Without acute exacerbation, needs med reconciliation. 4. HTN - Uncontrolled on arrival but patient had not taken home meds. Continue home medications and monitor. 5. Anemia - Improved from prior values, no evidence of acute bleeding. Monitor CBC. Diet - Regular Code - Full Ppx - LMWH Dispo - Admit under observation status
[2017-10-30 04:30] LABS: PLATELET COUNT 116 10^3/uL (150-400)
[2017-10-30] MEDS ORDERED: ENOXAPARIN 40 MG/0.4 ML SYR SC SCH (09:00)
[2017-10-30] MEDS ORDERED: PRAMIPEXOLE 0.125 MG TAB PO PRN (10:16)
[2017-10-30] MEDS ORDERED: IBUPROFEN 600 MG TAB PO PRN (10:16)
--- NOTE | 2017-10-30 10:16 | PDDCSUM ---
Discharge Summary Discharge Summary: DISCHARGE SUMMARY FOLLOW-UP ITEMS: Regroup with primary care provider DATE OF ADMISSION: 10/29/2017 DATE OF DISCHARGE: 10/30/2017 DISCHARGE DIAGNOSES: 1. Acute encephalopathy 2. Chronic lower extremity wounds 3. Chronic multiple sclerosis 4. Chronic hypertension 5. Acute marijuana intoxication 6. Anemia of chronic inflammatory disease CONSULTATIONS: None PROCEDURES / IMAGING: None CHIEF COMPLAINT: Acute confusion SUBJECTIVE: Patient is feeling well at time discharge, she is not confused, she is at her baseline mental status PHYSICAL EXAM ON DISCHARGE: Systolic blood pressure is 110, heart rate 60-70, afebrile overnight Alert awake oriented x3, no apparent distress, conversant, fluent speech, memory intact, lungs clear to auscultation bilaterally, heart rhythm is regular , 2/6 systolic murmur at the sternum, abdomen is soft nontender nondistended, her lower extremity wound on her left leg and right thigh are both bandaged LABS ON DISCHARGE: White blood count 3500, hemoglobin 8.7, potassium 3.9, creatinine 1, BUN 38, urinalysis normal, tox screen negative, glucose 82 HOSPITAL COURSE BY PROBLEM: The patient presented with acute encephalopathy characterized as confusion, resulting in global brain dysfunction that was identified by the patient's utility lineman, requiring urgent medical evaluation. The patient was seen at our hospital, and her mental status improved. The most likely cause of her acute changes in mental status were sleep deprivation and marijuana edible says. The patient has intact memory of the preceding days events, and attributes her changes in mental status to these causes. She otherwise has no signs of infection or other laboratory abnormalities. She is currently at her baseline mental status and safe for discharge home. The patient has numerous chronic medical issues, all of which are currently stable. She has a wound care [facility]- [facility] with Dr. Evie Diallo. The patient has private duty caregivers who will resume their services. DISCHARGE MEDICATIONS: Please see official discharge medication reconciliation sheet in chart , continue all home medications without any changes. DISCHARGE INSTRUCTIONS: Please follow up with Dr. Evie Diallo tomorrow, your primary care provider thereafter.
[2017-10-30] MEDS ORDERED: CLOPIDOGREL BISULFATE 75 MG TAB PO SCH (10:30)
[2017-10-30] MEDS ORDERED: LABETALOL HCL 200 MG TAB PO SCH ×2 (10:30→21:00)
[2017-10-30 11:06] VITALS: BP 152/69
[2017-10-30] MEDS ORDERED: BACLOFEN 20 MG TAB PO SCH ×2 (14:00→21:00)
--- NOTE | 2017-10-30 14:52 | ASMTCMCOM ---
CM Note CM Note Notes: Pt. is a 67-year-old woman who was placed in OBS status due to altered mental status. Pt. w/ a hx. of multiple sclerosis and a recent leg fracture after a fall out of her wheelchair. At baseline Pt. normally can transfer and walk a little bit with assistance, but relies on her wheelchair. Confirmed with nephew Jassi today on the phone that her wheelchair is at home since she did not know if it was put back in her home after ambulance took her to [facility]. Jassi was at her house and also gave Pt. her credit card number over phone for transport back home. [facility] provided number for [employer] and [facility] will come pick Pt. up and take her home. OT recommended SNF, but Pt. would like to go home to her caregivers. Pt. states she has a "live-in" caregiver, who works for [employer] caregiver [employer] . Pt. eager to go home during our in-room meeting today. Date Signed: 10/30/2017 02:52 PM Electronically Signed By:Lindsay Barnes LCSW
--- NOTE | 2017-10-30 14:55 | ASMTLACE ---
LACE Length of stay for Answers: Less than 1 day current admission Acuity / Level of Answers: No Care: Did the patient have an inpatient admission? Comorbidities - select Answers: History of falls all that apply Other Notes: Hx of MS, HTN # of Emergency department Answers: 3-4 visits in the last 6 months Social determinants Answers: Lack of community resources and/or lack of social support (no pcp, lives alone, transportation, jeffrey d) Score: 11 Date Signed: 10/30/2017 02:54 PM Electronically Signed By:Lindsay Barnes LCSW
[2017-10-30] MEDS ORDERED: FUROSEMIDE 20 MG TAB PO SCH (16:00)
[2017-10-30] MEDS ORDERED: Saccharomyces Boulardii [Florastor] 250 MG PO SCH (21:00)
[2017-10-31] MEDS ORDERED: LEVOTHYROXINE 25 MCG TAB PO SCH (06:00)
[2017-10-31] MEDS ORDERED: ASCORBIC ACID 250 MG TAB PO SCH (09:00)
[2017-10-31] MEDS ORDERED: Dalfampridine [Ampyra] 10 MG PO SCH (09:00)
[2017-10-31] MEDS ORDERED: Armodafinil [Nuvigil] 150 MG PO SCH (09:00)
[2017-11-01] MEDS ORDERED: POLYETHYLENE GLYCOL 3350 17 GM PKT PO SCH (09:00)
== END 2017-10-30 16:51 | disposition home or self-care (01) ==
LOC: EDUNIT# → F1N 10-30 02:03
PROVIDERS: ADMIT Student in an Organized Health Care Education/Training Program; ATTEND Internal Medicine
DX: G93.40 Encephalopathy, unspecified (principal); E86.9 Volume depletion, unspecified; F12.220 Cannabis dependence with intoxication, uncomplicated; G35 Multiple sclerosis; L97.319 Non-pressure chronic ulcer of right ankle with unspecified severity; L97.419 Non-pressure chronic ulcer of right heel and midfoot with unspecified severity; D63.8 Anemia in other chronic diseases classified elsewhere; I73.9 Peripheral vascular disease, unspecified; N28.9 Disorder of kidney and ureter, unspecified; I10 Essential (primary) hypertension; E03.9 Hypothyroidism, unspecified; Z87.891 Personal history of nicotine dependence; Z87.440 Personal history of urinary (tract) infections; Z87.81 Personal history of (healed) traumatic fracture; Z66 Do not resuscitate
CPT/HCPCS: 93005; 96360; 97165; 97530; 97535; 99285; G0378; G8987; G8988; 80305

== ENCOUNTER 2018-01-19 22:09 | Inpatient (IN) | payer OTHER ==
[2018-01-19] MEDS ORDERED: NS 1,000 ML IV ONE (22:18)
--- NOTE | 2018-01-19 22:21 | EDPHY ---
H & P Stated Complaint: weakness and fever x 1 d Time Seen by Provider: 01/19/18 22:11 HPI/ROS: HPI The patient presents with generalized weakness for the last 1 day. This is associated fevers at home. She was unable to get out of bed today even with assistance by caregivers so 911 was called. She has not been able to eat much today. She also has a chronic wound which is had a foul odor which has been getting progressively worse over the last few days. She is followed by the wound care clinic that does all of her dressings. The patient was admitted to the hospital in October of 2017 for altered mental status which resolved quickly, she was admitted in September of 2017 for a right lower extremity wound that required skin grafting. She has a history of urinary tract infections. REVIEW OF SYSTEMS Constitutional: No fever, no chills. Eyes: No discharge. ENT: No sore throat. Cardiovascular: No chest pain, no palpitations. Respiratory: No cough, no shortness of breath. Gastrointestinal: No abdominal pain, no vomiting. Genitourinary: No hematuria. Musculoskeletal: No back pain. Skin: No rashes. Neurological: No headache. 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, hypertension Soc Hx: Lives in her home with a caregiver PHYSICAL General Appearance: Alert, no distress Eyes: Pupils equal and round no pallor or injection ENT, Mouth: Mucous membranes moist Respiratory: There are no retractions, lungs are clear to auscultation Cardiovascular: Tachycardic rate and regular rhythm Gastrointestinal: Abdomen is soft and non-tender, no masses, bowel sounds normal Neurological: A&O, moves all extremities Skin: Right lower extremity wound with multiple ulcerations laterally and anteriorly with clear serous drainage, skin borders are erythematous and erythema extends to her proximal hull with small amount of edema and warmth, this is nontender to her Musculoskeletal: Neck is supple non tender Extremities: symmetrical, full range of motion Psychiatric: Patient is oriented X 3, there is no agitation Source: Patient, EMS, Old records - Medical/Surgical History Hx Asthma: No Hx Chronic Respiratory Disease: No Hx Diabetes: No Hx Cardiac Disease: No Hx Renal Disease: No Hx Cirrhosis: No Hx Alcoholism: No Hx HIV/AIDS: No Hx Splenectomy or Spleen Trauma: No Other PMH: HTN, MS - Social History Smoking Status: Former smoker Constitutional: Initial Vital Signs Temperature (C) 38.0 C 01/19/18 22:10 Heart Rate 98 01/19/18 22:10 Respiratory Rate 16 01/19/18 22:10 Blood Pressure 139/69 H 01/19/18 22:10 O2 Sat (%) 93 01/19/18 22:10 O2 Delivery Mode Room Air Allergies/Adverse Reactions: amlodipine Allergy (Verified 01/19/18 22:22) Other-Enter Comments hydrochlorothiazide Allergy (Verified 01/19/18 22:22) Unknown Opioids - Morphine Analogues Allergy (Verified 01/19/18 22:22) Other-Enter Comments Home Medications: Medication Instructions Recorded Armodafinil [Nuvigil 150mg] 150 mg PO DAILY 04/26/15 Dalfampridine [AMPYRA] 10 mg PO DAILY 04/26/15 Ascorbic Acid [Vitamin C 250 mg 250 mg PO DAILY 04/27/15 (*)] Levothyroxine [Synthroid 25 mcg 25 mcg PO DAILY06 04/27/15 (*)] Furosemide [Lasix 20 MG (*)] 20 mg PO TID 01/11/17 hydrALAZINE [Apresoline 50 mg (*)] 50 mg PO TID 01/11/17 Baclofen [Baclofen 20 mg (*)] 40 mg PO BID@,06/27/17 Baclofen [Baclofen 20 mg (*)] 60 mg PO HS 06/27/17 Interferon Beta-1A/Albumin [Rebif 44 mcg SQ MWF 06/29/17 Rebidose 44 Mcg/0.5 ml] Acetaminophen [Tylenol 325mg (*)] 650 mg PO Q4 PRN tab 07/12/17 Clopidogrel Bisulfate [Plavix (*)] 75 mg PO DAILY tab 07/12/17 Labetalol HCl [Trandate 200 mg (*)] 200 mg PO DAILY 08/18/17 Ibuprofen [Motrin (*)] 600 mg PO Q6HRS PRN tab 08/25/17 Labetalol HCl [Trandate 200 mg (*)] 300 mg PO HS 09/26/17 Polyethylene Glycol 3350 [Miralax 17 gm PO Q2D 09/26/17 17 gm (*)] Pramipexole Di-HCl [Mirapex 0.125 0.125 mg PO HS PRN 09/26/17 mg (*)] Saccharomyces Boulardii [FLORASTOR] 250 mg PO BID 09/26/17 Herbals/Supplements -Info Only 1 ea PO DAILY 10/30/17 Medical Decision Making - Diagnostics EKG Interpretation: EKG: Complete interpretation has been separately recorded in the [facility] archive. Summary impression: Normal sinus rhythm, no ST segment change Imaging Results: Imaging Impressions Chest X-Ray 01/19/18 22:18 Impression: Clear lungs. No pneumonia or failure. Chest x-ray two view shows no obvious infiltrate, interpreted by me, radiology interpretation is pending. X-ray right tib-fib three views shows healing fractures, no gas is present, interpreted by me, radiology interpretation is pending. Imaging: I viewed and interpreted images myself Differential Diagnosis: 68-year-old female brought in by ambulance for weakness, anorexia, fever for the last 1 day from her home. Past medical history of multiple sclerosis, chronic right lower extremity wound, history of urinary tract infection. On arrival here, she is tachycardic, febrile. She is started on IV fluids for presumed sepsis. Basic labs were checked and did reveal an elevated lactate of 3.4. She was started on ceftriaxone for infection. Other labs demonstrated leukocytosis of 20,000. UA was unremarkable. I suspect her infection is coming from her chronic wound with superinfection in place. X-rays were obtained that show no obvious osteomyelitis though difficult to assess given her old fractures. I have added vancomycin to broaden her antibiotic coverage. I plan to admit her to the hospitalist service. I have discussed the case with Dr. Kaba. Repeat lactate has decreased to 0.9. Critical Care Time: CRITICAL CARE Critical care time spent by me, Dr. Calderón, exclusively with this patient was 30 minutes, exclusive of PA time and exclusive of procedures. The organ system at risk was cardiac and I gave IV fluids, IV antibiotics, admitted the patient to the hospital to prevent worsening of the patients condition. - Data Points Laboratory Results: Laboratory Results 01/19/18 22:14 01/19/18 22:14 01/19/18 01/19/18 01/19/18 23:15 22:18 22:14 WBC RBC Hgb Hct MCV MCH MCHC RDW Plt Count MPV Neut % (Auto) Lymph % (Auto) [place] % (Auto) Eos % (Auto) Baso % (Auto) Nucleat RBC Rel Count Absolute Neuts (auto) Absolute Lymphs (auto) Absolute Monos (auto) Absolute Eos (auto) Absolute Basos (auto) Absolute Nucleated RBC Immature Gran % Seg Neutrophils % Band Neutrophils % Lymphocytes % Monocytes % Eosinophils % Basophils % Metamyelocytes % Myelocytes % Promyelocytes % Blast Cells % Immature Gran # Absolute Seg Neuts Absolute Band Neuts Absolute Lymphocytes Absolute Monocytes Absolute Eosinophils Absolute Basophils Absolute Metamyelocyte Absolute Myelocytes Absolute Promyelocytes Absolute Plasma Cells RBC/WBC/PLT Morphology Absolute Blast Cells Plasma Cells % Platelet Estimate PT INR APTT Sodium 138 mEq/L mEq/L (135-145) Potassium 3.4 mEq/L mEq/L (3.3-5.0) Chloride 99 mEq/L mEq/L (97-110) Carbon Dioxide 18 mEq/l L mEq/l (22-31) Anion Gap 21 mEq/L H mEq/L (8-16) BUN 29 mg/dL H mg/dL (7-23) Creatinine 1.2 mg/dL H mg/dL (0.6-1.0) Estimated GFR 45 Glucose 130 mg/dL H mg/dL (70-100) POC Lactic Acid [place] 3.4 mmol/L H mmol/L (0.7-2.1) Calcium 9.4 mg/dL mg/dL (8.5-10.4) Total Bilirubin 0.6 mg/dL mg/dL (0.1-1.4) Urine Color YELLOW Urine Appearance CLEAR Urine pH 5.0 (5.0-7.5) Ur Specific [place] 1.013 (1.002-1.030) Urine Protein 2+ H (NEGATIVE) Urine Ketones TRACE H (NEGATIVE) Urine Blood NEGATIVE (NEGATIVE) Urine Nitrate NEGATIVE (NEGATIVE) Urine Bilirubin NEGATIVE (NEGATIVE) Urine Urobilinogen NEGATIVE EU EU (0.2-1.0) Ur Leukocyte Esterase NEGATIVE (NEGATIVE) Urine RBC 1-3 /hpf /hpf (0-3) Urine WBC 1-3 /hpf /hpf (0-3) Ur Epithelial Cells NONE SEEN /lpf /lpf (NONE-1+) Urine Mucus TRACE /lpf /lpf (NONE-1+) Urine Glucose NEGATIVE (NEGATIVE) 01/19/18 01/19/18 22:14 22:14 WBC 21.97 10^3/uL H 10^3/uL (3.80-9.50) RBC 3.65 10^6/uL L 10^6/uL (4.18-5.33) Hgb 10.9 g/dL L g/dL (12.6-16.3) Hct 32.1 % L % (38.0-47.0) MCV 87.9 fL fL (81.5-99.8) MCH 29.9 pg pg (27.9-34.1) MCHC 34.0 g/dL g/dL (32.4-36.7) RDW 14.0 % % (11.5-15.2) Plt Count 176 10^3/uL 10^3/uL (150-400) MPV 10.4 fL fL (8.7-11.7) Neut % (Auto) Not Reported Lymph % (Auto) Not Reported [place] % (Auto) Not Reported Eos % (Auto) Not Reported Baso % (Auto) Not Reported Nucleat RBC Rel Count Not Reported Absolute Neuts (auto) Not Reported Absolute Lymphs (auto) Not Reported Absolute Monos (auto) Not Reported Absolute Eos (auto) Not Reported Absolute Basos (auto) Not Reported Absolute Nucleated RBC Not Reported Immature Gran % Not Reported Seg Neutrophils % 97.0 % % Band Neutrophils % 0 % % Lymphocytes % 3.0 % % Monocytes % 0 % % Eosinophils % 0 % % Basophils % 0 % % Metamyelocytes % 0 % % Myelocytes % 0 % % Promyelocytes % 0 % % Blast Cells % 0 % % Immature Gran # Not Reported Absolute Seg Neuts 21.31 10^/uL H 10^/uL (1.70-6.50) Absolute Band Neuts 0.00 10^3/uL 10^3/uL (0.00-0.70) Absolute Lymphocytes 0.66 10^3/uL L 10^3/uL (1.00-3.00) Absolute Monocytes 0.00 10^3/uL L 10^3/uL (0.30-0.80) Absolute Eosinophils 0.00 10^3/uL L 10^3/uL (0.03-0.40) Absolute Basophils 0.00 10^3/uL L 10^3/uL (0.02-0.10) Absolute Metamyelocyte 0.00 10^3/mL 10^3/mL (0.00-0.00) Absolute Myelocytes 0.00 10^3/mL 10^3/mL (0.00-0.00) Absolute Promyelocytes 0.00 10^3/uL 10^3/uL (0.00-0.00) Absolute Plasma Cells 0.00 10^3/uL 10^3/uL (0.00-0.00) RBC/WBC/PLT Morphology NORMAL (NORMAL) Absolute Blast Cells 0.00 10^3/uL 10^3/uL (0.00-0.00) Plasma Cells % 0 % % Platelet Estimate ADEQUATE (ADEQ) PT 15.6 SEC H SEC (12.0-15.0) INR 1.22 H (0.83-1.16) APTT 41.7 SEC H SEC (23.0-38.0) Sodium Potassium Chloride Carbon Dioxide Anion Gap BUN Creatinine Estimated GFR Glucose POC Lactic Acid [place] Calcium Total Bilirubin Urine Color Urine Appearance Urine pH Ur Specific [place] Urine Protein Urine Ketones Urine Blood Urine Nitrate Urine Bilirubin Urine Urobilinogen Ur Leukocyte Esterase Urine RBC Urine WBC Ur Epithelial Cells Urine Mucus Urine Glucose Medications Given: Discontinued Medications Sodium Chloride (Ns) 1,000 mls @ 0 mls/hr IV EDNOW ONE; Wide Open PRN Reason: Protocol Stop: 01/19/18 22:19 Last Admin: 01/19/18 22:21 Dose: 1,000 mls Sodium Chloride (Ns) 1,800 mls @ 3,600 mls/hr 30 ml/kg infuse over 30 min ( 1800 ml) IV EDNOW ONE PRN Reason: Protocol Stop: 01/19/18 22:55 Last Admin: 01/19/18 22:52 Dose: 1,800 mls Ceftriaxone Sodium/Dextrose (Rocephin 1 Gm (Premix)) 50 mls @ 100 mls/hr IV EDNOW ONE PRN Reason: Protocol Stop: 01/19/18 22:56 Last Admin: 01/19/18 23:18 Dose: 50 mls Vancomycin/Sodium Chloride (Vancomycin 1 Gm (Premix)) 250 mls @ 250 mls/hr IV EDNOW ONE PRN Reason: Protocol Stop: 01/20/18 00:35 Last Admin: 01/19/18 23:43 Dose: 250 mls Point of Care Test Results: Blood Gas/Lactic Acid-Venous 01/19/18 22:18 POC Lactic Acid [place] 3.4 mmol/L H mmol/L (0.7-2.1) Departure - Departure Disposition: [facility] Inpatient Acute Clinical Impression: Wound infection Sepsis Qualifiers: Sepsis type: sepsis due to unspecified organism Qualified Code(s): A41.9 - Sepsis, unspecified organism Condition: Fair
[2018-01-19 22:24] LABS: PLATELET COUNT 176 10^3/uL (150-400)
[2018-01-19] MEDS ORDERED: NS 1,800 ML IV ONE (22:26)
[2018-01-19 22:37] LABS: INR 1.22 (0.83-1.16); PROTIME(PATIENT) 15.6 SEC (12.0-15.0)
--- NOTE | 2018-01-19 22:57 | CPEKG ---
Heart Rate: 90 RR Interval: 667 P-R Interval: 176 QRSD Interval: 92 QT Interval: 408 QTC Interval: 500 P [place]: 92 QRS [place]: 60 T Wave [place]: 66 EKG Severity - ABNORMAL ECG - EKG Impression: SINUS RHYTHM EKG Impression: CONSIDER LEFT VENTRICULAR HYPERTROPHY EKG Impression: BORDERLINE PROLONGED QT INTERVAL Electronically Signed By: Sue Calderón 20-Jan-2018 04:43:47
[2018-01-19] MEDS ORDERED: VANCOMYCIN HCL/NORMAL SALINE 250 ML IV ONE (23:36)
[2018-01-19] MEDS ORDERED: ONDANSETRON DISINTEGRATING 4 MG TAB PO PRN (23:52)
[2018-01-19] MEDS ORDERED: ONDANSETRON 4 MG/2 ML VIAL IVP PRN (23:52)
--- NOTE | 2018-01-20 01:51 | PDGENHP ---
History and Physical - Chief Complaint Malodorous wound - History of Present Illness 68 yo F w/ MS and chronic RLE wounds presents with malodorous RLE wound. Patient was sent to ED by her home wound care service who became concerned about the malodorous nature of her chronic RLE wound. The patient receives daily wound care services for this and visits with Dr. Yoel rouse 2 weeks for checkups. Her last checkup was on 01/[address] Diallo was happy with the appearance of the wounds per her documentation. Her chronic wounds stem from traumatic injury and surgery in January of 2016. The patient denies symptoms aside from feeling warm. She denies all infectious ROS including fever and increased R leg pain. In the ED work-up was notable for fever, leukocytosis, and increased lactic acid. History Information - Allergies/Home Medication List Allergies/Adverse Reactions: amlodipine Allergy (Verified 01/19/18 22:22) Other-Enter Comments hydrochlorothiazide Allergy (Verified 01/19/18 22:22) Unknown Opioids - Morphine Analogues Allergy (Verified 01/19/18 22:22) Other-Enter Comments Home Medications: Armodafinil [Nuvigil 150mg] 150 mg PO DAILY 04/26/15 [Last Taken 10/29/17] Dalfampridine [AMPYRA] 10 mg PO DAILY 04/26/15 [Last Taken 10/29/17] Ascorbic Acid [Vitamin C 250 mg (*)] 250 mg PO DAILY 04/27/15 [Last Taken ] Levothyroxine [Synthroid 25 mcg (*)] 25 mcg PO DAILY06 04/27/15 [Last Taken ] Furosemide [Lasix 20 MG (*)] 20 mg PO TID 01/11/17 [Last Taken 10/29/17 14:00] hydrALAZINE [Apresoline 50 mg (*)] 50 mg PO TID 01/11/17 [Last Taken 10/30/17 03 :00] Baclofen [Baclofen 20 mg (*)] 40 mg PO BID@06/27/17 [Last Taken 10/29/17 14:00] Baclofen [Baclofen 20 mg (*)] 60 mg PO HS 06/27/17 [Last Taken 10/28/17] Interferon Beta-1A/Albumin [Rebif Rebidose 44 Mcg/0.5 ml] 44 mcg SQ MWF [Last Taken 10/29/17] Labetalol HCl [Trandate 200 mg (*)] 200 mg PO DAILY 08/18/17 [Last Taken ] Labetalol HCl [Trandate 200 mg (*)] 300 mg PO HS 09/26/17 [Last Taken 10/28/17] Polyethylene Glycol 3350 [Miralax 17 gm (*)] 17 gm PO Q2D 09/26/17 [Last Taken 10/29/17] Pramipexole Di-HCl [Mirapex 0.125 mg (*)] 0.125 mg PO HS PRN 09/26/17 [Last Taken Unknown] Saccharomyces Boulardii [FLORASTOR] 250 mg PO BID 09/26/17 [Last Taken 10/29/17 09:00] Herbals/Supplements -Info Only 1 ea PO DAILY 10/30/17 [Last Taken Unknown] I have personally reviewed and updated: family history, medical history - Past Medical History Additional medical history: Multiple sclerosis. history of chronic hyponatremia due to SIADH. chronic anemia. hypertension. lower extremity chronic wounds. fall risk - Surgical History Additional surgical history: right femoral fracture repair - Family History Positive for: CAD - Social History Smoking Status: Former smoker Additional social history: patient lives with her , occasionally ambulates, but uses wheelchair for long distance. Review of Systems Review of Systems: ROS: 10pt was reviewed & negative except for what was stated in HPI & below Physical Exam Physical Exam: Temp Pulse Resp BP Pulse Ox 37.4 C 89 18 153/60 H 90 L 01/20/18 01:10 01/20/18 01:10 01/20/18 01:10 01/20/18 01:10 01/20/18 01:10 Constitutional: no apparent distress, not in pain Eyes: PERRL, EOMI Ears, Nose, Mouth, Throat: moist mucous membranes, no oral mucosal ulcers Cardiovascular: regular rate and rhythym, no murmur, rub, or gallop Respiratory: no respiratory distress, clear to auscultation Gastrointestinal: normoactive bowel sounds, soft, non-tender abdomen Skin: warm, other (RLE chronic wounds, malodorous, mild erythema, painful to touch) Neurologic: AAOx3, CN II-XII Intact Psychiatric: interacting appropriately, not anxious Lab Data & Imaging Review 01/19/18 22:14 01/19/18 22:14 WBC 21.97 10^3/uL (3.80-9.50) H 01/19/18 22:14 RBC 3.65 10^6/uL (4.18-5.33) L 01/19/18 22:14 Hgb 10.9 g/dL (12.6-16.3) L 01/19/18 22:14 Hct 32.1 % (38.0-47.0) L 01/19/18 22:14 MCV 87.9 fL (81.5-99.8) 01/19/18 22:14 MCH 29.9 pg (27.9-34.1) 01/19/18 22:14 MCHC 34.0 g/dL (32.4-36.7) 01/19/18 22:14 RDW 14.0 % (11.5-15.2) 01/19/18 22:14 Plt Count 176 10^3/uL (150-400) 01/19/18 22:14 MPV 10.4 fL (8.7-11.7) 01/19/18 22:14 Neut % (Auto) Not Reported 01/19/18 22:14 Lymph % (Auto) Not Reported 01/19/18 22:14 [place] % (Auto) Not Reported 01/19/18 22:14 Eos % (Auto) Not Reported 01/19/18 22:14 Baso % (Auto) Not Reported 01/19/18 22:14 Nucleat RBC Rel Count Not Reported 01/19/18 22:14 Absolute Neuts (auto) Not Reported 01/19/18 22:14 Absolute Lymphs (auto) Not Reported 01/19/18 22:14 Absolute Monos (auto) Not Reported 01/19/18 22:14 Absolute Eos (auto) Not Reported 01/19/18 22:14 Absolute Basos (auto) Not Reported 01/19/18 22:14 Absolute Nucleated RBC Not Reported 01/19/18 22:14 Immature Gran % Not Reported 01/19/18 22:14 Seg Neutrophils % 97.0 % 01/19/18 22:14 Band Neutrophils % 0 % 01/19/18 22:14 Lymphocytes % 3.0 % 01/19/18 22:14 Monocytes % 0 % 01/19/18 22:14 Eosinophils % 0 % 01/19/18 22:14 Basophils % 0 % 01/19/18 22:14 Metamyelocytes % 0 % 01/19/18 22:14 Myelocytes % 0 % 01/19/18 22:14 Promyelocytes % 0 % 01/19/18 22:14 Blast Cells % 0 % 01/19/18 22:14 Immature Gran # Not Reported 01/19/18 22:14 Absolute Seg Neuts 21.31 10^/uL (1.70-6.50) H 01/19/18 22:14 Absolute Band Neuts 0.00 10^3/uL (0.00-0.70) 01/19/18 22:14 Absolute Lymphocytes 0.66 10^3/uL (1.00-3.00) L 01/19/18 22:14 Absolute Monocytes 0.00 10^3/uL (0.30-0.80) L 01/19/18 22:14 Absolute Eosinophils 0.00 10^3/uL (0.03-0.40) L 01/19/18 22:14 Absolute Basophils 0.00 10^3/uL (0.02-0.10) L 01/19/18 22:14 Absolute Metamyelocyte 0.00 10^3/mL (0.00-0.00) 01/19/18 22:14 Absolute Myelocytes 0.00 10^3/mL (0.00-0.00) 01/19/18 22:14 Absolute Promyelocytes 0.00 10^3/uL (0.00-0.00) 01/19/18 22:14 Absolute Plasma Cells 0.00 10^3/uL (0.00-0.00) 01/19/18 22:14 RBC/WBC/PLT Morphology NORMAL (NORMAL) 01/19/18 22:14 Absolute Blast Cells 0.00 10^3/uL (0.00-0.00) 01/19/18 22:14 Plasma Cells % 0 % 01/19/18 22:14 Platelet Estimate ADEQUATE (ADEQ) 01/19/18 22:14 PT 15.6 SEC (12.0-15.0) H 01/19/18 22:14 INR 1.22 (0.83-1.16) H 01/19/18 22:14 APTT 41.7 SEC (23.0-38.0) H 01/19/18 22:14 Sodium 138 mEq/L (135-145) 01/19/18 22:14 Potassium 3.4 mEq/L (3.3-5.0) 01/19/18 22:14 Chloride 99 mEq/L (97-110) 01/19/18 22:14 Carbon Dioxide 18 mEq/l (22-31) L 01/19/18 22:14 Anion Gap 21 mEq/L (8-16) H 01/19/18 22:14 BUN 29 mg/dL (7-23) H 01/19/18 22:14 Creatinine 1.2 mg/dL (0.6-1.0) H 01/19/18 22:14 Estimated GFR 45 01/19/18 22:14 Glucose 130 mg/dL (70-100) H 01/19/18 22:14 POC Lactic Acid [place] 0.8 mmol/L (0.7-2.1) D 01/20/18 01:06 Calcium 9.4 mg/dL (8.5-10.4) 01/19/18 22:14 Total Bilirubin 0.6 mg/dL (0.1-1.4) 01/19/18 22:14 Urine Color YELLOW 01/19/18 23:15 Urine Appearance CLEAR 01/19/18 23:15 Urine pH 5.0 (5.0-7.5) 01/19/18 23:15 Ur Specific [place] 1.013 (1.002-1.030) 01/19/18 23:15 Urine Protein 2+ (NEGATIVE) H 01/19/18 23:15 Urine Ketones TRACE (NEGATIVE) H 01/19/18 23:15 Urine Blood NEGATIVE (NEGATIVE) 01/19/18 23:15 Urine Nitrate NEGATIVE (NEGATIVE) 01/19/18 23:15 Urine Bilirubin NEGATIVE (NEGATIVE) 01/19/18 23:15 Urine Urobilinogen NEGATIVE EU (0.2-1.0) 01/19/18 23:15 Ur Leukocyte Esterase NEGATIVE (NEGATIVE) 01/19/18 23:15 Urine RBC 1-3 /hpf (0-3) 01/19/18 23:15 Urine WBC 1-3 /hpf (0-3) 01/19/18 23:15 Ur Epithelial Cells NONE SEEN /lpf (NONE-1+) 01/19/18 23:15 Urine Mucus TRACE /lpf (NONE-1+) 01/19/18 23:15 Urine Glucose NEGATIVE (NEGATIVE) 01/19/18 23:15 Imaging Review: Imaging Impressions Chest X-Ray 01/19/18 22:18 Impression: Clear lungs. No pneumonia or failure. Visualized and Interpreted Chest x-ray results: Yes Chest X-Ray results: no infiltrate Visualized and Interpreted EKG results: Yes EKG Interpretation: Positive for: normal sinsus rhythm Assessment & Plan Assessment: 68 yo F w/ MS presents with sepsis most likely from RLE wound. Plan: 1. Sepsis - 3/4 SIRS (HR, T, WBC) present on admission. Most likely source is RLE wound noting concerns by wound care nurse and new foul odor. However, she does follow closely with Dr. Diallo, who on 01/15 evaluated the patient and noted ongoing healing. CXR and UA not consistent with infection. - Vancomycin IV for now to cover skin source - XR, ESR, CRP to evaluate for possible OM - Blood and urine cultures pending - Wound care consult placed 2. Chronic RLE wounds - Follows with Dr. Diallo as an outpatient and receives daily wound care services at home. Chronic wound stem from trauma and surgery in 2016. 3. MS - No acute exacerbation, continue home medications. 4. HTN - Continue home medications Diet - Regular Code - Full Ppx - LMWH Dispo - Admit under observation status
[2018-01-20 05:02] LABS: PLATELET COUNT 139 10^3/uL (150-400)
[2018-01-20] MEDS: ACETAMINOPHEN 325 MG TAB PO PRN ×2 (05:18→13:59)
[2018-01-20] MEDS: ENOXAPARIN 40 MG/0.4 ML SYR SC SCH (08:49)
--- NOTE | 2018-01-20 12:40 | ASMTCMCOM ---
CM Note CM Note Notes: Chart reviewed. 68 year old female with MS and chronic RLE wound that is followed in wound clinic by Yoel Choudhary. [facility] PT reports that patient has limited help at home. She does have 2 stair lifts and uses a wheelchair on her main floor. She has a medical alert bracelet. Her non skilled help runs errands, takes her to appointments and does meal prep, Her nephew Gregory Canela is [facility] [employer] [phone]. Plan of care still unclear at this point. CM to follow. Plan: TBD Date Signed: 01/20/2018 12:39 PM Electronically Signed By:Karley Martin RN
[2018-01-20] MEDS ORDERED: MAGNESIUM HYDROXIDE 30 ML UDCUP PO PRN (14:00)
[2018-01-20] MEDS ORDERED: LACTULOSE 20 GM/30 ML UDCUP PO PRN (14:00)
[2018-01-20] MEDS ORDERED: BISACODYL 10 MG SUPP PR PRN (14:00)
[2018-01-20] MEDS: POLYETHYLENE GLYCOL 3350 17 GM PKT PO PRN (14:41)
[2018-01-20] MEDS ORDERED: PROTOCOL POTASSIUM 1 DOSE MISC PRN (15:11)
[2018-01-20] MEDS ORDERED: PROTOCOL MAGNESIUM 1 DOSE IV PRN (15:11)
--- NOTE | 2018-01-20 15:18 | HOSPPROG ---
Hospitalist Progress Note Assessment/Plan: 68 yo F w/ MS presents with sepsis most likely from RLE wound. 1. Sepsis with gram positive bacteremia - 3/4 SIRS (HR, T, WBC) present on admission. Most likely source is RLE wound noting concerns by wound care nurse and new foul odor. However, she does follow closely with Dr. Diallo, who on 01/15 evaluated the patient and noted ongoing healing. CXR and UA not consistent with infection. - cont Vancomycin IV for now to cover skin source - Wound care consult placed. Dr. Diallo is also aware of the admission 2. Chronic RLE wounds - Follows with Dr. Diallo as an outpatient and receives daily wound care services at home. Chronic wound stem from trauma and surgery in 2016. 3. MS - No acute exacerbation, continue home medications. 4. HTN - Continue home medications but will hold hydralazine for now -resume hydralazine as indicated 5. Elevated crp -xray without obvious osteo consider further imaging to eval for osteo as indicated 6. hypokalemia -replace per protocol Diet - Regular Code - Full Ppx - LMWH Dispo - change to inpatient status Subjective: feeling better today. no fever or chills Objective: Vital Signs Temp Pulse Resp BP Pulse Ox 36.6 C 76 16 121/52 H 91 L 01/20/18 11:16 01/20/18 11:16 01/20/18 11:16 01/20/18 11:16 01/20/18 11:16 Laboratory Results 01/20/18 04:39 01/20/18 04:39 01/19/18 01/20/18 01/21/18 05:59 05:59 05:59 Intake Total 2650 540 Output Total 1750 400 Balance 900 140 PT 15.6 SEC (12.0-15.0) H 01/19/18 22:14 INR 1.22 (0.83-1.16) H 01/19/18 22:14 - Physical Exam Constitutional: no apparent distress, appears nourished, not in pain Cardiovascular: regular rate and rhythym, no murmur, rub, or gallop Respiratory: no respiratory distress, no rales or rhonchi, clear to auscultation Gastrointestinal: normoactive bowel sounds, soft, non-tender abdomen, no palpable masses, No guarding, No rebound Skin: warm, other (wound right hull with clean dry dressing) ICD10 Worksheet Patient Problems: Problems Problem Status Onset Hip fx Acute Hyponatremia Acute ARF (acute renal failure) Acute Anemia associated with acute blood loss Acute Tibia/fibula fracture Acute Altered mental status Acute Wound of left ankle Acute Elevated troponin Acute Elevated BUN Acute Ankle ulcer Acute Sepsis Acute Wound infection Acute
[2018-01-20] MEDS ORDERED: POTASSIUM CL 10 MEQ TAB PO ONE (16:21)
[2018-01-20] MEDS ORDERED: MAGNESIUM SULF 1 GM/DEXTROSE 100 ML IV ONE (16:32)
[2018-01-20] MEDS: PENICILLIN G POTASSIUM 4,000,000 UNIT in D5W 100 ML IV SCH ×2 (16:42→21:47)
[2018-01-20] MEDS: FUROSEMIDE 20 MG TAB PO SCH (16:43)
[2018-01-20] MEDS: SENNOSIDES/DOCUSATE SODIUM TAB PO SCH (18:38)
--- NOTE | 2018-01-20 18:51 | GCON ---
[f rep st] CONSULTATION INFECTIOUS DISEASES CONSULTATION DATE OF CONSULTATION: 01/20/2018 REFERRING PHYSICIAN: Gaurang Kapoor DO REASON FOR CONSULTATION: Gram-positive bacteremia and right lower extremity cellulitis. HISTORY OF PRESENT ILLNESS: The patient is a 68-year-old female with a past medical history of chron ic right lower extremity wounds, who I am asked to see in consultation for gram-positive bacteremia a nd right lower extremity cellulitis. The patient notes that home care had been to see her and was co ncerned about foul smelling drainage from her chronic right lower extremity wound. The patient does not note associated fever, chills, or erythema. Upon presentation in the emergency department, she was noted to have a temperature of 38.0 with assoc iated leukocytosis of 22,000 with 97% neutrophils. Further evaluation included an elevated lactic ac id which improved with hydration. Blood cultures were 10 obtained at the time of presentation and on e of two sets is now growing gram-positive cocci in chains, which has been identified by [facility] as grou p A Streptococcus. The patient has been receiving empiric vancomycin and received a dose of ceftriax one. The patient notes that she has 4 wounds over the lower extremity including the heel, dorsal asp ect of foot and malleolar regions. The medial malleolar region has been treated with wound VAC thera py and she [facility]. There has been no associated nausea, vomit ing or diarrhea. No pain in the thigh or inguinal region. Given the above findings, I am now asked to assist in her ongoing management. PAST MEDICAL HISTORY: Multiple sclerosis, chronic lower extremity wounds as outlined above, hyperten karthik, hyponatremia. PAST SURGICAL HISTORY: Right femoral fracture repair. CURRENT MEDICATIONS: Vancomycin 750 mg IV q.24 hours, ceftriaxone 1 gram IV x1, vitamin C 250 mg p.o . daily, baclofen 60 mg p.o. at bedtime and 40 mg p.o. daily, Lovenox 40 mg subcu daily, Lasix 20 mg p.o. twice daily, labetalol 200 mg p.o. twice daily, Synthroid 25 mcg p.o. daily, beta interferon 44 mcg 3 times per week, Nuvigil 150 mg orally daily, Ampyra 10 mg p.o. daily, fish oil 1000 mg p.o. marielena ly, Mirapex 0.125 mg p.o. at bedtime, Senokot 1-2 p.o. twice daily. ALLERGIES: Amlodipine. SOCIAL HISTORY: Patient does not smoke or drink alcohol. No drug use. No recent travel. FAMILY HISTORY: Coronary artery disease. REVIEW OF SYSTEMS: Outside that noted in the HPI, the remainder of a 10 system review is unremarkabl e. PHYSICAL EXAMINATION: VITAL SIGNS: Temperature maximum 38.0, temperature current 36.7, heart rate 8 4, respiratory rate 16, blood pressure 161/68, oxygen saturation 92% on room air. GENERAL: Patient is a thin female in no acute distress. She appears nontoxic. HEENT: There is no scleral icterus, c onjunctival injection, or conjunctival petechiae. Oropharynx shows no thrush. Mucous membranes are slightly dry. There is no nasal discharge. There is no tenderness over the sinuses. NECK: Supple without palpable lymphadenopathy or thyromegaly. CHEST: Clear to auscultation bilaterally without a dventitious sounds. Respiratory effort is normal. CARDIOVASCULAR: Regular rate and rhythm without murmurs, gallops, or rubs. ABDOMEN: Soft, nontender, nondistended. There is no palpable organomega ly. Bowel sounds are present. : Cazares catheter is in place. MUSCULOSKELETAL: The right lower e xtremity shows faint erythema from the ankle region to the mid knee region with warmth and tenderness present; this extends on to the posterior calf circumferentially; wound bases are largely clean with some fibrinous slough and small area of devitalized tissue on the right malleolar region. No areas of crepitus or fluctuance. No bullae. SKIN: See musculoskeletal exam. There are no stigmata of en docarditis. The skin is warm and dry to touch. NEUROLOGIC: Patient is alert and interacts appropri ately with the examiner. Cranial nerves 2-12 are grossly intact. Sensation grossly intact in the lo wer extremities. LYMPHATICS: No cervical or supraclavicular nodes. No lymphangitis in the right lo wer extremity. LABORATORY DATA: White blood cell count 17.2, hematocrit 27.8, platelets 139, neutrophils 91%. Seru m creatinine 1.0, bicarbonate 19, anion gap 12, C-reactive protein 240.8. Venous lactate 3.4 at time of presentation, now 0.8 as of this a.m. INR 1.2. Urinalysis shows 1-3 white blood cells and 1-3 r ed blood cells. Blood cultures one of two sets showing group A Streptococcus. Tibial x-ray shows no bony destruction or subcutaneous gas suggestive of osteomyelitis. Prior fractu res appear to be healing well. IMPRESSION: Group A streptococcal bacteremia due to right lower extremity cellulitis in the setting of chronic nonhealing wounds: Clinical findings consistent with cellulitis of the right lower extrem ity likely with etiology related to nonhealing wounds. No clinical findings to suggest necrotizing f asciitis. 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 RECOMMENDATIONS: 1. Penicillin 4 million units IV q.6 hours. 2. Discontinue vancomycin. 3. Follow clinical response to antibiotic therapy. 4. Dr. Diallo to see regarding nonhealing wounds, which she knows well from outpatient setting as the se may require some superficial debridement. 5. If fails to improve with above measures, may need further evaluation for osteomyelitis, although will not pursue this currently pending further clinical assessment. Thank you for this consultation. We will continue to follow the patient with you. /[id number]/MODL
[2018-01-20] MEDS: Armodafinil [Nuvigil 150mg] 150 MG PO SCH (19:07)
[2018-01-20] MEDS: Dalfampridine [Ampyra] 10 MG PO SCH (19:08)
[2018-01-20] MEDS: LABETALOL HCL 200 MG TAB PO SCH (19:10)
[2018-01-20] MEDS: hydrALAZINE 25 MG TAB PO SCH (21:46)
[2018-01-20] MEDS: PRAMIPEXOLE 0.125 MG TAB PO SCH (21:47)
[2018-01-20] MEDS: BACLOFEN 20 MG TAB PO SCH (21:47)
[2018-01-20] MEDS: INTERFERON BETA SQ SCH (22:47)
[2018-01-20] MEDS: ALBUMIN SQ SCH (22:47)
[2018-01-21] MEDS ORDERED: VANCOMYCIN 750 MG in D5W 150 ML IV SCH
[2018-01-21] MEDS: PENICILLIN G POTASSIUM 4,000,000 UNIT in D5W 100 ML IV SCH (04:05)
[2018-01-21] MEDS ORDERED: POTASSIUM CL 10 MEQ TAB PO ONE (05:35)
[2018-01-21] MEDS: LEVOTHYROXINE 25 MCG TAB PO SCH (05:45)
--- NOTE | 2018-01-21 07:08 | SOAPPROG ---
SOAP Progress Note Assessment/Plan: Assessment: well known to me with multiple leg wounds at one point offered amputation which she refused Have been doing outpatient wound care and she has been improving Wounds too painful to debride at bedside Full dictation to follow Wound care to follow Plan: 01/21/18 07:07 Objective: Vital Signs Temp Pulse Resp BP Pulse Ox 37.1 C 88 16 175/76 H 95 01/21/18 04:08 01/21/18 04:08 01/21/18 04:08 01/21/18 04:08 01/21/18 04:08 Laboratory Results 01/20/18 04:39 01/21/18 04:34 01/20/18 01/21/18 01/22/18 05:59 05:59 05:59 Intake Total 2650 873 350 Output Total 1750 400 650 Balance 900 473 -300 PT 15.6 SEC (12.0-15.0) H 01/19/18 22:14 INR 1.22 (0.83-1.16) H 01/19/18 22:14 ICD10 Worksheet Patient Problems: Problems Problem Status Onset Sepsis Acute Wound infection Acute ARF (acute renal failure) Acute Altered mental status Acute Anemia associated with acute blood loss Acute Ankle ulcer Acute Elevated BUN Acute Elevated troponin Acute Hip fx Acute Hyponatremia Acute Tibia/fibula fracture Acute Wound of left ankle Acute
--- NOTE | 2018-01-21 08:17 | PDMN ---
Medical Necessity Medical necessity: Change to IP, as of 01/21/18, per MD; los.>2mn for sepsis w/ gram positive bacteremia, likely r/t RLE wound, hypokalemia, and elevated CRP; requires continued IV Vanco, wound care consult, K replacement; comorbid HTN, MS ; per order and progress note 01/20/18
[2018-01-21] MEDS: LABETALOL HCL 200 MG TAB PO SCH ×2 (08:36→21:03)
[2018-01-21] MEDS: ASCORBIC ACID 250 MG TAB PO SCH (08:36)
[2018-01-21] MEDS: OMEGA-3 FATTY ACIDS 1,000 MG CAP PO SCH (08:36)
[2018-01-21] MEDS: BACLOFEN 20 MG TAB PO SCH ×2 (08:36→21:03)
[2018-01-21] MEDS: hydrALAZINE 25 MG TAB PO SCH (08:36)
[2018-01-21] MEDS: FUROSEMIDE 20 MG TAB PO SCH ×2 (08:37→15:41)
[2018-01-21] MEDS: ENOXAPARIN 40 MG/0.4 ML SYR SC SCH (08:39)
[2018-01-21] MEDS ORDERED: Herbals/Supplements -Info Only PO SCH (09:00)
[2018-01-21] MEDS: SENNOSIDES/DOCUSATE SODIUM TAB PO SCH ×2 (09:23→21:07)
[2018-01-21] MEDS: Dalfampridine [Ampyra] 10 MG PO SCH (09:26)
[2018-01-21] MEDS: Armodafinil [Nuvigil 150mg] 150 MG PO SCH (09:27)
[2018-01-21] MEDS ORDERED: ceFAZolin 2 GM/DEXTROSE 100 ML IV SCH (10:00)
--- NOTE | 2018-01-21 10:16 | SOAPPROG ---
SOAP Progress Note Assessment/Plan: Assessment: 68 yo female with history of MS and chronic RLE wounds. Well known to me through wound clinic. She presented to ED on 01/19/18 for malodorous RLE wound. On presenting, patient was febrile and had elevated WBC and lactic acid. Penicillin d/c. Patient started on Ceftriaxone. I appreciate hospitalist. Wound care following. No bedside debridement as patient has significant pain. Discussed with patient the option of amputation if infection does not clear up. S: Moderate pain, says right leg aches, PCN made her feel sick last night and does not want to continue taking it O: Laying in bed Right lower extremity edema is improving. Warm to touch. Pulses are intact. Lower dressing intact without stains. CTAB Tachycardic Plan: 01/21/18 07:07 Objective: Vital Signs Temp Pulse Resp BP Pulse Ox 37.1 C 88 16 175/76 H 95 01/21/18 04:08 01/21/18 08:36 01/21/18 04:08 01/21/18 08:36 01/21/18 04:08 PT 15.6 SEC (12.0-15.0) H 01/19/18 22:14 INR 1.22 (0.83-1.16) H 01/19/18 22:14 ICD10 Worksheet Patient Problems: Problems Problem Status Onset Sepsis Acute Wound infection Acute ARF (acute renal failure) Acute Altered mental status Acute Anemia associated with acute blood loss Acute Ankle ulcer Acute Elevated BUN Acute Elevated troponin Acute Hip fx Acute Hyponatremia Acute Tibia/fibula fracture Acute Wound of left ankle Acute
--- NOTE | 2018-01-21 11:08 | WOCRNPDOC ---
MATT Advanced Assessment Note - Skin Integrity Problem, Advanced Assess Right Lateral Ankle Pressure Injury Dressing Type: ABD Pad, Adaptic, Kerlix Dressing Description: Clean/Dry, Intact Closure Description: Not Approximated Exudate Amount: Moderate Exudate Color: Reddish/Yellow Exudate Characteristic(s): Serosanguinous Integumentary Issue Intervention: Dressing Removed Wound Bed Color: [place], Red Wound Bed Constitution: Granulation Tissue (60%), Adhered Slough (15%), Unstable Eschar (10%) Wound Edges: Irregular Site Odor: Slight, Foul Site Measurement - Head-to-Toe Length X Width X Depth (cm): 4.6x4.6x0.7 Pressure Injury Stage: Stage 3, 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 Diallo outpatient for medical esthetician related pressure injuries from leg brace in July 2017, present on admission. Dr. Diallo in room and took down dressing. Dr. Diallo said wounds have improved since previous assessment. Dr. Diallo provided patient education re: sepsis and possible return visit for sepsis, which are the result of the current wounds. Dr. Diallo also mentioned possible need for amputation in the future, and acknowledged that patient is reluctant to discuss at this time.Wound beds kept moist with normal saline on gauze, then lightly wrapped in kerlix before assessment by Dr. Ivy. Wound care will round again later this week. 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 Wound bed has buds of epithelialization. Dr. Diallo is following outpatient, says wound is improved. Right Anterior Ankle Pressure Injury Dressing Type: ABD Pad, Adaptic, Kerlix Dressing Description: Clean/Dry, Intact Closure Description: Not Approximated Exudate Amount: Moderate Exudate Color: Reddish/Yellow Exudate Characteristic(s): Serosanguinous Integumentary Issue Intervention: Dressing Removed Tawana Wound Tissue: Erythema, Scaly, Thin, Xerotic, Painful/Tender Wound Bed Color: [place], Red Wound Bed Constitution: Granulation Tissue (70%), Red/[place] - Non Granular Tissue (30%), Tendon ([id number] exposed ) Wound Edges: Irregular Site Odor: Slight, Foul Site Measurement - Head-to-Toe Length X Width X Depth (cm): 2.8x2.8x0.2 Pressure Injury Stage: Stage 4, 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 Diallo outpatient for medical esthetician related pressure injuries from leg brace. 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 Endoform removed from wound bed. Followed by Dr. Diallo outpatient. Right Medial Proximal Ankle Pressure Injury Dressing Type: ABD Pad, Adaptic, Kerlix Dressing Description: Clean/Dry, Intact Closure Description: Not Approximated Exudate Amount: Minimal Exudate Color: Reddish/Yellow Exudate Characteristic(s): Serosanguinous Integumentary Issue Intervention: Dressing Removed Tawana Wound Tissue: Erythema, Dry Wound Bed Color: [place], Red, Yellow Wound Bed Constitution: Granulation Tissue (70%), Red/[place] - Non Granular Tissue (10%), Adhered Slough (20%) Wound Edges: Irregular Site Odor: Slight, Foul Site Measurement - Head-to-Toe Length X Width X Depth (cm): 1.9x1.8x0.1 Pressure Injury Stage: Stage 3, 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 Followed by Dr. Diallo outpatient. Right Medial Distal Ankle Pressure Injury Dressing Type: ABD Pad, Adaptic, Kerlix Dressing Description: Clean/Dry, Intact Exudate Amount: Scant Exudate Color: Reddish/Yellow Exudate Characteristic(s): Serosanguinous Integumentary Issue Intervention: Dressing Removed Tawana Wound Tissue: Erythema, Swollen, Dry Tawana Wound Swelling: Mild Wound Bed Constitution: Granulation Tissue (70%), Red/[place] - Non Granular Tissue (20%), Adhered Slough (10%) Wound Edges: Irregular Site Odor: Slight, Foul Site Measurement - Head-to-Toe Length X Width X Depth (cm): 2.2x1.9x0.2 Pressure Injury Stage: Stage 3, 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 Followed by Dr. Diallo.
--- NOTE | 2018-01-21 13:20 | PCMIDPN ---
Assessment/Plan: Assessment/Plan: * Group A streptococcal bacteremia due to right lower extremity cellulitis: Clinically without significant interval change. Poor tolerance of penicillin due to burning with infusion in heavy sensation in chest with infusion. Will therefore change penicillin to ceftriaxone 2 g IV daily. Continue right lower extremity wound care and elevation. Follow clinical course with additional time and antibiotic therapy. 01/21/18 13:15 Subjective: Patient complains of burning and chest heaviness with penicillin infusion. Right lower extremity without significant change. Objective: Vital Signs Temp Pulse Resp BP Pulse Ox 36.8 C 77 16 141/63 H 93 01/21/18 12:00 01/21/18 12:00 01/21/18 12:00 01/21/18 12:00 01/21/18 12:00 01/20/18 01/21/18 01/22/18 05:59 05:59 05:59 Output Total 300 Balance -300 ESR 30 MM/HR (0-30) 01/20/18 04:39 C-Reactive Protein 240.8 mg/L (<10.0) H 01/20/18 04:39 Penicillin # 1 Antibiotics # 2 Blood cultures 1/2 sets group A Streptococcus Urine culture no growth - Physical Exam General Appearance: alert, no apparent distress, thin EENT: No scleral icterus, No conjunctival petechiae Respiratory: lungs clear, No respiratory distress Cardiac/Chest: regular rate, rhythm, systolic murmur (2/6 left and right upper sternal borders) Extremities: inflammation (Faint erythema below knee extending to ankle without significant change; ulcer bases largely clean without evidence of purulent drainage; warmth and tenderness present; no bulla, crepitus or fluctuance) ICD10 Worksheet Patient Problems: Problems Problem Status Onset Sepsis Acute Wound infection Acute ARF (acute renal failure) Acute Altered mental status Acute Anemia associated with acute blood loss Acute Ankle ulcer Acute Elevated BUN Acute Elevated troponin Acute Hip fx Acute Hyponatremia Acute Tibia/fibula fracture Acute Wound of left ankle Acute
--- NOTE | 2018-01-21 13:33 | HOSPPROG ---
Hospitalist Progress Note Assessment/Plan: * RLE cellulitis - due to chronic non-healing wounds -Dr. Diallo following * Group A strep sepsis -IV PCN caused burning sensation -change to Rocephin per ID * MS -Ampyra, Baclofen * Hypokalemia -patient refuses BID blood draws which precludes use of protocol -check once daily and replete prn Subjective: No new complaints. buring sensation after pcn infusion Objective: Vital Signs Temp Pulse Resp BP Pulse Ox 36.8 C 77 16 141/63 H 93 01/21/18 12:00 01/21/18 12:00 01/21/18 12:00 01/21/18 12:00 01/21/18 12:00 01/20/18 01/21/18 01/22/18 05:59 05:59 05:59 Output Total 300 Balance -300 PT 15.6 SEC (12.0-15.0) H 01/19/18 22:14 INR 1.22 (0.83-1.16) H 01/19/18 22:14 d/w Dr. Ivy regarding abx change Tib/fib xray - negative Laboratory Tests 01/19/18 01/20/18 22:14 04:39 WBC 21.97 H 17.15 H - Physical Exam Constitutional: no apparent distress, appears nourished, not in pain Cardiovascular: regular rate and rhythym, no murmur, rub, or gallop Respiratory: no respiratory distress, no rales or rhonchi, clear to auscultation Gastrointestinal: normoactive bowel sounds, soft, non-tender abdomen, no palpable masses Skin: no rashes or abrasions, no fluctuance, no induration Neurologic: AAOx3, sensation intact bilaterally Psychiatric: interacting appropriately, not anxious, not encephalopathic, thought process linear ICD10 Worksheet Patient Problems: Problems Problem Status Onset Sepsis Acute Wound infection Acute ARF (acute renal failure) Acute Altered mental status Acute Anemia associated with acute blood loss Acute Ankle ulcer Acute Elevated BUN Acute Elevated troponin Acute Hip fx Acute Hyponatremia Acute Tibia/fibula fracture Acute Wound of left ankle Acute
--- NOTE | 2018-01-21 14:37 | GCON ---
[f rep st] CONSULTATION CHIEF COMPLAINT: Lower extremity wounds with bacteremia. HISTORY OF PRESENT ILLNESS: The patient is a 68-year-old woman with a history of multiple sclerosis and multiple traumatic wounds to her right lower extremity. At one-point, her wounds were so severe, we had offered amputation, which she declined. She initially had a fall in January of 2016, and then h ad a 2nd fall. We have been treating with Misonix, which is a contact ultrasound debridement [facility] and applying EpiFix tissue derived skin substitute. Her wounds have been healin g, albeit slowly. PAST MEDICAL HISTORY: Hypothyroid, multiple sclerosis, hypertension. PAST SURGICAL HISTORY: Repair of her femur and tib-fib. Her last fall resulting in a break was ulti mately treated nonoperatively, because on the day she was going to surgery, she was very somnolent an d it was felt to be too high-risk. ALLERGIES: Amlodipine. MEDICATIONS: Unchanged. SOCIAL HISTORY: She has never smoked. She does use marijuana on occasion. Her is . REVIEW OF SYSTEMS: She feels weakened. Otherwise, her 10-point review of systems negative except pe r HPI. FAMILY HISTORY: Noncontributory to wound. PHYSICAL EXAMINATION: GENERAL: Pleasant, well-groomed woman, sitting up on bed. HEENT: Normocepha lic. No gross hearing deficits. Mucous membranes moist. Pupils equal and round. No scleral icteru s. LUNGS: No increased work of breathing. CARDIAC: No peripheral edema. ABDOMEN: Deferred. : Deferred. SKIN: She has multiple wounds on her right lower extremity. They are pale. The 1 over the dorsum of her foot appears to have EpiFix still in it. The lateral wound appears fairly clean. The medial wounds have some slough in them. The only wound that I feel is worse is the anterior one , where I feel like there is starting to be more tendon visible. The wound on her heel continues to have skin and is changing. NEURO: Consistent with multiple sclerosis. PSYCH: Mood and affect norm al. IMPRESSION/PLAN: [id number]-old woman with history of multiple sclerosis, multiple traumatic c hronic wounds. In the inpatient, I believe that she would benefit from a product such as Hydrofera B lue. I do not believe she would tolerate bedside debridement until the pain is improved. If the pat ient continues to get episodes of bacteremia, then we may need to discuss amputation again. Due to h er multiple sclerosis and the severity of the wounds, wound healing will be exceedingly slow. /[id number]/MODL
[2018-01-21] MEDS: ACETAMINOPHEN 325 MG TAB PO PRN ×2 (17:14→22:20)
[2018-01-21] MEDS: PRAMIPEXOLE 0.125 MG TAB PO SCH (21:06)
[2018-01-22] MEDS: LEVOTHYROXINE 25 MCG TAB PO SCH (05:13)
[2018-01-22 05:32] LABS: PLATELET COUNT 132 10^3/uL (150-400)
[2018-01-22] MEDS: Armodafinil [Nuvigil 150mg] 150 MG PO SCH (08:38)
[2018-01-22] MEDS: ENOXAPARIN 40 MG/0.4 ML SYR SC SCH (08:38)
[2018-01-22] MEDS: ASCORBIC ACID 250 MG TAB PO SCH (08:39)
[2018-01-22] MEDS: OMEGA-3 FATTY ACIDS 1,000 MG CAP PO SCH (08:39)
[2018-01-22] MEDS: BACLOFEN 20 MG TAB PO SCH ×2 (08:40→22:07)
[2018-01-22] MEDS: LABETALOL HCL 200 MG TAB PO SCH ×2 (08:40→22:07)
[2018-01-22] MEDS: FUROSEMIDE 20 MG TAB PO SCH ×2 (08:40→15:08)
[2018-01-22] MEDS: Dalfampridine [Ampyra] 10 MG PO SCH (08:40)
[2018-01-22] MEDS: POLYETHYLENE GLYCOL 3350 17 GM PKT PO SCH (08:41)
[2018-01-22] MEDS: SENNOSIDES/DOCUSATE SODIUM TAB PO SCH ×2 (08:41→22:08)
--- NOTE | 2018-01-22 09:54 | PCMIDPN ---
Assessment/Plan: 1. Group a strep bacteremia secondary to right lower extremity cellulitis/open wounds: She is tolerating ceftriaxone without issues. She will need 14 days of therapy , stop date February 02. Talked to her at length about a PICC line today. She is willing to proceed. For now, will repeat blood cultures to document clearance, then likely PICC line placement 24 hr after negative cultures, or Friday. Hopefully she can go home on Friday. I have alerted social work about need for home antibiotics (she adamantly refuses a [facility] facility), and they will start looking into this. She will need wound care as well. 2. Heart murmur: Likely a flow murmur associated with anemia. Group a strep associated endocarditis is practically unheard of. Do not feel TTE is necessary. Over 25 min was spent with this patient today. Subjective: Long conversation with patient today about plan moving forward, and need for PICC line. She is tolerating ceftriaxone without any incident. States she will not go to a [facility] facility. No diarrhea. Wants Cazares catheter out. Objective: Ceftriaxone 2 g IV daily day 2 (antibiotics day 3) Afebrile Vital Signs Temp Pulse Resp BP Pulse Ox 36.4 C 86 16 165/66 H 98 01/22/18 08:00 01/22/18 08:00 01/22/18 08:00 01/22/18 08:00 01/22/18 08:00 Laboratory Results 01/22/18 04:29 01/22/18 04:29 01/21/18 01/22/18 01/23/18 05:59 05:59 05:59 Intake Total 1400 Output Total 2000 Balance -600 ESR 30 MM/HR (0-30) 01/20/18 04:39 C-Reactive Protein 240.8 mg/L (<10.0) H 01/20/18 04:39 Blood cultures with group a strep from January 19 - Physical Exam General Appearance: no apparent distress, cachetic EENT: pharynx normal, No thrush Respiratory: lungs clear Cardiac/Chest: systolic murmur Extremities: other (Right lower extremity with multiple superficial wounds with Hydrea fair a blue in place. Some skin exfoliation on the pretibial aspect of her lower extremity. Blanching erythema extends up to the knee, but is markedly better compared to previous per the patient. No edema, no warmth. No bullae.) ICD10 Worksheet Patient Problems: Problems Problem Status Onset Sepsis Acute Wound infection Acute ARF (acute renal failure) Acute Altered mental status Acute Anemia associated with acute blood loss Acute Ankle ulcer Acute Elevated BUN Acute Elevated troponin Acute Hip fx Acute Hyponatremia Acute Tibia/fibula fracture Acute Wound of left ankle Acute
--- NOTE | 2018-01-22 11:05 | SOAPPROG ---
SOAP Progress Note Assessment/Plan: Assessment: 68 you female admitted on 01/19/18 for Group A strep bacteremia secondary to RLE wounds and cellulitis Continue Iv abx. 2nd culture pending. Wound care following. S: mild pain, feels better today, no complaints O: sitting up in bed eating breakfast RLE dressing is intact without stains CTAB Regular rate Objective: Vital Signs Temp Pulse Resp BP Pulse Ox 36.4 C 86 16 165/66 H 98 01/22/18 08:00 01/22/18 08:00 01/22/18 08:00 01/22/18 08:00 01/22/18 08:00 Laboratory Results 01/22/18 04:29 01/22/18 04:29 01/21/18 01/22/18 01/23/18 05:59 05:59 05:59 Intake Total 1400 Output Total 2000 Balance -600 PT 15.6 SEC (12.0-15.0) H 01/19/18 22:14 INR 1.22 (0.83-1.16) H 01/19/18 22:14 ICD10 Worksheet Patient Problems: Problems Problem Status Onset Sepsis Acute Wound infection Acute ARF (acute renal failure) Acute Altered mental status Acute Anemia associated with acute blood loss Acute Ankle ulcer Acute Elevated BUN Acute Elevated troponin Acute Hip fx Acute Hyponatremia Acute Tibia/fibula fracture Acute Wound of left ankle Acute
[2018-01-22] MEDS: ACETAMINOPHEN 325 MG TAB PO PRN ×2 (11:48→19:10)
--- NOTE | 2018-01-22 14:40 | ASMTCMCOM ---
CM Note CM Note Notes: Pt's physician notified CM that Pt will be getting a pic line on Friday and will be D/C'ed home Friday or Friday. She requested an RN for wound care and IV medications, 2gm Rosephin 1x a day. Pt had been using [facility] prior to hospitalization. [facility] was contacted and notified that Pt was scheduled to be D/Vini this weekend. They asked for us to call them when the D/C date is set and what the infusion company will be. A referral was sent to [facility]. D/C Plan: Home with [facility] and [facility]. Date Signed: 01/22/2018 02:39 PM Electronically Signed By:Sunni Crawford
--- NOTE | 2018-01-22 15:27 | HOSPPROG ---
Hospitalist Progress Note Assessment/Plan: * RLE cellulitis - due to chronic non-healing wounds -Dr. Diallo following * Group A strep sepsis -IV Rocephin - DC home with IV antibiotics -PICC line once repeat BC negative * MS -Ampyra, Baclofen * HTN -hydralazine, labetolol Subjective: No new complaints Objective: Vital Signs Temp Pulse Resp BP Pulse Ox 36.4 C 67 14 173/70 H 97 01/22/18 15:07 01/22/18 15:07 01/22/18 15:07 01/22/18 15:07 01/22/18 15:07 Laboratory Results 01/22/18 04:29 01/22/18 04:29 01/21/18 01/22/18 01/23/18 05:59 05:59 05:59 Intake Total 1400 Output Total 2000 250 Balance -600 -250 PT 15.6 SEC (12.0-15.0) H 01/19/18 22:14 INR 1.22 (0.83-1.16) H 01/19/18 22:14 - Physical Exam Constitutional: no apparent distress, appears nourished, not in pain Cardiovascular: regular rate and rhythym, no murmur, rub, or gallop Respiratory: no respiratory distress, no rales or rhonchi, clear to auscultation Gastrointestinal: normoactive bowel sounds, soft, non-tender abdomen, no palpable masses Skin: no rashes or abrasions, no fluctuance, no induration Neurologic: AAOx3, sensation intact bilaterally Psychiatric: interacting appropriately, not anxious, not encephalopathic, thought process linear ICD10 Worksheet Patient Problems: Problems Problem Status Onset Sepsis Acute Wound infection Acute ARF (acute renal failure) Acute Altered mental status Acute Anemia associated with acute blood loss Acute Ankle ulcer Acute Elevated BUN Acute Elevated troponin Acute Hip fx Acute Hyponatremia Acute Tibia/fibula fracture Acute Wound of left ankle Acute
[2018-01-22] MEDS: PRAMIPEXOLE 0.125 MG TAB PO SCH (22:07)
[2018-01-22] MEDS: ALBUMIN SQ SCH (22:16)
[2018-01-22] MEDS: INTERFERON BETA SQ SCH (22:16)
[2018-01-23] MEDS: LEVOTHYROXINE 25 MCG TAB PO SCH (05:36)
--- NOTE | 2018-01-23 09:24 | SOAPPROG ---
SOAP Progress Note Assessment/Plan: Assessment: 68 you female admitted on 01/19/18 for Group A strep bacteremia secondary to RLE wounds and cellulitis Continue Iv abx. 2nd culture pending. Wound care following. F/U in wound healing center in 2 weeks. Call to make an appointment Orders per wound care team Surgery will not follow over the weekend. If issues, please contact Lolly Garrison NP S: mild pain, feels better today, no complaints O: Sleeping but easily arousable Dressing intact 01/23/18 09:22 Objective: Vital Signs Temp Pulse Resp BP Pulse Ox 38.1 C 89 16 183/73 H 91 L 01/23/18 08:47 01/23/18 08:47 01/23/18 08:47 01/23/18 08:47 01/23/18 08:47 Laboratory Results 01/22/18 04:29 01/22/18 04:29 01/22/18 01/23/18 01/24/18 05:59 05:59 05:59 Intake Total 1400 1300 Output Total 2000 900 Balance -600 400 PT 15.6 SEC (12.0-15.0) H 01/19/18 22:14 INR 1.22 (0.83-1.16) H 01/19/18 22:14 ICD10 Worksheet Patient Problems: Problems Problem Status Onset Sepsis Acute Wound infection Acute ARF (acute renal failure) Acute Altered mental status Acute Anemia associated with acute blood loss Acute Ankle ulcer Acute Elevated BUN Acute Elevated troponin Acute Hip fx Acute Hyponatremia Acute Tibia/fibula fracture Acute Wound of left ankle Acute
--- NOTE | 2018-01-23 09:41 | PCMIDPN ---
Assessment/Plan: 1. Group a strep bacteremia secondary to right lower extremity cellulitis/open wounds: Cellulitis looks slightly worse to me today, but may be secondary to the patient not elevating her leg. Would not add clindamycin at this point. Repeat blood cultures are pending; PICC line if negative at 24 hr. I am very concerned that she will not be able to go home and will need a intermediate facility, although she adamantly refused this yesterday. Case discussed with hospitalist, who agrees that this needs to be revisited. Continue ceftriaxone 2 g IV daily, with leg elevation! Also asked nurse to give her a shower if at all possible, and to wash her thoroughly with soap and water for changing her dressings. 2. Heart murmur: Likely a flow murmur associated with anemia. Group a strep associated endocarditis is practically unheard of. That being said, given the intensity of the heart murmur, will obtain echocardiogram today as she states this has never been evaluated previously and has no recollection of a heart murmur. Over 25 min was spent with this patient today. 01/23/18 09:44 Subjective: Grouchy and upset that I am waking her up. Incontinent of urine. No diarrhea. Objective: Ceftriaxone 2 g IV daily day 3 (antibiotics day 4) T-max 38.1 degrees Vital Signs Temp Pulse Resp BP Pulse Ox 38.1 C 89 16 183/73 H 91 L 01/23/18 08:47 01/23/18 08:47 01/23/18 08:47 01/23/18 08:47 01/23/18 08:47 Laboratory Results 01/22/18 04:29 01/22/18 04:29 01/22/18 01/23/18 01/24/18 05:59 05:59 05:59 Intake Total 1400 1300 Output Total 2000 900 Balance -600 400 ESR 30 MM/HR (0-30) 01/20/18 04:39 C-Reactive Protein 240.8 mg/L (<10.0) H 01/20/18 04:39 621 blood cultures x2 pending Previous blood cultures with group a strep - Physical Exam General Appearance: cachetic, other (Out of it given that I just woke her up) EENT: pharynx normal, No scleral icterus, No thrush Respiratory: lungs clear Cardiac/Chest: systolic murmur (09/09) Extremities: other (Right lower extremity: Patchy erythema right lower extremity pretibial area that extends up to the lateral knee. No bullae. Warmth noted. No significant swelling. Patient has multiple ulcerations on the dorsum of her knee and a large ulceration on her heel. These have Hydrafera blue in place. Skin sloughing of the foot) Abdomen: non-tender, soft Skin: No embolic lesions ICD10 Worksheet Patient Problems: Problems Problem Status Onset Sepsis Acute Wound infection Acute ARF (acute renal failure) Acute Altered mental status Acute Anemia associated with acute blood loss Acute Ankle ulcer Acute Elevated BUN Acute Elevated troponin Acute Hip fx Acute Hyponatremia Acute Tibia/fibula fracture Acute Wound of left ankle Acute
[2018-01-23] MEDS: LABETALOL HCL 200 MG TAB PO SCH ×2 (09:55→22:07)
[2018-01-23] MEDS: BACLOFEN 20 MG TAB PO SCH ×2 (09:55→22:06)
[2018-01-23] MEDS: Dalfampridine [Ampyra] 10 MG PO SCH (09:56)
[2018-01-23] MEDS: FUROSEMIDE 20 MG TAB PO SCH ×2 (09:56→16:27)
[2018-01-23] MEDS: ACETAMINOPHEN 325 MG TAB PO PRN (11:20)
[2018-01-23] MEDS: ASCORBIC ACID 250 MG TAB PO SCH (11:20)
[2018-01-23] MEDS: OMEGA-3 FATTY ACIDS 1,000 MG CAP PO SCH (11:21)
[2018-01-23] MEDS: SENNOSIDES/DOCUSATE SODIUM TAB PO SCH ×2 (11:33→22:06)
[2018-01-23] MEDS: POLYETHYLENE GLYCOL 3350 17 GM PKT PO SCH (11:39)
[2018-01-23] MEDS: ENOXAPARIN 40 MG/0.4 ML SYR SC SCH (11:43)
[2018-01-23] MEDS: Armodafinil [Nuvigil 150mg] 150 MG PO SCH (12:07)
--- NOTE | 2018-01-23 14:42 | WOCRNPDOC ---
WOCRN Advanced Assessment Note - Skin Integrity Problem, Advanced Assess Right Lateral Ankle Pressure Injury Dressing Type: Hydrofera Blue Ready Skin Integrity Problem Comment: All wound stable with no change since previous assessment. Wounds checked under the hydrofera blue ready that RN had already changed today. This wound and the dorsal foot wound were slightly dry so saline was added under the hydrofera blue ready foam. Wound orders will be updated to add wound gel to the treatment plan. Wound care will round again next week.
--- NOTE | 2018-01-23 16:09 | HOSPPROG ---
Hospitalist Progress Note Assessment/Plan: * RLE cellulitis - due to chronic non-healing wounds -Dr. Diallo following * Group A strep sepsis -IV Rocephin - DC home with IV antibiotics -PICC line once repeat BC negative * MS -Ampyra, Baclofen * HTN -hydralazine, labetolol * PAUL -CPAP qhs * Murmur -check ECHO SNF strongly recommended. Patient adamantly refuses. Subjective: no new complaints. Objective: Vital Signs Temp Pulse Resp BP Pulse Ox 36.7 C 73 18 147/68 H 95 01/23/18 15:25 01/23/18 15:25 01/23/18 15:25 01/23/18 15:25 01/23/18 15:25 Laboratory Results 01/22/18 04:29 01/22/18 04:29 01/22/18 01/23/18 01/24/18 05:59 05:59 05:59 Intake Total 1400 1300 Output Total 2000 900 Balance -600 400 PT 15.6 SEC (12.0-15.0) H 01/19/18 22:14 INR 1.22 (0.83-1.16) H 01/19/18 22:14 d/w Dr. Sorto regarding need for SNF - Physical Exam Constitutional: no apparent distress, appears nourished, not in pain Cardiovascular: regular rate and rhythym, no murmur, rub, or gallop Respiratory: no respiratory distress, no rales or rhonchi, clear to auscultation Gastrointestinal: normoactive bowel sounds, soft, non-tender abdomen, no palpable masses Skin: erythema, other (deep wounds, no purulence, some erythema all the way to knee) Neurologic: AAOx3, sensation intact bilaterally Psychiatric: interacting appropriately, not anxious, not encephalopathic, thought process linear ICD10 Worksheet Patient Problems: Problems Problem Status Onset Sepsis Acute Wound infection Acute ARF (acute renal failure) Acute Altered mental status Acute Anemia associated with acute blood loss Acute Ankle ulcer Acute Elevated BUN Acute Elevated troponin Acute Hip fx Acute Hyponatremia Acute Tibia/fibula fracture Acute Wound of left ankle Acute
--- NOTE | 2018-01-23 17:00 | ECHO ---
[email or web address] [address] [address] Main: [phone] Fax: Transthoracic Echocardiogram Name: SUMA LEGER MR#: [id number] Study Date: 01/23/2018 Study Time: 01:30 PM Date of : 1950 Age: 68 year(s) Height: 172.7 cm (68 in.) Weight: 60.78 kg (134 lb.) BSA: 1.72 m2 Gender: Female Examination: Echo Indication: LOUD SYSTOLIC MURMUR, HEMATOCRIT 26, A STREP BACTERIA Image Quality: Adequate Contrast: Requested by: Mercedez Sorto BP: / Heart Rate: Rhythm: Indication: LOUD SYSTOLIC MURMUR, HEMATOCRIT 26, A STREP BACTERIA Procedure Staff Steel Engraver: Sherry Young [facility] Reading Physician: Romeo Smith MD Requesting Provider: Conclusions: Normal size left ventricle. Borderline concentric LV hypertrophy. Normal global systolic LV function. EF is 61 %. The mitral valve is normal in appearance and function. Mild mitral valve regurgitation is present. The aortic valve is not well seen but appears sclerotic. There is mild aortic stenosis with a mean gradient of 16 mmHg. There is no aortic insufficiency.. The loud systolic murmur is likely secondary to mild aortic stenosis and hyperdynamic systolic function. The aortic valve is not well seen. Can not exclude vegetation. Consider ISABEL if clinical concern exists. Measurements: Chambers Valvular Assessment AV/MV Valvular Assessment TV/PV Normal Normal Normal Name Value Range Name Value Range Name Value Range Ao Giuliana (2D): 2.2 cm (1.4 cm-2.6 AV Vmax: 2.50 m/s (1 m/s-1.7 PV Vmax: 1.13 m/s (0.6 m/s-0.9 cm) m/s) m/s) IVSd (2D): 1.2 cm (0.6 cm-1.1 AV maxP mmHg ( - ) PV PGmax: 5 mmHg ( - ) cm) AV meanP mmHg ( - ) LVDd (2D): 3.7 cm (3.9 cm-5.3 KIRSTEN (VTI): 0.8 cm ( - ) cm) MV E Vmax: 1.06 m/s ( - ) LVDs (2D): 2.3 cm (2.1 cm-4 MV A Vmax: 0.98 m/s ( - ) cm) MV E/A: 1.08 ( - ) LVPWd (2D): 1.0 cm ( - ) MV PHT: 0.077 s ( - ) LVOTd 1.5 cm 1.5 cm mm MVA (PHT): 2.9 s ( - ) LVEF (MOD4): 61 % (>=55 %) RVDd(2D): 2.7 cm (1.9 cm-3.8 cmmm) Patient: SUMA LEGER Study Date: 01/23/2018 Page 1 of 2 01:30 PM Continued Measurements: Chambers Valvular Assessment AV/MV Valvular Assessment TV/PV Name Value Name Value Name Value LADs: 3.2 cm MV DecTime: 285 m/s CVP (est.): 5 mmHg LADs Lon.6 cm MV E' Septal: 0.08 m/s LA Area: 13.3 cm2 MV E/E' Septal: 14.10 RA Area: 15.0 cm2 MV E/E' Lateral: 12.00 AR VTI: 48.2 cm Additional Vessels Name Value Ao Ascendin.1 cm Inferior Vena Cava: 1.4 cm Findings: Left Ventricle: Normal size left ventricle. Borderline concentric LV hypertrophy. Normal global systolic LV function. EF is 61 %. No regional wall motion abnormality. Normal diastolic LV function. Right Ventricle: Normal size right ventricle. Normal RV function. Left Atrium: The left atrium is normal in size. Right Atrium: The right atrium is normal in size. Mitral Valve: The mitral valve is normal in appearance and function. Mild mitral valve regurgitation is present. No mitral stenosis is present. Aortic Valve: The aortic valve is not well seen but appears sclerotic. There is mild aortic stenosis with a mean gradient of 16 mmHg. There is no aortic insufficiency.. Tricuspid Valve: The tricuspid valve is normal in appearance and function. Trivial tricuspid valve regurgitation. The pulmonary artery pressure is normal. Pulmonic Valve: The pulmonic valve is normal in appearance and function. There is no pulmonic regurgitation seen. Aorta: The aorta is normal. Normal size aortic root measuring 2.2 cm. Normal size ascending aorta measuring 2.1 cm. IVC: The IVC is normal sized. Pericardium: No pericardial effusion. No pleural effusion. Exam Comments: Patient has breast implants, technically difficult. (No Signature Object) Patient: SUMA LEGER Study Date: 01/23/2018 Page 2 of 2 01:30 PM [id number]
[2018-01-23] MEDS: PRAMIPEXOLE 0.125 MG TAB PO SCH (22:07)
[2018-01-24 04:56] LABS: PLATELET COUNT 172 10^3/uL (150-400)
[2018-01-24] MEDS: LEVOTHYROXINE 25 MCG TAB PO SCH (06:07)
[2018-01-24] MEDS: FUROSEMIDE 20 MG TAB PO SCH ×2 (10:27→15:23)
[2018-01-24] MEDS: ASCORBIC ACID 250 MG TAB PO SCH (10:27)
[2018-01-24] MEDS: LABETALOL HCL 200 MG TAB PO SCH ×2 (10:27→20:05)
[2018-01-24] MEDS: BACLOFEN 20 MG TAB PO SCH ×2 (10:27→20:05)
[2018-01-24] MEDS: OMEGA-3 FATTY ACIDS 1,000 MG CAP PO SCH (10:27)
[2018-01-24] MEDS: Dalfampridine [Ampyra] 10 MG PO SCH (10:28)
[2018-01-24] MEDS: Armodafinil [Nuvigil 150mg] 150 MG PO SCH (10:43)
[2018-01-24] MEDS: SENNOSIDES/DOCUSATE SODIUM TAB PO SCH ×2 (10:43→20:09)
[2018-01-24] MEDS: ENOXAPARIN 40 MG/0.4 ML SYR SC SCH (10:43)
[2018-01-24] MEDS ORDERED: ALTEPLASE 2 MG VIAL IVP PRN (12:04)
--- NOTE | 2018-01-24 12:13 | PCMIDPN ---
Assessment/Plan: # Low-grade group A strep bacteremia, source right lower extremity wounds/ cellulitis. Patchy erythema remains distal right lower extremity with associated edema, erythema has kim appearance and has not gone past lines drawn yesterday. White count normalized and patient is afebrile --2 weeks IV ceftriaxone from negative blood culture 01/22/2018, stop date 2017 --okay to place PICC line today # systolic murmur: Low-grade bacteremia and rapid clearance of blood cultures less suggestive of endocarditis; echo showed mild # underlying MS: on Ampyra, very debilitated Medication Ceftriaxone 2 g IV daily, # 4 Microbiology 01/22 blood cultures (2) no growth today 01/19 blood cultures 1/2 group a strep, clinda resistant Subjective: Patient desires to go home tomorrow with 24 hr nursing care. Nursing here has concerns as patient is a 2 person assist. Objective: Vital Signs Temp Pulse Resp BP Pulse Ox 36.9 C 69 14 167/80 H 91 L 01/24/18 07:23 01/24/18 07:23 01/24/18 07:23 01/24/18 07:23 01/24/18 07:23 Laboratory Results 01/24/18 04:27 01/24/18 04:27 01/23/18 01/24/18 01/25/18 05:59 05:59 05:59 Intake Total 1300 450 Output Total 900 1200 1200 Balance 400 -750 -1200 ESR 30 MM/HR (0-30) 01/20/18 04:39 C-Reactive Protein 240.8 mg/L (<10.0) H 01/20/18 04:39 - Physical Exam General Appearance: alert, no apparent distress Respiratory: lungs clear, No accessory muscle use Cardiac/Chest: regular rate, rhythm, systolic murmur Extremities: swelling (Right lower extremity), other (Dressing in place right foot) Skin: erythema (Patchy erythema right lower extremity, most prominent lateral upper calf adjacent to the knee, kim appearance, no tenderness) Neuro/Psych: alert, normal mood/affect - Time Spent With Patient Time Spent with Patient: greater than 25 minutes Time Spent with Patient: Greater than 25 minutes spent on this patients care, greater than 50% of time spent counseling, educating, and coordinating care regarding the above mentioned plan. ICD10 Worksheet Patient Problems: Problems Problem Status Onset Sepsis Acute Wound infection Acute ARF (acute renal failure) Acute Altered mental status Acute Anemia associated with acute blood loss Acute Ankle ulcer Acute Elevated BUN Acute Elevated troponin Acute Hip fx Acute Hyponatremia Acute Tibia/fibula fracture Acute Wound of left ankle Acute
--- NOTE | 2018-01-24 17:38 | HOSPPROG ---
Hospitalist Progress Note Assessment/Plan: The patient is a 68-year-old female with PMH [] who was admitted for right lower extremity cellulitis and sepsis with strep pyogenes. ASSESSMENT/PLAN: Sepsis- Strep pyogenes, secondary to cellulitis RLE cellulitis Anemia Debility/inability to walk MS Hypertension PAUL -Gen Surg recs appreciated. -ID recs appreciated. IV CTX - to be DC'd to home on IV Abx. -PICC line today. -Continue home meds. -CPAP at night. -Check AM lab. VTE prophylaxis: Lovenox Code Status: Full Disposition: Med surge with discharge anticipated for tomorrow or the next day. Patient has refused SNF, but she is a maximum 2 person assist. She says she has hired a 24 hr/7 day RN caregiver and has obtain services from [employer] for additional respite care. She is not safe to be at home alone. This patient is new to me. Reviewed patient's chart/records for this visit. ____ Subjective: Today the patient feels much better. She is not able to walk still. Objective: Vital Signs Temp Pulse Resp BP Pulse Ox 36.8 C 67 14 164/68 H 94 01/24/18 15:15 01/24/18 15:15 01/24/18 15:15 01/24/18 15:15 01/24/18 15:15 Laboratory Results 01/24/18 04:27 01/24/18 04:27 01/23/18 01/24/18 01/25/18 05:59 05:59 05:59 Intake Total 1300 450 Output Total 900 1200 2200 Balance 400 -750 -2200 PT 15.6 SEC (12.0-15.0) H 01/19/18 22:14 INR 1.22 (0.83-1.16) H 01/19/18 22:14 OBJECTIVE: Physical Exam: General: The patient is an elderly female who is alert and in no acute distress. HEENT: normocephalic, extraocular movements intact, conjunctivae clear. Mucous membranes moist. Neck: trachea midline, no visible masses. Abd: soft and nondistended. Bowel sounds Musculoskeletal: Reduced muscle tone/bulk. Right leg covered in dressing which is CDI Neuro: cranial nerves II XII grossly intact. Intact gross motor and sensory function. Psych: Appropriate mood and appropriate affect. Skin: + pallor. No petechiae. Labs/Imaging/Other Tests: Personally reviewed/interpreted. ECHO - reviewed. ICD10 Worksheet Patient Problems: Problems Problem Status Onset Sepsis Acute Wound infection Acute ARF (acute renal failure) Acute Altered mental status Acute Anemia associated with acute blood loss Acute Ankle ulcer Acute Elevated BUN Acute Elevated troponin Acute Hip fx Acute Hyponatremia Acute Tibia/fibula fracture Acute Wound of left ankle Acute
[2018-01-24] MEDS: PRAMIPEXOLE 0.125 MG TAB PO SCH (20:05)
[2018-01-24] MEDS: INTERFERON BETA SQ SCH (20:12)
[2018-01-24] MEDS: ALBUMIN SQ SCH (20:12)
[2018-01-25] MEDS: LEVOTHYROXINE 25 MCG TAB PO SCH (05:31)
[2018-01-25 06:24] LABS: PLATELET COUNT 196 10^3/uL (150-400)
[2018-01-25 08:39] VITALS: BP 153/92
[2018-01-25] MEDS: Dalfampridine [Ampyra] 10 MG PO SCH (09:00)
[2018-01-25] MEDS: OMEGA-3 FATTY ACIDS 1,000 MG CAP PO SCH (09:01)
[2018-01-25] MEDS: POLYETHYLENE GLYCOL 3350 17 GM PKT PO PRN (09:01)
[2018-01-25] MEDS: ASCORBIC ACID 250 MG TAB PO SCH (09:01)
[2018-01-25] MEDS: BACLOFEN 20 MG TAB PO SCH (09:01)
[2018-01-25] MEDS: FUROSEMIDE 20 MG TAB PO SCH ×2 (09:02→15:42)
[2018-01-25] MEDS: ENOXAPARIN 40 MG/0.4 ML SYR SC SCH (09:02)
[2018-01-25] MEDS: LABETALOL HCL 200 MG TAB PO SCH (09:02)
[2018-01-25] MEDS: SENNOSIDES/DOCUSATE SODIUM TAB PO SCH (09:11)
[2018-01-25] MEDS: Armodafinil [Nuvigil 150mg] 150 MG PO SCH (10:02)
--- NOTE | 2018-01-25 13:20 | PDIAF ---
- Diagnosis Diagnosis: GAS bacteremia & RLE cellulitis Code Status: Full Code - Medication Management Discharge Medications: Medications to Continue on Transfer Armodafinil [Nuvigil 150mg] 150 mg PO DAILY 04/26/15 [Last Taken 01/18/18] Dalfampridine [AMPYRA] 10 mg PO DAILY 04/26/15 [Last Taken 01/18/18] Ascorbic Acid [Vitamin C 250 mg (*)] 250 mg PO DAILY 04/27/15 [Last Taken ] Levothyroxine [Synthroid 25 mcg (*)] 25 mcg PO DAILY06 04/27/15 [Last Taken ] Furosemide [Lasix 20 MG (*)] 20 mg PO BID@01/11/17 [Last Taken 01/18/18] hydrALAZINE [Apresoline 50 mg (*)] 50 mg PO TID 01/11/17 [Last Taken 01/18/18] Baclofen [Baclofen 20 mg (*)] 40 mg PO DAILY 06/27/17 [Last Taken 01/18/18] Baclofen [Baclofen 20 mg (*)] 60 mg PO HS 06/27/17 [Last Taken 01/18/18] Interferon Beta-1A/Albumin [Rebif Rebidose 44 Mcg/0.5 ml] 44 mcg SQ TUTHSA@21 [Last Taken 01/16/18] Labetalol HCl [Trandate 200 mg (*)] 200 mg PO BID 08/18/17 [Last Taken 01/18/18] Polyethylene Glycol 3350 [Miralax 17 gm (*)] 17 gm PO Q2D 09/26/17 [Last Taken 10/29/17] Pramipexole Di-HCl [Mirapex 0.125 mg (*)] 0.125 mg PO HS 09/26/17 [Last Taken ] Herbals/Supplements -Info Only 1 ea PO DAILY 10/30/17 [Last Taken Unknown] Ibuprofen [Motrin (*)] 200 mg PO DAILY PRN 01/20/18 [Last Taken Unknown] [place]-3 Fatty Acids [Fish Oil 1000 mg (*)] 1,000 mg PO DAILY 01/20/18 [Last Taken 01/18/18] Penitentiary Antibiotics: ceftriaxone 2gm IV daily Penitentiary Antibiotic Stop Date: 02/05/18 Discharge Medications: Refer to the Discharge Home Medication list for PRN reason. PICC Care - Routine: Yes - Orders Services needed: Home Care, Registered Nurse, Physical Therapy, Occupational Therapy Home Care Face to Face: I certify that this patient was under my care and that I had the required [id number] encounter meeting the encounter requirements on the discharge day. My findings support the fact that the patient is homebound as defined in Home Care Face to Face Continued: CMS Chapter 7 Medicare Benefits Manual 30.1.1 , The condition of the patient is such that there exists a normal inability to leave home and consequently, leaving home would require a considerable and taxing effort. Isolation Type: None Additional Instructions: Resume wound care per [facility] after discharge Stephanie RODASON - Labs/Radiology CBC w/diff Date: 01/26/18 (weekly Friday) CMP Date: 01/26/18 (weekly Friday) Call or Fax Lab and Imaging Results to: Dr Du Ivy [phone] - Follow Up Care Current Providers and Referrals: [facility] [Clinic] - (call for an appointment) Patient,NotPresent [Unknown] - As per Instructions
--- NOTE | 2018-01-25 13:58 | PCMIDPN ---
Assessment/Plan: # Low-grade group A strep bacteremia, source right lower extremity wounds/ cellulitis. Faint patchy erythema remains distal right lower extremity with associated edema, continue improvement. White count normalized and patient is afebrile. Blood cx cleared from 01/22. --2 weeks IV ceftriaxone from negative blood culture 01/22/2018, stop date 2017 --elevated RLE # systolic murmur: Low-grade bacteremia and rapid clearance of blood cultures less suggestive of endocarditis; echo showed mild # underlying MS: on Ampyra, very debilitated. SIgnificant concern over dc to home due to 2 person assist and [facility] homecare reports noncompliance Medication Ceftriaxone 2 g IV daily, # 5 Microbiology 01/22 blood cultures (2) no growth today 01/19 blood cultures 1/2 group a strep, clinda resistant Subjective: patient strongly feels should go home Objective: Vital Signs Temp Pulse Resp BP Pulse Ox 36.8 C 16 L 16 153/92 H 92 01/25/18 08:35 01/25/18 09:02 01/25/18 08:35 01/25/18 09:02 01/25/18 08:35 Laboratory Results 01/25/18 05:35 01/24/18 04:27 01/24/18 01/25/18 01/26/18 05:59 05:59 05:59 Intake Total 450 200 Output Total 1200 2200 Balance -750 -2000 ESR 30 MM/HR (0-30) 01/20/18 04:39 C-Reactive Protein 240.8 mg/L (<10.0) H 01/20/18 04:39 - Physical Exam General Appearance: alert, no apparent distress, cachetic Respiratory: No accessory muscle use Extremities: pedal edema (RLE), erythema (patchy erythema distal leg - much more faint) Skin: pallor Neuro/Psych: normal mood/affect, oriented x 3 - Line/s RUE PICC Lines: No drainage, No erythema ICD10 Worksheet Patient Problems: Problems Problem Status Onset Sepsis Acute Wound infection Acute ARF (acute renal failure) Acute Altered mental status Acute Anemia associated with acute blood loss Acute Ankle ulcer Acute Elevated BUN Acute Elevated troponin Acute Hip fx Acute Hyponatremia Acute Tibia/fibula fracture Acute Wound of left ankle Acute
--- NOTE | 2018-01-25 14:37 | PDIAF ---
- Diagnosis Diagnosis: GAS bacteremia & RLE cellulitis Code Status: Full Code - Medication Management Discharge Medications: Medications to Continue on Transfer Armodafinil [Nuvigil 150mg] 150 mg PO DAILY 04/26/15 [Last Taken 01/18/18] Dalfampridine [AMPYRA] 10 mg PO DAILY 04/26/15 [Last Taken 01/18/18] Ascorbic Acid [Vitamin C 250 mg (*)] 250 mg PO DAILY 04/27/15 [Last Taken ] Levothyroxine [Synthroid 25 mcg (*)] 25 mcg PO DAILY06 04/27/15 [Last Taken ] Furosemide [Lasix 20 MG (*)] 20 mg PO BID@01/11/17 [Last Taken 01/18/18] hydrALAZINE [Apresoline 50 mg (*)] 50 mg PO TID 01/11/17 [Last Taken 01/18/18] Baclofen [Baclofen 20 mg (*)] 40 mg PO DAILY 06/27/17 [Last Taken 01/18/18] Baclofen [Baclofen 20 mg (*)] 60 mg PO HS 06/27/17 [Last Taken 01/18/18] Interferon Beta-1A/Albumin [Rebif Rebidose 44 Mcg/0.5 ml] 44 mcg SQ TUTHSA@21 [Last Taken 01/16/18] Labetalol HCl [Trandate 200 mg (*)] 200 mg PO BID 08/18/17 [Last Taken 01/18/18] Polyethylene Glycol 3350 [Miralax 17 gm (*)] 17 gm PO Q2D 09/26/17 [Last Taken 10/29/17] Pramipexole Di-HCl [Mirapex 0.125 mg (*)] 0.125 mg PO HS 09/26/17 [Last Taken ] Herbals/Supplements -Info Only 1 ea PO DAILY 10/30/17 [Last Taken Unknown] Ibuprofen [Motrin (*)] 200 mg PO DAILY PRN 01/20/18 [Last Taken Unknown] [place]-3 Fatty Acids [Fish Oil 1000 mg (*)] 1,000 mg PO DAILY 01/20/18 [Last Taken 01/18/18] cefTRIAXone [Rocephin] 2 gm IV DAILY vial 01/25/18 [Last Taken Unknown] Intermediate Antibiotics: ceftriaxone 2gm IV daily Intermediate Antibiotic Stop Date: 02/05/18 Discharge Medications: Refer to the Discharge Home Medication list for PRN reason. PICC Care - Routine: Yes - Orders Services needed: Home Care, Registered Nurse, Physical Therapy, Occupational Therapy Home Care Face to Face: I certify that this patient was under my care and that I had the required [id number] encounter meeting the encounter requirements on the discharge day. My findings support the fact that the patient is homebound as defined in Home Care Face to Face Continued: CMS Chapter 7 Medicare Benefits Manual 30.1.1 , The condition of the patient is such that there exists a normal inability to leave home and consequently, leaving home would require a considerable and taxing effort. Isolation Type: None Diet Recommendation: no restrictions on diet Diet Texture: Regular Texture Diet Additional Instructions: Resume [facility] per [facility] after discharge Stephanie RODASON - Labs/Radiology CBC w/diff Date: 01/26/18 (weekly Friday) CMP Date: 01/26/18 (weekly Friday) Call or Fax Lab and Imaging Results to: Dr Du Ivy [phone] - Follow Up Care Current Providers and Referrals: [facility] [Clinic] - (call for an appointment) Patient,NotPresent [Unknown] - As per Instructions
[2018-01-25] MEDS: ACETAMINOPHEN 325 MG TAB PO PRN (15:22)
--- NOTE | 2018-01-25 15:51 | ASMTLACE ---
LACE Length of stay for Answers: 4-6 days current admission Acuity / Level of Answers: Yes Care: Did the patient have an inpatient admission? Comorbidities - select Answers: Other Notes: HTN, MS, PAUL, RLE all that apply cellulitis # of Emergency department Answers: 3-4 visits in the last 6 months Score: 11 Date Signed: 01/25/2018 03:50 PM Electronically Signed By:Norma Ivan RN
--- NOTE | 2018-01-25 16:01 | GDS ---
[f rep st] DISCHARGE SUMMARY DIAGNOSES: 1. Cellulitis, right lower extremity due to chronic right lower extremity wounds complicated by seps is with the past medical history. 2. Chronic multiple sclerosis with debilitation. 3. Chronic hyponatremia due to syndrome of inappropriate antidiuretic hormone. 4. Chronic anemia. 5. Hypertension. 6. Lower extremity chronic wounds and chronic lower extremity edema. CONSULTATIONS: Include general surgery, Dr. Diallo; Infectious Disease. PROCEDURES DONE: PICC line insertion, echocardiogram. EF of 61%. No obvious vegetations noted. HOSPITAL COURSE: The patient is a 68-year-old woman who came in with increasing swelling and pain in her right lower extremity and evidence of possible infection. She was diagnosed with cellulitis com plicated by gram-positive bacteremia. Infectious Disease and General Surgery were consulted. She wa s placed on appropriate antibiotics and over the course of her hospitalizations, her sepsis resolved and her cellulitis was treated. Her bacteremia was identified as group A strep. Evaluation included an echocardiogram to rule out obvious endocarditis, and she was followed by Wound Care. On the day of discharge, she has improved to a point where she is still debilitated and requires 1 person standb y assist. Infectious Disease feels her cellulitis is stable and is willing to discharge her home wit h ongoing IV antibiotics. Home care has been set up, and she also will have a paid caregiver with he r 24 hours a day for assistance. CONDITION ON DISCHARGE: GENERAL APPEARANCE: Fair. VITAL SIGNS: She has been afebrile. Heart rate 79, blood pressure 153/92. She is 92% on room air. NEUROLOGIC: She is alert and oriented. She is fairly disabled, but appropriate. HEART: Regular. LUNGS: Clear. EXTREMITIES: Right lower extre kenton has a bandage in place and she does have some edema, but minimal erythema and tenderness noted. DISCHARGE MEDICATIONS: Please see discharge medication form. She will have ongoing IV antibiotics. FOLLOWUP: With Infectious Disease as well as her Primary Care Provider and Wound Care. Total time spent with patient on the day of discharge and coordination of care is 35 minutes. /[id number]/MODL
--- NOTE | 2018-01-25 17:37 | ASMTDCNOTE ---
Case Management Discharge Discharge Order Complete? Answers: Yes Patient to Obtain Answers: Other Notes: via friend Medications Transportation Arranged Answers: Family/Friends Transport will Pick (Date 01/25/2018 04:00 PM & Time) EMTALA Complete Answers: No Notes: N/A Case Management Transport Answers: No Notes: N/A Form Complete Faxed Final Orders Answers: Yes Notes: Sent via [employer]; confirmed receipt november and Latonya Agency/Facility Transfer Answers: Yes Notes: Sent via Report Printed & Faxed to [employer]; confirmed Receiving Agency receipt november and Latonya Family Notified Answers: No Notes: Pt to notify Discharge Comments Notes: Reviewed chart, spoke with Dr. Jesus, Simona, RN and pt regarding discharge plan of care, pt's progress. Per Dr. Jesus, pt to discharge home (if safe) with home care and IV infusion services. Per Simona RN and notes in chart pt two person max assist for mobility. Pt requiring 24/02 supervision, refusing SNF placement. Call placed to November with [facility] ([facility]). Per November, pt previously open with [facility]. November to discuss with pt's prior RN; history of noncompliance. Met with pt to discuss current set up and safety concerns. Pt continues to refuse SNF/rehab. Pt states she has hired a remedial masseur who will be with her 24/02. Call received from Suellen pt's RN with [facility]. [place]." The pt has installed a lift system, but cannot access parts of the house on her own. Suellen very concerned about pt's home safety, stating they "have been encouraging the pt to consider alternate living arrangements for quite some time now." Per Suellen, the pt has not hired an "RN" and does not have adequate support at home. The pt was previously open with [employer] (for private, non-skilled care), but has burned a few bridges with them. Suellen is unsure if the pt is still receiving services from them. Update provided to Simona RN, Dr. Jesus and Dr. Arevalo. Met with pt again to further discuss safety concerns. Pt states she has hired "Karley Dallas" to be her remedial masseur. Received pt's permission to speak with Karley . Per Karley, she is a "retired RN." She was "never licensed in the state of [place] and is currently not working for an agency." She previously worked for the pt through [employer]. The pt has hired her to be a private duty, independent, non-licensed, non-medical caregiver. As of last week, they had agreed upon 3-4 hours of support in the mornings and evenings 7 days/week. Karley said she is "available to provide 24/7 care for the pt." Karley is planning to provide assistance with ADL's, transfers and cooking. Karley stated she could help with simple wound care and IV's, with training and if it was appropriate. She reiterated she is not licensed and would be working in a non-medical, unskilled capacity. Spoke with JANELLE Tierney. Per PT, pt is remarkably improved and is now "a one-person, contact guard assist and should be fine with a single caregiver at home." Call placed to Parth at [facility] - both agree to resume services for pt with a start of care for Friday01/26/18. Suellen to open pt case tomorrow. Karley Dallas's phone number provided . Suellen to confirm private duty services and to arrange to meet at pt's house on Friday01/26/18. Call placed to [facility] ; spoke with Latonya Pharmacist on-call. Per Latonya, will prep antibiotics for delivery between [phone] [facility]. Update provided to Dr. Jesus and Simona, RN. Discharge orders and paperwork faxed to [facility] and [facility] via [employer]; confirmed receipt. Discharge note written with instructions on contacting home care agencies, case management. IM signed. Pt to follow up as directed. CM available for any further issues or concerns. Discharge Plan: Home with [facility], chacha and private duty caregiver for 24/7 care Call received following pt's discharge from , certification and selection specialist of [employer] . very concerned about pt's safety and the current discharge plan. Per Amanda Karley used to work for [employer] and left to work for pt. Per , she and "Karley have been texting and Karley indicated in her texts she has no intention of providing long-term 24/7 care for the pt." confirmed the pt has burned a few bridges with her staff. Per , pt "is in one of the worst living situations she has ever seen - it's just not sustainable." stated "if pt goes home with the current plan, she will likely make a report to Adult Protective Services (APS)." Update provided to CARLA Jarvis. Date Signed: 01/25/2018 05:36 PM Electronically Signed By:Norma Ivan RN
--- NOTE | 2018-01-25 17:37 | ASDISCHSUM ---
Discharge Information Plan Status:Home with Home Health Medically Cleared to Leave:01/25/2018 Discharge Date:01/25/2018 05:00 PM CM D/C Disposition:Home Health Service ADT D/C Disposition:Home Health Service Projected Discharge Date:01/25/2018 11:00 AM Transportation at D/C:Friend Discharge Delay Reason: Follow-Up Date:01/25/2018 11:00 AM Discharge Slot:2 - 12:01 pm - 18:00 pm Final Diagnosis:Group A strep bacteremia, right lower extremity wound, systolic murmur, MS, anemia, HTN, PAUL Placement Information Referral Type:*Home Health Care Services Referral ID:[id number] Provider Name:[facility] Address 1:[address] Address 2: City:[place] Selection Factors:Returning to Facility State:[place] Referral Type:Home Infusion Referral ID:[id number] Provider Name:[facility] Address 1:[address] Address 2: City:[place] Selection Factors:Patient/Family Choice State:[place] Patient Contact Information Contact Name:MARIAELENA Relationship:Re Address:[address] Work Phone: City:[facility] Phone: [facility]/Zip Code:[place] [address] Email: Financial Information Financial Class:Medicare Primary Plan Desc:MEDICARE INPATIENT Primary Plan Number:[id number] Secondary Plan Desc:ABIMBOLA Secondary Plan Number:[id number] Assessment Information LACE LACE Length of stay for Answers: 4-6 days current admission Acuity / Level of Answers: Yes Care: Did the patient have an inpatient admission? Comorbidities - select Answers: Other Notes: HTN, MS, PAUL, RLE all that apply cellulitis # of Emergency department Answers: 3-4 visits in the last 6 months Score: 11 Date Signed: 01/25/2018 03:50 PM Electronically Signed By:Norma Ivan RN [facility] CM Progress Note CM Note CM Note Notes: Chart reviewed. 68 year old female with MS and chronic RLE wound that is followed in wound clinic by Yoel Choudhary. [facility] PT reports that patient has limited help at home. She does have 2 stair lifts and uses a wheelchair on her main floor. She has a medical alert bracelet. Her non skilled help runs errands, takes her to appointments and does meal prep, Her nephew Gregory Canela is [facility] [phone]. Plan of care still unclear at this point. CM to follow. Plan: TBD Date Signed: 01/20/2018 12:39 PM Electronically Signed By:Karley Martin RN [facility] CM Progress Note CM Note CM Note Notes: Pt's physician notified CM that Pt will be getting a pic line on Friday and will be D/C'ed home Friday or Friday. She requested an RN for wound care and IV medications, 2gm Rosephin 1x a day. Pt had been using [facility] Care prior to hospitalization. [facility] Home Care was contacted and notified that Pt was scheduled to be D/Vini this weekend. They asked for us to call them when the D/C date is set and what the infusion company will be. A referral was sent to [facility]. D/C Plan: Home with [facility] and [facility]. Date Signed: 01/22/2018 02:39 PM Electronically Signed By:Sunni Crawford Case Management Discharge Plan Note Case Management Discharge Discharge Order Complete? Answers: Yes Patient to Obtain Answers: Other Notes: via friend Medications Transportation Arranged Answers: Family/Friends Transport will Pick (Date 01/25/2018 04:00 PM & Time) EMTALA Complete Answers: No Notes: N/A Case Management Transport Answers: No Notes: N/A Form Complete Faxed Final Orders Answers: Yes Notes: Sent via [email or web address]; confirmed receipt w/ Sarah and Latonya Agency/Facility Transfer Answers: Yes Notes: Sent via Report Printed & Faxed to [employer]; confirmed Receiving Agency receipt w/ November and Latonya Family Notified Answers: No Notes: Pt to notify Discharge Comments Notes: Reviewed chart, spoke with Simona Waite, RN and pt regarding discharge plan of care, pt's progress. Per Dr. Jesus, pt to discharge home (if safe) with home care and IV infusion services. Per Simona RN and notes in chart pt two person max assist for mobility. Pt requiring 24/02 supervision, refusing SNF placement. Call placed to November with [facility] ([facility]). Per November, pt previously open with [facility]. November to discuss with pt's prior RN; history of noncompliance. Met with pt to discuss current set up and safety concerns. Pt continues to refuse SNF/rehab. Pt states she has hired a waste salvager who will be with her 24/02. Call received from janelle Ken's RN with [facility]. Per Suellen[place] in her home." The pt has installed a lift system, but cannot access parts of the house on her own. Suellen very concerned about pt's home safety, stating they "have been encouraging the pt to consider alternate living arrangements for quite some time now." Per Suellen, the pt has not hired an "RN" and does not have adequate support at home. The pt was previously open with [employer] (for private, non-skilled care), but has burned a few bridges with them. Suellen is unsure if the pt is still receiving services from them. Update provided to Simona RN, Dr. Jesus and Dr. Arevalo. Met with pt again to further discuss safety concerns. Pt states she has hired "Kalrey Dallas" to be her waste salvager. Received pt's permission to speak with Karley . Per Karley, she is a "retired RN." She was "never licensed in the state [facility] and is currently not working for an agency." She previously worked for the pt through [employer]. The pt has hired her to be a private duty, independent, non-licensed, non-medical caregiver. As of last week, they had agreed upon 3-4 hours of support in the mornings and evenings 7 days/week. Karley said she is "available to provide 24/7 care for the pt." Karley is planning to provide assistance with ADL's, transfers and cooking. Karley stated she could help with simple wound care and IV's, with training and if it was appropriate. She reiterated she is not licensed and would be working in a non-medical, unskilled capacity. Spoke with JANELLE Tierney. Per PT, pt is remarkably improved and is now "a one-person, contact guard assist and should be fine with a single caregiver at home." Call placed to Sarah and Suellen at [facility] - both agree to resume services for pt with a start of care for Friday01/26/18. Suellen to open pt case tomorrow. Karley Burt's phone number provided . Suellen to confirm private duty services and to arrange to meet at pt's house on Friday01/26/18. Call placed to [facility] ; spoke with Latonya Pharmacist on-call. Per Latonya, will prep antibiotics for delivery between [phone] [facility]. Update provided to Dr. Jesus and CARLA Jarvis. Discharge orders and paperwork faxed to [facility] and Jessica via [employer]; confirmed receipt. Discharge note written with instructions on contacting home care agencies, case management. IM signed. Pt to follow up as directed. CM available for any further issues or concerns. Discharge Plan: Home with [facility], chacha and private duty caregiver for 24/7 care Call received following pt's discharge from , shrimp peeler of [employer] . very concerned about pt's safety and the current discharge plan. Per , Karley used to work for [employer] and left to work for pt. Per , she and "Karley have been texting and Karley indicated in her texts she has no intention of providing long-term 24/7 care for the pt." confirmed the pt has burned a few bridges with her staff. Per , pt "is in one of the worst living situations she has ever seen - it's just not sustainable." stated "if pt goes home with the current plan, she will likely make a report to Adult Protective Services (APS)." Update provided to CARLA Jarvis. Date Signed: 01/25/2018 05:36 PM Electronically Signed By:Norma Ivan RN Intervention Information Intervention Type:*ANDRADE-Signed Date of Service:01/20/2018 10:17 AM Patient Type:Observation Staff Member:Tamara Henry Hours: Discipline: Severity: Comment: Intervention Type:*IM-Signed Date of Service:01/23/2018 12:24 PM Patient Type:Inpatient Staff Member:Tamara Henry Hours: Discipline: Severity: Comment: Intervention Type:*IM-Signed Date of Service:01/25/2018 04:16 PM Patient Type:Inpatient Staff Member:CARLA Ivan Taylor Hours: Discipline: Severity: Comment:
== END 2018-01-25 17:00 | disposition home health service (06) | DRG 871 ==
LOC: EDUNIT# → F1N 01-20 01:20 → OBSVTOIN 01-21 08:03
PROVIDERS: ADMIT Student in an Organized Health Care Education/Training Program; ATTEND Student in an Organized Health Care Education/Training Program
PROC: 02HV33Z Insertion of Infusion Device into Superior Vena Cava, Percutaneous Approach (ICD-10-PCS; principal; 2018-01-24)
DX: A40.0 Sepsis due to streptococcus, group A (principal); L89.513 Pressure ulcer of right ankle, stage 3; L89.614 Pressure ulcer of right heel, stage 4; L89.514 Pressure ulcer of right ankle, stage 4; L89.893 Pressure ulcer of other site, stage 3; L03.115 Cellulitis of right lower limb; E87.1 Hypo-osmolality and hyponatremia; R01.1 Cardiac murmur, unspecified; G35 Multiple sclerosis; D53.9 Nutritional anemia, unspecified; I10 Essential (primary) hypertension; G47.33 Obstructive sleep apnea (adult) (pediatric)
CPT/HCPCS: 83605-PO; 96365; 97110-GP; 97116-GP; 97162-GP; 97166-GO; 97530-GO; 97530-GP; 97535-GO; C1751; G0378; G8978-GP-CK; G8979-GP-CI; G8987-GO-CK; G8988-GO-CJ; J0696; J1650; J2540; J3370; J3475

== ENCOUNTER 2018-01-30 19:30 | Inpatient (IN) | payer OTHER ==
--- NOTE | 2018-01-30 19:27 | EDPHY ---
H & P Time Seen by Provider: 01/30/18 19:30 Constitutional: Initial Vital Signs Temperature (C) 36.1 C 01/30/18 19:36 Heart Rate 88 01/30/18 19:36 Respiratory Rate 18 01/30/18 19:36 Blood Pressure 168/57 H 01/30/18 19:36 O2 Sat (%) 92 01/30/18 19:36 O2 Delivery Mode Nasal Cannula O2 (L/minute) 2 Allergies/Adverse Reactions: amlodipine Allergy (Verified 01/19/18 22:22) Other-Enter Comments hydrochlorothiazide Allergy (Verified 01/19/18 22:22) Unknown Opioids - Morphine Analogues Allergy (Verified 01/19/18 22:22) Other-Enter Comments Home Medications: Medication Instructions Recorded Armodafinil [Nuvigil 150mg] 150 mg PO DAILY 04/26/15 Dalfampridine [AMPYRA] 10 mg PO DAILY 04/26/15 Ascorbic Acid [Vitamin C 250 mg 250 mg PO DAILY 04/27/15 (*)] Levothyroxine [Synthroid 25 mcg 25 mcg PO DAILY06 04/27/15 (*)] Furosemide [Lasix 20 MG (*)] 20 mg PO BID@09,1530 01/11/17 hydrALAZINE [Apresoline 50 mg (*)] 50 mg PO TID 01/11/17 Baclofen [Baclofen 20 mg (*)] 40 mg PO DAILY 06/27/17 Baclofen [Baclofen 20 mg (*)] 60 mg PO HS 06/27/17 Interferon Beta-1A/Albumin [Rebif 44 mcg SQ TUTHSA@21 06/29/17 Rebidose 44 Mcg/0.5 ml] Labetalol HCl [Trandate 200 mg (*)] 200 mg PO BID 08/18/17 Polyethylene Glycol 3350 [Miralax 17 gm PO Q2D 09/26/17 17 gm (*)] Pramipexole Di-HCl [Mirapex 0.125 0.125 mg PO HS 09/26/17 mg (*)] Herbals/Supplements -Info Only 1 ea PO DAILY 10/30/17 Ibuprofen [Motrin (*)] 200 mg PO DAILY PRN 01/20/18 [place]-3 Fatty Acids [Fish Oil 1000 1,000 mg PO DAILY 06/19/18 mg (*)] cefTRIAXone [Rocephin] 2 gm IV DAILY vial 01/25/18 Medical Decision Making - Diagnostics Imaging: Discussed imaging studies w/ real estate economist Radiologist, I viewed and interpreted images myself ED Course/Re-evaluation: CHIEF COMPLAINT: AMS, combative, fall HISTORY OF PRESENT ILLNESS: The patient is a 61 y/o female with multiple sclerosis and chronic RLE wounds arriving via EMS for evaluation of a fall, AMS , and combativeness this evening. EMS was initially called to her residence for a fall. They found her disoriented, unable to answer questions or follow commands, and combative. Caregiver reported to EMS that patient was quite altered from baseline and is normally A&Ox4, though it's unclear when she was last at baseline. She was violent and combative with EMS and only able to say "no" and "stop." EMS administered 10mg Haldol en route and currently patient is non-verbal and unable to contribute to history. Her tachycardia resolved with administration of Haldol. Per records, she was recently admitted for sepsis related to RLE cellulitis and has been on IV antibiotics for this since her discharge. REVIEW OF SYSTEMS: Unable to obtain secondary to AMS. PHYSICAL EXAM: HR, BP, O2 Sat, RR. Temp noted General Appearance: Following some commands, non-verbal. Head: Atraumatic without scalp tenderness or obvious injury Eyes: Pupils equal, round, reactive to light and accommodation, EOMI, no trauma , no injection. Nose: Atraumatic, no rhinorrhea, clear. Throat: Mucus membranes moist. Neck: Supple, nontender, no lymphadenopathy. Respiratory: No retractions, no distress, no wheezes, and no accessory muscle use. Lungs are clear to auscultation bilaterally. Cardiovascular: Regular rate and rhythm, no murmurs, rubs, or gallops. Good capillary refill all extremities. Gastrointestinal: Abdomen is soft, nontender, non-distended, no masses, no rebound, no guarding, no peritoneal signs. Musculoskeletal: Normal active ROM of all extremities, atraumatic. Bandages to right lower leg. Neurological: Following some commands, non-verbal. Moving all extremities. Skin: No rashes, good turgor, no nodules on palpation. Past medical history: Multiple sclerosis, chronic hyponatremia due to SIADH, chronic anemia, hypertension, chronic lower extremity wounds. Past surgical history: Tib/fib and ankle fracture repairs with subsequent infections Family history: Noncontributory Social history: Former smoker. Has daily caregiver. Able to ambulate some, also uses wheelchair. Prior medical records reviewed including admission 01/21/18 for sepsis and cellulitis. DIAGNOSTICS/PROCEDURES/CRITICAL CARE TIME: Head CT: negative for acute process Chest x-ray: no infiltrate DIFFERENTIAL DIAGNOSIS: The differential diagnosis for the patient's altered mental status included but was not limited to hypoglycemia, infectious process, electrolyte abnormality, head injury, neurologic process, anemia, cardiac process, and intoxicants. MEDICAL DECISION MAKING: This is a 68 y/o female with MS and chronic extremity wounds who presents after a fall with altered mentation and combativeness on scene reported by EMS. 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 Upon arrival here, she is non-verbal, but alert and following some commands. Her leg is bandaged and she is moving all extremities. No obvious acute trauma on exam. Plan for IV, sepsis labs, UA, head and neck CTs, symptom management as needed. Labs show normal WBC, normal lactate, anemia. Chest x-ray and head CT are negative for acute process. I've found no clear causes for her symptoms thus far. She continues to be altered, though this may be due to the Haldol she received prehospitally. (Matt Rodriguez) 7:00 a.m.- The patient was observed in the emergency department overnight. She became more awake and alert, though has not return to her baseline. Eventually able to answer questions appropriately for me. Unfortunately, we have not been able to be in touch with her home care providers. She does have 24 hr in-home care. However, she does not have any of their contact information. We were able to contact her nephew who lives about 2 hr away. He is involved in her care and has some concerns about the care she is receiving currently. I reviewed her recent case management discharge summary from a few days ago when she was admitted to the hospital. Apparently, she is no longer with her same caretakers that have been watching over her for some time. She is now working with a woman named Karley who does not seem to have appropriate credentials. The prior banquet supervisor does have significant concerns about the patient's current home situation and at time of discharge were considering calling adult protective services. She still is somewhat sedate, I suspect due to Haldol received by paramedics and marijuana which was positive on her toxicology. I do not think she is suitable for discharge due to her altered mental status and no safe plan for discharge home. I have consulted with the hospitalist Dr. Kaba who will admit the patient. (Sue Calderón) - Data Points Laboratory Results: Laboratory Results 01/30/18 19:35 01/30/18 19:35 Medications Given: Baclofen (Baclofen) 60 mg PO HS RIZWAN Stop: 07/30/18 20:59 Last Admin: 01/31/18 20:36 Dose: 60 mg Enoxaparin Sodium (Lovenox) 40 mg SC DAILY RIZWAN Stop: 07/30/18 08:59 Last Admin: 01/31/18 11:39 Dose: 40 mg Furosemide (Lasix) 20 mg PO BID@09,1530 RIZWAN Stop: 07/30/18 15:29 Last Admin: 01/31/18 16:20 Dose: 20 mg Hydralazine HCl (Apresoline) 50 mg PO TID RIZWAN Stop: 07/30/18 15:59 Last Admin: 01/31/18 20:37 Dose: 50 mg Ceftriaxone Sodium 2 gm/ (Sodium Chloride) 50 mls @ 100 mls/hr IV DAILY@1200 RIZWAN Stop: 03/02/18 11:59 Last Admin: 01/31/18 12:07 Dose: 50 mls Labetalol HCl (Trandate) 200 mg PO BID RIZWAN Stop: 07/30/18 11:14 Last Admin: 01/31/18 20:37 Dose: 200 mg Miscellaneous Medication (Interferon Beta-1a/Albumin [Rebif Rebidose 44 Mcg/0.5 Ml]) 44 mcg SQ TUTHSA@21 RIZWAN Stop: 07/30/18 20:59 Last Admin: 01/31/18 20:39 Dose: 44 mcg Pramipexole Dihydrochloride (Mirapex) 0.125 mg PO HS RIZWAN Stop: 07/30/18 20:59 Last Admin: 01/31/18 20:37 Dose: 0.125 mg Discontinued Medications Sodium Chloride (Ns) 1,000 mls @ 3,000 mls/hr IV ONCE ONE Stop: 01/30/18 20:19 Last Admin: 01/30/18 20:29 Dose: 1,000 mls Departure - Departure Disposition: Home, Routine, Self-Care Clinical Impression: Fall Qualifiers: Encounter type: initial encounter Qualified Code(s): W19.XXXA - Unspecified fall, initial encounter Altered mental status Qualifiers: Altered mental status type: disorientation Qualified Code(s): R41.0 - Disorientation, unspecified Condition: Good Report Scribed for: Matt Rodriguez Report Scribed by: Marla Sheridan Date of Report: 01/30/18 Time of Report: 19:36
[2018-01-30 19:50] LABS: PLATELET COUNT 239 10^3/uL (150-400)
[2018-01-30 19:58] LABS: INR 0.94 (0.83-1.16); PROTIME(PATIENT) 12.8 SEC (12.0-15.0)
[2018-01-30] MEDS ORDERED: NS 1,000 ML IV SCH (20:00)
[2018-01-30] MEDS ORDERED: NS 1,000 ML IV ONE (20:00)
[2018-01-31] MEDS ORDERED: ONDANSETRON DISINTEGRATING 4 MG TAB PO PRN (06:49)
[2018-01-31] MEDS ORDERED: ONDANSETRON 4 MG/2 ML VIAL IVP PRN (06:49)
[2018-01-31] MEDS ORDERED: ACETAMINOPHEN 325 MG TAB PO PRN (06:49)
--- NOTE | 2018-01-31 07:06 | PDGENHP ---
History and Physical - Chief Complaint Fall, confusion - History of Present Illness 68 yo F w/ hx of MS was brought to ED by EMS for fall and confusion. Patient is able to tell me she fell out of bed. Per report, EMS was called by caregiver because patient was somewhat altered and combative. EMS was called and administered Haldol 10 mg en route. As a result, patient has been somnolent for nearly 12 hours. At the time of my evaluation patient remains mildly somnolent but she is arousable. She is A&Ox2 but drifts back to sleep when not in conversation. ED provider tells me there is some concern about the availability of her home caregiver, which she is supposed to have 24/02. SNF was recommended during last admission but she refused. Of note, I admitted her on a previous occasion with similar confusion that was determined to be for marijuana intoxication. On this occasion her Utox is again positive for marijuana. She was recently admitted for RLE infection but she meets no SIRS criteria at this time. History Information - Allergies/Home Medication List Allergies/Adverse Reactions: amlodipine Allergy (Verified 01/19/18 22:22) Other-Enter Comments hydrochlorothiazide Allergy (Verified 01/19/18 22:22) Unknown Opioids - Morphine Analogues Allergy (Verified 01/19/18 22:22) Other-Enter Comments Home Medications: Armodafinil [Nuvigil 150mg] 150 mg PO DAILY 04/26/15 [Last Taken 01/18/18] Dalfampridine [AMPYRA] 10 mg PO DAILY 04/26/15 [Last Taken 01/18/18] Ascorbic Acid [Vitamin C 250 mg (*)] 250 mg PO DAILY 04/27/15 [Last Taken ] Levothyroxine [Synthroid 25 mcg (*)] 25 mcg PO DAILY06 04/27/15 [Last Taken ] Furosemide [Lasix 20 MG (*)] 20 mg PO BID@09,1530 01/11/17 [Last Taken 01/18/18] hydrALAZINE [Apresoline 50 mg (*)] 50 mg PO TID 01/11/17 [Last Taken 01/18/18] Baclofen [Baclofen 20 mg (*)] 40 mg PO DAILY 06/27/17 [Last Taken 01/18/18] Baclofen [Baclofen 20 mg (*)] 60 mg PO HS 06/27/17 [Last Taken 01/18/18] Interferon Beta-1A/Albumin [Rebif Rebidose 44 Mcg/0.5 ml] 44 mcg SQ TUTHSA@21 [Last Taken 01/16/18] Labetalol HCl [Trandate 200 mg (*)] 200 mg PO BID 08/18/17 [Last Taken 01/18/18] Polyethylene Glycol 3350 [Miralax 17 gm (*)] 17 gm PO Q2D 09/26/17 [Last Taken 10/29/17] Pramipexole Di-HCl [Mirapex 0.125 mg (*)] 0.125 mg PO HS 09/26/17 [Last Taken ] Herbals/Supplements -Info Only 1 ea PO DAILY 10/30/17 [Last Taken Unknown] Ibuprofen [Motrin (*)] 200 mg PO DAILY PRN 01/20/18 [Last Taken Unknown] [place]-3 Fatty Acids [Fish Oil 1000 mg (*)] 1,000 mg PO DAILY 01/20/18 [Last Taken 01/18/18] I have personally reviewed and updated: family history, medical history - Past Medical History Additional medical history: Multiple sclerosis. history of chronic hyponatremia due to SIADH. chronic anemia. hypertension. lower extremity chronic wounds. fall risk - Surgical History Additional surgical history: right femoral fracture repair - Family History Positive for: CAD - Social History Smoking Status: Former smoker Additional social history: patient lives with her , occasionally ambulates, but uses wheelchair for long distance. Review of Systems Review of Systems: ROS: 10pt was reviewed & negative except for what was stated in HPI & below Physical Exam Physical Exam: Temp Pulse Resp BP Pulse Ox 37 C 67 18 127/47 H 99 01/31/18 06:00 01/31/18 06:00 01/31/18 06:00 01/31/18 06:00 01/31/18 06:00 Constitutional: not in pain, other (Somnolent but arousable) Eyes: PERRL, EOMI Ears, Nose, Mouth, Throat: moist mucous membranes, no oral mucosal ulcers Cardiovascular: regular rate and rhythym, no murmur, rub, or gallop Respiratory: no respiratory distress, no rales or rhonchi Skin: warm, other (RLE bandaged, c/d/i) Neurologic: other (A&Ox2), No facial droop Psychiatric: poor insight, poor memory Lab Data & Imaging Review 01/30/18 19:35 01/30/18 19:35 WBC 7.47 10^3/uL (3.80-9.50) 01/30/18 19:35 RBC 3.19 10^6/uL (4.18-5.33) L 01/30/18 19:35 Hgb 9.6 g/dL (12.6-16.3) L 01/30/18 19:35 Hct 29.3 % (38.0-47.0) L 01/30/18 19:35 MCV 91.8 fL (81.5-99.8) 01/30/18 19:35 MCH 30.1 pg (27.9-34.1) 01/30/18 19:35 MCHC 32.8 g/dL (32.4-36.7) 01/30/18 19:35 RDW 14.5 % (11.5-15.2) 01/30/18 19:35 Plt Count 239 10^3/uL (150-400) 01/30/18 19:35 MPV 9.9 fL (8.7-11.7) 01/30/18 19:35 Neut % (Auto) 76.7 % (39.3-74.2) H 01/30/18 19:35 Lymph % (Auto) 13.3 % (15.0-45.0) L 01/30/18 19:35 [place] % (Auto) 7.1 % (4.5-13.0) 01/30/18 19:35 Eos % (Auto) 2.1 % (0.6-7.6) 01/30/18 19:35 Baso % (Auto) 0.4 % (0.3-1.7) 01/30/18 19:35 Nucleat RBC Rel Count 0.0 % (0.0-0.2) 01/30/18 19:35 Absolute Neuts (auto) 5.73 10^3/uL (1.70-6.50) 01/30/18 19:35 Absolute Lymphs (auto) 0.99 10^3/uL (1.00-3.00) L 01/30/18 19:35 Absolute Monos (auto) 0.53 10^3/uL (0.30-0.80) 01/30/18 19:35 Absolute Eos (auto) 0.16 10^3/uL (0.03-0.40) 01/30/18 19:35 Absolute Basos (auto) 0.03 10^3/uL (0.02-0.10) 01/30/18 19:35 Absolute Nucleated RBC 0.00 10^3/uL (0-0.01) 01/30/18 19:35 Immature Gran % 0.4 % (0.0-1.1) 01/30/18 19:35 Immature Gran # 0.03 10^3/uL (0.00-0.10) 01/30/18 19:35 PT 12.8 SEC (12.0-15.0) 01/30/18 19:35 INR 0.94 (0.83-1.16) 01/30/18 19:35 APTT 30.8 SEC (23.0-38.0) 01/30/18 19:35 VBG Lactic Acid 0.7 mmol/L (0.7-2.1) 01/30/18 19:40 Sodium 135 mEq/L (135-145) 01/30/18 19:35 Potassium 4.4 mEq/L (3.3-5.0) 01/30/18 19:35 Chloride 99 mEq/L (97-110) 01/30/18 19:35 Carbon Dioxide 24 mEq/l (22-31) 01/30/18 19:35 Anion Gap 12 mEq/L (8-16) 01/30/18 19:35 BUN 35 mg/dL (7-23) H 01/30/18 19:35 Creatinine 1.2 mg/dL (0.6-1.0) H 01/30/18 19:35 Estimated GFR 45 01/30/18 19:35 Glucose 82 mg/dL (70-100) 01/30/18 19:35 Calcium 9.6 mg/dL (8.5-10.4) 01/30/18 19:35 Total Bilirubin 0.5 mg/dL (0.1-1.4) 01/30/18 19:35 Urine Color PALE YELLOW 01/30/18 20:55 Urine Appearance CLEAR 01/30/18 20:55 Urine pH 5.0 (5.0-7.5) 01/30/18 20:55 Ur Specific [place] 1.008 (1.002-1.030) 01/30/18 20:55 Urine Protein NEGATIVE (NEGATIVE) 01/30/18 20:55 Urine Ketones NEGATIVE (NEGATIVE) 01/30/18 20:55 Urine Blood NEGATIVE (NEGATIVE) 01/30/18 20:55 Urine Nitrate NEGATIVE (NEGATIVE) 01/30/18 20:55 Urine Bilirubin NEGATIVE (NEGATIVE) 01/30/18 20:55 Urine Urobilinogen NEGATIVE EU (0.2-1.0) 01/30/18 20:55 Ur Leukocyte Esterase NEGATIVE (NEGATIVE) 01/30/18 20:55 Urine Glucose NEGATIVE (NEGATIVE) 01/30/18 20:55 Urine Opiates Screen NEGATIVE (NEGATIVE) 01/30/18 20:55 Urine Barbiturates NEGATIVE (NEGATIVE) 01/30/18 20:55 Ur Phencyclidine Scrn NEGATIVE (NEGATIVE) 01/30/18 20:55 Ur Amphetamine Screen NEGATIVE (NEGATIVE) 01/30/18 20:55 U Benzodiazepines Scrn NEGATIVE (NEGATIVE) 01/30/18 20:55 Urine Cocaine Screen NEGATIVE (NEGATIVE) 01/30/18 20:55 U Marijuana (THC) Screen NON-NEGATIVE (NEGATIVE) H 01/30/18 20:55 Imaging Review: Imaging Impressions Chest X-Ray 01/30/18 19:42 Impression: Suspect airways disease with no pneumonia identified. Head CT 01/30/18 19:43 Impression: Technically limited study with no evidence for mass lesion or hemorrhage. Atrophy and White matter changes are consistent with the patient's history of multiple sclerosis. Results called and discussed with Mtat Rodriguez MD on 01/30/2018 at 20:35. Assessment & Plan Assessment: 68 yo F presents after fall out of bed and reported AMS, situation complicated by large dose of Haldol administered in route and lack of available caregiver at home. Plan: 1. Acute encephalopathy, likely toxic - Initial encephalopathy possibly due to edible marijuana, as she has presented in a similar fashion before. Work-up here , including laboratory analysis, CT head, and CXR has been unremarkable. He displays no SIRS criteria at the moment. Her encephalopathy was further complicated by large dose of Haldol (10 mg) administered en route. She has been in the ED for 12 hours and this has not yet fully cleared. - Admit for observation - PT/OT evaluations 2. MS - Lives at home with 24 hour caregiver. Last admission SNF was recommended but patient refused. There was some concern expressed by the ED and family about the availability of the patient's home caregiver. 3. Chronic RLE wounds - Recently admitted for sepsis and bacteremia related to this. She is currently receiving home care and IV antibiotics. HEr RLE is currently bandaged and appears well cared for. She meets no SIRS criteria at this time. 4. Chronic anemia - Stable, H/H improved from time of discharge. Diet - Regular Code - Full Ppx - LMWH Dispo - Admit under observation status Case discussed with ED physician Dr. Calderón, previous records reviewed.
[2018-01-31] MEDS: LABETALOL HCL 100 MG TAB PO SCH ×2 (11:37→20:37)
[2018-01-31] MEDS: ENOXAPARIN 40 MG/0.4 ML SYR SC SCH (11:39)
--- NOTE | 2018-01-31 12:22 | ASMTCMCOM ---
CM Note CM Note Notes: RN spoke w/rn case management, pt's caregiver wanted home care agency to know that pt is in the hospital. She is current with [facility], per [facility] RN Suellen who is production team advisor today, pt's caregiver is suppose to be there 24/02 but it appears she is not there all the time. [facility] has considered dropping the pt d/t non compliance, she repeatedly refuses SNF. Of note, pt tox screen positive for marijuana. DC Plan: TBD Date Signed: 01/31/2018 12:22 PM Electronically Signed By:Lovely Arzola RN
[2018-01-31] MEDS: hydrALAZINE 25 MG TAB PO SCH ×2 (16:20→20:37)
[2018-01-31] MEDS: FUROSEMIDE 20 MG TAB PO SCH (16:20)
--- NOTE | 2018-01-31 16:27 | ASMTCMCOM ---
CM Note CM Note Notes: D/w MD, pt will stay overnight and dc tomorrow with caregiver, [facility] formstone fitter RN Suellen [phone] notified. DC Plan: Home care/ [facility] (RN/PT) + Caregiver Date Signed: 01/31/2018 04:26 PM Electronically Signed By:Lovely Arzola RN
--- NOTE | 2018-01-31 16:32 | HOSPPROG ---
Hospitalist Progress Note Assessment/Plan: * Toxic encephalopathy -adverse reaction to edible THC, then large dose Haldol -still groggy - needs more time to clear * Recent Group A strep sepsis due to LE wounds -home IV abx - IV ceftriaxone * MS * PAUL -CPAP qhs SNF recommended and refused. She hires 24/02 caregiver. Her recently . Possible dispo home tomorrow when mental status improved. Subjective: Still groggy, but arousable Objective: Vital Signs Temp Pulse Resp BP Pulse Ox 37.2 C 73 16 166/60 H 94 01/31/18 15:34 01/31/18 15:34 01/31/18 15:34 01/31/18 16:20 01/31/18 15:34 01/30/18 01/31/18 02/01/18 05:59 05:59 05:59 Intake Total 1999 Balance 1999 PT 12.8 SEC (12.0-15.0) 01/30/18 19:35 INR 0.94 (0.83-1.16) 01/30/18 19:[address] negative CXR viewed, my personal interpretation is - negative Laboratory Tests 01/30/18 01/30/18 19:35 19:35 WBC 7.47 Plt Count 239 Sodium 135 Creatinine 1.2 H - Physical Exam Constitutional: no apparent distress, appears nourished, not in pain Cardiovascular: regular rate and rhythym, no murmur, rub, or gallop Respiratory: no respiratory distress, no rales or rhonchi, clear to auscultation Gastrointestinal: normoactive bowel sounds, soft, non-tender abdomen, no palpable masses Skin: no rashes or abrasions, no fluctuance, no induration Neurologic: AAOx3, sensation intact bilaterally Psychiatric: interacting appropriately, not anxious, not encephalopathic, thought process linear ICD10 Worksheet Patient Problems: Problems Problem Status Onset Altered mental status Acute Fall Acute ARF (acute renal failure) Acute Anemia associated with acute blood loss Acute Ankle ulcer Acute Elevated BUN Acute Elevated troponin Acute Hip fx Acute Hyponatremia Acute Sepsis Acute Tibia/fibula fracture Acute Wound infection Acute Wound of left ankle Acute
[2018-01-31] MEDS ORDERED: ALBUMIN SQ SCH (21:00)
[2018-01-31] MEDS ORDERED: PRAMIPEXOLE 0.125 MG TAB PO SCH (21:00)
[2018-01-31] MEDS ORDERED: BACLOFEN 20 MG TAB PO SCH (21:00)
[2018-01-31] MEDS ORDERED: INTERFERON BETA SQ SCH (21:00)
[2018-02-01] MEDS ORDERED: LEVOTHYROXINE 25 MCG TAB PO SCH (06:00)
[2018-02-01 08:29] VITALS: BP 191/90
[2018-02-01] MEDS ORDERED: Armodafinil [Nuvigil 150mg] 150 MG PO SCH (09:00)
[2018-02-01] MEDS ORDERED: BACLOFEN 20 MG TAB PO SCH (09:00)
[2018-02-01] MEDS ORDERED: Dalfampridine [Ampyra] 10 MG PO SCH (09:00)
[2018-02-01] MEDS ORDERED: NON-FORMULARY NEW DRUG (Ceftriaxone [Rocephin] 2 GM) IV SCH (09:00)
[2018-02-01] MEDS: FUROSEMIDE 20 MG TAB PO SCH (09:19)
[2018-02-01] MEDS: ENOXAPARIN 40 MG/0.4 ML SYR SC SCH ×2 (09:19→09:27)
[2018-02-01] MEDS: LABETALOL HCL 100 MG TAB PO SCH (09:20)
[2018-02-01] MEDS: hydrALAZINE 25 MG TAB PO SCH (09:20)
--- NOTE | 2018-02-01 09:31 | PDMN ---
Medical Necessity Medical necessity: change to IP; los > 2mn for toxic encephalopathy r/t edible TCH and large dose Haldol; requires more time for mental status clearing; comorbid MS, PAUL, hx recent Group A strep LE wounds on LT IV abx at home; per order and progress note 01/31/18
--- NOTE | 2018-02-01 12:31 | ASMTDCNOTE ---
Case Management Discharge Discharge Order Complete? Answers: Yes Patient to Obtain Answers: Other Notes: Caregiver Medications Transportation Arranged Answers: Family/Friends Transport will Pick (Date 02/01/2018 01:00 PM & Time) Faxed Final Orders Answers: Yes Notes: [facility] Discharge Comments Notes: Patient has been discharged and would like [facility] follow. Date Signed: 02/01/2018 12:30 PM Electronically Signed By:Trisha Pagan LCSW
--- NOTE | 2018-02-01 12:34 | ASMTLACE ---
LUIS Length of stay for Answers: 1 day current admission Acuity / Level of Answers: Yes Care: Did the patient have an inpatient admission? Comorbidities - select Answers: History of falls all that apply Other Notes: Confusion, MS # of Emergency department Answers: 5-8 visits in the last 6 months Social determinants Answers: History of substance abuse (ETOH, street drugs, prescription drugs, etc.) Score: 15 Date Signed: 02/01/2018 12:33 PM Electronically Signed By:Trisha Pagan LCSW
--- NOTE | 2018-02-01 13:45 | PDIAF ---
- Diagnosis Diagnosis: weakness Code Status: Full Code - Medication Management Discharge Medications: Medications to Continue on Transfer Armodafinil [Nuvigil 150mg] 150 mg PO DAILY 04/26/15 [Last Taken 01/18/18] Dalfampridine [AMPYRA] 10 mg PO DAILY 04/26/15 [Last Taken 01/18/18] Ascorbic Acid [Vitamin C 250 mg (*)] 250 mg PO DAILY 04/27/15 [Last Taken ] Levothyroxine [Synthroid 25 mcg (*)] 25 mcg PO DAILY06 04/27/15 [Last Taken ] Furosemide [Lasix 20 MG (*)] 20 mg PO BID@09,1530 01/11/17 [Last Taken 01/18/18] hydrALAZINE [Apresoline 50 mg (*)] 50 mg PO TID 01/11/17 [Last Taken 01/18/18] Baclofen [Baclofen 20 mg (*)] 40 mg PO DAILY 06/27/17 [Last Taken 01/18/18] Baclofen [Baclofen 20 mg (*)] 60 mg PO HS 06/27/17 [Last Taken 01/18/18] Interferon Beta-1A/Albumin [Rebif Rebidose 44 Mcg/0.5 ml] 44 mcg SQ TUTHSA@21 [Last Taken 01/16/18] Labetalol HCl [Trandate 200 mg (*)] 200 mg PO BID 08/18/17 [Last Taken 01/18/18] Polyethylene Glycol 3350 [Miralax 17 gm (*)] 17 gm PO Q2D 09/26/17 [Last Taken 10/29/17] Pramipexole Di-HCl [Mirapex 0.125 mg (*)] 0.125 mg PO HS 09/26/17 [Last Taken ] Herbals/Supplements -Info Only 1 ea PO DAILY 10/30/17 [Last Taken Unknown] Ibuprofen [Motrin (*)] 200 mg PO DAILY PRN 01/20/18 [Last Taken Unknown] [place]-3 Fatty Acids [Fish Oil 1000 mg (*)] 1,000 mg PO DAILY 01/20/18 [Last Taken 01/18/18] cefTRIAXone [Rocephin] 2 gm IV DAILY vial 01/25/18 [Last Taken Unknown] Acetaminophen [Tylenol 325mg (*)] 650 mg PO Q4HRS PRN tab 02/01/18 [Last Taken Unknown] Discharge Medications: Refer to the Discharge Home Medication list for PRN reason. PICC Care - Routine: N/A - Orders Services needed: Home Care, Registered Nurse, Master Sand Mixer Machine, Physical Therapy Home Care Face to Face: I certify that this patient was under my care and that I had the required [id number] encounter meeting the encounter requirements on the discharge day. My findings support the fact that the patient is homebound as defined in Home Care Face to Face Continued: CMS Chapter 7 Medicare Benefits Manual 30.1.1 , The condition of the patient is such that there exists a normal inability to leave home and consequently, leaving home would require a considerable and taxing effort. Isolation Type: None Additional Instructions: Follow up with your primary care provider for unimproved symptoms. Return for worsening of condition. - Follow Up Care Current Providers and Referrals: Rosalba Larsen MD [[facility] [place] Primary Care Provider] - As per Instructions
--- NOTE | 2018-02-01 14:17 | ASDISCHSUM ---
Discharge Information Plan Status:Home with Home Health Medically Cleared to Leave:02/01/2018 Discharge Date:02/01/2018 CM D/C Disposition:Home Health Service ADT D/C Disposition:[id number] Projected Discharge Date:02/01/2018 01:00 PM Transportation at D/C:Family Discharge Delay Reason: Follow-Up Date:02/01/2018 01:00 PM Discharge Slot: Final Diagnosis:Confusion, Fall, Marijuana injestion? Placement Information Referral Type:*Home Health Care Services Referral ID:[id number] Provider Name:[facility] Care Address 1:[address] Address 2: City:[place] Selection Factors: State:[place] Patient Contact Information Contact Name:MARIAELENA Relationship:Nephew [address] Work Phone: City:[place] Alternate Phone: State/Zip Code:[place] [address] Email: Financial Information Financial Class:Medicare Primary Plan Desc:MEDICARE OUTPATIENT Primary Plan Number:[id number] Secondary Plan Desc:ARELISA Secondary Plan Number:[id number] Assessment Information [facility] CM Progress Note CM Note CM Note Notes: RN greg w/case work aide, pt's caregiver wanted home care agency to know that pt is in the hospital. She is current with [facility], per [facility] RN Suellen who is production team manager today, pt's caregiver is suppose to be there 24/02 but it appears she is not there all the time. [facility] has considered dropping the pt d/t non compliance, she repeatedly refuses SNF. Of note, pt tox screen positive for marijuana. DC Plan: TBD Date Signed: 01/31/2018 12:22 PM Electronically Signed By:Lovely Arzola RN [facility] CM Progress Note CM Note CM Note Notes: D/w , pt will stay overnight and dc tomorrow with caregiver, [facility] production team manager CARLA Ken [phone] notified. DC Plan: Home care/ [facility] (RN/PT) + Caregiver Date Signed: 01/31/2018 04:26 PM Electronically Signed By:Lovely Arzola RN Case Management Discharge Plan Note Case Management Discharge Discharge Order Complete? Answers: Yes Patient to Obtain Answers: Other Notes: Caregiver Medications Transportation Arranged Answers: Family/Friends Transport will Pick (Date 02/01/2018 01:00 PM & Time) Faxed Final Orders Answers: Yes Notes: [facility] Discharge Comments Notes: Patient has been discharged and would like [facility] to follow. Date Signed: 02/01/2018 12:30 PM Electronically Signed By:Trisha Pagan LCSW [facility] Length of stay for Answers: 1 day current admission Acuity / Level of Answers: Yes Care: Did the patient have an inpatient admission? Comorbidities - select Answers: History of falls all that apply Other Notes: Confusion, MS # of Emergency department Answers: 5-8 visits in the last 6 months Social determinants Answers: History of substance abuse (ETOH, street drugs, prescription drugs, etc.) Score: 15 Date Signed: 02/01/2018 12:33 PM Electronically Signed By:Trisha Pagan LCSW Intervention Information
--- NOTE | 2018-02-01 20:18 | GDS ---
[f rep st] DISCHARGE SUMMARY DISCHARGE DIAGNOSES: 1. Toxic encephalopathy. 2. No recent group A Streptococcus. 3. Multiple sclerosis. PHYSICAL EXAMINATION: GENERAL: The patient is alert. VITAL SIGNS: Afebrile at 36.4, pulse is 70, res piratory rate 16, blood pressure is 191/90. She is saturating 94% on room air. I have seen evaluated the patient on the day of discharge. HOSPITAL COURSE: The patient is a 68-year-old female who suffers from a longstanding history of MS. She was brought to the hospital after being noted to have altered mental status. She was evaluated an d diagnosed with: 1. Toxic encephalopathy. This is in the setting of an adverse reaction to edible THC, as well as a l arge dose of Haldol. Patient's mentation has completely resolved. She has returned to her baseline an d has no other abnormalities. 2. Recent group A Strep sepsis. This is secondary to a lower extremity wound with continued IV Rocep hin. She will continue this at home as previously ordered. 3. History of MS. She is at her baseline with regard to this. 4. Obstructive sleep apnea. CPAP has been ordered. DISPOSITION: It is recommended the patient go to fpc facility; however, she adamantly re fuses. She hires 24 hour care and will have home care in the outpatient setting. I have educated her regarding the safety issue of going home as opposed to a fpc facility. She does understan d this and continues to refuse. PENDING STUDIES: There are no pending studies. DISCHARGE MEDICATIONS: Please refer to EMR form. I have not provided any prescriptions for the salomon botello at the time of disposition, nor have I adjusted any of her previously prescribed home medications. FOLLOWUP: Followup will be with her primary care physician, Dr. Nelia Saunders. /[id number]/[facility]
[2018-02-02] MEDS ORDERED: POLYETHYLENE GLYCOL 3350 17 GM PKT PO SCH (09:00)
== END 2018-02-01 14:33 | disposition home health service (06) | DRG 93 ==
LOC: EDBD → EDUNIT# → INTOOBSV 01-31 06:49 → OBSVTOIN 01-31 06:49 → F3E 01-31 09:00 → OBSVTOIN 01-31 15:15
PROVIDERS: ADMIT Student in an Organized Health Care Education/Training Program; ATTEND Student in an Organized Health Care Education/Training Program
DX: G92 Toxic encephalopathy (principal); G35 Multiple sclerosis; T40.7X5A Adverse effect of cannabis (derivatives), initial encounter; W06.XXXA Fall from bed, initial encounter; S81.801A Unspecified open wound, right lower leg, initial encounter; G47.33 Obstructive sleep apnea (adult) (pediatric); Z86.19 Personal history of other infectious and parasitic diseases
CPT/HCPCS: 80305; 92523-GN; 97163-GP; 97166-GO; G8978-GP-CL; G8979-GP-CL; G8980-GP-CL; G8987-GO-CK; G8988-GO-CJ; G9165-GN-CJ; G9166-GN-CJ; J0696; J1650

== ENCOUNTER 2018-04-22 15:46 | Inpatient (IN) | payer OTHER ==
[2018-04-22 17:42] LABS: PLATELET COUNT 144 10^3/uL (150-400)
--- NOTE | 2018-04-22 18:14 | PCMIDPN ---
Assessment/Plan: Assessment/Plan: * Right lower extremity cellulitis in association with chronic right lower extremity wounds: Appearance suggestive of Beta-hemolytic Streptococcal etiology. Patient with history of group A strep bacteremia in January with similar presentation - patient may have concomitant bacteremia associated with current presentation as well. Likely portal of entry is chronic wounds versus recent trauma to right great toe. Will initiate therapy with cefazolin dose adjusted for renal insufficiency after blood cultures are obtained. Continue local wound care to right lower extremity. Elevation of right lower extremity. Time spent, greater than 35 min, which greater than half was spent in education/ counseling/coordination of care related to right lower extremity cellulitis associated with chronic right lower extremity wounds and prior history of group A streptococcal bacteremia. 04/22/18 18:09 04/22/18 18:16 Subjective: Patient previously seen by our service in January of this year for right lower extremity cellulitis with concomitant group A Streptococcus bacteremia. Has chronic right lower extremity foot wounds which patient notes have been slowly improving. Also recently patient stubbed her right great toe with full details being unclear. Over the last 24 hr, patient has developed onset of bright red erythema below the right knee extending toward the foot with warmth and mild tenderness. She has not noted any fever or chills. [facility] and noted to have right lower extremity cellulitis prompting her admission to the hospital. I have now been asked to see the patient in consultation by Dr. Diallo for assistance in her ongoing antibiotic management. Prior past medical including hospital course in January/past surgical/medications/ allergies all reviewed. Objective: Vital Signs Temp Pulse Resp BP Pulse Ox 36.7 C 62 16 90/44 L 96 04/22/18 16:23 04/22/18 16:23 04/22/18 16:23 04/22/18 16:23 04/22/18 16:23 Laboratory Results 04/22/18 17:22 Laboratory Tests 04/22/18 04/22/18 17:22 17:22 WBC 13.89 H Plt Count 144 L Neut % (Auto) 91.0 H Creatinine 1.4 H - Physical Exam General Appearance: alert, no apparent distress, thin EENT: No scleral icterus, No thrush, No conjunctival petechiae Respiratory: lungs clear, No respiratory distress Cardiac/Chest: regular rate, rhythm, systolic murmur (2-3/6 heard throughout) Extremities: inflammation (Right lower extremity shows bright erythema over anterior hull below knee extending to just above ankle; chronic wounds present over dorsal aspect of right foot with surrounding erythema; right great toe edematous with erythema and some violaceous change distally) Abdomen: non-tender, No distended ICD10 Worksheet Patient Problems: Problems Problem Status Onset ARF (acute renal failure) Acute Altered mental status Acute Anemia associated with acute blood loss Acute Ankle ulcer Acute Elevated BUN Acute Elevated troponin Acute Fall Acute Hip fx Acute Hyponatremia Acute Sepsis Acute Tibia/fibula fracture Acute Wound infection Acute Wound of left ankle Acute
[2018-04-22] MEDS ORDERED: NS 1,000 ML IV SCH (19:15)
[2018-04-22] MEDS ORDERED: ONDANSETRON DISINTEGRATING 4 MG TAB PO PRN (19:15)
[2018-04-22] MEDS ORDERED: ONDANSETRON 4 MG/2 ML VIAL IVP PRN (19:15)
[2018-04-22] MEDS ORDERED: POLYETHYLENE GLYCOL 3350 17 GM PKT PO PRN (19:27)
--- NOTE | 2018-04-22 20:24 | GHP ---
DATE OF ADMISSION: 04/22/2018 Ms. Sauceda is a 68-year-old female with a history of chronic right lower extremity wounds, as well as multiple sclerosis. She was seen in wound clinic today with concerns of a cellulitis on the thigh, a nd was referred to the emergency department. When I speak with the patient, she says she has been ea ting and drinking well lately. She has not had diarrhea. She does take Lasix and ibuprofen. It sounds like she is somewhat reliant on a caregiver for a lot of her care, and she is not able to a rticulate a lot of questions. She says she is not having pain in her groin, or lymphangitic streakin g. She is not having shaking chills, or nausea or vomiting. REVIEW OF SYSTEMS: Complete 10-point review of systems conducted, negative except as noted in HPI. PAST MEDICAL HISTORY: Multiple sclerosis, chronic hyponatremia secondary to SIADH, chronic anemia, h ypertension, lower extremity chronic wounds, risk for fall. She has had some admissions for encephal opathy, which were attributed to marijuana use. She has had right femoral fracture repair. SOCIAL HISTORY: Lives with her . Walks occasionally. Uses a wheelchair for long distances. Former smoker. Does use marijuana. FAMILY HISTORY: Notable for CAD. ALLERGIES: Amlodipine, hydrochlorothiazide, opiates and morphine analogs. MEDICATIONS: Home medications are furosemide, ibuprofen, armodafinil, ascorbic acid, baclofen, dalfa mpridine, , hydralazine, interferon, beta 1a, labetalol, levothyroxine, fish oil, MiraLAX, Mirapex. PHYSICAL EXAMINATION: VITAL SIGNS: Temp 36.7, blood pressure 90/44, pulse 62, breathing 16 times a minute, 96% on room air. GENERAL: No acute distress. HEENT: Sclerae anicteric. Oropharynx clear. Mucous membranes are tayo st. NECK: Supple. No lymphadenopathy or JVD. LUNGS: Clear to auscultation bilaterally. HEART: S1 and S2. ABDOMEN: Soft, nontender, nondistended. EXTREMITIES: Right lower extremity is bandaged. I have seen the pictures of the wounds as they were sent to me vi karen Diallo. Showing wounds on the dorsum of her right foot, with clean ulcers. There is a cellulit is of her thigh. She has pain over her distal toe. NEUROLOGIC: Exam is nonfocal. LABORATORY DATA: White count 13.9, which is elevated. Hematocrit 25, which is low for her. Platele ts 144. Sodium 126, potassium 2.8, chloride 92, bicarb 19, BUN 38, creatinine 1.4. Her last signifi cant hyponatremia was in 2014 here. Film of her foot, interpreted by me, shows no fracture. I discussed the case with Du Ivy. ASSESSMENT/PLAN: A 68-year-old female with foot wounds, presents with cellulitis. 1. Cellulitis. The portal of entry is likely her foot wounds, although she did recently hit her toe . She has been started on cefazolin by ID, and I concur with this. We will follow up blood cultures that have been drawn. 2. Hyponatremia. I suspect this is hypovolemic hyponatremia on the basis of her concomitant kidney injury. We will hold the Lasix, hold her ibuprofen, and will give her some IV fluids. I do acknowle dge her prior history of SIADH. We will repeat sodium at about midnight. 3. Multiple sclerosis. Continue her injectables. 4. Acute kidney injury, prerenal. Hold her diuretics, give her fluids. 5. Prophylaxis with low molecular weight heparin. 6. Hypertension. Labetalol. DISPOSITION: Inpatient status. /[id number]/[facility]
[2018-04-22] MEDS: INTERFERON BETA SQ SCH (21:30)
[2018-04-22] MEDS: ALBUMIN SQ SCH (21:30)
[2018-04-22] MEDS: hydrALAZINE 25 MG TAB PO SCH (21:32)
[2018-04-22] MEDS: LABETALOL HCL 100 MG TAB PO SCH (21:33)
[2018-04-22] MEDS: BACLOFEN 20 MG TAB PO SCH (21:33)
[2018-04-23] MEDS: ACETAMINOPHEN 325 MG TAB PO PRN (00:10)
[2018-04-23] MEDS ORDERED: oxyCODONE IR 5 MG TAB PO PRN (01:50)
[2018-04-23 05:41] LABS: PLATELET COUNT 131 10^3/uL (150-400)
[2018-04-23] MEDS: LEVOTHYROXINE 25 MCG TAB PO SCH (07:13)
[2018-04-23] MEDS ORDERED: Herbals/Supplements -Info Only PO SCH (09:00)
[2018-04-23] MEDS: BACLOFEN 20 MG TAB PO SCH (09:21)
[2018-04-23] MEDS: hydrALAZINE 25 MG TAB PO SCH ×2 (09:22→18:00)
[2018-04-23] MEDS: LABETALOL HCL 100 MG TAB PO SCH (09:22)
[2018-04-23] MEDS: OMEGA-3 FATTY ACIDS 1,000 MG CAP PO SCH (09:24)
[2018-04-23] MEDS: Dalfampridine [Ampyra] 10 MG PO SCH (09:24)
[2018-04-23] MEDS: ENOXAPARIN 40 MG/0.4 ML SYR SC SCH (09:26)
--- NOTE | 2018-04-23 09:37 | PCMIDPN ---
Assessment/Plan: 1. Right lower extremity cellulitis with underlying chronic wounds: Slowly improving on Ancef. Continue at present dose in the setting of underlying renal insufficiency. No new recommendations. Subjective: Spoke with prior to going in the room. She told me the patient was much better, and showed me pictures on her phone. Requested that I did not take down the dressings, as the patient apparently was upset about us doing that previously. I then went in the room; the patient feels that she is doing better. No diarrhea on the antibiotics. Frustrated about being woken up so frequently during the night. Objective: Ancef 1 g IV q.12 hours day 1 No fevers Vital Signs Temp Pulse Resp BP Pulse Ox 36.4 C 53 L 14 121/52 H 99 04/23/18 08:00 04/23/18 08:00 04/23/18 08:00 04/23/18 09:22 04/23/18 08:00 Laboratory Results 04/23/18 04:35 04/23/18 04:35 04/22/18 04/23/18 04/24/18 05:59 05:59 05:59 Intake Total 550 1000 Balance 550 1000 Blood cultures no growth - Physical Exam General Appearance: no apparent distress, thin EENT: No scleral icterus, No thrush Extremities: other (Right lower extremity: Visible toes show an ecchymotic right great toe from previous trauma. Other toes look fine. I did not unwrap the dressing on her foot and pretibial area. The visible right lower extremity that I can see shows some puckering of the skin consistent with improvement in swelling. She still does have some erythema, but she states this is better.) ICD10 Worksheet Patient Problems: Problems Problem Status Onset ARF (acute renal failure) Acute Altered mental status Acute Anemia associated with acute blood loss Acute Ankle ulcer Acute Elevated BUN Acute Elevated troponin Acute Fall Acute Hip fx Acute Hyponatremia Acute Sepsis Acute Tibia/fibula fracture Acute Wound infection Acute Wound of left ankle Acute
--- NOTE | 2018-04-23 09:41 | PDMN ---
Medical Necessity Medical necessity: Pt meets INPT criteria per MD as of 04/22/18 and [facility] M-70 Cellulitis (est. LOS >2 MN for eval/mgmt of cellulitis requiring IVAB, WBC 13.9 , hyponatremia - sodium 126, JOSSELYN - BUN 38, creatinine 1.4; hx bacteremia in January 2018, chronic RLE wounds, MS).
[2018-04-23] MEDS: ASCORBIC ACID 500 MG TAB PO SCH (09:45)
[2018-04-23] MEDS: ARMODAFINIL PO SCH (09:46)
[2018-04-23] MEDS: PRAMIPEXOLE 0.25 MG TAB PO SCH (10:40)
--- NOTE | 2018-04-23 14:13 | ASMTCMCOM ---
CM Note CM Note Notes: Met with pt, she was admitted from the wound care clinic for cellulitis. She has a wound to her R toe which she hit recently. She also has a hx of MS, she has a caregiver who is with her 4hrs in the am and 4 in the pm. She makes sure there is food and that she is toileted before getting her to bed. Pt requests a notary, CM will contact and have her talk to pt. PT/OT recommend home care, CM gave pt a list to choose from. DC Plan: Home Health + private pay caregiver Date Signed: 04/23/2018 02:13 PM Electronically Signed By:Lovely Arzola RN
--- NOTE | 2018-04-23 18:13 | HOSPPROG ---
Hospitalist Progress Note Assessment/Plan: Assessment: 68-year-old female presenting with acute cellulitis secondary to chronic right lower extremity wounds complicated by acute kidney injury and acute hyponatremia Plan: 1. Cellulitis. Acute, right lower extremity, present on admission, most likely secondary to streptococcal organisms with nidus of infection being her chronic wounds -x-ray demonstrating old healed fractures with demineralization but no over osteomyelitis -blood cultures currently pending -appreciate Infectious Disease consultation as well as that of general surgery, continue IV Ancef and monitor care -ongoing wound care -continue monitor white blood cell count, continues to experience leukocytosis today, remains clinically on resolved 2. Hyponatremia. Acute, most likely secondary to hypo bulimia in the setting of infection, receiving normal saline overnight, holding today given she has a previous history of SIADH -monitor serum sodium level tomorrow as well as urine output 3. Acute kidney injury on chronic kidney disease stage 3. Reviewed outside records including labs from 04/13/2018 indicating creatinine level 1.1, currently 1.4 -status post IV fluids, monitor urine output and serum creatinine on a.m. 4. Multiple sclerosis. Chronic, has regular are a caretakers at home, will most likely be able to succeed with home care and outpatient wound care after this acute episode has resolved Diet. Regular Prophylaxis. High risk patient, heparin subcu Code. Full Disposition. Anticipated discharge uncertain this time, requiring ongoing inpatient care for unresolved acute cellulitis requiring ongoing IV antibiotics and frequent general surgery/infectious Disease reassessments. Subjective: Patient denies pain at this time Objective: Vital Signs Temp Pulse Resp BP Pulse Ox 36.9 C 79 16 148/61 H 93 04/23/18 15:11 04/23/18 15:11 04/23/18 15:11 04/23/18 15:11 04/23/18 15:11 Laboratory Results 04/23/18 04:35 04/23/18 04:35 04/22/18 04/23/18 04/24/18 05:59 05:59 05:59 Intake Total 550 1000 Balance 550 1000 - Physical Exam Constitutional: no apparent distress, appears nourished, not in pain, chronically ill appearing Cardiovascular: regular rate and rhythym, no murmur, rub, or gallop, edema (2+ right lower extremity edema) Respiratory: inspiratory crackles (Clear with cough bilateral bases), No reduced air movement, No expiratory wheeze, No bronchial breath sounds, No respiratory distress Gastrointestinal: normoactive bowel sounds, soft, non-tender abdomen, no palpable masses, No distension Skin: other (Ecchymotic plantar surface of right great toe, flaking skin proximal to dressing right lower extremity) Neurologic: AAOx3, sensation intact bilaterally, weakness (Bilateral lower extremities, requires some manual manipulation by the patient to move both legs) , No facial droop Psychiatric: interacting appropriately, not anxious, not encephalopathic, thought process linear ICD10 Worksheet Patient Problems: Problems Problem Status Onset Hip fx Acute Hyponatremia Acute ARF (acute renal failure) Acute Anemia associated with acute blood loss Acute Tibia/fibula fracture Acute Altered mental status Acute Wound of left ankle Acute Elevated troponin Acute Elevated BUN Acute Ankle ulcer Acute Sepsis Acute Wound infection Acute Fall Acute
[2018-04-24] MEDS: hydrALAZINE 25 MG TAB PO SCH ×4 (00:23→21:30)
[2018-04-24] MEDS: LABETALOL HCL 100 MG TAB PO SCH ×3 (00:24→21:30)
[2018-04-24] MEDS: BACLOFEN 20 MG TAB PO SCH ×3 (00:24→21:30)
[2018-04-24] MEDS: ACETAMINOPHEN 325 MG TAB PO PRN ×2 (00:24→14:30)
[2018-04-24 05:27] LABS: PLATELET COUNT 142 10^3/uL (150-400)
[2018-04-24] MEDS: LEVOTHYROXINE 25 MCG TAB PO SCH ×2 (06:10→11:55)
[2018-04-24] MEDS: ASCORBIC ACID 500 MG TAB PO SCH (09:20)
[2018-04-24] MEDS: OMEGA-3 FATTY ACIDS 1,000 MG CAP PO SCH (09:20)
[2018-04-24] MEDS: PRAMIPEXOLE 0.25 MG TAB PO SCH (09:22)
[2018-04-24] MEDS: ENOXAPARIN 40 MG/0.4 ML SYR SC SCH (09:22)
[2018-04-24] MEDS: Dalfampridine [Ampyra] 10 MG PO SCH (09:23)
[2018-04-24] MEDS: ARMODAFINIL PO SCH (09:23)
--- NOTE | 2018-04-24 09:24 | SOAPPROG ---
SOAP Progress Note Assessment/Plan: Assessment: 68 yo with MS who has balance issues. Many falls in the past year which have resulted in R broken leg and wounds. Has been admitted for bacteremia. I have recommended BKA. She has tried HBO and actually got worse. Admitted for cellulitus R leg Lovely appears better today Leg More pale today but erythema still present Wound care to change dressings We will be on standby, I made an appt for her at [facility] for Wed at 2 Plan: 04/24/18 09:21 Objective: Vital Signs Temp Pulse Resp BP Pulse Ox 36.4 C 67 16 134/61 H 95 04/24/18 08:00 04/24/18 08:00 04/24/18 08:00 04/24/18 08:00 04/24/18 08:00 Laboratory Results 04/24/18 04:47 04/24/18 04:47 04/23/18 04/24/18 04/25/18 05:59 05:59 05:59 Intake Total 550 1550 Balance 550 1550 ICD10 Worksheet Patient Problems: Problems Problem Status Onset ARF (acute renal failure) Acute Altered mental status Acute Anemia associated with acute blood loss Acute Ankle ulcer Acute Elevated BUN Acute Elevated troponin Acute Fall Acute Hip fx Acute Hyponatremia Acute Sepsis Acute Tibia/fibula fracture Acute Wound infection Acute Wound of left ankle Acute
--- NOTE | 2018-04-24 09:25 | PCMIDPN ---
Assessment/Plan: 1. Right lower extremity cellulitis with underlying chronic wounds: Slowly improving on Ancef! Given improvement in kidney function, may be able to up Ancef to Q 8. She understands she will likely be here over the weekend, as she is not yet ready for oral therapy. 04/24/18 09:23 Subjective: In a good mood this morning. Tells me she slept well. No diarrhea. Caregiver also in the room. Objective: Ancef 1 g IV q.12 hours day 2 No fevers Vital Signs Temp Pulse Resp BP Pulse Ox 36.4 C 67 16 134/61 H 95 04/24/18 08:00 04/24/18 08:00 04/24/18 08:00 04/24/18 08:00 04/24/18 08:00 Laboratory Results 04/24/18 04:47 04/24/18 04:47 04/23/18 04/24/18 04/25/18 05:59 05:59 05:59 Intake Total 550 1550 Balance 550 1550 Blood cultures negative - Physical Exam General Appearance: alert, no apparent distress EENT: No thrush Extremities: other (Right lower extremity: The foot and ankle are wrapped; I did not take them down at the patient's request. Erythema on her right lower extremity is much improved distally. Proximally around the knee she does still have some blanching pink discoloration of the skin, but overall this is starting to recede and is improved compared with yesterday. No pain out of proportion to exam findings. No bullae, vesicles or abnormal sensation.) ICD10 Worksheet Patient Problems: Problems Problem Status Onset ARF (acute renal failure) Acute Altered mental status Acute Anemia associated with acute blood loss Acute Ankle ulcer Acute Elevated BUN Acute Elevated troponin Acute Fall Acute Hip fx Acute Hyponatremia Acute Sepsis Acute Tibia/fibula fracture Acute Wound infection Acute Wound of left ankle Acute
--- NOTE | 2018-04-24 09:53 | ASMTCMCOM ---
CM Note CM Note Notes: Spoke w/pt, she stated she has used [facility] before, CM related to her that they did not have staffing available. Pt wishes CM to send referrals to a few places. Pt will likely be here through the weekend. DC Plan: Homecare Date Signed: 04/24/2018 09:52 AM Electronically Signed By:Lovely Arzola RN
[2018-04-24] MEDS: POTASSIUM Cl (KCl) 40 MEQ in NS 1,000 ML IV SCH (11:55)
[2018-04-24] MEDS ORDERED: MAG HYDROX/AL HYDROX/SIMETH 30 ML UDCUP PO PRN (15:21)
[2018-04-24] MEDS ORDERED: LIDOCAINE HCL 4% TOPICAL SOLN 50ML MM PRN (15:29)
[2018-04-24] MEDS: LIDOCAINE 4%/MENTHOL 1% PATCH TD SCH (16:06)
--- NOTE | 2018-04-24 16:28 | WOCRNPDOC ---
MATT Advanced Assessment Note - Skin Integrity Problem, Advanced Assess Right Heel Pressure Injury Dressing Type: Alginate, Kerlix, Super Absorbant Dressing Description: Clean/Dry, Intact Exudate Amount: Scant Exudate Characteristic(s): Serous Integumentary Issue Intervention: Dressing Removed Tawana Wound Tissue: Erythema, Scaly, Painful/Tender Tawana Wound Swelling: None Wound Bed Color: Red, Yellow Wound Bed Constitution: Red/Loyola - Non Granular Tissue (20%), Mixed Loose & Adhered Slough/Eschar (80%) Site Measurement - Head-to-Toe Length X Width X Depth (cm): 2.1x2.5x0.2 Pressure Injury Stage: Unstageable Pressure Injury Present on Admit: Yes Skin Integrity Problem Comment: Patient has multiple chronic wounds on her right lower extremity, several of them pressure related. Patient is seen by Dr. Diallo in outpatient. Wounds were cleansed with NS and gauze, 10ml of 4% liquid lidocaine applied topically to all of the wounds. Sayda RN in room to finish dressing change. Wound care will round again next week. Right Medial Ankle Dressing Type: Alginate, Kerlix, Super Absorbant Dressing Description: Clean/Dry, Intact Exudate Amount: Scant Exudate Characteristic(s): Serous Integumentary Issue Intervention: Dressing Removed Tawana Wound Tissue: Erythema, Scaly, Painful/Tender Wound Bed Color: Red, Yellow Wound Bed Constitution: Granulation Tissue (30%), Adhered Slough (70%) Site Measurement - Head-to-Toe Length X Width X Depth (cm): 1.8x2.4x0.2 Skin Integrity Problem Comment: Patient has multiple chronic wounds on her right lower extremity, several of them pressure related. Patient is seen by Dr. Diallo in outpatient. Wounds were cleansed with NS and gauze, 10ml of 4% liquid lidocaine applied topically to all of the wounds. Sayda RN in room to finish dressing change. Wound care will round again next week. Right Lateral Ankle Dressing Type: Alginate, Kerlix, Super Absorbant Dressing Description: Clean/Dry, Intact Exudate Amount: Scant Exudate Characteristic(s): Serous Integumentary Issue Intervention: Dressing Removed Tawana Wound Tissue: Erythema, Scaly, Painful/Tender Wound Bed Color: Black, Red, Yellow Wound Bed Constitution: Granulation Tissue (50%), Mixed Loose & Adhered Slough/ Eschar (50%) Site Measurement - Head-to-Toe Length X Width X Depth (cm): 2.9x2.5x0.3 Skin Integrity Problem Comment: Patient has multiple chronic wounds on her right lower extremity, several of them pressure related. Patient is seen by Dr. Diallo in outpatient. Wounds were cleansed with NS and gauze, 10ml of 4% liquid lidocaine applied topically to all of the wounds. Sayda RN in room to finish dressing change. Wound care will round again next week. Right Medial Dorsal Foot Dressing Type: Alginate, Kerlix, Super Absorbant Dressing Description: Clean/Dry, Intact Exudate Amount: Scant Exudate Characteristic(s): Serous Integumentary Issue Intervention: Dressing Removed Tawana Wound Tissue: Erythema, Scaly, Painful/Tender Wound Bed Color: Red, Yellow Wound Bed Constitution: Granulation Tissue (70%), Adhered Slough (30%) Site Measurement - Head-to-Toe Length X Width X Depth (cm): 2.8x2.2x0.2 Skin Integrity Problem Comment: Patient has multiple chronic wounds on her right lower extremity, several of them pressure related. Patient is seen by Dr. Diallo in outpatient. Wounds were cleansed with NS and gauze, 10ml of 4% liquid lidocaine applied topically to all of the wounds. Sayda AGUIRRE in room to finish dressing change. Wound care will round again next week. Right Lateral Distal Dorsal Foot Dressing Type: Alginate, Kerlix, Super Absorbant Dressing Description: Clean/Dry, Intact Exudate Amount: Minimal Exudate Characteristic(s): Serous Integumentary Issue Intervention: Dressing Removed Tawana Wound Tissue: Erythema, Scaly, Painful/Tender Tawana Wound Swelling: Mild Wound Bed Color: Red, Yellow Wound Bed Constitution: Red/Loyola - Non Granular Tissue (10%), Adhered Slough (90 %) Site Measurement - Head-to-Toe Length X Width X Depth (cm): 2.8x2.3x0.4 Skin Integrity Problem Comment: Patient has multiple chronic wounds on her right lower extremity, several of them pressure related. Patient is seen by Dr. Diallo in outpatient. Wounds were cleansed with NS and gauze, 10ml of 4% liquid lidocaine applied topically to all of the wounds. Sayda AGUIRRE in room to finish dressing change. Wound care will round again next week. Right Lateral Proximal Dorsal Foot Dressing Type: Alginate, Kerlix, Super Absorbant Dressing Description: Clean/Dry, Intact Exudate Amount: Scant Exudate Characteristic(s): Serous Integumentary Issue Intervention: Dressing Removed Tawana Wound Tissue: Erythema, Scaly, Painful/Tender Wound Bed Color: Red, Yellow Wound Bed Constitution: Red/Loyola - Non Granular Tissue (10%), Adhered Slough (90 %) Site Measurement - Head-to-Toe Length X Width X Depth (cm): 2x2.5x0.2 Skin Integrity Problem Comment: Patient has multiple chronic wounds on her right lower extremity, several of them pressure related. Patient is seen by Dr. Daillo in outpatient. Wounds were cleansed with NS and gauze, 10ml of 4% liquid lidocaine applied topically to all of the wounds. Sayda RN in room to finish dressing change. Wound care will round again next week. Sacrum Pressure Injury Dressing Type: Allevyn Life Dressing Description: Clean/Dry, Intact Exudate Amount: None Integumentary Issue Intervention: Dressing Changed Tawana Wound Tissue: Blanching Tawana Wound Swelling: None Wound Bed Color: Loyola, Yellow Wound Bed Constitution: Red/Loyola - Non Granular Tissue (40%), Adhered Slough (60 %) Site Measurement - Head-to-Toe Length X Width X Depth (cm): 1.7x1x0.2 Pressure Injury Stage: Unstageable Pressure Injury Present on Admit: Yes Skin Integrity Problem Comment: Wound cleansed with NS and gauze. Unstageable pressure injury that is present on admission. Patient's home health RN was in room and visualized wound saying it looked better than before. Wound care will round again next week.
--- NOTE | 2018-04-24 20:27 | HOSPPROG ---
Hospitalist Progress Note Assessment/Plan: Assessment: 68-year-old female presenting with acute cellulitis secondary to chronic right lower extremity wounds complicated by acute kidney injury and acute hyponatremia Plan: 1. Cellulitis. Acute, right lower extremity, present on admission, most likely secondary to streptococcal organisms with nidus of infection being her chronic wounds -d/w Dr. Diallo, appreciate ongoing general surgery consult, she recs continue IV Ancef and f/u appointment made for next week -ongoing wound care -leukocytosis resolved, repeat in AM given today's fever 2. Hyponatremia. Acute, most likely secondary to hypovolemia in the setting of infection, previous hx of SIADH but labs prior to presentation were all within normal range -get Gian and if <10, cont IV NS today -repeat after sNa and cont IVF if improving -smoothies -1.2L/day fluid restriction 3. Acute kidney injury on chronic kidney disease stage 3. Resolved 4. Multiple sclerosis. Chronic, has regular are a caretakers at home, will most likely be able to succeed with home care and outpatient wound care after this acute episode has resolved 5. Anemia. 2/2 chronic inflam disease, monitor 6. Atelectasis. Acute, responded well to IS, off o2 now Diet. Regular Prophylaxis. High risk patient, lovenox HS Code. Full Disposition. Anticipated discharge 04/25 pending stabilization of above and ability to transition to PO Abx. Remains clinically unresolved today w/ ongoing fever, ongoing erythema, and worsening hyponatremia. Subjective: thirsty, no pain in leg, worried about IV fluids Objective: Vital Signs Temp Pulse Resp BP Pulse Ox 36.4 C 60 18 144/58 H 94 04/24/18 08:00 04/24/18 12:00 04/24/18 12:00 04/24/18 15:45 04/24/18 12:00 Laboratory Results 04/24/18 04:47 04/24/18 14:14 04/23/18 04/24/18 04/25/18 05:59 05:59 05:59 Intake Total 550 1550 1570 Output Total 1000 Balance 550 1550 570 - Pending Discharge Pending Discharge Within 48 Hours: Yes Pending Discharge Date: 04/26/18 Pending Discharge Time: 11:00 - Physical Exam Constitutional: no apparent distress, appears nourished, not in pain Eyes: PERRL, anicteric sclera, EOMI Cardiovascular: systolic murmur (II/ at sternum and apex), edema (1+ RLE), No irregularly irregular, No tachycardia Respiratory: no respiratory distress, no rales or rhonchi, clear to auscultation Gastrointestinal: normoactive bowel sounds, soft, non-tender abdomen, no palpable masses Genitourinary: no bladder fullness, no bladder tenderness, no renal bruits Skin: other (wound covered w/ bandage) Neurologic: AAOx3, sensation intact bilaterally (bilat distal feet) Psychiatric: interacting appropriately, not anxious, not encephalopathic, thought process linear ICD10 Worksheet Patient Problems: Problems Problem Status Onset ARF (acute renal failure) Acute Altered mental status Acute Anemia associated with acute blood loss Acute Ankle ulcer Acute Elevated BUN Acute Elevated troponin Acute Fall Acute Hip fx Acute Hyponatremia Acute Sepsis Acute Tibia/fibula fracture Acute Wound infection Acute Wound of left ankle Acute
[2018-04-24] MEDS: PATCH REMOVAL 1 EA PATCH TD SCH (21:31)
[2018-04-24] MEDS: ALBUMIN SQ SCH (21:33)
[2018-04-24] MEDS: INTERFERON BETA SQ SCH (21:33)
[2018-04-25] MEDS: POTASSIUM Cl (KCl) 40 MEQ in NS 1,000 ML IV SCH (01:03)
[2018-04-25] MEDS: LEVOTHYROXINE 25 MCG TAB PO SCH (05:25)
[2018-04-25] MEDS ORDERED: CEPACOL LOZENGE PO PRN (05:36)
[2018-04-25 05:45] LABS: PLATELET COUNT 162 10^3/uL (150-400)
--- NOTE | 2018-04-25 09:22 | HOSPPROG ---
Hospitalist Progress Note Assessment/Plan: DIAGNOSES: * cellulitis R leg/foot/ankle, with open wounds POA * Some improvement with antibiotics but still quite red swollen warm and tender * Wounds look good, has been getting ongoing wound care at the outpatient clinic * JOSSELYN, resolved * hyponatremia, hypervolemic, much improved * oral flulid restriction * chronic stable normocytic anemia, chronic disease * advanced MS with severely impaired mobility; 24 hr daily caretakers at home PLANS: * Continue IV antibiotics at this time * Leg elevation * Wound care as per Dr. Diallo's recommendations * Stop IV fluid, continue oral fluid restriction * Nutrition support * Preventive skin care measures for the rest of her skin SUBJECTIVE: Still has some pain in her leg Eating and drinking okay OBJECTIVE VITALS REVIEWED: Some hypertension otherwise stable without fever EXAM: ALERT ORIENTED SKIN WARM DRY COLOR OK RESPS NOT LABORED LUNGS CLEAR BSS HEART REGULAR ABD SOFT NONDISTENDED NONTENDER, BOWEL SOUNDS PRESENT LIMBS the left leg still has significant cellulitis from a few cm above the knee down to the distal foot with warmth redness pain and tenderness; all of the wounds on the foot and ankle look very good and her appropriately dressed IV SITE OK Objective: Vital Signs Temp Pulse Resp BP Pulse Ox 37.2 C 83 20 172/78 H 93 04/25/18 07:51 04/25/18 07:51 04/25/18 07:51 04/25/18 07:51 04/25/18 07:51 Laboratory Results 04/25/18 05:10 04/25/18 05:10 04/24/18 04/25/18 04/26/18 06:59 06:59 06:59 Intake Total 1550 3107 Output Total 1000 Balance 1550 2107 ICD10 Worksheet Patient Problems: Problems Problem Status Onset ARF (acute renal failure) Acute Altered mental status Acute Anemia associated with acute blood loss Acute Ankle ulcer Acute Elevated BUN Acute Elevated troponin Acute Fall Acute Hip fx Acute Hyponatremia Acute Sepsis Acute Tibia/fibula fracture Acute Wound infection Acute Wound of left ankle Acute
[2018-04-25] MEDS: LABETALOL HCL 100 MG TAB PO SCH ×2 (09:50→21:03)
[2018-04-25] MEDS: hydrALAZINE 25 MG TAB PO SCH ×3 (09:50→21:03)
[2018-04-25] MEDS: OMEGA-3 FATTY ACIDS 1,000 MG CAP PO SCH (09:50)
[2018-04-25] MEDS: PRAMIPEXOLE 0.25 MG TAB PO SCH (09:50)
[2018-04-25] MEDS: ASCORBIC ACID 500 MG TAB PO SCH (09:51)
[2018-04-25] MEDS: BACLOFEN 20 MG TAB PO SCH ×2 (09:51→21:03)
[2018-04-25] MEDS: ENOXAPARIN 40 MG/0.4 ML SYR SC SCH (09:52)
[2018-04-25] MEDS: Dalfampridine [Ampyra] 10 MG PO SCH (09:57)
[2018-04-25] MEDS: ARMODAFINIL PO SCH (10:13)
[2018-04-25] MEDS: LIDOCAINE 4%/MENTHOL 1% PATCH TD SCH ×2 (12:02→12:38)
[2018-04-25] MEDS: IBUPROFEN 200 MG TAB PO PRN (12:40)
--- NOTE | 2018-04-25 15:40 | PCMIDPN ---
Assessment/Plan: Assessment: Left lower extremity cellulitis-seems to be somewhat improved given fine wrinkling on exam. Patient also reports that the swelling and redness are better. Patient is on cefazolin currently. We will continue this medication at present dosing. Hopefully will be ready to switch to orals by Friday. Plan: 1. Continue IV cefazolin. 2. Follow appearance of left lower extremity. 3. Plan to change to oral Keflex for completion of therapy as an outpatient once clinically ready for this. 04/25/18 15:38 Subjective: Patient is resting in her hospital chair. She reports no new complaint. Denies fevers or chills. States that her right lower extremity is decreased in size over the last day or 2. Objective: Cefazolin # 3 Vital Signs Temp Pulse Resp BP Pulse Ox 36.6 C 77 20 151/64 H 93 04/25/18 11:50 04/25/18 11:50 04/25/18 11:50 04/25/18 11:50 04/25/18 11:50 Laboratory Results 04/25/18 05:10 04/25/18 05:10 04/24/18 04/25/18 04/26/18 05:59 05:59 05:59 Intake Total 1550 3107 Output Total 1000 Balance 1550 2107 - Physical Exam General Appearance: WD/WN, alert, no apparent distress, non-toxic Respiratory: lungs clear, normal breath sounds, No respiratory distress Cardiac/Chest: regular rate, rhythm, No tachycardia Extremities: non-tender, swelling (Mild), erythema, No normal inspection Skin: normal color, warm/dry, No rash Neuro/Psych: alert, normal mood/affect, oriented x 3 ICD10 Worksheet Patient Problems: Problems Problem Status Onset ARF (acute renal failure) Acute Altered mental status Acute Anemia associated with acute blood loss Acute Ankle ulcer Acute Elevated BUN Acute Elevated troponin Acute Fall Acute Hip fx Acute Hyponatremia Acute Sepsis Acute Tibia/fibula fracture Acute Wound infection Acute Wound of left ankle Acute
[2018-04-25] MEDS: PATCH REMOVAL 1 EA PATCH TD SCH (22:18)
[2018-04-26] MEDS: LEVOTHYROXINE 25 MCG TAB PO SCH (05:12)
[2018-04-26] MEDS: LIDOCAINE 4%/MENTHOL 1% PATCH TD SCH (08:46)
[2018-04-26] MEDS: ENOXAPARIN 40 MG/0.4 ML SYR SC SCH (08:46)
[2018-04-26] MEDS: PRAMIPEXOLE 0.25 MG TAB PO SCH (08:47)
[2018-04-26] MEDS: hydrALAZINE 25 MG TAB PO SCH ×3 (08:47→22:03)
[2018-04-26] MEDS: ASCORBIC ACID 500 MG TAB PO SCH (08:47)
[2018-04-26] MEDS: BACLOFEN 20 MG TAB PO SCH ×2 (08:48→22:02)
[2018-04-26] MEDS: OMEGA-3 FATTY ACIDS 1,000 MG CAP PO SCH (08:48)
[2018-04-26] MEDS: LABETALOL HCL 100 MG TAB PO SCH ×2 (08:48→22:02)
[2018-04-26] MEDS: Dalfampridine [Ampyra] 10 MG PO SCH (08:53)
[2018-04-26] MEDS: ARMODAFINIL PO SCH (08:58)
--- NOTE | 2018-04-26 10:04 | HOSPPROG ---
Hospitalist Progress Note Assessment/Plan: DIAGNOSES: * cellulitis R leg/foot/ankle, with several chronic open wounds POA * Improvement is slow, still with large area of significant cellulitis * Wounds look good, has been getting ongoing wound care at the outpatient clinic * JOSSELYN, resolved * hyponatremia, hypervolemic, much improved * oral flulid restriction * 6 months of chronic cough uncertain etiology; question of left upper lobe nodule on chest x-ray * The nodule if there is 1 actually present on x-ray appears to me as calcified so not likely clinically concerning, but with 6 months of cough will want further imaging to be sure nothing concerning causing that * hypertension: Remains hypertensive so far here despite her usual hydralazine and labetalol * chronic stable normocytic anemia, chronic disease * advanced MS with severely impaired mobility; 24 hr daily caretakers at home PLANS: * Continue IV antibiotics at this time * Leg elevation * Wound care as per Dr. Diallo's recommendations * CT scan of chest today to assess for chronic cough etiology * continue oral fluid restriction at present * Will resume her Lasix at present, follow sodium and blood pressures and renal function * Nutrition support * Preventive skin care measures for the rest of her skin SUBJECTIVE: Less pain in leg Today mentions to me that she has had 6 months of chronic cough, nonproductive, without dyspnea or chest pain; no hemoptysis OBJECTIVE VITALS REVIEWED: Remains hypertensive otherwise stable without fever EXAM: ALERT ORIENTED SKIN WARM DRY COLOR OK RESPS NOT LABORED LUNGS CLEAR BSS HEART REGULAR ABD SOFT NONDISTENDED NONTENDER, BOWEL SOUNDS PRESENT LIMBS the left leg still has significant cellulitis from a few cm above the knee down to the distal foot with warmth redness pain and tenderness; all of the wounds on the foot and ankle look very good and her appropriately dressed IV SITE OK Objective: Vital Signs Temp Pulse Resp BP Pulse Ox 36.8 C 63 21 H 164/93 H 97 04/26/18 07:30 04/26/18 07:30 04/26/18 07:30 04/26/18 07:30 04/26/18 07:30 Laboratory Results 04/25/18 05:10 04/25/18 05:10 04/25/18 04/26/18 04/27/18 06:59 06:59 06:59 Intake Total 3107 375 Output Total 1000 Balance 2104 375 - Time Spent With Patient Time Spent with Patient: greater than 35 minutes Time Spent with Patient: Greater than 35 minutes spent on this patients care, greater than 50% of time spent counseling, educating, and coordinating care regarding the above mentioned plan. ICD10 Worksheet Patient Problems: Problems Problem Status Onset ARF (acute renal failure) Acute Altered mental status Acute Anemia associated with acute blood loss Acute Ankle ulcer Acute Elevated BUN Acute Elevated troponin Acute Fall Acute Hip fx Acute Hyponatremia Acute Sepsis Acute Tibia/fibula fracture Acute Wound infection Acute Wound of left ankle Acute
[2018-04-26] MEDS ORDERED: IOPAMIDOL (ISOVUE-300) 100 ML BTL ONE (14:22)
[2018-04-26] MEDS: FUROSEMIDE 20 MG TAB PO SCH (16:45)
--- NOTE | 2018-04-26 16:57 | ASMTCMCOM ---
CM Note CM Note Notes: CM spoke with RN regarding patients case, discharge likely 04/28 with home care as planned. CM to follow. Current discharge plan: Home care. Date Signed: 04/26/2018 04:56 PM Electronically Signed By:Mikki Wiley
--- NOTE | 2018-04-26 17:09 | PCMIDPN ---
Assessment/Plan: Assessment/Plan: * Right lower extremity cellulitis in association with chronic right lower extremity wounds: Appearance suggestive of Beta-hemolytic Streptococcal etiology. Clinically improved but still significant area of cellulitis over right lower leg. Not ready to change to oral antibiotic therapy and suspect will require several days of IV antibiotics before this is possible. This was discussed with patient today. Overall dorsal aspect of foot significantly improved. Continue lower extremity elevation and IV cefazolin. 04/26/18 17:06 Subjective: Patient with less right lower extremity pain. Eager to go home. Concerned about having to pay her bills. Objective: Vital Signs Temp Pulse Resp BP Pulse Ox 36.4 C 79 20 174/69 H 92 04/26/18 15:04 04/26/18 15:04 04/26/18 15:04 04/26/18 16:45 04/26/18 15:04 Laboratory Results 04/25/18 05:10 04/25/18 05:10 04/25/18 04/26/18 04/27/18 05:59 05:59 05:59 Intake Total 3107 375 Output Total 1000 Balance 2107 375 Cefazolin # 4 Blood cultures x2 no growth - Physical Exam General Appearance: alert, no apparent distress EENT: No scleral icterus Extremities: inflammation (Right lower extremity with persistent bright erythema below knee extending to above ankle; some desquamation of skin beginning; warmth and tenderness remains present.) Skin: other (Multiple chronic wounds over dorsal aspect of foot with decreased erythema over dorsum of foot) Lymphatic: other (No lymphangitis right mid thigh) ICD10 Worksheet Patient Problems: Problems Problem Status Onset ARF (acute renal failure) Acute Altered mental status Acute Anemia associated with acute blood loss Acute Ankle ulcer Acute Elevated BUN Acute Elevated troponin Acute Fall Acute Hip fx Acute Hyponatremia Acute Sepsis Acute Tibia/fibula fracture Acute Wound infection Acute Wound of left ankle Acute
[2018-04-26] MEDS: PATCH REMOVAL 1 EA PATCH TD SCH (23:44)
[2018-04-27] MEDS: LEVOTHYROXINE 25 MCG TAB PO SCH (05:02)
[2018-04-27] MEDS: OMEGA-3 FATTY ACIDS 1,000 MG CAP PO SCH (08:01)
[2018-04-27] MEDS: ENOXAPARIN 40 MG/0.4 ML SYR SC SCH (08:01)
[2018-04-27] MEDS: hydrALAZINE 25 MG TAB PO SCH ×3 (08:02→20:39)
[2018-04-27] MEDS: FUROSEMIDE 20 MG TAB PO SCH ×2 (08:02→15:02)
[2018-04-27] MEDS: ASCORBIC ACID 500 MG TAB PO SCH (08:02)
[2018-04-27] MEDS: Dalfampridine [Ampyra] 10 MG PO SCH (08:04)
[2018-04-27] MEDS: LABETALOL HCL 100 MG TAB PO SCH ×2 (08:05→20:38)
[2018-04-27] MEDS: BACLOFEN 20 MG TAB PO SCH ×2 (08:05→20:39)
[2018-04-27] MEDS: PRAMIPEXOLE 0.25 MG TAB PO SCH (08:05)
[2018-04-27] MEDS: ARMODAFINIL PO SCH (10:16)
--- NOTE | 2018-04-27 10:45 | PCMIDPN ---
Assessment/Plan: Assessment: Left lower extremity cellulitis-clear improvement on exam today. Patient also reports that the swelling and redness are better. Patient is on cefazolin currently. We will continue this medication at present dosing. Needs a couple of more days of IVs prior to potential switch to oral antibiotics. Plan: 1. Continue IV cefazolin. 2. Follow appearance of left lower extremity. 3. Plan to change to oral Keflex for completion of therapy as an outpatient once clinically ready for this. Subjective: Patient is resting in her hospital chair. Decreased swelling in her right lower extremity. Decreased redness as well. No fevers or chills. Objective: Cefazolin # 5 Vital Signs Temp Pulse Resp BP Pulse Ox 36.3 C 71 16 163/78 H 91 L 04/27/18 08:00 04/27/18 08:00 04/27/18 08:00 04/27/18 08:00 04/27/18 08:00 Laboratory Results 04/25/18 05:10 04/27/18 04:30 04/26/18 04/27/18 04/28/18 05:59 05:59 05:59 Intake Total 375 1050 Balance 375 1050 - Physical Exam General Appearance: WD/WN, alert, no apparent distress, non-toxic Respiratory: lungs clear, normal breath sounds, No respiratory distress Cardiac/Chest: regular rate, rhythm, No tachycardia Extremities: non-tender, swelling (Less swelling), No normal inspection Skin: normal color, warm/dry, No rash Neuro/Psych: alert, normal mood/affect, oriented x 3 ICD10 Worksheet Patient Problems: Problems Problem Status Onset ARF (acute renal failure) Acute Altered mental status Acute Anemia associated with acute blood loss Acute Ankle ulcer Acute Elevated BUN Acute Elevated troponin Acute Fall Acute Hip fx Acute Hyponatremia Acute Sepsis Acute Tibia/fibula fracture Acute Wound infection Acute Wound of left ankle Acute
[2018-04-27] MEDS: ACETAMINOPHEN 325 MG TAB PO PRN (12:22)
[2018-04-27] MEDS: IBUPROFEN 200 MG TAB PO PRN (12:22)
--- NOTE | 2018-04-27 14:09 | HOSPPROG ---
Hospitalist Progress Note Assessment/Plan: DIAGNOSES: * cellulitis R leg/foot/ankle, with several chronic open wounds POA * Improvement is slow but better each day, still with large area of significant cellulitis * ankle and foot wounds improving here with wound care * Dr Blum recommending 1-2 days more IV abx here before DC on po * JOSSELYN, resolved * hyponatremia, hypervolemic, resolved * oral flulid restriction * SUSI lung nodules 1.6 cm, 6 months of chronic cough uncertain etiology; question of left upper lobe nodule on chest x-ray * radiology recommended [address], but I did not feel comfortable with that given size location and other features along with 6 mos of cough; I have reviewed CT images with Dr Chou who recommends a course of antibiotic and steroid and repeat CT chest 2 months, and I am more comfortable with that. I have reviewed all this with the patient * hypertension: Remains hypertensive so far here despite her usual hydralazine and labetalol and lasix * chronic stable normocytic anemia, chronic disease * advanced MS with severely impaired mobility; 24 hr daily caretakers at home PLANS: * Continue IV antibiotics at this time * Leg elevation * Wound care as per Dr. Diallo's recommendations * increase labetalol dose to 400 bid and follow * continue oral fluid restriction at present * continue home Lasix dose * Nutrition support * Preventive skin care measures for the rest of her skin * for gound glass lung nodule will add a course of azithro and prednisone, plan outpt repeat chest CT in 2 months SUBJECTIVE: feels better w decreasing leg pain no new sxs OBJECTIVE VITALS REVIEWED: Remains hypertensive otherwise stable without fever EXAM: ALERT ORIENTED SKIN WARM DRY COLOR OK RESPS NOT LABORED LUNGS CLEAR BSS HEART REGULAR ABD SOFT NONDISTENDED NONTENDER, BOWEL SOUNDS PRESENT LIMBS the left leg still has significant cellulitis from a few cm above the knee down to the distal foot with warmth redness pain and tenderness; all of the wounds on the foot and ankle look very good and her appropriately dressed IV SITE OK Radiology: I have reviewed CT chest images: she has a lung nodule pleural based SUSI 1.6 cm largest dimension, irregular contours and somewhat vaguely defined outline but not spiculated, not calcified. Objective: Vital Signs Temp Pulse Resp BP Pulse Ox 36.5 C 70 16 163/78 H 94 04/27/18 11:13 04/27/18 11:13 04/27/18 11:13 04/27/18 11:13 04/27/18 11:13 Laboratory Results 04/25/18 05:10 04/27/18 04:30 04/26/18 04/27/18 04/28/18 06:59 06:59 06:59 Intake Total 375 1050 Balance 375 1050 - Time Spent With Patient Time Spent with Patient: greater than 35 minutes Time Spent with Patient: Greater than 35 minutes spent on this patients care, greater than 50% of time spent counseling, educating, and coordinating care regarding the above mentioned plan. ICD10 Worksheet Patient Problems: Problems Problem Status Onset ARF (acute renal failure) Acute Altered mental status Acute Anemia associated with acute blood loss Acute Ankle ulcer Acute Elevated BUN Acute Elevated troponin Acute Fall Acute Hip fx Acute Hyponatremia Acute Sepsis Acute Tibia/fibula fracture Acute Wound infection Acute Wound of left ankle Acute
[2018-04-27] MEDS ORDERED: AZITHROMYCIN 250 MG TAB PO ONE (14:22)
[2018-04-27] MEDS: predniSONE 20 MG TAB PO SCH (15:02)
[2018-04-27] MEDS: PATCH REMOVAL 1 EA PATCH TD SCH (20:42)
[2018-04-27] MEDS: INTERFERON BETA SQ SCH (21:52)
[2018-04-27] MEDS: ALBUMIN SQ SCH (21:52)
[2018-04-28] MEDS: LEVOTHYROXINE 25 MCG TAB PO SCH (05:10)
[2018-04-28] MEDS: AZITHROMYCIN 250 MG TAB PO SCH (08:49)
--- NOTE | 2018-04-28 08:49 | HOSPPROG ---
Hospitalist Progress Note Assessment/Plan: Alex Sauceda is a 68 y/o woman with hx of MS and presented to the ER with chronic right lower extremity wounds. Today is my first encounter w the patient , chart reviewed. * cellulitis R leg/foot/ankle, with several chronic open wounds POA -on Cefazolin * JOSSELYN, resolved * hyponatremia, hypervolemic, resolved -oral fluid restriction * SUSI lung nodules 1.6 cm, 6 months of chronic cough uncertain etiology; question of left upper lobe nodule on chest x-ray -previous provider reviewed CT images with Dr Chou who recommends a course of antibiotic and steroid and repeat CT chest 2 months -she is very concerned about being on steroids, will dc after today's dose * hypertension: -home meds resumed * chronic stable normocytic anemia, chronic disease * advanced MS with severely impaired mobility; 24 hr daily caretakers at home *Plan: dc tomorrow with antibiotics orally Subjective: alex is feeling well today. Objective: Vital Signs Temp Pulse Resp BP Pulse Ox 36.4 C 76 16 157/77 H 93 04/28/18 03:51 04/28/18 03:51 04/28/18 03:51 04/28/18 03:51 04/28/18 03:51 Microbiology 04/22/18 17:22 Blood Culture - Final Blood 04/22/18 17:35 Blood Culture - Final Blood Laboratory Results 04/25/18 05:10 04/27/18 04:30 04/27/18 04/28/18 04/29/18 05:59 05:59 05:59 Intake Total 1050 500 Balance 1050 500 - Physical Exam Constitutional: chronically ill appearing, other (thin) Eyes: PERRL Ears, Nose, Mouth, Throat: hearing normal Cardiovascular: regular rate and rhythym Respiratory: no respiratory distress Gastrointestinal: normoactive bowel sounds Skin: warm, other (few small ulcers on right foot, on dorsal area, above right arch area, redness is minimal) Musculoskeletal: generalized weakness Neurologic: AAOx3 Psychiatric: interacting appropriately ICD10 Worksheet Patient Problems: Problems Problem Status Onset ARF (acute renal failure) Acute Altered mental status Acute Anemia associated with acute blood loss Acute Ankle ulcer Acute Elevated BUN Acute Elevated troponin Acute Fall Acute Hip fx Acute Hyponatremia Acute Sepsis Acute Tibia/fibula fracture Acute Wound infection Acute Wound of left ankle Acute
[2018-04-28] MEDS: LABETALOL HCL 100 MG TAB PO SCH ×2 (08:50→21:31)
[2018-04-28] MEDS: hydrALAZINE 25 MG TAB PO SCH ×3 (08:51→21:31)
[2018-04-28] MEDS: PRAMIPEXOLE 0.25 MG TAB PO SCH (08:52)
[2018-04-28] MEDS: ASCORBIC ACID 500 MG TAB PO SCH (08:53)
[2018-04-28] MEDS: FUROSEMIDE 20 MG TAB PO SCH ×2 (08:55→15:50)
[2018-04-28] MEDS: BACLOFEN 20 MG TAB PO SCH ×2 (08:56→21:31)
[2018-04-28] MEDS: OMEGA-3 FATTY ACIDS 1,000 MG CAP PO SCH (08:57)
[2018-04-28] MEDS: predniSONE 20 MG TAB PO SCH (08:57)
[2018-04-28] MEDS: Dalfampridine [Ampyra] 10 MG PO SCH (08:58)
[2018-04-28] MEDS: ENOXAPARIN 40 MG/0.4 ML SYR SC SCH (09:01)
[2018-04-28] MEDS: ARMODAFINIL PO SCH (09:34)
[2018-04-28] MEDS: LIDOCAINE 4%/MENTHOL 1% PATCH TD SCH (09:43)
--- NOTE | 2018-04-28 10:43 | PCMIDPN ---
Assessment/Plan: Assessment/Plan: * Right lower extremity cellulitis in association with chronic right lower extremity wounds: Marked decrease in cellulitis when compared to visit on Friday. Will continue cefazolin through today and plan transition to cephalexin 500 mg orally 3 times per day x7 days tomorrow. Continue local wound care and [facility]. Continue lower extremity elevation. Clinical findings and plan reviewed with patient and Ilda Ruth NP 04/28/18 10:40 Subjective: Patient notes significant decrease in right lower extremity redness. Objective: Vital Signs Temp Pulse Resp BP Pulse Ox 36.4 C 75 15 199/82 H 92 04/28/18 08:00 04/28/18 08:50 04/28/18 08:00 04/28/18 08:51 04/28/18 08:00 Microbiology 04/22/18 17:22 Blood Culture - Final Blood 04/22/18 17:35 Blood Culture - Final Blood Laboratory Results 04/25/18 05:10 04/27/18 04:30 04/27/18 04/28/18 04/29/18 05:59 05:59 05:59 Intake Total 1050 500 Balance 1050 500 Cefazolin # 6 Blood cultures x2 no growth - Physical Exam General Appearance: alert, no apparent distress EENT: No scleral icterus Extremities: inflammation (Right lower extremity erythema from below knee to above ankle laterally significantly decreased; edema significantly decreased; no significant warmth or tenderness) Skin: other (Ulcerations over foot stable with marked decrease in erythema over foot) - Time Spent With Patient Time Spent with Patient: greater than 25 minutes Time Spent with Patient: Greater than 25 minutes spent on this patients care, greater than 50% of time spent counseling, educating, and coordinating care regarding the above mentioned plan. ICD10 Worksheet Patient Problems: Problems Problem Status Onset Hip fx Acute Hyponatremia Acute ARF (acute renal failure) Acute Anemia associated with acute blood loss Acute Tibia/fibula fracture Acute Altered mental status Acute Wound of left ankle Acute Elevated troponin Acute Elevated BUN Acute Ankle ulcer Acute Sepsis Acute Wound infection Acute Fall Acute
--- NOTE | 2018-04-28 14:42 | ASMTCMCOM ---
CM Note CM Note Notes: Pts case discussed w/ CARLA Howe. Caitlin from [employer] came and visited pt yesterday. CM met w/ pt for dispo planning. Pt would like to use [facility]. CM to follow. Plan: [facility]; PT, OT, RN Date Signed: 04/28/2018 02:41 PM Electronically Signed By:JEANIE Gonsales
[2018-04-28] MEDS: PATCH REMOVAL 1 EA PATCH TD SCH (21:32)
[2018-04-29] MEDS: LEVOTHYROXINE 25 MCG TAB PO SCH (06:00)
[2018-04-29] MEDS: BACLOFEN 20 MG TAB PO SCH (09:31)
[2018-04-29] MEDS: Dalfampridine [Ampyra] 10 MG PO SCH (09:31)
[2018-04-29] MEDS: PRAMIPEXOLE 0.25 MG TAB PO SCH (09:32)
[2018-04-29] MEDS: hydrALAZINE 25 MG TAB PO SCH (09:33)
[2018-04-29] MEDS: LABETALOL HCL 100 MG TAB PO SCH (09:34)
[2018-04-29] MEDS: ASCORBIC ACID 500 MG TAB PO SCH (09:35)
[2018-04-29] MEDS: AZITHROMYCIN 250 MG TAB PO SCH (09:36)
[2018-04-29] MEDS: FUROSEMIDE 20 MG TAB PO SCH (09:37)
[2018-04-29] MEDS: OMEGA-3 FATTY ACIDS 1,000 MG CAP PO SCH (09:37)
[2018-04-29] MEDS: LIDOCAINE 4%/MENTHOL 1% PATCH TD SCH (09:38)
[2018-04-29] MEDS: ENOXAPARIN 40 MG/0.4 ML SYR SC SCH (09:38)
[2018-04-29 09:40] VITALS: BP 161/76
--- NOTE | 2018-04-29 09:46 | HOSPPROG ---
Hospitalist Progress Note Assessment/Plan: Lovely Sauceda is a 68 y/o woman with hx of MS and presented to the ER with chronic right lower extremity wounds. * cellulitis R leg/foot/ankle, with several chronic open wounds POA -on Cefazolin -dc today on Cephalexin * JOSSELYN, resolved * hyponatremia, hypervolemic, resolved -oral fluid restriction * SUSI lung nodules 1.6 cm, 6 months of chronic cough uncertain etiology; question of left upper lobe nodule on chest x-ray -previous provider reviewed CT images with Dr Chou who recommends a course of antibiotic and steroid and repeat CT chest 2 months -she is very concerned about being on steroids, will dc after today's dose * hypertension: -home meds resumed * chronic stable normocytic anemia, chronic disease * advanced MS with severely impaired mobility; 24 hr daily caretakers at home *Plan: dc Subjective: Lovely is feeling great, eating well. Objective: Vital Signs Temp Pulse Resp BP Pulse Ox 36.3 C 72 16 161/76 H 93 04/29/18 04:00 04/29/18 09:34 04/29/18 04:00 04/29/18 09:34 04/29/18 04:00 Microbiology 04/22/18 17:22 Blood Culture - Final Blood 04/22/18 17:35 Blood Culture - Final Blood Laboratory Results 04/25/18 05:10 04/27/18 04:30 04/28/18 04/29/18 04/30/18 05:59 05:59 05:59 Intake Total 500 Balance 500 - Physical Exam Constitutional: no apparent distress, appears nourished, not in pain Eyes: anicteric sclera Ears, Nose, Mouth, Throat: hearing normal Respiratory: no respiratory distress Skin: warm Musculoskeletal: generalized weakness Neurologic: AAOx3 Psychiatric: interacting appropriately ICD10 Worksheet Patient Problems: Problems Problem Status Onset ARF (acute renal failure) Acute Altered mental status Acute Anemia associated with acute blood loss Acute Ankle ulcer Acute Elevated BUN Acute Elevated troponin Acute Fall Acute Hip fx Acute Hyponatremia Acute Sepsis Acute Tibia/fibula fracture Acute Wound infection Acute Wound of left ankle Acute
--- NOTE | 2018-04-29 10:12 | GDS ---
DISCHARGE DIAGNOSES: 1. Cellulitis of the right, left foot and ankle with several chronic open wounds. 2. Acute kidney injury. 3. Hyponatremia. 4. Left upper lobe lung nodules. 5. Hypertension. 6. Chronic stable normocytic anemia. 7. Advanced multiple sclerosis with severe impaired mobility. CONSULTATION: Dr. Ivy. HISTORY: Briefly, the patient is a 68-year-old woman who has had right lower extremity cellulitis wi th group A streptococcus bacteremia in the past. She has chronic right lower extremity foot wounds w hich have been slow to improve. She stubbed her toe and she developed bright red erythema below the right knee that extended toward the foot. [facility] and noted to have a right lower extremity cellulitis, and she was admitted for further care. HOSPITAL COURSE: 1. Right lower extremity cellulitis. She was treated with cefazolin. She will be discharged on cep halexin and further follow up with the wound clinic. 2. Acute kidney injury, resolved. 3. Hyponatremia, resolved. 4. Left upper lobe lung nodule is 1.6 cm. She will need a repeat CT in 2 months. 5. Hypertension. Blood pressure has been elevated. Her home medications have been resumed. 6. Chronic stable normocytic anemia. This is from chronic disease. 7. Advanced multiple sclerosis. I resumed her home medication. She has 24-hour care at home. DISCHARGE CONDITION: Stable. PHYSICAL EXAMINATION: VITAL SIGNS: Blood pressure is 149/66. Heart rate is 73. Respiratory rate i s 16, O2 sats on room air 93%, temperature 36.3 Celsius. MEDICATIONS AT DISCHARGE: Please see the EMR. DISCHARGE INSTRUCTIONS: 1. Wound care orders were written out in detail. 2. Start her antibiotics this afternoon. 3. Follow up with Dr. Diallo today as scheduled. 4. She will need a repeat CT of her chest in 2 months. Greater than 30 minutes discharging and coordinating the patient's care. /[id number]/MODL
[2018-04-29] MEDS: ARMODAFINIL PO SCH (10:20)
--- NOTE | 2018-04-29 10:21 | PDIAF ---
- Diagnosis Diagnosis: r lower ext cellulitis, advance MS, SUSI nodules Code Status: Full Code - Medication Management Discharge Medications: Medications to Continue on Transfer Armodafinil [Nuvigil 150mg] 150 mg PO DAILY 04/26/15 [Last Taken 04/22/18] Dalfampridine [AMPYRA] 10 mg PO DAILY 04/26/15 [Last Taken 01/18/18] Ascorbic Acid [Vitamin C 250 mg (*)] 250 mg PO DAILY 04/27/15 [Last Taken ] Levothyroxine [Synthroid 25 mcg (*)] 25 mcg PO DAILY06 04/27/15 [Last Taken ] Furosemide [Lasix 20 MG (*)] 20 mg PO BID@15301/11/17 [Last Taken 04/22/18] hydrALAZINE [Apresoline 50 mg (*)] 50 mg PO TID 01/11/17 [Last Taken 04/22/18] Baclofen [Baclofen 20 mg (*)] 40 mg PO DAILY 06/27/17 [Last Taken 01/18/18] Baclofen [Baclofen 20 mg (*)] 60 mg PO HS 06/27/17 [Last Taken 01/18/18] Interferon Beta-1A/Albumin [Rebif Rebidose 44 Mcg/0.5 ml] 44 mcg SQ MOWEFR@21 [Last Taken 01/16/18] Labetalol HCl [Trandate 200 mg (*)] 200 mg PO BID 08/18/17 [Last Taken 01/18/18] Polyethylene Glycol 3350 [Miralax 17 gm (*)] 17 gm PO DAILY PRN 09/26/17 [Last Taken 10/29/17] Herbals/Supplements -Info Only 1 ea PO DAILY 10/30/17 [Last Taken Unknown] Ibuprofen [Motrin (*)] 600 mg PO DAILY PRN 01/20/18 [Last Taken Unknown] [place]-3 Fatty Acids [Fish Oil 1000 mg (*)] 1,000 mg PO DAILY 01/20/18 [Last Taken 01/18/18] Pramipexole Di-HCl [Pramipexole Dihydrochloride] 0.25 mg PO DAILY 04/22/18 [ Last Taken Unknown] Cephalexin 500 mg PO TID #21 capsule 04/29/18 [Last Taken Unknown] Discharge Medications: Refer to the Discharge Home Medication list for PRN reason. PICC Care - Routine: N/A - Orders Services needed: Home Care, Registered Nurse, Physical Therapy, Occupational Therapy Home Care Face to Face: I certify that this patient was under my care and that I had the required [id number] encounter meeting the encounter requirements on the discharge day. My findings support the fact that the patient is homebound as defined in Home Care Face to Face Continued: CMS Chapter 7 Medicare Benefits Manual 30.1.1 , The condition of the patient is such that there exists a normal inability to leave home and consequently, leaving home would require a considerable and taxing effort. Isolation Type: None Diet Recommendation: no restrictions on diet Diet Texture: Regular Texture Diet Additional Instructions: wound care orders Change dressings to wounds on right foot Q2D and prn soiled 1. Cleansed wounds with NS and gauze. 2. Wash foot/lower leg with foaming cleanser and apply dimethicone cream to lower leg, avoiding wounds. 3. Cut pieces of Melgisorb Ag or other alginate dressing to fit each wound bed ( one on the heel, lateral ankle, medial ankle, and 3 wounds on the dorsal aspect of the foot). 4. Cover with Optilock super absorbent dressings or other superabsorbent dressing. 5. Secure with Kerlix and medipore tape. Sue Farfan RN Wound care team start your antibiotics this afternoon f/u with Dr Diallo as scheduled today you need a repeat CT of your chest in 2 months for f/u in regards to pulmonary nodules - Follow Up Care Current Providers and Referrals: [facility] [Clinic] - 04/29/18 2:00 pm NONE *PRIMARY CARE P,. [Primary Care Provider] -
--- NOTE | 2018-04-29 11:02 | ASMTLACE ---
LACE Length of stay for Answers: 7-13 days current admission Acuity / Level of Answers: Yes Care: Did the patient have an inpatient admission? Comorbidities - select Answers: Other Notes: Multiple sclerosis; HTN all that apply # of Emergency department Answers: 3-4 visits in the last 6 months Score: 12 Date Signed: 04/29/2018 11:01 AM Electronically Signed By:Lovely Arzola RN
--- NOTE | 2018-04-29 11:13 | ASMTDCNOTE ---
Case Management Discharge Discharge Order Complete? Answers: Yes Patient to Obtain Answers: Independently Medications Transportation Arranged Answers: Family/Friends Faxed Final Orders Answers: Yes Agency/Facility Transfer Answers: Yes Report Printed & Faxed to Receiving Agency Discharge Comments Notes: Spoke w/SIZE PAINTER, final orders faxed. Caitlin at [facility] notified, pt will dc home w/caregiver. Date Signed: 04/29/2018 11:12 AM Electronically Signed By:Lovely Arzola RN
--- NOTE | 2018-04-30 17:13 | ASDISCHSUM ---
Discharge Information Plan Status:Home with Home Health Medically Cleared to Leave: Discharge Date:04/29/2018 01:47 PM CM D/C Disposition:Home Health Service ADT D/C Disposition:[id number] Projected Discharge Date:04/27/2018 11:00 AM Transportation at D/C:Friend Discharge Delay Reason: Follow-Up Date:04/27/2018 11:00 AM Discharge Slot: Final Diagnosis: Placement Information Referral Type:*Home Health Care Services Referral ID:[id number] Provider Name:Adiel Holcomb Address 1:[address] [place] Phone Number: Address 2: Fax Number: City:[place] Selection Factors: State:[place] Patient Contact Information Contact Name:MARIAELENA Relationship:Re Address:[address] Work Phone: [facility] Phone: State/Zip Code:[place] [address] Email: Financial Information Financial Class:Medicare Primary Plan Desc:MEDICARE INPATIENT Primary Plan Number:[id number] Secondary Plan Desc:ABIM[place]OL[place] Secondary Plan Number:[id number] Assessment Information LACE LACE Length of stay for Answers: 7-13 days current admission Acuity / Level of Answers: Yes Care: Did the patient have an inpatient admission? Comorbidities - select Answers: Other Notes: Multiple sclerosis; HTN all that apply # of Emergency department Answers: 3-4 visits in the last 6 months Score: 12 Date Signed: 04/29/2018 11:01 AM Electronically Signed By:Lovely Arzola RN [facility] Progress Note CM Suad DIETRICH Note Notes: Met with pt, she was admitted from the wound care clinic for cellulitis. She has a wound to her R toe which she hit recently. She also has a hx of MS, she has a caregiver who is with her 4hrs in the am and 4 in the pm. She makes sure there is food and that she is toileted before getting her to bed. Pt requests a notary, CM will contact and have her talk to pt. PT/OT recommend home care, CM gave pt a list to choose from. DC Plan: Home Health + private pay caregiver Date Signed: 04/23/2018 02:13 PM Electronically Signed By:Lovely Arzola RN [facility] Progress Note CM Note KARLO Note Notes: Spoke w/pt, she stated she has used [facility] before, CM related to her that they did not have staffing available. Pt wishes CM to send referrals to a few places. Pt will likely be here through the weekend. DC Plan: Homecare Date Signed: 04/24/2018 09:52 AM Electronically Signed By:Lovely Arzola RN [facility] Progress Note CM Note KARLO Note Notes: [facility]LO spoke with RN regarding patients case, discharge likely 04/28 with home care as planned. CM to follow. Current discharge plan: Home care. Date Signed: 04/26/2018 04:56 PM Electronically Signed By:Mikki Wiley [facility] CM Progress Note CM Note CM Note Notes: Pts case discussed w/ CARLA Howe. Caitlin from [employer] [facility] came and visited pt yesterday. CM met w/ pt for dispo planning. Pt would like to use [facility]. CM to follow. Plan: [facility]; PT, OT, RN Date Signed: 04/28/2018 02:41 PM Electronically Signed By:JEANIE Gonsales Case Management Discharge Plan Note Case Management Discharge Discharge Order Complete? Answers: Yes Patient to Obtain Answers: Independently Medications Transportation Arranged Answers: Family/Friends Faxed Final Orders Answers: Yes Agency/Facility Transfer Answers: Yes Report Printed & Faxed to Receiving Agency Discharge Comments Notes: Spoke w/SOLID TIRE TUBER MACHINE OPERATOR, final orders faxed. Caitlin at [facility] notified, pt will dc home w/caregiver. Date Signed: 04/29/2018 11:12 AM Electronically Signed By:Lovely Arzola RN Intervention Information Intervention Type:*IM-Signed Date of Service:04/29/2018 11:10 AM Patient Type:Inpatient Staff Member:Tamara Henry Hours: Discipline: Severity: Comment:
== END 2018-04-29 13:47 | disposition home health service (06) | DRG 603 ==
LOC: F3E 16:12
PROVIDERS: ADMIT Internal Medicine; ATTEND Internal Medicine
DX: L03.116 Cellulitis of left lower limb (principal); G35 Multiple sclerosis; N17.9 Acute kidney failure, unspecified; E87.1 Hypo-osmolality and hyponatremia; J98.11 Atelectasis; E03.9 Hypothyroidism, unspecified; R91.1 Solitary pulmonary nodule; D63.8 Anemia in other chronic diseases classified elsewhere; E22.2 Syndrome of inappropriate secretion of antidiuretic hormone; Z87.891 Personal history of nicotine dependence; I10 Essential (primary) hypertension
CPT/HCPCS: 97110-GO; 97110-GP; 97116-GP; 97162-GP; 97165-GO; 97530-GO; 97530-GP; 97535-GO; G8978-GP-CK; G8979-GP-CJ; G8980-GP-CJ; G8987-GO-CL; G8988-GO-CK; J0690; J1650; J3480; J7512; Q9967

== ENCOUNTER 2018-09-13 17:14 | Inpatient (IN) | payer OTHER ==
--- NOTE | 2018-09-13 17:27 | EDPHY ---
General - Diagnostics EKG: I reviewed patient's EKG. See [employer] system for interpretation <Mazin Gipson - Last Filed: 09/13/18 19:01> - History Smoking Status: Former smoker <Juma Nance Sameer - Last Filed: 09/13/18 22:39> Time Seen by Provider: 09/13/18 17:22 Narrative: CLINICAL IMPRESSION: Right leg cellulitis, Severe Sepsis, Altered Mental Status ASSESSMENT/PLAN: 68-year-old female with a past medical history of multiple sclerosis and encephalopathy, presents to the emergency department by ambulance after her legal summer intern called EMS for altered mental status. Patient is unable to provide history, is mumbling her words, appears very frail, cachectic, disheveled. She is tachycardic and febrile on arrival. She has obvious cellulitic changes to the right lower leg with multiple wounds that appear to be treated by wound care. She appears very dehydrated. She meets SIRS criteria given tachycardia, fever, and leukocytosis. She also has an elevated creatinine of 1.8 with a normal lactate. Blood cultures were obtained, 30ml/kg fluid bolus initiated, IV ceftriaxone and vancomycin ordered. EKG reviewed with Dr. Gipson. Patient has an elevated troponin. This is likely indicative of demand ischemia. Patient was seen and examined by Dr. Gipson as well. She was stabilized in the ED and admitted to the hospitalist service on PCU. DIFFERENTIAL DX: Differential includes but not limited to severe sepsis, dehydration, encephalopathy, acute intracranial hemorrhage, UTI, severe renal insufficiency, electrolyte imbalance, bacteremia. ED PROCEDURES: See lab and/or imaging results below ED COURSE: 5:30 p.m.. Patient seen by myself. Sepsis protocol followed. Case discussed with Dr. Gipson. IV fluid bolus and antibiotics initiated. Urine studies, imaging and lab work ordered. Troponin 0.5. EKG pending. Patient seen and examined by Dr. Gipson as well. Will plan to start IV antibiotics given probable cellulitis as source of patient's sepsis. Patient does meet SIRS criteria. 740pm: CT read by Dr. Morris, no acute changes CHIEF COMPLAINT: Altered mental status HPI: 68-year-old female with reported history of multiple sclerosis presents to the emergency department by ambulance after her legal summer intern called EMS finding the patient altered. The legal summer intern does not arrive to provide history. Patient is not responding to questions, mumbling her words, and is unable to provide a history. According to pass chart notes, patient also has a history of hyponatremia and encephalopathy. It also appears she is being cared for by the wound care clinic for multiple wounds to the right lower leg and did have prior open fractures to this leg with surgical repair. She has been seen by Dr. Diallo in the recent past. PAST MEDICAL HISTORY: Multiple sclerosis, encephalopathy See nurse/triage notes for additional history if applicable Pertinent Past Surgical History: Prior orthopedic surgeries Family History: Unable to obtain Social History: Lives alone in [place] REVIEW OF SYSTEMS: Unable to obtain due to patient's significant altered mental status PHYSICAL EXAM: General Appearance: Disoriented, disheveled, frail, cachectic, chronically ill- appearing, mumbling her words, not answering questions, tachycardic, febrile, not hypoxic HEENT: TMs are clear bilaterally no perforation or FB, no injection, no evidence of serous or mucopurulent otitis. Very dry mucous membranes Oropharynx clear is no erythema or exudates, no tonsillar hypertrophy or asymmetry. Dentition without abnormality. Eyes: PERRLA, no acute vision change, nystagmus, swelling, discharge, pain or photosensitivity. Conjunctiva pink, no pallor or injection Neck: Supple, nontender, no lymphadenopathy, no midline pain, FROM, no meningismus. Respiratory: There are no retractions, lungs are clear to auscultation. Cardiac: R tachycardic, regular rhythm no murmurs or gallops. Gastrointestinal: Abdomen is soft, nontender, bowel sounds normal, no masses/ hernia, no rigidity, guarding or focal peritoneal findings. Neurological: Disoriented, unable to participating cranial nerve testing, alert but not answering questions Skin: Cellulitic changes noted to right lower leg extending to the knee with previous wound care dressings in place. Musculoskeletal: Extremities are symmetrical, full range of motion. MEDICAL DECISION MAKING: Secondary supervising physician at time of evaluation was Dr Gipson. Diagnosis: Severe sepsis, right lower extremity cellulitis. New, requires workup Summary: See Assessment and Plan for summary of ED visit Clinical lab tests: ordered / reviewed. Independent visualization of images, tracing, or specimens: Yes. Decision to obtain medical records or history from someone other than the patient: EMS Review / Summarize previous medical records: Reviewed past ED and hospital admission notes Discussed patient with another provider: Dr. Gipson who also saw and examined the patient Patient Progress: fair, stable for admission. (Juma Nance) Medical Decision Making: I evaluated and participated in the management of the patient. I also evaluated the patient independently. My co-signature indicates that I have reviewed this chart and I agree with the findings and plan of care as documented. My personal H&P findings include: The patient presents the ED with fever, tachycardia and right leg cellulitis. The patient has a history of multiple sclerosis and encephalopathy. She has a history of hyponatremia. Detail surrounding her presentation are somewhat limited. Physical exam: General Appearance: Thin, disheveled female, confused Eyes: Pupils equal and round no pallor or injection ENT, Mouth: Dry mucous membranes Respiratory: There are no retractions, lungs are clear to auscultation Cardiovascular: Tachycardic Gastrointestinal: Abdomen is soft and nontender, no masses, bowel sounds normal Neurological: Alert and oriented x1, moves all 4 extremities with 5/5 strength , unable to participate in cranial nerve exam Skin: Cellulitic changes noted to the right lower extremity Musculoskeletal: Neck is supple nontender Extremities: symmetrical, full range of motion ED course: The patient presents the emergency department with SIRS (tachycardia, leukocytosis and fever) + Infection. Blood cultures x2 are obtained. Patient does have a elevated creatinine qualifying her for severe sepsis. The patient has a normal venous lactic acid. Patient is started on ceftriaxone and vancomycin for presumed right lower extremity cellulitis Admission to the hospital. ST segment depression noted on EKG with elevated troponin consistent with demand ischemia. 30 milligram/kilogram bolus ordered Head CT scan for evaluation of altered mental status (Mazin Gipson) - Diagnostics EKG Interpretation: EKG: Complete interpretation has been separately recorded in the [email or web address] archive. Summary impression: Sinus tachycardia, rate 117, ST segment depression noted laterally (Mazin Gipson) Imaging Results: Imaging Impressions Chest X-Ray 09/13/18 17:27 Impression: Diffuse interstitial pneumonitis greatest in the left upper lobe. Query viral pneumonia versus progressive interstitial disease of other etiology ? Does this patient have any autoimmune diseases or history of any chronic therapeutic drug that may be associated with pneumonitis. Head CT 09/13/18 17:35 Impression: Stable elderly head CT x 3 months. Nothing acute identified.. Results called to Juma Nance at 7:39 PM General information for patients regarding this examination can be found at [email or web address]. If you have questions or comments about this report, please contact me at [phone] (hospital) or [phone] (cell). - Objective Vital Signs: Initial Vital Signs Temperature (C) 39.2 C H 09/13/18 17:30 Heart Rate 127 H 09/13/18 17:30 Respiratory Rate 20 09/13/18 17:30 Blood Pressure 198/108 H 09/13/18 17:30 O2 Sat (%) 94 09/13/18 17:30 O2 Delivery Mode Room Air Allergies/Adverse Reactions: amlodipine Allergy (Verified 09/13/18 17:35) Other-Enter Comments hydrochlorothiazide Allergy (Verified 09/13/18 17:35) Unknown Opioids - Morphine Analogues Allergy (Verified 09/13/18 17:35) Other-Enter Comments Home Medications: Medication Instructions Recorded Armodafinil [Nuvigil 150mg] 150 mg PO DAILY 04/26/15 Ascorbic Acid [Vitamin C 250 mg 250 mg PO DAILY 04/27/15 (*)] Levothyroxine [Synthroid 25 mcg 25 mcg PO DAILY06 04/27/15 (*)] Furosemide [Lasix 20 MG (*)] 20 mg PO BID@09,1530 01/11/17 hydrALAZINE [Apresoline 50 mg (*)] 50 mg PO TID 01/11/17 Baclofen [Baclofen 20 mg (*)] 20 mg PO 5XD PRN 06/27/17 Interferon Beta-1A/Albumin [Rebif 44 mcg SQ MOWEFR@21 06/29/17 Rebidose 44 Mcg/0.5 ml] Labetalol HCl [Trandate 200 mg (*)] 200 mg PO BID 08/18/17 Polyethylene Glycol 3350 [Miralax 17 gm PO DAILY PRN 09/26/17 17 gm (*)] Ibuprofen [Motrin (*)] 600 mg PO DAILY PRN 01/20/18 [place]-3 Fatty Acids [Fish Oil 1000 1,000 mg PO DAILY 01/20/18 mg (*)] Pramipexole Di-HCl [Pramipexole 0.25 mg PO DAILY 04/22/18 Dihydrochloride] Dalfampridine [AMPYRA] 10 mg PO DAILY 06/25/18 Laboratory Results: Laboratory Results 09/13/18 17:17 09/13/18 17:17 09/13/18 09/13/18 09/13/18 18:10 17:25 17:25 WBC RBC Hgb POC Hgb 12.2 gm/dL L gm/dL (12.6-16.3) Hct POC Hct 36 % L % (38-47) MCV MCH MCHC RDW Plt Count MPV Neut % (Auto) Lymph % (Auto) [place] % (Auto) Eos % (Auto) Baso % (Auto) Nucleat RBC Rel Count Absolute Neuts (auto) Absolute Lymphs (auto) Absolute Monos (auto) Absolute Eos (auto) Absolute Basos (auto) Absolute Nucleated RBC Immature Gran % Immature Gran # Platelet Estimate PT INR APTT VBG Lactic Acid 2.0 mmol/L mmol/L (0.7-2.1) POC Sodium 144 mEq/L mEq/L (135-145) Sodium POC Potassium 3.8 mEq/L mEq/L (3.3-5.0) Potassium POC Chloride 111 mEq/L H mEq/L (97-110) Chloride Carbon Dioxide POC Total CO2 17 mEq/L L mEq/L (22-31) Anion Gap POC BUN 39 mg/dL H mg/dL (7-23) BUN Creatinine POC Creatinine 1.8 mg/dL H mg/dL (0.6-1.0) Estimated GFR Glucose POC Glucose 86 mg/dL mg/dL (70-100) Calcium Total Bilirubin POC Troponin I Nasal Influenza A PCR NEGATIVE FOR FLU A (NEGATIVE) Nasal Influenza B PCR NEGATIVE FOR FLU B (NEGATIVE) 09/13/18 09/13/18 09/13/18 17:22 17:17 17:17 WBC RBC Hgb POC Hgb Hct POC Hct MCV MCH MCHC RDW Plt Count MPV Neut % (Auto) Lymph % (Auto) [place] % (Auto) Eos % (Auto) Baso % (Auto) Nucleat RBC Rel Count Absolute Neuts (auto) Absolute Lymphs (auto) Absolute Monos (auto) Absolute Eos (auto) Absolute Basos (auto) Absolute Nucleated RBC Immature Gran % Immature Gran # Platelet Estimate PT 15.2 SEC H SEC (12.0-15.0) INR 1.18 H (0.83-1.16) APTT 37.1 SEC SEC (23.0-38.0) VBG Lactic Acid POC Sodium Sodium 141 mEq/L mEq/L (135-145) POC Potassium Potassium 4.0 mEq/L mEq/L (3.5-5.2) POC Chloride Chloride 111 mEq/L H mEq/L (97-110) Carbon Dioxide 17 mEq/l L mEq/l (22-31) POC Total CO2 Anion Gap 13 mEq/L mEq/L (6-14) POC BUN BUN 44 mg/dL H mg/dL (7-23) Creatinine 1.7 mg/dL H mg/dL (0.6-1.0) POC Creatinine Estimated GFR 30 Glucose 80 mg/dL mg/dL (70-100) POC Glucose Calcium 9.5 mg/dL mg/dL (8.5-10.4) Total Bilirubin 0.8 mg/dL mg/dL (0.1-1.4) POC Troponin I 0.58 ng/mL H ng/mL (0.00-0.08) Nasal Influenza A PCR Nasal Influenza B PCR 09/13/18 17:17 WBC 17.48 10^3/uL H 10^3/uL (3.80-9.50) RBC 4.04 10^6/uL L 10^6/uL (4.18-5.33) Hgb 12.1 g/dL L g/dL (12.6-16.3) POC Hgb Hct 35.5 % L % (38.0-47.0) POC Hct MCV 87.9 fL fL (81.5-99.8) MCH 30.0 pg pg (27.9-34.1) MCHC 34.1 g/dL g/dL (32.4-36.7) RDW 14.2 % % (11.5-15.2) Plt Count 111 10^3/uL L 10^3/uL (150-400) MPV 10.5 fL fL (8.7-11.7) Neut % (Auto) 95.6 % H % (39.3-74.2) Lymph % (Auto) 1.9 % L % (15.0-45.0) [place] % (Auto) 1.3 % L % (4.5-13.0) Eos % (Auto) 0.0 % L % (0.6-7.6) Baso % (Auto) 0.1 % L % (0.3-1.7) Nucleat RBC Rel Count 0.0 % % (0.0-0.2) Absolute Neuts (auto) 16.71 10^3/uL H 10^3/uL (1.70-6.50) Absolute Lymphs (auto) 0.34 10^3/uL L 10^3/uL (1.00-3.00) Absolute Monos (auto) 0.22 10^3/uL L 10^3/uL (0.30-0.80) Absolute Eos (auto) 0.00 10^3/uL L 10^3/uL (0.03-0.40) Absolute Basos (auto) 0.02 10^3/uL 10^3/uL (0.02-0.10) Absolute Nucleated RBC 0.00 10^3/uL 10^3/uL (0-0.01) Immature Gran % 1.1 % % (0.0-1.1) Immature Gran # 0.19 10^3/uL H 10^3/uL (0.00-0.10) Platelet Estimate DECREASED L (ADEQ) PT INR APTT VBG Lactic Acid POC Sodium Sodium POC Potassium Potassium POC Chloride Chloride Carbon Dioxide POC Total CO2 Anion Gap POC BUN BUN Creatinine POC Creatinine Estimated GFR Glucose POC Glucose Calcium Total Bilirubin POC Troponin I Nasal Influenza A PCR Nasal Influenza B PCR Medications Given: Discontinued Medications Acetaminophen (Tylenol 160mg/5ml Oral Liquid) 650 mg PO EDNOW ONE Stop: 09/13/18 18:46 Last Admin: 09/13/18 18:52 Dose: 650 mg Ceftriaxone Sodium/Dextrose (Rocephin 1 Gm (Premix)) 50 mls @ 100 mls/hr IV EDNOW ONE PRN Reason: Protocol Stop: 09/13/18 18:06 Last Admin: 09/13/18 18:43 Dose: 50 mls Vancomycin/Sodium Chloride (Vancomycin 1 Gm (Premix)) 250 mls @ 250 mls/hr IV EDNOW ONE PRN Reason: Protocol Stop: 09/13/18 18:37 Last Admin: 09/13/18 18:44 Dose: 250 mls Sodium Chloride (Ns) 1,600 mls @ 3,200 mls/hr 30 ml/kg infuse over 30 min ( 1600 ml) IV EDNOW ONE PRN Reason: Protocol Stop: 09/13/18 19:10 Last Admin: 09/13/18 18:45 Dose: 1,600 mls Point of Care Test Results: Chemistry 09/13/18 09/13/18 17:25 17:22 POC Sodium 144 mEq/L mEq/L (135-145) POC Potassium 3.8 mEq/L mEq/L (3.3-5.0) POC Chloride 111 mEq/L H mEq/L (97-110) POC Total CO2 17 mEq/L L mEq/L (22-31) POC BUN 39 mg/dL H mg/dL (7-23) POC Creatinine 1.8 mg/dL H mg/dL (0.6-1.0) POC Glucose 86 mg/dL mg/dL (70-100) POC Troponin I 0.58 ng/mL H ng/mL (0.00-0.08) ISTAT H&H 09/13/18 17:25 POC Hgb 12.2 gm/dL L gm/dL (12.6-16.3) POC Hct 36 % L % (38-47) Departure <Mazin Gipson - Last Filed: 09/13/18 19:01> <Juma Nance - Last Filed: 09/13/18 22:39> - Departure Disposition: [facility] Inpatient Acute Clinical Impression: Severe sepsis, Acute renal failure (ARF), Elevated troponin, Cellulitis, Encephalopathy Condition: Fair
[2018-09-13] MEDS ORDERED: ACETAMINOPHEN 650 MG SUPP PR ONE (17:37)
[2018-09-13] MEDS ORDERED: VANCOMYCIN HCL/NORMAL SALINE 250 ML IV ONE (17:38)
--- NOTE | 2018-09-13 17:55 | CPEKG ---
Test Reason : OPEN Blood Pressure : / mmHG Vent. Rate : 117 BPM Atrial Rate : 118 BPM P-R Int : 138 ms QRS Dur : 094 ms QT Int : 357 ms P-R-T Axes : 083 076 024 degrees QTc Int : 498 ms Sinus tachycardia Left ventricular hypertrophy Borderline prolonged QT interval Confirmed by Mazin Gipson ([id number]) on 09/13/2018 5:54:59 PM Referred By: Mazin Gipson Confirmed By:Mazin Gipson
[2018-09-13 17:59] LABS: INR 1.18 (0.83-1.16); PROTIME(PATIENT) 15.2 SEC (12.0-15.0)
[2018-09-13 18:26] LABS: PLATELET COUNT 111 10^3/uL (150-400)
[2018-09-13] MEDS ORDERED: NS 1,600 ML IV ONE (18:41)
[2018-09-13] MEDS ORDERED: ACETAMINOPHEN 160 MG/5 ML UDCUP PO ONE (18:45)
[2018-09-13] MEDS ORDERED: ONDANSETRON DISINTEGRATING 4 MG TAB PO PRN (19:18)
[2018-09-13] MEDS ORDERED: ONDANSETRON 4 MG/2 ML VIAL IVP PRN (19:18)
--- NOTE | 2018-09-13 20:09 | PDGENHP ---
History and Physical - Chief Complaint weakness - History of Present Illness Patient is a 68-year-old female with past medical history of MS, hypertension, hypothyroid,, hyponatremia, chronic lower extremity wounds, who was brought in by EMS reportedly for increased weakness. All information obtained by the emergency room physician as the patient is unable to provide any history. The patient is a frequent Flyer in the emergency room and further report lives alone in [place] area outside of [place] and often comes into the emergency room with increased weakness or confusion. History Information - Allergies/Home Medication List Allergies/Adverse Reactions: amlodipine Allergy (Verified 09/13/18 17:35) Other-Enter Comments hydrochlorothiazide Allergy (Verified 09/13/18 17:35) Unknown Opioids - Morphine Analogues Allergy (Verified 09/13/18 17:35) Other-Enter Comments Home Medications: Armodafinil [Nuvigil 150mg] 150 mg PO DAILY 04/26/15 [Last Taken 04/22/18] Ascorbic Acid [Vitamin C 250 mg (*)] 250 mg PO DAILY 04/27/15 [Last Taken ] Levothyroxine [Synthroid 25 mcg (*)] 25 mcg PO DAILY06 04/27/15 [Last Taken ] Furosemide [Lasix 20 MG (*)] 20 mg PO BID@09,1530 01/11/17 [Last Taken 04/22/18] hydrALAZINE [Apresoline 50 mg (*)] 50 mg PO TID 01/11/17 [Last Taken 04/22/18] Baclofen [Baclofen 20 mg (*)] 20 mg PO 5XD PRN 06/27/17 [Last Taken 01/18/18] Interferon Beta-1A/Albumin [Rebif Rebidose 44 Mcg/0.5 ml] 44 mcg SQ MOWEFR@21 [Last Taken 01/16/18] Labetalol HCl [Trandate 200 mg (*)] 200 mg PO BID 08/18/17 [Last Taken 01/18/18] Polyethylene Glycol 3350 [Miralax 17 gm (*)] 17 gm PO DAILY PRN 09/26/17 [Last Taken 10/29/17] Ibuprofen [Motrin (*)] 600 mg PO DAILY PRN 01/20/18 [Last Taken Unknown] [place]-3 Fatty Acids [Fish Oil 1000 mg (*)] 1,000 mg PO DAILY 01/20/18 [Last Taken 01/18/18] Pramipexole Di-HCl [Pramipexole Dihydrochloride] 0.25 mg PO DAILY 04/22/18 [ Last Taken Unknown] Dalfampridine [AMPYRA] 10 mg PO DAILY 06/25/18 [Last Taken Unknown] I have personally reviewed and updated: family history, medical history, social history, surgical history - Past Medical History Additional medical history: Multiple sclerosis. history of chronic hyponatremia due to SIADH. chronic anemia. hypertension. lower extremity chronic wounds. fall risk - Surgical History Additional surgical history: right femoral fracture repair - Family History Positive for: CAD - Social History Smoking Status: Former smoker Additional social history: patient lives with her , occasionally ambulates, but uses wheelchair for long distance. Review of Systems Review of Systems: ROS: 10pt was reviewed & negative except for what was stated in HPI & below Physical Exam Physical Exam: Temp Pulse Resp BP Pulse Ox 39.2 C H 100 97 H 185/93 H 94 09/13/18 17:30 09/13/18 19:05 09/13/18 19:05 09/13/18 19:05 09/13/18 17:30 O2 (L/minute) 3 Constitutional: chronically ill appearing Eyes: PERRL Ears, Nose, Mouth, Throat: dry mucous membranes Cardiovascular: tachycardia Respiratory: clear to auscultation Gastrointestinal: soft, non-tender abdomen Genitourinary: no bladder fullness Skin: abrasion (Right extremity with erythema extending from the ankle up to the knee. Chronic wounds on the heels are bandaged and appear clean), erythema , rash Musculoskeletal: generalized weakness Neurologic: other (Patient is currently nonverbal and unable to answer any questions.) Psychiatric: encephalopathic Lymph, Heme, Immunologic: no cervical LAD Lab Data & Imaging Review 09/13/18 17:17 09/13/18 17:17 WBC 17.48 10^3/uL (3.80-9.50) H 09/13/18 17:17 RBC 4.04 10^6/uL (4.18-5.33) L 09/13/18 17:17 Hgb 12.1 g/dL (12.6-16.3) L 09/13/18 17:17 POC Hgb 12.2 gm/dL (12.6-16.3) L 09/13/18 17:25 Hct 35.5 % (38.0-47.0) L 09/13/18 17:17 POC Hct 36 % (38-47) L 09/13/18 17:25 MCV 87.9 fL (81.5-99.8) 09/13/18 17:17 MCH 30.0 pg (27.9-34.1) 09/13/18 17:17 MCHC 34.1 g/dL (32.4-36.7) 09/13/18 17:17 RDW 14.2 % (11.5-15.2) 09/13/18 17:17 Plt Count 111 10^3/uL (150-400) L 09/13/18 17:17 MPV 10.5 fL (8.7-11.7) 09/13/18 17:17 Neut % (Auto) 95.6 % (39.3-74.2) H 09/13/18 17:17 Lymph % (Auto) 1.9 % (15.0-45.0) L 09/13/18 17:17 [place] % (Auto) 1.3 % (4.5-13.0) L 09/13/18 17:17 Eos % (Auto) 0.0 % (0.6-7.6) L 09/13/18 17:17 Baso % (Auto) 0.1 % (0.3-1.7) L 09/13/18 17:17 Nucleat RBC Rel Count 0.0 % (0.0-0.2) 09/13/18 17:17 Absolute Neuts (auto) 16.71 10^3/uL (1.70-6.50) H 09/13/18 17:17 Absolute Lymphs (auto) 0.34 10^3/uL (1.00-3.00) L 09/13/18 17:17 Absolute Monos (auto) 0.22 10^3/uL (0.30-0.80) L 09/13/18 17:17 Absolute Eos (auto) 0.00 10^3/uL (0.03-0.40) L 09/13/18 17:17 Absolute Basos (auto) 0.02 10^3/uL (0.02-0.10) 09/13/18 17:17 Absolute Nucleated RBC 0.00 10^3/uL (0-0.01) 09/13/18 17:17 Immature Gran % 1.1 % (0.0-1.1) 09/13/18 17:17 Immature Gran # 0.19 10^3/uL (0.00-0.10) H 09/13/18 17:17 Platelet Estimate DECREASED (ADEQ) L 09/13/18 17:17 PT 15.2 SEC (12.0-15.0) H 09/13/18 17:17 INR 1.18 (0.83-1.16) H 09/13/18 17:17 APTT 37.1 SEC (23.0-38.0) 09/13/18 17:17 VBG Lactic Acid 2.0 mmol/L (0.7-2.1) 09/13/18 17:25 POC Sodium 144 mEq/L (135-145) 09/13/18 17:25 Sodium 141 mEq/L (135-145) 09/13/18 17:17 POC Potassium 3.8 mEq/L (3.3-5.0) 09/13/18 17:25 Potassium 4.0 mEq/L (3.5-5.2) 09/13/18 17:17 POC Chloride 111 mEq/L (97-110) H 09/13/18 17:25 Chloride 111 mEq/L (97-110) H 09/13/18 17:17 Carbon Dioxide 17 mEq/l (22-31) L 09/13/18 17:17 POC Total CO2 17 mEq/L (22-31) L 09/13/18 17:25 Anion Gap 13 mEq/L (6-14) 09/13/18 17:17 POC BUN 39 mg/dL (7-23) H 09/13/18 17:25 BUN 44 mg/dL (7-23) H 09/13/18 17:17 Creatinine 1.7 mg/dL (0.6-1.0) H 09/13/18 17:17 POC Creatinine 1.8 mg/dL (0.6-1.0) H 09/13/18 17:25 Estimated GFR 30 09/13/18 17:17 Glucose 80 mg/dL (70-100) 09/13/18 17:17 POC Glucose 86 mg/dL (70-100) 09/13/18 17:25 Calcium 9.5 mg/dL (8.5-10.4) 09/13/18 17:17 Total Bilirubin 0.8 mg/dL (0.1-1.4) 09/13/18 17:17 POC Troponin I 0.58 ng/mL (0.00-0.08) H 09/13/18 17:22 Nasal Influenza A PCR NEGATIVE FOR FLU A (NEGATIVE) 09/13/18 18:10 Nasal Influenza B PCR NEGATIVE FOR FLU B (NEGATIVE) 09/13/18 18:10 Assessment & Plan Assessment: 68-year-old female with past medical history of multiple sclerosis, hypertension , hypothyroid, hyponatremia, chronic lower extremity wounds, encephalopathy admitted with severe sepsis ARF (acute renal failure) (Acute)- patient looks dry, suspect prerenal azotemia in the setting of severe sepsis. Continue IV fluids and recheck renal function in the morning Cellulitis (Acute)- on her right lower extremity. Nidus of infection likely from chronic wounds on her heels. -blood cultures -continue vancomycin -taper antibiotics as specificities guide Elevated troponin (Acute)- patient has no history of coronary artery disease. Her blood pressure is markedly elevated tonight. EKG does show ST depressions in the lateral leads along with large voltage suggestive of LVH. Her initial troponin was positive at 0.5. Whether this represents ACS or is demand ischemia in the setting of sepsis and severely uncontrolled hypertension is yet to be determined. -cycle troponin -troponins doubled from 0.5-1.0 will start heparin drip. -echo in the morning Encephalopathy (Acute)- patient apparently has a history of encephalopathy likely related to her multiple sclerosis and apparently possibly due to marijuana use. Currently she is nonverbal and clearly encephalopathic. Whether this is due to acute illness from her sepsis on top of an underlying chronic encephalopathy we are unable to determine currently Severe sepsis (Acute)- patient with a leukocytosis with left shift, tachycardia , fever, and elevated creatinine. She is hypertensive. Lactate borderline at 2 0.0. Source is likely cellulitis on her right lower extremity. Urinalysis pending, and imaging with no suggestion of underlying pneumonia. I discussed the case with the emergency room physician who gave the patient vancomycin the Rocephin. -blood cultures -wound care -continue vancomycin -patient was already given fluid resuscitation at 30 ml/kilogram. -IVF MS- seems fairly advanced, patient takes baclofen interferon and Mirapex. Continue baclofen once dose confirmed. Hold interferon in the setting of sepsis. Hypertension- on hydralazine and labetalol. Based on her EKG it seems like her hypertension is poorly controlled. Continue those meds here. Prophylaxis-SCDs and heparin Fluids- intravenous saline Electrolytes-within normal limits Nutrition-NPO for now Cor-patient unable to answer will make full code for now Dispo-inpatient for sepsis acute kidney injury and elevated troponin possible NSTEMI
[2018-09-13] MEDS ORDERED: HEPARIN 10,000 UNIT/10 ML MDV (1,000 UNIT/ML) IVP PRN (21:59)
[2018-09-13] MEDS ORDERED: HEPARIN 5,000 UNIT/0.5 ML INJ SC SCH (22:00)
[2018-09-13] MEDS ORDERED: HEPARIN/DEXTROSE 500 ML IV SCH (22:00)
[2018-09-13 23:05] LABS: INR 1.37 (0.83-1.16)
[2018-09-13 23:27] LABS: PLATELET COUNT 88 10^3/uL (150-400)
[2018-09-14] MEDS: ACETAMINOPHEN 325 MG TAB PO PRN ×2 (04:03→16:20)
[2018-09-14 06:24] LABS: PLATELET COUNT 82 10^3/uL (150-400)
--- NOTE | 2018-09-14 09:37 | PDMN ---
Medical Necessity Medical necessity: [facility] M160 Sepsis A-3 days: 68 yo w/ presents w/ weakness and confusion. Eval reveals severe sepsis w/ encephalopathy, ARF, cellulitis RLE and elevated troponin. Pt hemodynamically unstable w/ tachycardia and tachypnea. WBC 17, creat 1.7. IVF and IV antibx started. Monitor on tele. Cardiology consult. Anticipate>2MN for monitoring and tx of the above. Hx MN, HTN, hypothyroid hyponatremia, chronic lower extremity wounds
[2018-09-14] MEDS: NS 1,000 ML IV SCH (09:58)
--- NOTE | 2018-09-14 12:34 | HOSPPROG ---
Hospitalist Progress Note Assessment/Plan: 68-year-old female with past medical history of multiple sclerosis, hypertension , hypothyroid, hyponatremia, chronic lower extremity wounds, encephalopathy admitted with severe sepsis ARF (acute renal failure) (Acute)- patient looks dry, suspect prerenal azotemia in the setting of severe sepsis. Continue IV fluids and continue to monitor renal function Cellulitis (Acute)- on her right lower extremity. Nidus of infection likely from chronic wounds on her heels. -blood cultures -continue vancomycin -taper antibiotics as specificities guide Elevated troponin (Acute)- patient has no history of coronary artery disease. Her blood pressure markedly elevated on admission. EKG does show ST depressions in the lateral leads along with large voltage suggestive of LVH. Her initial troponin was positive at 0.5, uptrended to 1.48 overnight, started on heparin infusion. Patient denies any chest discomfort/pain this AM -Likely demand ischemia in setting of severe sepsis -Cardiology consulted this AM, will likely d/c heparin gtt today -echo ordered Severe sepsis (Acute)- patient with a leukocytosis with left shift, tachycardia , fever, and elevated creatinine. She is hypertensive. Lactate borderline at 2.0 on admission. Source is likely cellulitis on her right lower extremity. Urinalysis negative for infection, CXR showing diffuse interstitial pneumonitis SUSI, viral PNA vs. progressive interstitial disease, no suggestion of underlying pneumonia. -blood cultures -wound care -continue vancomycin -patient was already given fluid resuscitation at 30 ml/kilogram. -IVF Encephalopathy (Acute)- Resolved this AM, patient apparently has a history of encephalopathy likely related to her multiple sclerosis and apparently possibly due to marijuana use. MS- seems fairly advanced, patient takes baclofen interferon and Mirapex. Continue baclofen once dose confirmed. Hold interferon in the setting of sepsis. Hypertension- on hydralazine and labetalol. Based on her EKG it seems like her hypertension is poorly controlled. Continue those meds here. Prophylaxis-SCDs and heparin Electrolytes-within normal limits Nutrition-Restart diet Cor-patient unable to answer will make full code for now Dispo-inpatient for sepsis acute kidney injury and elevated troponin possible NSTEMI Subjective: Patient reports some RLE pain this AM Objective: Vital Signs Temp Pulse Resp BP Pulse Ox 36.8 C 86 18 113/75 88 L 09/14/18 11:55 09/14/18 11:55 09/14/18 11:55 09/14/18 11:55 09/14/18 11:55 Laboratory Results 09/14/18 06:00 09/14/18 06:00 09/13/18 09/14/18 09/15/18 05:59 05:59 05:59 Intake Total 0 Balance 0 PT 17.0 SEC (12.0-15.0) H 09/13/18 20:53 INR 1.37 (0.83-1.16) H 09/13/18 20:53 - Physical Exam Constitutional: chronically ill appearing Eyes: PERRL Ears, Nose, Mouth, Throat: dry mucous membranes Cardiovascular: regular rate and rhythym Respiratory: no respiratory distress Gastrointestinal: normoactive bowel sounds Skin: warm Musculoskeletal: generalized weakness Neurologic: AAOx3 Psychiatric: interacting appropriately ICD10 Worksheet Patient Problems: Problems Problem Status Onset ARF (acute renal failure) Acute Cellulitis Acute Elevated troponin Acute Encephalopathy Acute Severe sepsis Acute Altered mental status Acute Anemia associated with acute blood loss Acute Ankle ulcer Acute Dehydration Acute Elevated BUN Acute Fall Acute Hip fx Acute Hyponatremia Acute Sepsis Acute Tibia/fibula fracture Acute Wound infection Acute Wound of left ankle Acute
[2018-09-14] MEDS: BACLOFEN 20 MG TAB PO PRN (13:08)
--- NOTE | 2018-09-14 15:19 | WOCRNPDOC ---
MATT Advanced Assessment Note - Skin Integrity Problem, Advanced Assess Right Heel Pressure Injury Dressing Type: Allevyn Life, Hydrofera Blue Ready Dressing Description: Clean/Dry, Intact Exudate Amount: Scant Exudate Characteristic(s): Serosanguinous Integumentary Issue Intervention: Visualized Under Dressing Wound Bed Constitution: Granulation Tissue (100%) Site Measurement - Head-to-Toe Length X Width X Depth (cm): 2.8x0.9x0.1 Pressure Injury Stage: Stage 4 Pressure Injury Present on Admit: Yes Skin Integrity Problem Comment: Patient well known to wound care and Dr. Diallo, and [facility] Most of the wounds on her right leg and foot have healed and the rest are healing well. This wound is almost fully healed and is epithelizing. No concerns. Offload in boots at all times. Wound care will follow. Right Lateral Ankle Pressure Injury Dressing Type: Hydrofera Blue Ready Dressing Description: Clean/Dry, Intact Exudate Amount: None Integumentary Issue Intervention: Visualized Under Dressing Wound Bed Constitution: Granulation Tissue (100%) Site Measurement - Head-to-Toe Length X Width X Depth (cm): 2.9x2.9x0.2 Pressure Injury Stage: Stage 4 Pressure Injury Present on Admit: Yes Right Proximal Dorsal Foot Pressure Injury Dressing Type: Hydrofera Blue Ready Exudate Amount: None Integumentary Issue Intervention: Visualized Under Dressing Wound Bed Constitution: Granulation Tissue (100%) Site Measurement - Head-to-Toe Length X Width X Depth (cm): 1.7x1.2x0.3 Pressure Injury Stage: Stage 3 Pressure Injury Present on Admit: Yes Right Distal Dorsal Foot Pressure Injury Dressing Type: Hydrofera Blue Ready Exudate Amount: None Integumentary Issue Intervention: Visualized Under Dressing Wound Bed Constitution: Granulation Tissue (100%) Site Measurement - Head-to-Toe Length X Width X Depth (cm): 1.6x1.8x0.3 Pressure Injury Stage: Stage 3 Pressure Injury Present on Admit: Yes
--- NOTE | 2018-09-14 15:23 | ECHO ---
[email or web address] [address] Main: [phone] Fax: Transthoracic Echocardiogram Name: SUMA LEGER MR#: [id number] Study Date: 09/14/2018 Study Time: 02:27 PM Date of : 1950 Age: 68 year(s) Height: 162.6 cm (64 in.) Weight: 50.35 kg (111 lb.) BSA: 1.52 m2 Gender: Female Examination: Echo Indication: Image Quality: Contrast: Requested by: Drea Horton BP: 182 mmHg/101 mmHg Heart Rate: Rhythm: Tachycardia Indication: Procedure Staff Stone Driller Helper: Ashish Coley RDCS Reading Physician: Jose A Ireland MD Requesting Provider: Conclusions: Borderline concentric LV hypertrophy. Normal global systolic LV function. EF is 65 %. Trivial to mild mitral regurgitation. Mild aortic cusp calcification is noted. Measurements: Chambers Valvular Assessment AV/MV Valvular Assessment TV/PV Normal Normal Normal Name Value Range Name Value Range Name Value Range IVSd (2D): 1.3 cm (0.6 cm-1.1 AV Vmax: 2.62 m/s (1 m/s-1.7 PV Vmax: 1.09 m/s (0.6 m/s-0.9 cm) m/s) m/s) LVDd (2D): 3.9 cm (3.9 cm-5.3 AV maxP mmHg ( - ) PV PGmax: 5 mmHg ( - ) cm) AV meanP mmHg ( - ) LVDs (2D): 2.9 cm (2.1 cm-4 LVOT Vmax: 0.91 m/s (0.7 m/s-1.1 cm) m/s) LVPWd (2D): 1.0 cm ( - ) KIRSTEN (Vmax): 1.0 cm2 ( - ) LVOTd 1.9 cm 1.9 cm mm KIRSTEN (VTI): 1.3 cm ( - ) LVEF (MM): 65 (>=55 %) MV E Vmax: 1.19 m/s ( - ) MV A Vmax: 1.29 m/s ( - ) MV E/A: 0.92 ( - ) Continued Measurements: Chambers Valvular Assessment AV/MV Name Value Name Value LADs: 3.0 cm MV E' Septal: 0.07 m/s LADs Lon.2 cm MV E/E' Septal: 17.40 LA Area: 18.2 cm2 MV E/E' Lateral: 17.90 Patient: SUMA LEGER Study Date: 09/14/2018 Page 1 of 2 02:27 PM Findings: Left Ventricle: Normal size left ventricle. Borderline concentric LV hypertrophy. Normal global systolic LV function. EF is 65 %. Grade 1 diastolic dysfunction (abnormal relaxation). Right Ventricle: Normal size right ventricle. Normal RV function. Left Atrium: The left atrium is normal in size. Right Atrium: The right atrium is normal in size. Mitral Valve: The mitral valve is normal in appearance. Trivial to mild mitral regurgitation. Aortic Valve: Mild aortic cusp calcification is noted. Mild calcific aortic valve stenosis. Mean aortic valve gradient 15. Tricuspid Valve: The tricuspid valve is normal in appearance and function. Trivial tricuspid valve regurgitation. Pulmonic Valve: The pulmonic valve is normal in appearance and function. Aorta: The aorta is normal. Pericardium: No pericardial effusion. Exam Comments: . (No Signature Object) Patient: SUMA LEGER Study Date: 09/14/2018 Page 2 of 2 02:27 PM [id number]
--- NOTE | 2018-09-14 15:29 | ASMTCMCOM ---
CM Note CM Note Notes: Pt was admitted with sepsis, cellulitis in L LE, elevated troponins. acute renal failure, AMS. She has a hx of MS, HTN. Currently on IV ABX, wound care. Cardiology following. Pt is open with [facility] with their mobile PT. Referral sent for any home care needs. CM will follow for any d/c needs. D/C plan: TBD, [facility] if HC indicated Date Signed: 09/14/2018 03:28 PM Electronically Signed By:CLAIRE Jamison
--- NOTE | 2018-09-14 16:23 | GCON ---
[f rep st] CONSULTATION CARDIOLOGY CONSULTATION DATE OF CONSULTATION: 09/14/2018 HISTORY OF PRESENT ILLNESS: The patient is a 68-year-old female with a history of hypertension, multiple sclerosis, and chronic lower extremity wounds, who was admitted with weakness and a fall. She was found to be septic and in acute renal failure. She was also hypertensive on admission with a blood pressure of 198/108 with a minimally elevated troponin of 1.02. Her troponin trended up throughout the night, peaking at 1.48, and therefore, Cardiology was consulted. Her initial EKG showed tachycardia with LVH and ST changes suggestive of LVH. Preliminary results of an echocardiogram showed preserved LV function without any significant wall motion abnormalities. The patient is unable to ambulate secondary to MS. She spends the majority of her time in a wheelchair. She denies any chest discomfort or significant shortness of breath. Her major complaint at this time is oozing from the wounds in her legs, as well as swelling of her right lower extremity. She does appear to have cellulitis of her right lower extremity with wounds bilaterally with some mild oozing. PAST MEDICAL HISTORY: MS, hypertension, hypothyroidism, hyponatremia, bilateral chronic lower extremity wounds. PAST SURGICAL HISTORY: Noncontributory. FAMILY HISTORY: Her father was diagnosed with congestive chest of heart failure at age of 56. Her mother had a cardiac issue beginning in her 80s. SOCIAL HISTORY: She is unable to ambulate and uses a wheelchair. She denies any tobacco or drug use. HOME MEDICATIONS: Nuvigil 150 mg daily, Synthroid 25 mcg daily, vitamin C daily , hydralazine 50 mg three times daily, baclofen 40 mg daily, interferon beta 1A 44 mcg subcu Friday, Friday, Friday, labetalol 200 mg twice daily, MiraLAX p.r.n., fish oil a 1000 mg daily, Motrin 600 mg p.r.n., pramipexole 0.25 mg at bedtime, Ampyra 10 mg daily, baclofen 60 mg at bedtime. ALLERGIES: Amlodipine, hydrochlorothiazide, opioids. REVIEW OF SYSTEMS: A 12-point review of systems is negative except for what is stated in the H and P. PHYSICAL EXAMINATION: GENERAL: Patient appears in no acute distress. VITALS: Blood pressure 182/101, heart rate 94, oxygen saturation of 94% on 1 L. Afebrile. HEENT: Within normal limits. NECK: No carotid bruits or JVD present. LUNGS: Clear to auscultation. No wheezes, rhonchi, or crackles auscultated. CARDIAC: Regular rate and rhythm with a 2/6 systolic murmur. ABDOMEN: Soft, nontender, nondistended. EXTREMITIES: Palpable pulses bilaterally with edema present in the right lower extremity. She also has evidence of cellulitis in this leg up to her knee. SKIN: Open wounds in the bilateral lower extremities. NEUROLOGIC: Nonfocal. PSYCHIATRIC: Mood and affect appropriate. LABORATORY: Troponin 1.020, 1.320, 1.480. Sodium 142, potassium 3.6, chloride 116, BUN 48, creatinine 1.6, magnesium 1.9. WBCs 14, hemoglobin 10.6, hematocrit 31.3, platelets 82. Blood cultures are currently pending. DIAGNOSTIC STUDIES: EKG shows normal sinus rhythm with high voltage consistent with LVH. She also has ST depression in the lateral leads consistent with LVH. Echocardiogram preliminary results showed preserved LV function without any wall motion abnormalities. ASSESSMENT: The patient is a 68-year-old female with a history of hypertension , multiple sclerosis, and lower extremity wounds, who was admitted with sepsis, hypertension, and mildly elevated troponin. PLAN: Cardiology was consulted for a mildly elevated troponin which peaked at 1.48. She is currently chest pain free and preliminary echocardiogram results do not suggest any wall motion abnormalities. Her LV function is preserved with an ejection fraction of 60%. Her EKG does show ST depression in the lateral leads, as well as high voltage consistent with left ventricular hypertrophy. I believe that her elevated troponin is demand ischemia in the setting of sepsis and hypertension. Heparin can be discontinued and she will begin aspirin tomorrow morning. I do think it is important to get her hypertension under control and have recommended resuming labetalol at 200 mg twice daily. An outpatient stress test could be considered, but given her poor mobility and absence of symptoms, medical therapy is appropriate. /[id number]/MODL MTDD
[2018-09-14] MEDS: hydrALAZINE 20 MG/ML VIAL IVP PRN (18:34)
[2018-09-14] MEDS: LABETALOL HCL 200 MG TAB PO SCH (20:57)
[2018-09-14] MEDS ORDERED: INTERFERON BETA 44 MCG SQ SCH (21:00)
[2018-09-15 05:19] LABS: PLATELET COUNT 62 10^3/uL (150-400)
[2018-09-15] MEDS: LEVOTHYROXINE 25 MCG TAB PO SCH (09:02)
[2018-09-15] MEDS ORDERED: LABETALOL HCL 200 MG TAB PO SCH (09:38)
--- NOTE | 2018-09-15 09:52 | HOSPPROG ---
Hospitalist Progress Note Assessment/Plan: 68yo F with MS, HTN, chronic lower extremity wounds admitted with severe sepsis from right leg cellulitis. 1. Severe sepsis: Physiology resolved. Had leukocytosis, tachycardia, fever, encephalopathy, elevated creatinine on admit. - Blood cultures remain NGTD 2. RLE cellulitis: Has chronic leg wounds which were likely entry point. - Continue IV vancomycin 3. JOSSELYN: Improving, not yet back to baseline. Due to sepsis/hypovolemia. - Continue IVF 4. Acute metabolic encephalopathy: Resolved. Due to sepsis. 5. Elevated troponin: Demand in setting of sepsis, severe HTN - Cardiology consulted, no indication for ischemic evaluation at present. Heparin gtt stopped 6. HTN: Remains elevated and not at goal - Increase labetalol 200 -> 300mg BID, continue hydralazine 7. MS: Rather advanced. Uses wheelchair intermittently at home. - Continue home meds - Has home health care PT. She is refusing SNF 8. Normocytic anemia: Likely related to chronic disease. Near baseline. 9. Thrombocytopenia: Lower than baseline. Likely some consumption from sepsis and being on heparin. - Recheck in AM VTE ppx: Code: DNR Diet: regular Dispo: Remain inpatient for IV antibiotics, close monitoring of renal function/ BP/blood counts. Likely discharge tomorrow on PO antibiotics if continuing clinical improvement. Subjective: Feelign much better. No fevers. Leg redness improved. Wanting to go home. Objective: Vital Signs Temp Pulse Resp BP Pulse Ox 36.9 C 85 25 H 166/84 H 96 09/15/18 08:00 09/15/18 08:00 09/15/18 08:00 09/15/18 08:00 09/15/18 08:00 Laboratory Results 09/15/18 03:40 09/15/18 03:40 09/14/18 09/15/18 09/16/18 05:59 05:59 05:59 Intake Total 0 4280 Output Total 900 Balance 0 3380 PT 17.0 SEC (12.0-15.0) H 09/13/18 20:53 INR 1.37 (0.83-1.16) H 09/13/18 20:53 - Physical Exam Constitutional: no apparent distress, chronically ill appearing Eyes: PERRL, anicteric sclera, EOMI Ears, Nose, Mouth, Throat: moist mucous membranes, hearing normal, ears appear normal, no oral mucosal ulcers Cardiovascular: regular rate and rhythym, systolic murmur, No edema Respiratory: no respiratory distress, reduced air movement Gastrointestinal: normoactive bowel sounds, soft, non-tender abdomen, no palpable masses Genitourinary: no bladder fullness, no bladder tenderness, no renal bruits Skin: erythema (improving RLE), other (several dressed wounds in RLE) Musculoskeletal: generalized weakness Neurologic: AAOx3 Psychiatric: interacting appropriately ICD10 Worksheet Patient Problems: Problems Problem Status Onset ARF (acute renal failure) Acute Cellulitis Acute Elevated troponin Acute Encephalopathy Acute Severe sepsis Acute Altered mental status Acute Anemia associated with acute blood loss Acute Ankle ulcer Acute Dehydration Acute Elevated BUN Acute Fall Acute Hip fx Acute Hyponatremia Acute Sepsis Acute Tibia/fibula fracture Acute Wound infection Acute Wound of left ankle Acute
[2018-09-15] MEDS: ASPIRIN 81 MG CHEWABLE TAB PO SCH (10:27)
[2018-09-15] MEDS: PRAMIPEXOLE 0.25 MG TAB PO SCH (10:27)
[2018-09-15] MEDS: LABETALOL HCL 200 MG TAB PO SCH ×3 (10:27→22:23)
[2018-09-15] MEDS: BACLOFEN 20 MG TAB PO PRN ×3 (10:27→22:29)
[2018-09-15] MEDS: VANCOMYCIN 500 MG in D5W 100 ML IV SCH (11:31)
--- NOTE | 2018-09-15 11:52 | PDCARPN ---
Cardiology Progress Note Chief Complaint: N/A Assessment/Plan: Assessment: The patient is a 68 y/o F with a history of HTN, MS, and chronic lower extremity wounds who was admitted with sepsis, ARF, and HTN. Her troponin was mildly elevated peaking at 1.48 and then trending down. She denies any CP and a echo shows preserved LV function and borderline LVH without wall motion abnormalities. Plan: 1. Elevated troponin related to demand ischemia in the setting of HTN and sepsis. Med management with aspirin and Labetalol. 2. HTN- Improved with resuming Labetalol and Hydralazine. She is not a candidate for REGINALD-I/ARB secondary to ARF. Labetalol increased this morning. 3. Anemia- Heparin d/c 09/15/18 11:54 Subjective: She denies any CP or SOB. She would like to go home. Reviewed/Discussed With: hospitalist Objective: Vital Signs (8 Hrs) Temp Pulse Resp BP Pulse Ox 09/15/18 10:27 85 166/84 H 09/15/18 10:26 166/84 H 09/15/18 08:00 36.9 C 85 25 H 166/84 H 96 09/15/18 04:00 37.5 C 98 18 165/91 H 94 Intake/Output (24 Hrs) 09/14/18 09/15/18 09/16/18 05:59 05:59 05:59 Intake Total 0 4280 Output Total 900 Balance 0 3380 Intake: Oral (ml) 0 2780 IV Infused (ml) 1500 Ns 1,000 ml @ 75 mls/hr 1500 IV CONT RIZWAN Rx#: [id number] Output: Urine (ml) 900 Bedpan 900 Other: Weight 50.53 kg 50.53 kg Output Comment Incontinence Was in pad and soaked enough to be more than 100 Number of Voids 1 Bedpan 1 Incontinence 1 1 Bladder Scan Volume (ml) Bedpan 999 Result Diagrams: 09/15/18 03:40 09/15/18 03:40 Cardiac Labs: Cardiac Lab Results (72 Hrs) 09/15/18 09/14/18 09/14/18 03:40 06:00 01:15 Troponin I 1.020 H 1.480 H 1.320 H 09/13/18 21:10 Troponin I 1.020 H Telemetry: NSR - Physical Exam Constitutional: no apparent distress Cardiovascular: systolic murmur Respiratory: clear to auscultate bilat, no crackles, no wheezes Neurologic: AAOx3 ICD10 Worksheet Patient Problems: Problems Problem Status Onset ARF (acute renal failure) Acute Cellulitis Acute Elevated troponin Acute Encephalopathy Acute Severe sepsis Acute Altered mental status Acute Anemia associated with acute blood loss Acute Ankle ulcer Acute Dehydration Acute Elevated BUN Acute Fall Acute Hip fx Acute Hyponatremia Acute Sepsis Acute Tibia/fibula fracture Acute Wound infection Acute Wound of left ankle Acute
[2018-09-15] MEDS: NS 1,000 ML IV SCH (15:55)
--- NOTE | 2018-09-15 15:55 | CPEKG ---
Test Reason : OPEN Blood Pressure : / mmHG Vent. Rate : 109 BPM Atrial Rate : 109 BPM P-R Int : 138 ms QRS Dur : 089 ms QT Int : 348 ms P-R-T Axes : 082 074 099 degrees QTc Int : 469 ms Sinus tachycardia Probable LVH with secondary repol abnrm Confirmed by Jaylon Mendosa ([id number]) on 09/15/2018 3:55:03 PM Referred By: Brett Harley Confirmed By:Jaylon Mendosa
[2018-09-15] MEDS ORDERED: BISACODYL 10 MG SUPP PR PRN (16:15)
[2018-09-15] MEDS ORDERED: POLYETHYLENE GLYCOL 3350 17 GM PKT PO PRN (16:15)
[2018-09-15] MEDS ORDERED: MAGNESIUM HYDROXIDE 30 ML UDCUP PO PRN (16:15)
[2018-09-15] MEDS ORDERED: VANCOMYCIN 750 MG in D5W 150 ML IV SCH (18:00)
[2018-09-15] MEDS: SENNOSIDES/DOCUSATE SODIUM TAB PO SCH (22:24)
[2018-09-15] MEDS: hydrALAZINE 20 MG/ML VIAL IVP PRN (22:38)
[2018-09-16] MEDS: LEVOTHYROXINE 25 MCG TAB PO SCH (04:11)
[2018-09-16] MEDS: NS 1,000 ML IV SCH (04:16)
[2018-09-16] MEDS: ASPIRIN 81 MG CHEWABLE TAB PO SCH (08:31)
[2018-09-16] MEDS: LABETALOL HCL 200 MG TAB PO SCH (08:31)
[2018-09-16] MEDS: SENNOSIDES/DOCUSATE SODIUM TAB PO SCH (08:31)
[2018-09-16] MEDS: PRAMIPEXOLE 0.25 MG TAB PO SCH (08:31)
[2018-09-16] MEDS: BACLOFEN 20 MG TAB PO PRN (08:48)
[2018-09-16] MEDS ORDERED: BACLOFEN 20 MG TAB PO SCH ×2 (09:00→21:00)
[2018-09-16] MEDS ORDERED: Dalfampridine [Ampyra] 10 MG PO SCH (09:00)
[2018-09-16] MEDS ORDERED: Armodafinil [Nuvigil] 150 MG PO SCH (09:00)
[2018-09-16] MEDS: VANCOMYCIN 500 MG in D5W 100 ML IV SCH (10:53)
[2018-09-16 11:21] VITALS: BP 156/75
[2018-09-16] MEDS ORDERED: LABETALOL HCL 200 MG TAB PO SCH (12:31)
[2018-09-16] MEDS ORDERED: DOXYCYCLINE HYCLATE 100 MG CAP/TAB PO SCH (12:45)
--- NOTE | 2018-09-16 14:28 | PDIAF ---
- Diagnosis Code Status: Do Not Resuscitate - Medication Management Discharge Medications: electronically signed and located in the Home Medication List. - Orders Services needed: Home Care, Registered Nurse, Master Accessories Repairer, Physical Therapy, Occupational Therapy, Speech Language Pathologist Home Care Face to Face: I certify that this patient was under my care and that I had the required [id number] encounter meeting the encounter requirements on the discharge day. My findings support the fact that the patient is homebound as defined in Home Care Face to Face Continued: CMS Chapter 7 Medicare Benefits Manual 30.1.1 , The condition of the patient is such that there exists a normal inability to leave home and consequently, leaving home would require a considerable and taxing effort. Isolation Type: None Diet Texture: Regular Texture Diet, Thin Liquids Additional Instructions: Here are your medication changes: 1. Start taking doxycycline 100mg twice daily this evening (09/16). You should take for 7 more days. 2. I increased your labetalol from 200mg twice daily to 400mg twice daily. 3. We recommend that you take a baby aspirin (81mg) daily. Please obtain a blood draw to monitor your platelet count this Friday. I put an order in for this. Resume outpatient wound care [facility] and [facility] - Labs/Radiology CBC w/diff Date: 09/18/18 - Follow Up Care Current Providers and Referrals: Patient,NotPresent [Primary Care Provider] - As per Instructions
--- NOTE | 2018-09-16 15:31 | ASMTDCNOTE ---
Case Management Discharge Discharge Order Complete? Answers: Yes Patient to Obtain Answers: via Family Medications Transportation Arranged Answers: Family/Friends Faxed Final Orders Answers: Yes Notes: [facility] Agency/Facility Transfer Answers: Yes Notes: to [facility] Report Printed & Faxed to Receiving Agency Family Notified Answers: Yes Notes: in room Discharge Comments Notes: 09/16/2018 Case Management Note Pt discharged with [facility]. Faxed final orders. Discussed with Daughter Juana [phone] who is primary caregiver and pt. Pt refusing SNF rehab. Requested 24 hour support from Juana. Provided info on palliative care. Case Management d/c poc: [facility] with family support. Date Signed: 09/16/2018 03:30 PM Electronically Signed By:Pari Jaquez RN
--- NOTE | 2018-09-16 15:35 | ASDISCHSUM ---
Discharge Information Plan Status:Home with Home Health Medically Cleared to Leave:09/15/2018 Discharge Date:09/15/2018 CM D/C Disposition:Home Health Service ADT D/C Disposition: Projected Discharge Date:09/16/2018 11:00 AM Transportation at D/C:Family Discharge Delay Reason: Follow-Up Date:09/16/2018 11:00 AM Discharge Slot: Final Diagnosis: Placement Information Referral Type:*Home Health Care Services Referral ID:[id number] Provider Name:[facility] [place] Address 1:[address] [place] [address] Address 2: City:[place] Selection Factors: State:[place] Patient Contact Information Contact Name:MARIAELENA Relationship:Nephew Address:[address] Work Phone: [facility] Phone: State/Zip Code:[place] [address] Email: Financial Information Financial Class:Medicare Primary Plan Desc:MEDICARE INPATIENT Primary Plan Number:[id number] Secondary Plan Desc:[employer] [employer] [place] Secondary Plan Number:[id number] Assessment Information LACE LACE Length of stay for Answers: 2 days current admission Acuity / Level of Answers: Yes Care: Did the patient have an inpatient admission? Comorbidities - select Answers: Other Notes: Multiple all that apply sclerosis; Encephalopat hy # of Emergency department Answers: 1-2 visits in the last 6 months Score: 7 Date Signed: 09/16/2018 03:31 PM Electronically Signed By:Pari Jauqez RN [facility] CM Progress Note CM Note CM Note Notes: Pt was admitted with sepsis, cellulitis in L LE, elevated troponins. acute renal failure, AMS. She has a hx of MS, HTN. Currently on IV ABX, wound care. Cardiology following. Pt is open with [facility] with their mobile PT. Referral sent for any home care needs. CM will follow for any d/c needs. D/C plan: TBD, [facility] if HC indicated Date Signed: 09/14/2018 03:28 PM Electronically Signed By:CLAIRE Jamison Case Management Discharge Plan Note Case Management Discharge Discharge Order Complete? Answers: Yes Patient to Obtain Answers: via Family Medications Transportation Arranged Answers: Family/Friends Faxed Final Orders Answers: Yes Notes: [facility] Agency/Facility Transfer Answers: Yes Notes: to [facility] Report Printed & Faxed to Receiving Agency Family Notified Answers: Yes Notes: in room Discharge Comments Notes: 09/16/2018 Case Management Note Pt discharged with [facility]. Faxed final orders. Discussed with Daughter Juana [phone] who is primary caregiver and pt. Pt refusing SNF rehab. Requested 24 hour support from Juana. Provided info on palliative care. Case Management d/c poc: [facility] with family support. Date Signed: 09/16/2018 03:30 PM Electronically Signed By:Pari Jaquez RN Intervention Information
== END 2018-09-16 16:32 | disposition home health service (06) | DRG 871 ==
LOC: EDUNIT# → F2W 20:15
PROVIDERS: ADMIT Internal Medicine; ATTEND Internal Medicine
DX: A41.9 Sepsis, unspecified organism (principal); J69.0 Pneumonitis due to inhalation of food and vomit; L89.614 Pressure ulcer of right heel, stage 4; L89.514 Pressure ulcer of right ankle, stage 4; L89.893 Pressure ulcer of other site, stage 3; E87.1 Hypo-osmolality and hyponatremia; L03.115 Cellulitis of right lower limb; G93.49 Other encephalopathy; N17.9 Acute kidney failure, unspecified; R65.20 Severe sepsis without septic shock; G35 Multiple sclerosis; I10 Essential (primary) hypertension; E03.9 Hypothyroidism, unspecified; D53.9 Nutritional anemia, unspecified; R06.89 Other abnormalities of breathing
CPT/HCPCS: 82435-PO; 82565-PO; 82947-PO; 84132-PO; 84295-PO; 84484-ER; 84520-PO; 85014-ER; 85520-90; 86022-90; 92610-GN; 96365; 97140-GP; 97163-GP; 97166-GO; 97530-GO; 97530-GP; 97535-GO; J0360; J0696; J1644; J3370

== ENCOUNTER 2018-09-24 14:24 | Inpatient (IN) | payer OTHER ==
--- NOTE | 2018-09-24 14:33 | EDPHY ---
H & P Time Seen by Provider: 09/24/18 14:27 HPI/ROS: CHIEF COMPLAINT: Confusion, left-sided weakness HISTORY OF PRESENT ILLNESS: 68-year-old female with multiple sclerosis and hypertension presents with confusion and left-sided weakness. She was last seen normal at 9:00 a.m.. Per EMS, home healthcare nurse found her confused, with left sided weakness and difficulty speaking just prior to arrival. History update at 1530: pt much improved, able to provide history. She has a history of hypertension and took hydralazine this morning, but does not think she took labetalol. When her home healthcare nurse arrived this afternoon, she felt confused and was having trouble speaking. She feels that her speaking is back to normal now and does not feel confused. She usually walks with a brace unassisted. She has not been ill recently. She has a pressure wound on the right lower extremity and is receiving daily wound care. REVIEW OF SYSTEMS: complete 10 point ROS reviewed and is negative except for the noted elements in the HPI Source: Patient - Medical/Surgical History Hx Asthma: No Hx Chronic Respiratory Disease: No Hx Diabetes: No Hx Cardiac Disease: No Hx Renal Disease: No Hx Cirrhosis: No Hx Alcoholism: No Hx HIV/AIDS: No Hx Splenectomy or Spleen Trauma: No Other PMH: HTN, MS - Social History Smoking Status: Former smoker - Physical Exam Exam: General Appearance: Alert, looks at me when speak, able to tell me her name, seems confused Eyes: Pupils equal and round, no conjunctival pallor or injection, EOMI ENT, Mouth: Mucous membranes moist Neck: Normal inspection Respiratory: Lungs are clear to auscultation Cardiovascular: Regular rate and rhythm Gastrointestinal: Abdomen is soft and nontender Neurological: Alert, oriented to person and place, able to hold arms and legs up equally against gravity for 5 sec, speech is slightly slurred Skin: Warm and dry Extremities: Bandage on right lower extremity Psychiatric: Mood and affect normal Constitutional: Initial Vital Signs Temperature (C) 36.4 C 09/24/18 14:35 Heart Rate 61 09/24/18 14:35 Respiratory Rate 18 09/24/18 14:35 Blood Pressure 224/101 H 09/24/18 14:35 O2 Sat (%) 97 09/24/18 14:35 O2 Delivery Mode Room Air Allergies/Adverse Reactions: amlodipine Allergy (Verified 09/24/18 14:45) Other-Enter Comments hydrochlorothiazide Allergy (Verified 09/24/18 14:45) Unknown Opioids - Morphine Analogues Allergy (Verified 09/24/18 14:45) Other-Enter Comments Home Medications: Medication Instructions Recorded Armodafinil [Nuvigil 150mg] 150 mg PO DAILY 04/26/15 Ascorbic Acid [Vitamin C 250 mg 250 mg PO DAILY 04/27/15 (*)] Levothyroxine [Synthroid 25 mcg 25 mcg PO DAILY06 04/27/15 (*)] hydrALAZINE [Apresoline 50 mg (*)] 50 mg PO TID 01/11/17 Baclofen [Baclofen 20 mg (*)] 40 mg PO DAILY 06/27/17 Interferon Beta-1A/Albumin [Rebif 44 mcg SQ MOWEFR@06/29/17 Rebidose 44 Mcg/0.5 ml] Polyethylene Glycol 3350 [Miralax 17 gm PO DAILY PRN 09/26/17 17 gm (*)] Ibuprofen [Motrin (*)] 600 mg PO DAILY PRN 01/20/18 [place]-3 Fatty Acids [Fish Oil 1000 1,000 mg PO DAILY 01/20/18 mg (*)] Pramipexole Di-HCl [Pramipexole 0.25 mg PO HS 04/22/18 Dihydrochloride] Dalfampridine [AMPYRA] 10 mg PO DAILY 06/25/18 Baclofen [Baclofen 20 mg (*)] 60 mg PO HS 09/14/18 Aspirin [Aspirin 81mg (*)] 81 mg PO DAILY tab.chew 09/16/18 Doxycycline Hyclate [Vibramycin 100 mg PO BID #14 capsule 09/16/18 100 MG (*)] Labetalol HCl [Trandate 200 mg (*)] 400 mg PO BID #60 tab 09/16/18 Medical Decision Making - Diagnostics EKG Interpretation: EKG interpreted by me reveals sinus bradycardia, rate 47, LVH, no ST or T segment changes. Interpretation: Abnormal EKG. Imaging Results: Head CT 09/24/18 14:28 Impression: Nothing acute on this noncontrasted evaluation. Head CTA 09/24/18 14:28 Impression: Normal. Findings and recommendations discussed with AIMEE BRITO at 3:15 PM hour, 09/24/2018. Final report concurs with initial preliminary interpretation. Neck CTA 09/24/18 14:28 Impression: No rate limiting stenosis or occlusion. Findings and recommendations discussed with Dr. Aimee Brito at 3:15 p.m. on September 24, 2018. Final report concurs with initial preliminary interpretation. Note: All stenoses are calculated using NASCET Criteria. Imaging: Discussed imaging studies w/ puddler helper Radiologist ED Course/Re-evaluation: This patient presents as a stroke alert with left-sided weakness and confusion prior to arrival. Neurologic exam on arrival reveals equal strength throughout and persistent confusion. Last seen normal 5.5hr ago. NIH stroke score 2 ( month, LUE ataxia). She is outside the window for IV tPA and neurologic symptoms seem to be resolving. She was sent directly to CT scan. She will have a CT brain and CTA of the head and neck. CT/CTA head and neck per Dr. Thompson: EDITH. Results discussed with the patient. She is much better and neurologic exam is remarkable only for ataxia of bilateral upper extremities with finger to nose testing. Discussion with the patient regarding elevated blood pressure. She is unsure if she took labetalol this morning. Labetalol 10 mg IV given, followed by usual evening dose of hydralazine. Patient will be admitted for further evaluation of TIA. The hospitalist service was consulted for admission. Differential Diagnosis: Altered mental status including but not limited to hypoglycemia, infectious process, electrolyte abnormality, head injury, CVA, and intoxicants. - Data Points Laboratory Results: Laboratory Results 09/24/18 14:37 09/24/18 14:37 09/24/18 14:37 Hemoglobin A1c 5.1 % % (4.0-6.0) Estim Average Glucose 100 mg/dL mg/dL (68-126) Medications Given: Baclofen (Baclofen) 60 mg PO HS RIZWAN Stop: 03/23/19 20:59 Last Admin: 09/24/18 21:21 Dose: 60 mg Doxycycline Hyclate (Doxycycline Hyclate) 100 mg PO BID RIZWAN PRN Reason: Protocol Stop: 10/24/18 20:59 Last Admin: 09/24/18 21:22 Dose: 100 mg Hydralazine HCl (Apresoline) 50 mg PO TID RIZWAN Stop: 03/23/19 21:59 Last Admin: 09/24/18 21:22 Dose: 50 mg Labetalol HCl (Trandate) 600 mg PO BID RIZWAN Stop: 03/23/19 18:03 Last Admin: 09/24/18 22:28 Dose: 600 mg Levothyroxine Sodium (Synthroid) 25 mcg PO DAILY06 RIZWAN Stop: 03/24/19 05:59 Last Admin: 09/25/18 05:36 Dose: 25 mcg Pramipexole Dihydrochloride (Mirapex) 0.25 mg PO HS RIZWAN Stop: 03/23/19 20:59 Last Admin: 09/24/18 22:27 Dose: 0.25 mg Discontinued Medications Aspirin (Aspirin) 273 mg PO EDNOW ONE Stop: 09/24/18 15:37 Last Admin: 09/24/18 15:58 Dose: 243 mg Hydralazine HCl (Apresoline) 50 mg PO ONCE ONE Stop: 09/24/18 17:23 Last Admin: 09/24/18 17:31 Dose: 50 mg Labetalol HCl (Labetalol Hcl) 10 mg IVP EDNOW ONE Stop: 09/24/18 16:01 Last Admin: 09/24/18 16:04 Dose: 10 mg Point of Care Test Results: Chemistry 09/24/18 09/24/18 14:32 14:31 POC Sodium 145 mEq/L mEq/L (135-145) POC Potassium 3.8 mEq/L mEq/L (3.3-5.0) POC Chloride 112 mEq/L H mEq/L (97-110) POC Total CO2 21 mEq/L L mEq/L (22-31) POC BUN 20 mg/dL mg/dL (7-23) POC Creatinine 1.2 mg/dL H mg/dL (0.6-1.0) POC Glucose 91 mg/dL mg/dL (70-100) POC Troponin I 0.01 ng/mL ng/mL (0.00-0.08) ISTAT H&H 09/24/18 14:32 POC Hgb 10.9 gm/dL L gm/dL (12.6-16.3) POC Hct 32 % L % (38-47) Departure - Departure Disposition: [facility] Acute Clinical Impression: Transient cerebral ischemia Qualifiers: Transient cerebral ischemia type: carotid artery syndrome (hemispheric) Qualified Code(s): G45.1 - Carotid artery syndrome (hemispheric) Condition: Fair
[2018-09-24 14:43] LABS: PLATELET COUNT 240 10^3/uL (150-400)
[2018-09-24] MEDS ORDERED: LABETALOL HCL 5 MG/ML 20 ML MDV IVP ONE (15:35)
[2018-09-24] MEDS ORDERED: ASPIRIN 81 MG CHEWABLE TAB PO ONE (15:36)
[2018-09-24] MEDS ORDERED: LABETALOL HCL 20 MG/4 ML INJ IVP ONE (16:00)
[2018-09-24] MEDS ORDERED: POLYETHYLENE GLYCOL 3350 17 GM PKT PO PRN (17:39)
[2018-09-24] MEDS ORDERED: ONDANSETRON 4 MG/2 ML VIAL IVP PRN (17:51)
[2018-09-24] MEDS ORDERED: ACETAMINOPHEN 325 MG TAB PO PRN (17:51)
[2018-09-24] MEDS ORDERED: ONDANSETRON DISINTEGRATING 4 MG TAB PO PRN (17:51)
--- NOTE | 2018-09-24 18:02 | PDGENHP ---
History and Physical - Chief Complaint altered mental status - History of Present Illness 68 yo female with h/o MS and recent admission for sepsis secondary to RLE wounds / cellulitis, presents to ED with confusion and possible left sided weakness. She is unable to provide history, so history is achieved from ED staff and chart review. She was at home and when her caregiver arrived, pt was found to be confused, with difficulty speaking and possibly had some left sided weakness. The weakness resolved upon arrival to the ED, but she remains confused. She denies CP, SOB or vision changes. No fevers. She is able to answer basic questions. She says she is in the ED because she fell out of bed. She does not complain of pain and has no obvious injuries. In the ED, CTA head and neck were negative for acute infarct of large vessel occlusion. She was quite hypertensive and received IV Labetalol and 50 mg po Hydralazine. She is admitted for further management. History Information - Allergies/Home Medication List Allergies/Adverse Reactions: amlodipine Allergy (Verified 09/24/18 14:45) Other-Enter Comments hydrochlorothiazide Allergy (Verified 09/24/18 14:45) Unknown Opioids - Morphine Analogues Allergy (Verified 09/24/18 14:45) Other-Enter Comments Home Medications: Armodafinil [Nuvigil 150mg] 150 mg PO DAILY 04/26/15 [Last Taken 04/22/18] Ascorbic Acid [Vitamin C 250 mg (*)] 250 mg PO DAILY 04/27/15 [Last Taken ] Levothyroxine [Synthroid 25 mcg (*)] 25 mcg PO DAILY06 04/27/15 [Last Taken ] hydrALAZINE [Apresoline 50 mg (*)] 50 mg PO TID 01/11/17 [Last Taken 04/22/18] Baclofen [Baclofen 20 mg (*)] 40 mg PO DAILY 06/27/17 [Last Taken 01/18/18] Interferon Beta-1A/Albumin [Rebif Rebidose 44 Mcg/0.5 ml] 44 mcg SQ MOWEFR@21 [Last Taken 01/16/18] Polyethylene Glycol 3350 [Miralax 17 gm (*)] 17 gm PO DAILY PRN 09/26/17 [Last Taken 10/29/17] Ibuprofen [Motrin (*)] 600 mg PO DAILY PRN 01/20/18 [Last Taken Unknown] [place]-3 Fatty Acids [Fish Oil 1000 mg (*)] 1,000 mg PO DAILY 01/20/18 [Last Taken 01/18/18] Pramipexole Di-HCl [Pramipexole Dihydrochloride] 0.25 mg PO HS 04/22/18 [Last Taken Unknown] Dalfampridine [AMPYRA] 10 mg PO DAILY 06/25/18 [Last Taken Unknown] Baclofen [Baclofen 20 mg (*)] 60 mg PO HS 09/14/18 [Last Taken Unknown] I have personally reviewed and updated: family history, medical history, social history, surgical history - Past Medical History Additional medical history: Multiple sclerosis. history of chronic hyponatremia due to SIADH. chronic anemia. hypertension. lower extremity chronic wounds. fall risk - Surgical History Additional surgical history: right femoral fracture repair - Family History Positive for: CAD - Social History Smoking Status: Former smoker Additional social history: patient lives with her , occasionally ambulates, but uses wheelchair for long distance. Review of Systems Review of Systems: ROS: 10pt was reviewed & negative except for what was stated in HPI & below Physical Exam Physical Exam: Temp Pulse Resp BP Pulse Ox 36.4 C 66 16 211/109 H 97 09/24/18 14:35 09/24/18 17:30 09/24/18 17:30 09/24/18 17:30 09/24/18 17:30 Constitutional: no apparent distress Eyes: PERRL Ears, Nose, Mouth, Throat: moist mucous membranes Cardiovascular: regular rate and rhythym Respiratory: no respiratory distress, clear to auscultation Gastrointestinal: normoactive bowel sounds, soft, non-tender abdomen Skin: warm, other (RLE wounds with focal dressings, no significant erythema and no drainage, also has LLE wounds) Musculoskeletal: full muscle strength Neurologic: other (no facial asymmetry, neg pronator drift) Psychiatric: encephalopathic Lab Data & Imaging Review 09/24/18 14:37 09/24/18 14:37 WBC 5.13 10^3/uL (3.80-9.50) 09/24/18 14:37 RBC 3.54 10^6/uL (4.18-5.33) L 09/24/18 14:37 Hgb 10.3 g/dL (12.6-16.3) L 09/24/18 14:37 POC Hgb 10.9 gm/dL (12.6-16.3) L 09/24/18 14:32 Hct 31.5 % (38.0-47.0) L 09/24/18 14:37 POC Hct 32 % (38-47) L 09/24/18 14:32 MCV 89.0 fL (81.5-99.8) 09/24/18 14:37 MCH 29.1 pg (27.9-34.1) 09/24/18 14:37 MCHC 32.7 g/dL (32.4-36.7) 09/24/18 14:37 RDW 15.1 % (11.5-15.2) 09/24/18 14:37 Plt Count 240 10^3/uL (150-400) 09/24/18 14:37 MPV 9.8 fL (8.7-11.7) 09/24/18 14:37 Neut % (Auto) 58.3 % (39.3-74.2) 09/24/18 14:37 Lymph % (Auto) 32.6 % (15.0-45.0) 09/24/18 14:37 Weber % (Auto) 6.0 % (4.5-13.0) 09/24/18 14:37 Eos % (Auto) 2.3 % (0.6-7.6) 09/24/18 14:37 Baso % (Auto) 0.6 % (0.3-1.7) 09/24/18 14:37 Nucleat RBC Rel Count 0.0 % (0.0-0.2) 09/24/18 14:37 Absolute Neuts (auto) 2.99 10^3/uL (1.70-6.50) 09/24/18 14:37 Absolute Lymphs (auto) 1.67 10^3/uL (1.00-3.00) 09/24/18 14:37 Absolute Monos (auto) 0.31 10^3/uL (0.30-0.80) 09/24/18 14:37 Absolute Eos (auto) 0.12 10^3/uL (0.03-0.40) 09/24/18 14:37 Absolute Basos (auto) 0.03 10^3/uL (0.02-0.10) 09/24/18 14:37 Absolute Nucleated RBC 0.00 10^3/uL (0-0.01) 09/24/18 14:37 Immature Gran % 0.2 % (0.0-1.1) 09/24/18 14:37 Immature Gran # 0.01 10^3/uL (0.00-0.10) 09/24/18 14:37 POC Sodium 145 mEq/L (135-145) 09/24/18 14:32 Sodium 142 mEq/L (135-145) 09/24/18 14:37 POC Potassium 3.8 mEq/L (3.3-5.0) 09/24/18 14:32 Potassium 4.2 mEq/L (3.5-5.2) 09/24/18 14:37 POC Chloride 112 mEq/L (97-110) H 09/24/18 14:32 Chloride 111 mEq/L (97-110) H 09/24/18 14:37 Carbon Dioxide 22 mEq/l (22-31) 09/24/18 14:37 POC Total CO2 21 mEq/L (22-31) L 09/24/18 14:32 Anion Gap 9 mEq/L (6-14) 09/24/18 14:37 POC BUN 20 mg/dL (7-23) 09/24/18 14:32 BUN 22 mg/dL (7-23) 09/24/18 14:37 Creatinine 1.2 mg/dL (0.6-1.0) H 09/24/18 14:37 POC Creatinine 1.2 mg/dL (0.6-1.0) H 09/24/18 14:32 Estimated GFR 45 09/24/18 14:37 Glucose 87 mg/dL (70-100) 09/24/18 14:37 POC Glucose 91 mg/dL (70-100) 09/24/18 14:32 Calcium 9.3 mg/dL (8.5-10.4) 09/24/18 14:37 POC Troponin I 0.01 ng/mL (0.00-0.08) 09/24/18 14:31 Visualized and Interpreted EKG results: Yes EKG Interpretation: Positive for: LVH, normal sinsus rhythm Assessment & Plan Assessment: Acute encephalopathy - Likely metabolic, TIA vs hypertensive encephalopathy. CT / CTA head and neck neg. -admit for TIA workup -neurochecks, echo, MRI -monitor on telemetry -will increase ASA from 81 mg daily to 325 -neurology consult requested for am Hypertensive urgency - permissive hypertension is appropriate given concern for TIA, but acknowledge she may be encephalopathic from her elevated BP. +LVH on EKG and recent echo. -will lower to SBP <200 for tonight -resume home meds: hydralazine and will increase labetalol to 600 mg bid ( home dose 400 mg bid) -would add norvasc as 3rd agent if necessary -could start cardene drip in meantime if difficult to control RLE wounds - recently admitted for sepsis/cellulitis. This does not appear acutely infected. -wound care -cont po doxycycline, should be near completion of tx course MS - often requires wheelchair at home, has caregiver -cont home meds: nuvigil and ampyra -holding beta interferon for now, resume per neurology recs -PT/OT evals JOSSELYN - suspect component of CKD with Cr fluctuating from 1 - 1.4, currently 1.2, improved since recent JOSSELYN with Cr of 1.7 during sepsis event. -monitor for now, avoid nephrotoxic agents noting recent contrast load Anemia - hgb above baseline, follow Full code DVT PPLX - Lovenox Dispo - admit to inpt, anticipate >48 hrs hospitalization for TIA workup and hypertension management.
[2018-09-24] MEDS ORDERED: ENALAPRILAT DIHYDRATE 1.25 MG/ML VIAL IVP PRN (18:03)
[2018-09-24] MEDS ORDERED: LABETALOL HCL 200 MG TAB PO SCH ×2 (18:04→21:00)
--- NOTE | 2018-09-24 19:26 | CPEKG ---
Test Reason : OPEN Blood Pressure : / mmHG Vent. Rate : 047 BPM Atrial Rate : 047 BPM P-R Int : 166 ms QRS Dur : 091 ms QT Int : 511 ms P-R-T Axes : 082 069 080 degrees QTc Int : 452 ms Sinus bradycardia Left ventricular hypertrophy Confirmed by Aimee Madsen ([id number]) on 09/24/2018 7:26:31 PM Referred By: Aimee Madsen Confirmed By:Aimee Madsen
[2018-09-24] MEDS: BACLOFEN 20 MG TAB PO SCH (21:21)
[2018-09-24] MEDS: DOXYCYCLINE HYCLATE 100 MG CAP/TAB PO SCH (21:22)
[2018-09-24] MEDS: PRAMIPEXOLE 0.25 MG TAB PO SCH (22:27)
[2018-09-24] MEDS: LABETALOL HCL 200 MG TAB PO SCH (22:28)
[2018-09-25] MEDS: LEVOTHYROXINE 25 MCG TAB PO SCH (05:36)
[2018-09-25] MEDS: DOXYCYCLINE HYCLATE 100 MG CAP/TAB PO SCH ×2 (09:35→21:28)
[2018-09-25] MEDS: BACLOFEN 20 MG TAB PO SCH ×2 (09:35→21:30)
[2018-09-25] MEDS: ASPIRIN 325 MG TAB PO SCH (09:35)
[2018-09-25] MEDS: LABETALOL HCL 200 MG TAB PO SCH ×3 (09:36→23:53)
[2018-09-25] MEDS: ENOXAPARIN 40 MG/0.4 ML SYR SC SCH (09:38)
--- NOTE | 2018-09-25 10:09 | ASMTCMCOM ---
CM Note CM Note Notes: Pt admitted for possible TIA, was found confused by home health worker. She is current with [facility], PT/OT/BOAT BUILDER AND REPAIRER ordered, barbi pending, KARLO w/f. She has a hx of MS, can walk but uses a wheelchair for longer distances. DC Plan: TBD Date Signed: 09/25/2018 10:08 AM Electronically Signed By:Lovely Arzola RN
--- NOTE | 2018-09-25 11:27 | GCON ---
[f rep st] CONSULTATION REFERRING PHYSICIAN: Dr. Cabello CHIEF COMPLAINT: Multiple sclerosis. HISTORY OF PRESENT ILLNESS: Ms. Sauceda is a very pleasant 68-year-old lady with a history of multiple sclerosis and recent admission for sepsis related to wound and cellulitis. She was brought back to the Emergency Department for confusion and possible left-sided weakness. The patient came in confused and was found to have initial blood pressure of 224/101. With treatment of blood pressure, her symptoms improved. She had a CT of the head without contrast which showed nothing acute, no hemorrhage. Angio of the head and neck showed no large vessel occlusion or significant vascular/acute findings. On laboratory exam, she has an elevated creatinine of 1.2. Her history is unclear as there is no collateral history. She is on interferon for multiple sclerosis but does not recall who her neurologist is. I looked into her outpatient records in [place], and she is not seen in our practice. REVIEW OF SYSTEMS: A 10-point review of systems was attempted but unable to be completed based on the patient's mental status. For past medical history, social history, family history, home medications, allergies see Dr. Cabello's H and P. PHYSICAL EXAM: VITAL SIGNS: Blood pressure is 170s now over 92. She is afebrile at 36.6, heart rate is 70s to 80s regular. GENERAL: She is awake and alert. NEUROLOGIC: She has significant psychomotor slowing. Her face is symmetric. Extraocular movements are full. On motor exam, she has full power in both upper and lower extremities with individual muscle testing, but there is less volitional movement in the left upper extremity versus the right. It was difficult to examine her based on her degree of psychomotor slowing. IMPRESSION/PLAN: 1. Hypertensive urgency. 2. Recent history of sepsis. 3. Longstanding diagnosis of multiple sclerosis. It is not clear what caused the new symptoms in this patient. Certainly, it may have been hypertensive encephalopathy with or without cerebral infarction. I think a multiple sclerosis flare is possible but less likely than a mechanism related to her initial severe hypertension urgency. At this point, I think it would be reasonable to proceed with an MRI brain without contrast to exclude any acute infarct or any other findings. She can restart her interferon once available. We will follow up after the MRI brain to review the results and make further recommendations accordingly. She can continue aspirin daily for vascular prophylaxis and have blood pressure control. We will follow up after MRI and appreciate the consultation. Seventy minutes floor time reviewing records, inpatient and outpatient; over 50 % in direct counseling and coordination of care. /[id number]/MODL MTDD
[2018-09-25] MEDS: Dalfampridine [Ampyra] 10 MG PO SCH (12:41)
[2018-09-25] MEDS: Armodafinil [Nuvigil 150mg] 150 MG PO SCH (12:41)
--- NOTE | 2018-09-25 15:03 | HOSPPROG ---
Hospitalist Progress Note Assessment/Plan: 68y female with AMS. First encounter, chart reviewed. #Acute encephalopathy - Likely metabolic, TIA vs hypertensive encephalopathy. CT / CTA head and neck neg. -admit for TIA workup -neurochecks, echo, MRI -monitor on telemetry -will increase ASA from 81 mg daily to 325 -neurology consult appreciated #Hypertensive urgency - permissive hypertension is appropriate given concern for TIA, - acknowledge she may be encephalopathic from her elevated BP. +LVH on EKG and recent echo. -will lower to SBP <200 -resume home meds: hydralazine and will increase labetalol to 600 mg bid ( home dose 400 mg bid) -would add norvasc as 3rd agent if necessary #RLE wounds - recently admitted for sepsis/cellulitis. This does not appear acutely infected. -wound care -cont po doxycycline, should be near completion of tx course #Dehydration - start IVF - in past pt has responded well to hydration #MS - often requires wheelchair at home, has caregiver - cont home meds: nuvigil and ampyra - holding beta interferon for now, resume per neurology recs - PT/OT evals #JOSSELYN - suspect component of CKD with Cr fluctuating from 1 - 1.4, currently 1.2, improved since recent JOSSELYN with Cr of 1.7 during sepsis event. - monitor for now, avoid nephrotoxic agents noting recent contrast load #Anemia - hgb above baseline, follow DNR per MOST form DVT PPLX - Lovenox Dispo - admit to inpt, anticipate >48 hrs hospitalization for TIA workup and hypertension management. Pt currently refusing MRI, but not decisional Per AMBROSIO Jenkins, wait until tomorrow for MRI Will check UA No signs of infection Labs in am Subjective: Minimal interaction. Unable to answer some questions. Objective: Vital Signs Temp Pulse Resp BP Pulse Ox 36.3 C 64 17 117/58 L 95 09/25/18 11:33 09/25/18 11:33 09/25/18 11:33 09/25/18 11:33 09/25/18 11:33 09/24/18 09/25/18 09/26/18 05:59 05:59 05:59 Intake Total 10 Output Total 500 Balance -490 - Physical Exam Constitutional: not in pain, chronically ill appearing, cachectic Eyes: PERRL, anicteric sclera, EOMI Ears, Nose, Mouth, Throat: moist mucous membranes, hearing normal, ears appear normal Cardiovascular: regular rate and rhythym, No JVD Respiratory: no respiratory distress, no rales or rhonchi, reduced air movement Gastrointestinal: normoactive bowel sounds, No tenderness, No ascites Skin: warm, normal color, No mottled Musculoskeletal: no joint effusions, generalized weakness, No normal joint ROM Neurologic: No AAOx3 Psychiatric: not anxious, encephalopathic, No thought process linear ICD10 Worksheet Patient Problems: Problems Problem Status Onset Hip fx Acute Hyponatremia Acute ARF (acute renal failure) Acute Anemia associated with acute blood loss Acute Tibia/fibula fracture Acute Altered mental status Acute Wound of left ankle Acute Elevated troponin Acute Elevated BUN Acute Ankle ulcer Acute Sepsis Acute Wound infection Acute Fall Acute Dehydration Acute Severe sepsis Acute Cellulitis Acute Encephalopathy Acute Transient cerebral ischemia Acute
--- NOTE | 2018-09-25 15:24 | ASMTCMCOM ---
CM Note CM Note Notes: Spoke with Bill [phone], pt's nephew ([email or web address]). He was unaware that pt was in the hospital, informed him of the phone number we have. Number no longer in service, new number updated in chart. CM spoke w/ Caitlin from [facility], pt is current with them. Their RN called [phone] when pt appeared confused and was unable to speak. Nephew states that pt gets confused when she gets dehydrated. Would prefer we wait to get MRI tomorrow if not better in am. DC Plan: TBD Date Signed: 09/25/2018 03:24 PM Electronically Signed By:Lovely Arzola RN
[2018-09-25] MEDS: NS 1,000 ML IV SCH ×2 (16:14→21:25)
--- NOTE | 2018-09-25 16:52 | PDMN ---
Medical Necessity Medical necessity: Change to IP, as of 09/25/18, per COMMUNICATION AND OUTREACH MANAGER & MCG M-360; los >2 mn for ongoing management of likely TIA vs hypertensive encephalopathy w/ dehydration, anemia & JOSSELYN; requiring further workup/monitoring, IVFs, med management & therapies; hx recent hospitalization for sepsis/cellulitis/RLE wounds, MS
--- NOTE | 2018-09-25 17:40 | WOCRNPDOC ---
MATT Advanced Assessment Note - Skin Integrity Problem, Advanced Assess Right Lateral Ankle Pressure Injury Dressing Type: Open to Air Exudate Amount: None Tawana Wound Tissue: Intact Wound Bed Color: Brown Wound Bed Constitution: Scab Wound Edges: Attached, Well Defined Site Measurement - Head-to-Toe Length X Width X Depth (cm): 2.2x2.0.2 Pressure Injury Stage: Stage 4 Pressure Injury Present on Admit: Yes Skin Integrity Problem Comment: Patient well known to wound care and [facility]. Wounds to her right foot have made great progress since my last encounter and all measure smaller than notes from her last hospitalization indicate. Wound care will follow. Right Proximal Dorsal Foot Pressure Injury Dressing Type: Hydrofera Blue (steri strip) Dressing Description: Clean/Dry, Intact Exudate Amount: None Integumentary Issue Intervention: Dressing Removed Tawana Wound Tissue: Erythema, Scarred Wound Bed Color: Marmarth Wound Bed Constitution: Granulation Tissue Wound Edges: Epithelizing, Attached, Well Defined Site Measurement - Head-to-Toe Length X Width X Depth (cm): 0.5x1x0.2 Pressure Injury Stage: Stage 3 Pressure Injury Present on Admit: Yes Right Distal Dorsal Foot Pressure Injury Dressing Type: Hydrofera Blue (steri strip) Dressing Description: Clean/Dry, Intact Exudate Amount: None Integumentary Issue Intervention: Dressing Removed Tawana Wound Tissue: Ecchymotic, Scarred Wound Bed Color: Marmarth Wound Bed Constitution: Granulation Tissue Wound Edges: Epithelizing, Attached, Well Defined Site Measurement - Head-to-Toe Length X Width X Depth (cm): 1.4x1x0.3 Pressure Injury Stage: Stage 3 Pressure Injury Present on Admit: Yes
[2018-09-25] MEDS: PRAMIPEXOLE 0.25 MG TAB PO SCH (21:20)
[2018-09-26] MEDS: LEVOTHYROXINE 25 MCG TAB PO SCH (05:45)
[2018-09-26] MEDS: NS 1,000 ML IV SCH ×2 (08:28→20:02)
[2018-09-26] MEDS: ENOXAPARIN 40 MG/0.4 ML SYR SC SCH (08:35)
--- NOTE | 2018-09-26 11:53 | NEUROPROG ---
Assessment: 1. Hypertensive urgency 2. Longstanding diagnosis of multiple sclerosis The patient remains confused and generally weak. We do not know her baseline in terms of her longstanding multiple sclerosis in terms of her cognitive and motor baseline. She came in with systolic pressures of over 200 which may have contributed to her initial presentation. However, again, it is unclear what her baseline is and if she has a decline from that. I think we need to proceed with an MRI brain without contrast as ordered to better understand whether she had an acute infarct with her hypertensive presentation. This will help as give better prognostic information to the patient and her family going forward. She will remain on her multiple sclerosis medications and anti-platelet therapy for vascular prophylaxis. We Will follow-up after MRI brain is complete to review and make further recommendations accordingly. She will have a swallowing evaluation today her concern from Nursing. Subjective: No seizures or new symptoms overnight Objective: Vital Signs Temp Pulse Resp BP Pulse Ox 36.4 C 72 22 H 176/83 H 93 09/26/18 11:26 09/26/18 11:26 09/26/18 11:26 09/26/18 11:26 09/26/18 11:26 09/25/18 09/26/18 09/27/18 05:59 05:59 05:59 Intake Total 1292 Output Total 550 Balance 742 She is awake and alert Significant psychomotor slowing I asked her if we can proceed with MRI, she said "yes" 35 total minutes floor time; over 50% counseling and coordination of care. Allergies/Adverse Reactions: amlodipine Allergy (Verified 09/24/18 14:45) Other-Enter Comments hydrochlorothiazide Allergy (Verified 09/24/18 14:45) Unknown Opioids - Morphine Analogues Allergy (Verified 09/24/18 14:45) Other-Enter Comments
[2018-09-26] MEDS: Armodafinil [Nuvigil 150mg] 150 MG PO SCH (12:36)
[2018-09-26] MEDS: BACLOFEN 20 MG TAB PO SCH ×2 (12:40→22:02)
[2018-09-26] MEDS: ASPIRIN 325 MG TAB PO SCH (12:41)
[2018-09-26] MEDS: LABETALOL HCL 200 MG TAB PO SCH ×2 (12:41→22:03)
[2018-09-26] MEDS: DOXYCYCLINE HYCLATE 100 MG CAP/TAB PO SCH ×2 (12:41→22:03)
[2018-09-26] MEDS: Dalfampridine [Ampyra] 10 MG PO SCH (12:45)
--- NOTE | 2018-09-26 14:19 | HOSPPROG ---
Hospitalist Progress Note Assessment/Plan: 68y female with AMS, hypertensive emergency #CVA - MRI today showed tiny foci of recent small lacunar infarcts, c/w hypertensive emergency presentation. CT / CTA head and neck neg. Remains weak and minimally interactive. Discussed with neurology. -echo ordered per neuro -cont to monitor on telemetry -cont asa 325, add statin (LDL 109) -BP control, SBP goal <140 #Hypertensive emergency - SBP improved from 230's on presentation to 150's today -cont home meds: hydralazine and increased labetalol to 600 mg bid (home dose 400 mg bid) -will add norvasc as 3rd agent if necessary #Metabolic encephalopathy - in setting of acute CVA, hypertensive emergency and MS -will try to obtain home supply of nuvigil, ?if stopping this is contributing to her decreased mentation and strength -cont IVF's, may also be component of volume depletion #RLE wounds - recently admitted for sepsis/cellulitis. This does not appear acutely infected. -wound care -cont po doxycycline, should be near completion of tx course #Volume depletion - still poor oral intake - cont IVFs as above #MS - often requires wheelchair at home, has caregiver - cont home meds: nuvigil (don't have) and ampyra - resume interferon when available - PT/OT #JOSSELYN - suspect component of CKD with Cr fluctuating from 1 - 1.4, currently 1.2 , improved since recent JOSSELYN with Cr of 1.7 during sepsis event. - monitor for now, avoid nephrotoxic agents noting recent contrast load #Anemia - hgb above baseline, follow DNR per MOST form DVT PPLX - Lovenox Dispo - cont inpt, will likely need SNF Subjective: PT very sleepy. Awakens to verbal stimulus and follows commands. Denies pain. She falls asleep quickly. Hasn't ambulated today. Objective: Vital Signs Temp Pulse Resp BP Pulse Ox 36.4 C 64 22 H 176/83 H 93 09/26/18 11:26 09/26/18 12:41 09/26/18 11:26 09/26/18 12:41 09/26/18 11:26 09/25/18 09/26/18 09/27/18 05:59 05:59 05:59 Intake Total 1292 Output Total 550 Balance 742 - Physical Exam Constitutional: no apparent distress Eyes: PERRL Ears, Nose, Mouth, Throat: dry mucous membranes Cardiovascular: regular rate and rhythym Respiratory: no respiratory distress, clear to auscultation Gastrointestinal: normoactive bowel sounds, soft, non-tender abdomen Skin: warm Musculoskeletal: generalized weakness Psychiatric: encephalopathic ICD10 Worksheet Patient Problems: Problems Problem Status Onset Transient cerebral ischemia Acute ARF (acute renal failure) Acute Altered mental status Acute Anemia associated with acute blood loss Acute Ankle ulcer Acute Cellulitis Acute Dehydration Acute Elevated BUN Acute Elevated troponin Acute Encephalopathy Acute Fall Acute Hip fx Acute Hyponatremia Acute Sepsis Acute Severe sepsis Acute Tibia/fibula fracture Acute Wound infection Acute Wound of left ankle Acute
[2018-09-26] MEDS ORDERED: INTERFERON BETA SQ SCH (14:23)
[2018-09-26] MEDS ORDERED: ALBUMIN SQ SCH (14:23)
[2018-09-26] MEDS: ATORVASTATIN CALCIUM 20 MG TAB PO SCH (17:15)
[2018-09-26] MEDS: PRAMIPEXOLE 0.25 MG TAB PO SCH (22:03)
[2018-09-27] MEDS: LEVOTHYROXINE 25 MCG TAB PO SCH (06:48)
[2018-09-27] MEDS: NS 1,000 ML IV SCH (06:48)
[2018-09-27] MEDS: Armodafinil [Nuvigil 150mg] 150 MG PO SCH (10:21)
[2018-09-27] MEDS: DOXYCYCLINE HYCLATE 100 MG CAP/TAB PO SCH (10:22)
[2018-09-27] MEDS: ASPIRIN 325 MG TAB PO SCH (10:22)
[2018-09-27] MEDS: LABETALOL HCL 200 MG TAB PO SCH ×2 (10:23→21:36)
[2018-09-27] MEDS: ATORVASTATIN CALCIUM 20 MG TAB PO SCH (10:23)
[2018-09-27] MEDS: BACLOFEN 20 MG TAB PO SCH ×2 (10:23→21:36)
[2018-09-27] MEDS: LISINOPRIL 2.5 MG TAB PO SCH (10:27)
[2018-09-27] MEDS: ENOXAPARIN 40 MG/0.4 ML SYR SC SCH (10:38)
[2018-09-27] MEDS: Dalfampridine [Ampyra] 10 MG PO SCH (10:38)
--- NOTE | 2018-09-27 14:34 | NEUROPROG ---
Assessment: 1. Hypertensive emergency, resolved 2. Longstanding diagnosis of multiple sclerosis 3. Small, punctate diffusion-weighted abnormality on brain MRI (right occipital region) 4. multiple sclerosis Brain MRI shows a small, punctate diffusion-weighted abnormality in the right occipital region. This may be a result of the hypertensive emergency causing an acute small vessel microvascular type infarct. We discussed at length. MRI also shows white matter changes consistent with outside diagnosis of multiple sclerosis. The patient is more lucid awake and has better recall today. She now can remember that she likely had missed several doses of her antihypertensive medications. We discussed that this may have led to the hypertensive crisis and her presenting symptoms, MRI findings etc. She and her family, who are present, all agree and understand. Going forward, we will complete the stroke workup with echocardiogram. She will continue aspirin and statin medications daily. She should have an outpatient 30 day event monitor for screening for paroxysmal atrial fibrillation. She is agreeable. She has had no atrial fibrillation that I am aware of while in the hospital. If there is any significant abnormalities on echocardiogram such as intracardiac thrombus, please contact Neurology service review and make further recommendations accordingly.. We also need to consider disposition and will defer to therapies on this. Neurology will sign off and follow-up as needed. Dr. Gongora takes over the service tomorrow. Please do not hesitate to call the neurology service if there any changes in neurologic status with this very pleasant patient or questions. She has a neurologist in [place] (Dr. Asaf Dave) he manages her multiple sclerosis. She will have outpatient Neurology follow-up with him 4-6 weeks after discharge. 35 total minutes floor time; over 50% counseling and coordination of care. Subjective: No new symptoms Objective: Vital Signs Temp Pulse Resp BP Pulse Ox 36.1 C 61 10 L 144/74 H 97 09/27/18 12:00 09/27/18 12:00 09/27/18 12:00 09/27/18 12:00 09/27/18 12:00 09/26/18 09/27/18 09/28/18 05:59 05:59 05:59 Intake Total 1292 2969 992 Output Total 550 Balance 742 2969 992 The patient is more awake and alert Psychomotor slowing improved Cognition grossly has improved during conversation For example, she is able to tell me who her outpatient neurologist is today. Allergies/Adverse Reactions: amlodipine Allergy (Verified 09/24/18 14:45) Other-Enter Comments hydrochlorothiazide Allergy (Verified 09/24/18 14:45) Unknown Opioids - Morphine Analogues Allergy (Verified 09/24/18 14:45) Other-Enter Comments
--- NOTE | 2018-09-27 15:43 | ASMTCMCOM ---
CM Note CM Note Notes: Chart reviewed. Patient requiring higher level of care per therapy. Patient reports she has stayed at [facility] in the past and would like to return there. Referral via allscripts. CM to follow. Plan: To SNF Date Signed: 09/27/2018 03:42 PM Electronically Signed By:Karley Martin RN
--- NOTE | 2018-09-27 15:51 | HOSPPROG ---
Hospitalist Progress Note Assessment/Plan: 68y female with AMS, hypertensive emergency #CVA - MRI yest showed tiny foci of recent small lacunar infarcts, c/w hypertensive emergency presentation. CT / CTA head and neck neg. Discussed with neurology. -echo done, result pending -cont to monitor on telemetry -cont asa 325 and statin (LDL 109) -BP control, SBP goal <140 #Hypertensive emergency - SBP improved from 230's on presentation to 150's today , goal SBP <140 -cont home meds: hydralazine and increased labetalol to 600 mg bid (home dose 400 mg bid) -add low dose lisinopril today #Metabolic encephalopathy - in setting of acute CVA, hypertensive emergency and MS, mentation much improved today with hydration and better BP control #RLE wounds - recently admitted for sepsis/cellulitis. This does not appear acutely infected. -wound care -s/p course of oral doxy, d/c'd today #Volume depletion - improved after IVF's, taking po better today -dc ivfs #MS - often requires wheelchair at home, has caregiver - cont home meds: nuvigil. ampyra, interferon - cont PT/OT #JOSSELYN - suspect component of CKD with Cr fluctuating from 1 - 1.4, currently 1.2 , improved since recent JOSSELYN with Cr of 1.7 during sepsis event. - monitor for now, avoid nephrotoxic agents noting recent contrast load #Anemia - hgb above baseline, follow DNR per MOST form DVT PPLX - Lovenox Dispo - cont inpt, will likely need SNF Subjective: Pt feels better today, more awake and alert. Eating and drinking better. Denies CP, SOB. Still very weak. Objective: Vital Signs Temp Pulse Resp BP Pulse Ox 36.1 C 57 L 7 L 118/58 L 98 09/27/18 15:16 09/27/18 15:16 09/27/18 15:16 09/27/18 15:16 09/27/18 15:16 09/26/18 09/27/18 09/28/18 05:59 05:59 05:59 Intake Total 1292 2969 992 Output Total 550 Balance 742 2969 992 - Physical Exam Constitutional: no apparent distress Eyes: PERRL Ears, Nose, Mouth, Throat: moist mucous membranes Cardiovascular: regular rate and rhythym Respiratory: no respiratory distress Gastrointestinal: normoactive bowel sounds, soft, non-tender abdomen Skin: warm Musculoskeletal: generalized weakness Neurologic: AAOx3 Psychiatric: interacting appropriately ICD10 Worksheet Patient Problems: Problems Problem Status Onset Transient cerebral ischemia Acute ARF (acute renal failure) Acute Altered mental status Acute Anemia associated with acute blood loss Acute Ankle ulcer Acute Cellulitis Acute Dehydration Acute Elevated BUN Acute Elevated troponin Acute Encephalopathy Acute Fall Acute Hip fx Acute Hyponatremia Acute Sepsis Acute Severe sepsis Acute Tibia/fibula fracture Acute Wound infection Acute Wound of left ankle Acute
[2018-09-27] MEDS: PRAMIPEXOLE 0.25 MG TAB PO SCH (21:36)
[2018-09-28] MEDS: LEVOTHYROXINE 25 MCG TAB PO SCH (06:36)
[2018-09-28] MEDS: LISINOPRIL 2.5 MG TAB PO SCH (08:47)
[2018-09-28] MEDS: ENOXAPARIN 40 MG/0.4 ML SYR SC SCH (08:47)
[2018-09-28] MEDS: LABETALOL HCL 200 MG TAB PO SCH (08:48)
[2018-09-28] MEDS: BACLOFEN 20 MG TAB PO SCH (08:48)
[2018-09-28] MEDS: ATORVASTATIN CALCIUM 20 MG TAB PO SCH (08:48)
[2018-09-28] MEDS: ASPIRIN 325 MG TAB PO SCH (08:48)
[2018-09-28] MEDS: Dalfampridine [Ampyra] 10 MG PO SCH (08:51)
[2018-09-28] MEDS: Armodafinil [Nuvigil 150mg] 150 MG PO SCH (08:51)
--- NOTE | 2018-09-28 11:51 | PDIAF ---
- Diagnosis Diagnosis: hypertension, CVA Code Status: Do Not Resuscitate - Medication Management Discharge Medications: electronically signed and located in the Home Medication List. PICC Care - Routine: N/A - Orders Services needed: Registered Nurse, Physical Therapy, Occupational Therapy, Speech Language Pathologist Isolation Type: None Diet Recommendation: cardiac -low fat low salt Diet Texture: Dysphagia 2 - Mechanically Altered - Chopped, Ground, Thin Liquids , Meds Whole in Puree Additional Instructions: follow up with your neurologist- Asaf Kilpatrick in 4-6 weeks - Follow Up Care Current Providers and Referrals: Patient,NotPresent [Primary Care Provider] - As per Instructions
--- NOTE | 2018-09-28 11:53 | PDIAF ---
- Diagnosis Diagnosis: hypertension, CVA Code Status: Do Not Resuscitate - Medication Management Discharge Medications: electronically signed and located in the Home Medication List. PICC Care - Routine: N/A - Orders Services needed: Registered Nurse, Physical Therapy, Occupational Therapy, Speech Language Pathologist Isolation Type: None Diet Recommendation: cardiac -low fat low salt Diet Texture: Dysphagia 2 - Mechanically Altered - Chopped, Ground, Thin Liquids , Meds Whole in Puree Wound Care Instructions: continue wound care to b/l LE wounds Additional Instructions: follow up with your neurologist- Asaf Kilpatrick in 4-6 weeks - Follow Up Care Current Providers and Referrals: Patient,NotPresent [Primary Care Provider] - As per Instructions
--- NOTE | 2018-09-28 12:04 | ASMTLACE ---
LACE Length of stay for Answers: 3 days current admission Acuity / Level of Answers: Yes Care: Did the patient have an inpatient admission? Comorbidities - select Answers: History of falls all that apply Moderate or severe liver or renal disease Other Notes: MS # of Emergency department Answers: 3-4 visits in the last 6 months Score: 17 Date Signed: 09/28/2018 12:02 PM Electronically Signed By:Chichi Chan RN
--- NOTE | 2018-09-28 12:36 | ASMTDCNOTE ---
Case Management Discharge Discharge Order Complete? Answers: Yes Patient to Obtain Answers: Other Notes: [facility] Medications Transportation Arranged Answers: Other Notes: [facility] [facility] will Pick (Date 09/28/2018 04:45 PM & Time) Faxed Final Orders Answers: Yes Agency/Facility Transfer Answers: Yes Report Printed & Faxed to Receiving Agency Family Notified Answers: No Notes: Patient declined Discharge Comments Notes: Patient medically stable for d/c today. All orders sent to [facility]. RN to call report. [employer] has arranged a 16:45 pick up attendant with their wheelchair van. Date Signed: 09/28/2018 12:34 PM Electronically Signed By:Chichi Chan RN
[2018-09-28 16:04] VITALS: BP 138/65
--- NOTE | 2018-09-28 18:38 | GDS ---
[f rep st] DISCHARGE SUMMARY DISCHARGE DIAGNOSES: 1. Ischemic stroke. 2. Hypertensive emergency. 3. Metabolic encephalopathy, improved. 4. Chronic lower extremity wounds. 5. Advanced multiple sclerosis. 6. Acute kidney injury with suspected chronic kidney disease with the baseline creatinine fluctuatin g from 1 to 1.4. 7. Anemia at baseline. CONSULTANTS: David Horton MD, Neurology. HISTORY: For details, please see history and physical dated September 24, 2018. In brief, the patient is a 68-year-old female with history of multiple sclerosis and hypertension who presented to the emergency department with altered mental status. She was admitted to the hospital for further management. HOSPITAL COURSE: Patient admitted to the med/surg unit. She was markedly hypertensive on arrival, w hich was thought likely to be contributing to her encephalopathic presentation. A TIA workup ensued. A brain MRI revealed tiny foci of increased signal suggesting recent small lacunar infarcts in the right occipital lobe. It is thought this occurred in the setting of her hypertensive emergency. Her blood pressure was slowly lowered. On the day of discharge, her blood pressure is 138/65, noting si gnificant improvement from her presenting systolic pressures of 220s to 230s. Her mentation has retu rned to baseline. Given her new strokes, her aspirin dose is increased to 325 mg daily. In addition , she was started on statin therapy. An echocardiogram was obtained, which was negative for left marquis tricular thrombus. She was evaluated by our therapy services, who felt she would benefit from [facility] rehab. With respect to her hypertension, her labetalol dose was up titrated from 400 mg b.i.d. to 600 mg b.i .d. In addition, lisinopril was added at 2.5 mg p.o. daily. DISPOSITION: Patient is discharged to a long term facility in stable condition. FOLLOWUP: The patient is to follow up with her outpatient neurologist, Dr. Asaf John. Would consider a 30 day outpatient cardiac event monitor for screening for paroxysmal atrial fibrillation. DISCHARGE MEDICATIONS: Please see [email or web address] for completed updated outpatient medication list MEDICATION LIST ON DISCHARGE: Include aspirin 325 p.o. daily, Lipitor 20 mg p.o. daily, atorvastatin 20 mg p.o. daily, labetalol 600 mg p.o. twice daily, lisinopril 2.5 mg p.o. daily, Tylenol 650 p.o. q.4 hours p.r.n. She will continue all other outpatient medications as previously prescribed, includ ing Nuvigil 150 mg p.o. daily, Synthroid 25 mcg daily, hydralazine 50 mg p.o. three times daily, bacl ofen 40 mg p.o. daily, interferon beta 44 mcg Friday, Friday, Friday, Pramipexole 0.25 mg p.o. at bedtime, Ampyra 10 mg p.o. daily, baclofen 60 mg p.o. at bedtime, ibuprofen 600 mg p.o. daily p.r.n. DISCONTINUED MEDICATIONS: Doxycycline is discontinued, as she completed her course of this. CHANGED MEDICATIONS: As above. Aspirin is increased from 81 to 325 mg daily and labetalol is increa sed from 400 twice daily to 600 twice daily. /[id number]/MODL
--- NOTE | 2018-09-29 08:24 | ASDISCHSUM ---
Discharge Information Plan Status:SNF Medically Cleared to Leave: Discharge Date:09/28/2018 05:26 PM D/C Disposition:Group Home Facility ADT D/C Disposition:Home, Routine, Self-Care Projected Discharge Date:09/28/2018 11:00 AM Transportation at D/C:Wheelchair Van Discharge Delay Reason: Follow-Up Date:09/28/2018 11:00 AM Discharge Slot: Final Diagnosis: Placement Information Referral Type:*Home Health Care Services Referral ID:[id number] Provider Name: Address 1: Phone Number: Address 2: Fax Number: City: Selection Factors: State: Referral Type:*Alf/SNF Referral ID:[id number] Provider Name:[facility] Address 1:[address] Phone Number: Address 2: Fax Number: [facility]:Anna Selection Factors: State:[place] Patient Contact Information Contact Name:MARIAELENA Relationship:Nephew Address:[address] [place] [address] Work Phone: City:[place] Alternate Phone: State/Zip Code:[place] [address] Email: Financial Information Financial Class:Medicare Primary Plan Desc:MEDICARE INPATIENT Primary Plan Number:[id number] Secondary Plan Desc:FLORENCE HAILEE COWLITZ Secondary Plan Number:[id number] Assessment Information LACE LACE Length of stay for Answers: 3 days current admission Acuity / Level of Answers: Yes Care: Did the patient have an inpatient admission? Comorbidities - select Answers: History of falls all that apply Moderate or severe liver or renal disease Other Notes: MS # of Emergency department Answers: 3-4 visits in the last 6 months Score: 17 Date Signed: 09/28/2018 12:02 PM Electronically Signed By:Chichi Chan RN [facility] Progress Note CM Note CM Note Notes: Pt admitted for possible TIA, was found confused by home health worker. She is current with [facility], PT/OT/RESIDENTIAL BUILDER ordered, barbi pending, KARLO w/f. She has a hx of MS, can walk but uses a wheelchair for longer distances. DC Plan: TBD Date Signed: 09/25/2018 10:08 AM Electronically Signed By:Lovely Arzola RN [facility] Progress Note CM Note CM Note Notes: Spoke with Bill [phone], pt's nephew (mdpoa). He was unaware that pt was in the hospital, informed him of the phone number we have. Number no longer in service, new number updated in chart. CM spoke w/ Caitlin from [facility], pt is current with them. Their RN called 911 when pt appeared confused and was unable to speak. Nephew states that pt gets confused when she gets dehydrated. Would prefer we wait to get MRI tomorrow if not better in am. DC Plan: TBD Date Signed: 09/25/2018 03:24 PM Electronically Signed By:Lovely Arzola RN [facility] Progress Note CM Note CM Note Notes: Chart reviewed. Patient requiring higher level of care per therapy. Patient reports she has stayed at [facility] in the past and would like to return there. Referral via allksripts. KARLO to follow. Plan: To SNF Date Signed: 09/27/2018 03:42 PM Electronically Signed By:Karley Martin RN Case Management Discharge Plan Note Case Management Discharge Discharge Order Complete? Answers: Yes Patient to Obtain Answers: Other Notes: [facility] Medications Transportation Arranged Answers: Other Notes: [facility] will Pick (Date 09/28/2018 04:45 PM & Time) Faxed Final Orders Answers: Yes Agency/Facility Transfer Answers: Yes Report Printed & Faxed to Receiving Agency Family Notified Answers: No Notes: Patient declined Discharge Comments Notes: Patient medically stable for d/c today. All orders sent to [facility]. CARLA to call report. [employer] has arranged a 16:45 strip picker with their wheelchair van. Date Signed: 09/28/2018 12:34 PM Electronically Signed By:Chichi Chan RN Intervention Information Intervention Type:*IM-Signed Date of Service:09/28/2018 12:26 PM Patient Type:Inpatient Staff Member:CARLA Chan, Chichi Hours: Discipline: Severity: Comment:
--- NOTE | 2018-10-01 16:14 | PQFORM ---
PHYSICIAN QUERY FORM Needs Your Response This query form is being sent to you to assure this patient record is coded properly. Please respond to the question below: LAUNDRY PRICING CLERK QUESTION: Dear Dr. Cabello, In the 09/25 Dietary Assessment notes patient had a BMI of 16.0 and diagnosed with severe malnutrition. On 09/26, Nutritional Services noted patient to have "severe malnutrition per ASPEN/AND guidelines in the context of chronic illness (MS), with weight loss, and muscle loss." Based on this documentation does the patient have Mild protein calorie Malnutrition Moderate protein calorie Malnutrition ___x__Severe protein calorie Malnutrition Unable to determine Other more appropriate diagnosis (please specify) Thank you KAUR Mcdaniel HIM/Coding Dept. INSTRUCTIONS FOR RESPONSE: Answer question by clicking on the "Edit Document" button. Move cursor to area below the stars. When complete, hit "Save." Click on the "Sign" button, then click "Sign" again. Type in your PIN and hit "Enter." MTDD
== END 2018-09-28 17:26 | DRG 64 ==
LOC: EDUNIT# → F3N 18:10 → OBSVTOIN 09-25 14:57
PROVIDERS: ADMIT Hospitalist; ATTEND Hospitalist
DX: I63.9 Cerebral infarction, unspecified (principal); G93.41 Metabolic encephalopathy; E43 Unspecified severe protein-calorie malnutrition; L89.514 Pressure ulcer of right ankle, stage 4; L89.893 Pressure ulcer of other site, stage 3; I16.1 Hypertensive emergency; N17.9 Acute kidney failure, unspecified; G35 Multiple sclerosis; N18.9 Chronic kidney disease, unspecified; D64.9 Anemia, unspecified; Z87.891 Personal history of nicotine dependence; E86.0 Dehydration; Z66 Do not resuscitate
CPT/HCPCS: 82435-PO; 82565-PO; 82947-PO; 84132-PO; 84295-PO; 84484-ER; 84520-PO; 85014-ER; 92507-GN; 92523-GN; 92526-GN; 92610-GN; 96374; 97110-GP; 97112-GO; 97162-GP; 97166-GO; 97530-GP; 97535-GO; G0378; J1650